=== PATIENT | male | born 1955 | race African-American/Black ===

== ENCOUNTER 2020-09-23 06:25 | Day surgery (SDC) | payer BC ==
--- OUTSIDE RECORDS SUMMARY | 2020-09-19 15:49 | XMS REPORT | Clinical Summary ---
:1955 Author Organization [facility] [employer] Address [address] [place] [address] Care Team Providers Name Role Phone Asked, Pcp Primary Care Provider Unavailable Allergies No Known Active Allergies Medications Medication Sig Dispensed Refills Start End Date Status Date amLODIPine (NORVASC) 10 Take 10 mg 0 Active mg tablet by mouth daily. aspirin (ECOTRIN) 81 MG Take 81 mg 0 Active enteric coated tablet by mouth daily. atorvastatin (LIPITOR) Take 80 mg 0 Active 80 MG tablet by mouth nightly. clopidogreL (PLAVIX) 75 Take 75 mg 0 Active mg tablet by mouth daily. hydroCHLOROthiazide Take 12.5 0 02/26/20 Discontinued (MICROZIDE) 12.5 mg mg by mouth 20 (Stop Taking at capsule every Discharge) morning. potassium chloride Take 10 mEq 0 02/26/20 Discontinued (K-DUR) 10 MEQ CR by mouth 20 (S top Taking at tablet daily. Discharge) valsartan (DIOVAN) 160 Take 160 mg 0 02/25 Discontinued MG tablet by mouth 20 (Stop Taki ng at daily. Discharge) valsartan (DIOVAN) 320 Take 1 30 tablet 2 0 MG tablet tablet (320 0 20 mg total) by mouth daily for 30 days. carvediloL (COREG) 6.25 Take 1 60 tablet 2 MG tablet tablet 0 20 (6.25 mg total) by mouth 2 (two) times a day for 30 days. docusate sodium Take 1 60 capsule 0 03/27/20 Exp ired (COLACE) 100 MG capsule capsule 0 20 (100 mg total) by mouth 2 (two) times a day for 30 days. nicotine (NICODERM CQ) Place 1 30 patch 1 2 0 21 mg/24 hr patch on 0 20 the skin daily for 30 days. Active Problems Problem Noted Date Chest pain 02/23/2020 NSTEMI (non-ST elevated myocardial infarction) 019 Essential hypertension 12/06/2018 Mixed hyperlipidemia 12/06/2018 Encounters Date Type Specialty Care Team Description 02/24/2020 Surgery Procedural Attyusuf, Left heart cath w lv Cardiology MD Nicole gram cors [[id number] (CPT)] 02/23/2020 - Hospital Encounter General Internal Lewis, NSTEM I (non-ST elevated myocardial infarction) (HCC) (Primary Dx); 02/26/2020 Medicine Dee O. Sr., Coronary inez ry disease due to lipid rich plaque; Essential hyper tension; Unstable angina pectoris (HCC); Mixed hyperlipi demia after 09/19/2019 Surgical History Surgery Date Site/Laterality Comments CARDIAC CATHETERIZATION 12/06/2018 N/A Procedur e: CV LEFT HEART CATH LV GRAM WIT H CORS; Surgeon: Nicole Rizo MD; Location: [facility] Opening Machine Cleaner Invasive Loc ation; Service: Cardiol ogy; Laterality: N/A; Medical devices from this surgery are in t he Implants section. CARDIAC CATHETERIZATION 12/06/2018 N/A Procedur e: PCI stent; Surgeon: Nicole Rioz MD; Location: [facility] Opening Machine Cleaner Invasive Loc ation; Service: Cardiol ogy; Laterality: N/A; Medical devices from this surgery are in t he Implants section. CARDIAC ELECTROPHYSIOLOGY 12/06/2018 N/A Proced ure: Ep temporary PROCEDURE lead insertion; Surgeon: Nicole Rizo MD; Location: [facility] Opening Machine Cleaner Invasive Locatio n; Service: Cardiol ogy; Laterality: N/A; Medical devices from this surgery are in t he Implants section. CARDIAC CATHETERIZATION 02/24/2020 N/A Procedur e: Left heart cath w lv gram cors; Surgeon: Nicole Rizo MD; Location: [facility] Opening Machine Cleaner Invasive Locatio n; Service: Cardiol ogy; Laterality: N/A; Medical devices from this surgery are in t he Implants section. CARDIAC CATHETERIZATION 02/24/2020 N/A Procedur e: Pci percutaneous cardiac angiopla sty; Surgeon: Nicole Rizo MD; Location: [facility] Opening Machine Cleaner Invasive Loc ation; Service: Cardiol ogy; Laterality: N/A; Medical devices from this surgery are in t he Implants section. Medical History Medical History Date Comments Hypertension Social History Tobacco Use Types Packs/Day Years Used Date Never Assessed Sex Assigned at Date Recorded Not on file Last Filed Vital Signs Vital Sign Reading Time Taken Comments Blood Pressure 151/88 02/26/2020 10:20 Dr. Saucedo aw are. AM CDT Pulse 67 02/26/2020 10:20 AM CDT Temperature 35.6 C (96 F) 02/26/2020 7:58 AM CDT Respiratory Rate 20 02/26/2020 7:58 AM CDT Oxygen Saturation 99% 02/26/2020 10:20 AM CDT Inhaled Oxygen - - Concentration Weight 82.2 kg (181 lb 3.2 02/26/2020 4:56 oz) AM CDT Height 165.1 cm (5' 5") 02/24/2020 8:59 AM CDT Body Mass Index 30.15 02/24/2020 8:59 AM CDT Plan of Treatment Health Maintenance Due Date Last Done Comments COLONOSCOPY SCREENING 09/29/2006 SHINGLES VACCINES (#1) 09/29/2006 INFLUENZA VACCINE 06/04/2020 Implants Implanted Type Area Plate Slitter And Inspector Device Shelf Model / Identifier Expiration Serial / Date Lot Stent Catheter Synergy (Otw) 3.00mm X 20mm - [id number] Coronary N/A: N/A [facility] [id number] / Implanted: 12/06/2018 at [facility] (Quantity not on file) Gopal nts INTERVENTIONAL / CARDIOLOGY Stent Catheter Synergy (Otw) 3.50mm X 32mm - [id number] Coronary N/A: N/A [facility] [id number] / Implanted: 12/06/2018 at [facility] (Quantity not on file) Gopal nts INTERVENTIONAL / CARDIOLOGY Stent Catheter Synergy (Otw) 3.50mm X 12mm - [id number] Coronary N/A: N/A [facility] [id number] / Implanted: 12/06/2018 at [facility] (Quantity not on file) Gopal nts INTERVENTIONAL / CARDIOLOGY Stent Catheter Synergy (Otw) 2.50mm X 12mm - [id number] Coronary N/A: N/A [facility] [id number] / Implanted: 02/24/2020 at [facility] (Quantity not on file) Gopal nts INTERVENTIONAL / CARDIOLOGY Procedures Procedure Name Priority Date/Time Associated Comments Diagnosis ESTIMATED GFR Routine 02/26/2020 5:45 Results fo r this AM CDT procedure are i n the results section. BASIC METABOLIC PANEL Routine 02/26/2020 5:45 Re sults for this AM CDT procedure are i n the results section. HC COMPLETE BLD COUNT Routine 02/26/2020 5:45 Re sults for this W/AUTO DIFF AM CDT procedure are i n the results section. ESTIMATED GFR Routine 02/25/2020 4:30 Results fo r this AM CDT procedure are i n the results section. PLATELET FUNCTION Routine 02/25/2020 4:30 Result s for this P2Y12 AM CDT procedure are i n the results section. BASIC METABOLIC PANEL Routine 02/25/2020 4:30 Re sults for this AM CDT procedure are i n the results section. HC COMPLETE BLD COUNT Routine 02/25/2020 4:30 Re sults for this W/AUTO DIFF AM CDT procedure are i n the results section. POC GLUCOSE Routine 02/24/2020 9:03 Results for this PM CDT procedure are i n the results section. CV PCI Routine 02/24/2020 2:48 Results for this PM CDT procedure are i n the results section. CV FRACTIONAL FLOW Routine 02/24/2020 2:48 Resul ts for this RESERVE PM CDT procedure are i n the results section. CV LEFT HEART CATH LV Routine 02/24/2020 2:48 Re sults for this GRAM WITH CORS PM CDT procedure are in the results section. ACTIVATED CLOTTING Routine 02/24/2020 1:45 Resul ts for this TIME PM CDT procedure are i n the results section. LIPID PANEL Routine 02/24/2020 4:45 Results for this AM CDT procedure are i n the results section. THYROID STIMULATING Routine 02/24/2020 4:45 Resu lts for this HORMONE AM CDT procedure are i n the results section. T4, FREE Routine 02/24/2020 4:45 Results for this AM CDT procedure are i n the results section. ESTIMATED GFR Routine 02/24/2020 4:45 Results fo r this AM CDT procedure are i n the results section. BASIC METABOLIC PANEL Routine 02/24/2020 4:45 Re sults for this AM CDT procedure are i n the results section. HC COMPLETE BLD COUNT Routine 02/24/2020 4:45 Re sults for this W/AUTO DIFF AM CDT procedure are i n the results section. ECG 12-LEAD Routine 02/23/2020 7:35 Results for this PM CDT procedure are i n the results section. TTE COMPLETE, W Routine 02/23/2020 6:00 Results for this CONTRAST, W DOPPLER PM CDT procedur e are in (C8929) the results section. TROPONIN Routine 02/23/2020 5:02 Results for this PM CDT procedure are i n the results section. after 09/19/2019 Results Estimated GFR (02/26/2020 5:45 AM CDT)Only the most recent of3 resultswithin the time period is included. Estimated GFR 72 mL/min/1.73 [facility] Comment: m2 HOSPITAL Catergory Units Interpretation G1 >=90 Normal or high G2 60-89 Mildly decreased G3a 45-59 Mildly to moderately decreas ed G3b 30-44 Moderately to severely decre ased G4 15-29 Severely decreased G5 <15 Kidney failure The eGFR was calculated using the Chronic Kidney Disea se Epidemiology Collaboration (CKD-EPI) equation. Interpretation is based on recommendations of the National Kidney Foundation-Kidney Disease Outcomes Nasim lity Initiative (NKF-KDOQI) published in 2014. Specimen Performing Organization Address City/State/ZIP Code Phon e Number [facility] DEPARTMENT OF PATHOLOGY AND [address] [place], [place] [phone] GENOMIC MEDICINE [address] [address] CBC with platelet and differential (02/26/2020 5:45 AM CDT)Only the most recent of3 resultswithin the time period is included. WBC 7.62 4.50 - 11.00 [facility] k/[facility] RBC 4.45 4.40 - 6.00 [facility] HGB 14.0 14.0 - 18.0 [facility] g/dL [facility] HCT 41.3 41.0 - 51.0 % [facility] MCV 92.8 82.0 - 100.0 [facility] MCH 31.5 27.0 - 34.0 pg [facility] MCHC 33.9 31.0 - 37.0 [facility] g/dL HOSPITAL RDW - SD 44.6 37.0 - 55.0 fL [facility] MPV 10.1 8.8 - 13.2 fL [facility] Platelet count 262 150 - 400 k/uL [facility] Nucleated RBC 0.00 /100 WBC [facility] Neutrophils 43.8 39.0 - 69.0 % [facility] Lymphocytes 38.3 25.0 - 45.0 % [facility] Monocytes 13.5 (H) 0.0 - 10.0 % [facility] Eosinophils 3.4 0.0 - 5.0 % [facility] Basophils 0.7 0.0 - 1.0 % [facility] Immature granulocytes 0.3Comment: 0.0 - 1.0 % [facility] "[facility] granulocytes" (promyelocytes , myelocytes, metamyelocytes ) Specimen Blood Performing Organization Address City/[facility] Phon e Number [facility] DEPARTMENT OF PATHOLOGY AND [address] [place] [address] [phone] [address] Basic metabolic panel (02/26/2020 5:45 AM CDT)Only the most recent of3 results within the time period is included. Pathologist Sig nature Sodium 135 135 - 148 mEq/L [facility] Potassium 4.0 3.5 - 5.0 mEq/L [facility] Chloride 99 98 - 112 mEq/L [facility] CO2 23 (L) 24 - 31 mEq/L [facility] Anion gap 13@ANIO 7 - 15 mEq/L [facility] BUN 17 8 - 23 mg/dL [facility] Creatinine 1.23 (H) 0.70 - 1.20 mg/dL [facility] Glucose 114 (H) 65 - 99 mg/dL [facility] Calcium 9.3 8.8 - 10.2 mg/dL [facility] Specimen Blood Performing Organization Address City/State/[facility] Phon e Number [facility] DEPARTMENT OF PATHOLOGY AND [address] [place] [address] [phone] [address] Platelet function P2Y12 (02/25/2020 4:30 AM CDT) Platelet function 192 [facility] P2Y12 Comment: HOSPITAL Test results are reported in P2Y12 Reaction Units (PRU ). Platelet Function P2Y12 indicates the extent of platel et aggregation in the presence of P2Y12 antagonist. Definitive therapeutic reference ranges have not been established for this test. For patients on clopidogrel, clinical studi es have shown that a P2Y12 result above 230 to 240 PRU is associated with an increase risk of arterial thrombosis, while a result l ess than 180 PRU is associated with an increased risk of bleeding. Test results may be adversely affected by therapy with the GPIIb/IIIa inhibitors. Drugs that affect platele t function may be detected up to 14 days after ingestion. The p latelet function recovery time varies among individuals and is longer for patients with renal dysfunction. Other test limi tations include patients with low hematocrit values or low pedro telet counts. This test is not intended for evaluation of patients w ith inherited platelet disorders. Specimen Blood Performing Organization Address City/[facility] Phon e Number [facility] DEPARTMENT OF PATHOLOGY AND [address] [place], [place] [phone] POC glucose (02/24/2020 9:03 PM CDT) [facility] POC glucose 123 (H) 65 - 99 mg/dL [facility] Comment: HOSPITAL Screw Machine Setter Name: Curry Toussaint Device ID: [id number] Chartable: [facility] Notified RN Specimen Blood Performing Organization Address City/[facility] Phon e Number [facility] DEPARTMENT OF PATHOLOGY AND [address] [place], [place] [phone] laborer golf course procedure (02/24/2020 2:48 PM CDT) [facility] [employer] Cath EF Estimated 53 % Autrement (HotelHotel) Specimen Narrative Performed At This result has an attachment that is no t available. Attending: Dr. Nicole Rizo [employer] Interventional Fellow: Mila Doll EQUIPMENT/ANTICOAGULATION: Right Common Femoral Artery 6F Sheath XB LAD 3.5 Guide Catheter Hi-Torque Floppy XS coronary wire Anticoagulation: Angiomax bolus and Infusion with AC T >250 sec prior to procedure PROCEDURAL DETAILS: Coronary arteriography showed normal left main segment . LAD had plaques without significant stenosis. First diagonal had a p roximal lesion of about 95%. Circumflex artery showed obtuse marginal branch that bifurcated in the inferior segment has an ostial lesio n of around 75%. Right coronary artery had stents proximal to distal wi th the distal in-stent stenosis around 50%. Left ventriculography was normal. No significant aor tic or mitral valve disease. Left ventricular ejection fraction around 5 5%. Coronary intervention: The RCA was engaged with the FR4 Guide Catheter and a Verrata Pressure coronary wire was advanced into the distal PDA. The le nile in the mid and distal RCA were assessed for significance. An iFR valu e of 0.99 was measured distally determining non-significance of the 60% ISR lesions. The LMT was engaged with the XB LAD 3.5 Guide Cathet er and a Verrata pressure coronary wire was advanced into the distal OM 2. The lesion involving in the proximal OM2 vessel was assessed for significance. An iFR value of 0.96 was measured determining non-significanc e of this 60% lesion. The LMT was engaged with the XB LAD 3.5 Guide Cathet er and a Hi-Torque Floppy XS coronary wire was advanced into the distal f irst diagonal. The lesion in the proximal D1 was pre-dilated with a 1.5 x 8mm semi-compliant balloon and stented with a 2.5 x 12mm Synergy YOJANA at 1 2atm. Final angiography revealed no evidence of dissection or perf oration; there was CLARISA 3 flow and 0% residual stenosis. HEMOSTASIS: Manual Pressure ADDITIONAL POST-PROCEDURE MEDICATIONS: PLAN: 1. ASA 81mg daily 2. Clopidogrel 75mg daily . 3. Cardiac medical therapy and aggressive risk factor modification. Cardiac rehabilitation. 4. Transferred in stable condition Performing Organization Address City/[facility]/ZIP Code Phon e Number [facility] [address] [place] [phone], Activated clotting time (02/24/2020 1:45 PM CDT) Pathologist [facility] Activated clotting 358 (H) 96 - 152 sec [facility] Comment: HOSPITAL Screw Machine Setter Name: Raina Bautista Device ID: [id number] Specimen Performing Organization Address [facility] Code Phon e Number [facility] DEPARTMENT OF PATHOLOGY AND [address] [place] [phone] GENOMIC MEDICINE [address] [address] Thyroid stimulating hormone (02/24/2020 4:45 AM CDT) Pathologist [facility] TSH 3.79 0.27 - 4.20 uIU/mL [facility] ITAL Specimen Performing Organization Address City/[facility] Phon e Number [facility] DEPARTMENT OF PATHOLOGY AND [address] [place] [address] [phone] [address] T4, free (02/24/2020 4:45 AM CDT) Pathologist Sig nature T4, free 1.2 0.9 - 1.7 ng/dL [facility] L Specimen Performing Organization Address [facility] Phon e Number [facility] DEPARTMENT OF PATHOLOGY AND [address] [place] [address] [phone] [address] Lipid panel (02/24/2020 4:45 AM CDT) Cholesterol 142 <200 mg/dL [facility] Triglycerides 152 (H) <150 mg/dL [facility] HDL cholesterol 34 (L) >40 mg/dL [facility] LDL cholesterol 84Comment: Result <100 mg/dL [place] obtained by direct [facility] LDL measurement [facility] interpretation Comment: [facility] Total Cholesterol (mg/dL) HOSPIT AL <200 Desirable 200-239 Borderline-high >=240 High Triglycerides (mg/dL) <150 Normal 150-199 Borderline-high 200-499 High >=500 Very high HDL Cholesterol (mg/dL) <40 Low (male) <40 Low (female) LDL Cholesterol (mg/dL) <100 Optimal 100-129 Near or above optimal 130-159 Borderline-high 160-189 High >=190 Very high Risk Catergories that modify LDL goals. Risk Catergories LDL goal (mg/d L) CHD and CHD risk equivalent <100 (10-year risk >20%) Multiple (2+) risk factors <130 (10-year risk =<20%) 0-1 risk factors <160 (<10-year risk) Defining levels of lipids in metabolic syndrome Triglycerides >=150 mg/dL HDL Cholesterol Men <40 mg /dL Women <40 mg/ dL Non-HDL cholesterol is a second target for therapy in persons with high triglycerides (>=200 mg/dL) Specimen Performing Organization Address City/[facility] Phon e Number [facility] DEPARTMENT OF PATHOLOGY AND [address] [place] [phone] GENOMIC MEDICINE [facility] [address] [place] [address] ECG 12 lead (02/23/2020 7:35 PM CDT) Pathologist Sig nature Ventricular rate 60 [facility] Atrial rate 60 [facility] [place] interval 174 [facility] QRSD interval 98 [facility] QT interval 414 H MUSE QTC interval 414 [facility] M[facility] P axis 1 53 [facility] QRS axis 1 -33 H MUSE T wave axis -75 [facility] MUSE EKG impression Normal sinus rhythm-Left axi s deviation-Moderate voltage criteria for LVH, may be normal variant ( R in aVL , Wood product )-Anterior infarct , age undetermined-T wave abnormality, consider inferior [facility] USE ischemia-Abnormal ECG-In automated comparison with ECG of 07-DEC-2018 05:16,-An terior infarct is now present- Specimen Narrative Performed At This result has an attachment that is no t available. Performing Organization Address City/State/ZIP Code Phon e Number [facility] MUSE [address] [place] [address] Transthoracic Echocardiogram Complete, (w Contrast, Strain and 3D if needed) (02/23/2020 6:00 PM CDT) Specimen Narrative Performed At [facility] Echo cardiography Report [address] [facility], [place] [address], [place] [address] Pat.Name: ELIUD SAUCEDO Pat.ID: [id number] .Date: 02/23/2020 Refer.MD: DEE SAUCEDO MD Exam Time: 5:36:00 PM Study Type:R outine Echo Height: 65in Weight: 184lb BSA: 1.91 m2 Ag e: 1955,64Y Sex: MALE BP: 161/93 HR: 60 bpm Sonogr phr: Heather Miller RDCS Pat. Stat.:Inpatient Room: Study Status:Final Echo Event ID:[id number] Order ID: [id number] Reason for Study:Chest pain, cardiac sebastian ology suspected History / Clinical:Hypertension, Chest P ain, Coronary Artery Disease Procedures: 2D Echo, Colorflow Doppler, Strain, Portable, Intravenous Lumason Contrast Race: B SUMMARY: LV EF is lower limits of normal. Estimated EF is 50-54%. RV systolic function is normal. FINDINGS: LV: LV size is normal. Concentr ic left ventricular remodeling. Reduced average LV global longitudinal strain at -12.7%. LV EF is lower limits of nor mal. Estimated EF is 50-54%. RV: RV size is normal. RV systo lic function is normal. LA: LA size is normal. RA: RA size is normal. AO: Aortic root diameter is nor mal. TOM: No pericardial effusion. IAS: Interatrial septum is redun dant. AV: No structural AV abnormalit ies noted. MV: No structural MV abnormalit ies noted. PV: No structural PV abnormalit ies noted. TV: No structural TV abnormalit ies noted. A trace of tricuspid regurgitation Mccabe: Diastolic dysfunction Grade I (Mild): Impaired relaxation with normal LV filling pr essures. Other: Insufficient TR jet to estim ate PA systolic pressure. MEASUREMENTS: 2D Parasternal Long Thorofare Ao An 2 cm LVPWd 1.1 cm Ao Rtd 3.6 cm Index 1.9 cm/m2 LA Ds 3.5 cm IVSd 1.1 cm RWT 0.45 LVIDd 4.9 cm Index 2.6 cm/m2 LV Mass 200 g (122-1 74) LVIDs 3.2 cm LVM In dex 105 g/m LV%fs 35 % LVOT 2 cm LA Sng Plane LA Area 18 cm (8.8-23.4) LA Vol 55 ml Index 29 ml/m2 LA LngAx 5.5 cm RA Sng Plane RA Vol 33 ml Index 17 ml/m2 RA LngAx 5 cm RA Area 14 cm (8.3-1 9.5) LVOT LVOT Area 3.2 cm DOPPLER LVOT Stroke Vol LVOT TVI 20 cm HR 63 bpm LVOT LVOT SV 64 ml LVOT CO 4 l/min SVi 34 ml/m LVOT C I 2.1 l/m/m WALL MOTION: RESTING WALL MOTION: Basal Inferior, Mid Inferior cisneros are a kinetic. Basal Inferoseptal, Basal Inferolateral cisneros are hypokineti c. Normal wall motion in all other cisneros. Wall Index = 1.4 Signed 02/23/2020 09:45 PM Cameron Adams M.D. Procedure Note Interface, Radiology Results In - 2019 9:45 PM CDT Echocardiography Report [address] [place] [address] Pat.Name: LEWISPUSHPANY Gerry Pat.I D: [id number] .Date: 02/23/2020 Refer .MD: DEE SAUCEDO MD Exam Time: 5:36:00 PM Study Type:Routine Echo Height: 65in Weigh t: 184lb BSA: 1.91 m2 Age: 1109/29/1955,64Y Sex: MALE BP: 161/93 HR: 60 bpm Sonog rphr: Heather Miller RDCS Pat. Stat.:Inpatient Room: Study Status:Final Echo Event ID:[id number] Order ID: [id number] Reason for Study:Chest pain, cardiac sebastian ology suspected History / Clinical:Hypertension, Chest P ain, Coronary Artery Disease Procedures: 2D Echo, Colorflow Doppler, Strain, Portable, Intravenous Lumason Contrast Race: B SUMMARY: LV EF is lower limits of normal. Estimated EF is 50-54%. RV systolic function is normal. FINDINGS: LV: LV size is normal. Concentric left ventricular remodeling. Reduced average LV global long itudinal strain at -12.7%. LV EF is lower limits of normal. Estimated EF is 50-54%. RV: RV size is normal. RV systolic function is normal. LA: LA size is normal. RA: RA size is normal. AO: Aortic root diameter is normal . TOM: No pericardial effusion. IAS: Interatrial septum is redundan t. AV: No structural AV abnormalities noted. MV: No structural MV abnormalities noted. PV: No structural PV abnormalities noted. TV: No structural TV abnormalities noted. A trace of tricuspid regurgitation Mccabe: Diastolic dysfunction Grade I (Mild): Impaired relaxation with normal LV filling pressur es. Other: Insufficient TR jet to estimat e PA systolic pressure. MEASUREMENTS: 2D Parasternal Long Thorofare Ao An 2 cm LVPW d 1.1 cm Ao Rtd 3.6 cm Inde x 1.9 cm/m2 LA Ds 3.5 cm IVSd 1.1 cm RWT 0.45 LVIDd 4.9 cm Inde x 2.6 cm/m2 LV Mass 200 g (122-174) LVIDs 3.2 cm LVM Index 105 g/m LV%fs 35 % LVOT 2 cm LA Sng Plane LA Area 18 cm (8.8-23.4) L A Vol 55 ml Index 29 ml/m2 LA LngAx 5.5 cm RA Sng Plane RA Vol 33 ml Inde x 17 ml/m2 RA LngAx 5 cm RA Area 14 cm (8.3-19.5) LVOT LVOT Area 3.2 cm DOPPLER LVOT Stroke Vol LVOT TVI 20 cm HR 63 bpm LVOT LVOT SV 64 ml LVOT CO 4 l/min SVi 34 ml/m LVO T CI 2.1 l/m/m WALL MOTION: RESTING WALL MOTION: Basal Inferior, Mid Inferior cisneros are a kinetic. Basal Inferoseptal, Basal Inferolateral cisneros are hypokineti c. Normal wall motion in all other cisneros. Wall Index = 1.4 Signed 02/23/2020 09:45 PM Cameron Adams M.D. Performing Organization Address City/State/ZIP Code [facility] e Number CUPID [id number] [place] [address] Troponin (02/23/2020 5:02 PM CDT) [facility] Signature Troponin 0.006 0.000 - 0.040 [facility] Comment: ng/mL HOSPITAL In patients suspected of having a myocardial infarctio n, along with all other appropriate clinical measures and actions includ ing ECG and other diagnostics as appropriate, measure Ultra TnI at 0 hrs and at 3 hrs. Myocardial infarction VERY LIKELY The 0 hr TnI level is > 0.10 ng/mL Myocardial infarction LIKELY The 0 hr TnI level is > 0.04 ng/mL and 3 hr level is i ncreased or decreased by at least 0.020 ng/mL Myocardial infarction VERY UNLIKELY Both the 0 hr and 3 hr TnI levels <= 0.04 ng/mL(within normal limits) OR 0 hr is > 0.04 ng/mL and 3 hr is increased OR decreased by less than 0.020 ng/mL Specimen Blood Performing Organization Address City/State/ZIP Code Phon e Number [facility] DEPARTMENT OF PATHOLOGY AND [address] [place] [address] [phone] GENOMIC MEDICINE [address] [address] after 09/19/2019 Advance Directives For more information, please contact: [phone] Type Date Recorded Patient Shank Skinner Explanati on Advance Directives, Living Will 02/23/2020 2:39 PM and Medical Power of Chief Revenue Officer Code Status Date Activated Date Inactivated Comments Full Code 12/06/2018 1:14 PM 12/09/2018 3:22 PM Code Status decision reached by: Patient
--- OUTSIDE RECORDS SUMMARY | 2020-09-19 15:50 | XMS REPORT | Continuity of Care Document ---
:[address] [facility] t Address [address] [place] [place] [address] Care Team Providers Name Role Phone Asked, Pcp Primary Care Physician Unavailable Lewis GASPAR, OEdwige Attending Clinician Sallie GASPAR Attending Clinician Yaron BOWERS Attending Clinician Doctor Unassigned, Name Attending Clinician Unavailable Abbi Higgins Attending Clinician Sallie GASPAR Attending Clinician Yvonne BOWERS, T Attending Clinician Jaime GASPAR Attending Clinician Singer LOZANO Attending Clinician LEWIS Admitting Clinician Unavailable Jaime GASPAR Admitting Clinician Payers Payer Name Policy Type Policy Effective Date Expiration Date Sour ce Number BCBSBCBS CHOICE [id number] 2019 [place] PPO/FEDERAL 00:00:00 [facility] EMPL [id number] 2019-Presen tPPO Problems Condition Condition Condition Status Onset Resolution Last Treating Co mments Source Name Details Category Date Date Treatment Clinician Date Chest pain Chest pain Disease Active [place] 4-21 [facility] st 00 NSTEMI NSTEMI Disease Active [place] (non-ST (non-ST 2-02 [facility] elevated elevated 00:00: st myocardial myocardial 00 infarction infarction ) ) Essential Essential Disease Active Nikkie ruiz hypertensi hypertensi 2-02 Me thodi on on 00:00: st 00 Mixed Mixed Disease Active 2018- [place] hyperlipid hyperlipid 2-02 Me thodi emia emia 00:00: st 00 Allergies, Adverse Reactions, Alerts This patient has no known allergies or adverse reactions. Social History Social Habit Start Date Stop Date Quantity Comments Source Sex Assigned At Nikkie ruiz [facility] Medications Ordered Filled Start Stop Current Ordering Indication Dosage Frequency Signature Comments Components Source Medication Medication Date Date Medication? Clinician (SIG) Name Name hydroCHLORO 2019-0 2019- No 12.5mg QD Take 12.5 Aranda thiazide 4-24 04-24 mg by [facility] (MICROZIDE) 10:56: 00:[address] 12.5 mg 05 :00 every capsule morning. potassium 2019-2019- No 10meq QD Take 10 Nikkie vianeyn chloride 4-24 04-24 mEq by [facility] (K-DUR) 10 10:56: 00:[address] MEQ CR 05 :00 daily. tablet valsartan 2019-0 2019- No 160mg QD Take 160 [place] (DIOVAN) 4-24 04-24 mg by [facility] 160 MG 10:56: 00:[address] tablet 05 :00 daily. amLODIPine 2020-0 Yes 10mg QD Take 10 mg [place] (NORVASC) 4-24 by mouth Method i 10 mg 10:56: daily. st tablet 02 aspirin 2020-0 Yes 81mg QD Take 81 mg [place] (ECOTRIN) 4-24 by mouth Method i 81 MG 10:56: daily. st enteric 02 coated tablet atorvastati 2020-0 Yes 80mg QD Take 80 mg Aranda n (LIPITOR) 4-24 by mouth Meth alysa 80 MG 10:56: nightly. st tablet 02 clopidogreL 2020-0 Yes 75mg QD Take 75 mg Aranda (PLAVIX) 75 4-24 by mouth Meth alysa mg tablet 10:56: daily. st 02 valsartan 2019-0 2020- No 320mg QD Take 1 [place] (DIOVAN) 4-24 05-24 tablet [facility] 320 MG 00:00: 23:59 ([address] tablet 00 :00 total) by mouth daily for 30 days. carvediloL 2019-0 2019- No 6.25mg Q.5D Take 1 Luiz wheat (COREG) 02-2524 tablet [facility] 6.25 MG 00:00: 23:59 (6.[address] tablet 00 :00 total) by mouth 2 (two) times a day for 30 days. docusate 2019- No 100mg Q.5D Take 1 [place] sodium 02-25-24 capsule [facility] (COLACE) 00:00: 23:59 ([address] 100 MG 00 :00 total) by capsule mouth 2 (two) times a day for 30 days. nicotine 2019- No 1{patch QD Place 1 Luiz zunigashivani (NICODERM 02-25 } patch on Metho di CQ) 21 00:00: 23:[address] mg/24 hr 00 :00 daily for 30 days. Vital Signs Vital Name Observation Time Observation Value Comments Source Systolic blood 2020-02-26 151 mm[Hg] Dr. Lewis Aranda pressure 10:20:00 aware. [facility] Diastolic blood 2020-02-26 88 mm[Hg] Dr. Lewis Aranda pressure 10:20:00 [facility] Heart rate 2020-02-26 67 /min [place] 10:20:00 [facility] Oxygen saturation 2020-02-26 99 /min Manoj in Arterial blood 10:20:00 [facility] by Pulse oximetry Body temperature 2020-02-26 35.56 Ada [place] 07:58:56 [facility] Respiratory rate 2020-02-26 20 /min [place] 07:58:56 [facility] Body weight 2020-02-26 82.192 kg [place] 04:56:03 [facility] BMI 2020-02-26 30.15 kg/m2 [place] 04:56:03 [facility] Body height 2020-02-24 165.1 cm [place] 08:59:00 [facility] Procedures Procedure Date / Time Performed Performing Clinician Sourc e HC COMPLETE BLD COUNT 2020-02-26 05:45:00 Dee Saucedo W/AUTO DIFF BASIC METABOLIC PANEL 2020-02-26 05:45:00 Dee Saucedo ESTIMATED GFR 2020-02-26 05:45:00 Dee Saucedo HC COMPLETE BLD COUNT 2020-02-25 04:30:00 Dee Saucedo W/AUTO DIFF BASIC METABOLIC PANEL 2020-02-25 04:30:00 Dee Saucedo PLATELET FUNCTION P2Y12 2020-02-25 04:30:00 Mila Doll ESTIMATED GFR 2020-02-25 04:30:00 Nicole Rizo POC GLUCOSE 2020-02-24 21:03:00 Dee Saucedo CV LEFT HEART CATH LV 2020-02-24 14:48:03 Nicole Rizo GRAM WITH CORS CV FRACTIONAL FLOW 2020-02-24 14:48:03 Nicole Rizo ethodist RESERVE CV PCI 2020-02-24 14:48:03 Nicole Rizo ACTIVATED CLOTTING TIME 2020-02-24 13:45:00 Dee Saucedo HC COMPLETE BLD COUNT 2020-02-24 04:45:00 Dee Saucedo W/AUTO DIFF BASIC METABOLIC PANEL 2020-02-24 04:45:00 Dee Saucedo ESTIMATED GFR 2020-02-24 04:45:00 Dee Saucedo T4, FREE 2020-02-24 04:45:00 Dee Saucedo THYROID STIMULATING 2020-02-24 04:45:00 Dee Saucedo HORMONE LIPID PANEL 2020-02-24 04:45:00 Dee Saucedo ECG 12-LEAD 2020-02-23 19:35:54 Dee Saucedo TTE COMPLETE, W 2020-02-23 18:00:00 Dee Saucedo CONTRAST, W DOPPLER ([id number]) TROPONIN 2020-02-23 17:02:00 Dee Saucedo Plan of Care Planned Activity Planned Date Details Comments Source Future Scheduled 2020-06-04 INFLUENZA VACCINE Venkata Gonzalez Test 00:00:00 [code = INFLUENZA VACCINE] Future Scheduled 2006-09-29 COLONOSCOPY SCREENING Luiz Gonzalez Test 00:00:00 [code = COLONOSCOPY SCREENING] Future Scheduled 2006-09-29 SHINGLES VACCINES Venkata Gonzalez Test 00:00:00 (#1) [code = SHINGLES VACCINES (#1)] Encounters Start End Encounter Admission Attending Care Care Encounter Source Date/Time Date/Time Type Type Clinicians Facility Department ID 2020-02-23 2020-02-26 Inpatient LEWIS [facility] [id number] [place] 00:00:00 00:00:00 DEE 807 Method i 2020-02-23 2020-02-23 Emergency Yaron [facility] [id number] 11:11:05 13:43:00 Malissa Susanna 350.1.13.10 [place] 4.2.7.2.686 [place] [id number] 2020-02-23 2020-02-23 Orders Doctor TERESA [id number] 00:00:00 00:00:00 Only Unassigned, DARCI 350.1.13.10 [place] [id number] 2020-02-02 2020-02-02 Emergency Juan Walker [facility] [id number] 13:49:48 16:11:00 Abbi Susanna 350.1.13.10 [place] 4.2.7.2.686 [place] [id number] 2020-02-02 2020-02-02 [facility] [id number] 12:27:00 13:48:00 Encounter Nicole Jackton [id number] [place] 4.2.7.2.686 [place] [id number] 2020-02-02 2020-02-02 [facility] [id number] 12:25:00 12:26:00 Encounter Nicole Jackton 350.1.13.10 [place] 4.2.7.2.686 [place] [id number] 2020-02-02 2020-02-02 Orders Doctor MOORE [id number] 00:00:00 00:00:00 Only Unassigned, DARCI 350.1.13.10 [place] [facility] 4.2.7.2.686 [id number] 2020-01-23 2020-01-26 Emergency Osmar Russell [facility] [id number] 15:16:17 10:22:00 Tao Sandoval 350.1.13.10 [place] 4.2.7.2.686 [place] [id number] 2020-01-12 2020-01-12 Emergency BENY Soliz [id number] 08:57:01 11:50:00 Srinivas Mullins 350.1.13.10 [place] 4.2.7.2.686 [place] [id number] Results Test Description Test Time Test Comments Results Result Comments 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 Nicole Rizo Interventional Fellow: Mila Doll EQUIPMENT/ANTICOAGULATION: Right Common Femoral [id number] Sheath XB LAD 3.5 Guide Catheter Hi-Torque Floppy XS coronary wire Anticoagulation: Angiomax bolus and Infusion with ACT >250 sec prior to procedure PROCEDURAL DETAILS: Coronary arteriography showed normal left main segment. LAD had plaques without significant stenosis. First diagonal had a proximal lesion of about 95%. Circumflex artery showed obtuse marginal branch that bifurcated in the inferior segment has an ostial lesion of around 75%. Right coronary artery had stents proximal to distal with the distal in-stent stenosis around 50%. Left ventriculography was normal. No significant aortic or mitral valve disease. Left ventricular ejection fraction around 55%. Coronary intervention:The RCA was engaged with the FR4 Guide Catheter and a Verrata Pressure coronary wire was advanced into the distal PDA. The lesion in the mid and distal RCA were assessed for significance. An iFR value of 0.99 was measured distally determining non-significance of the 60% ISR lesions. The LMT was engaged with the XB LAD 3.5 Guide Catheter and a Verrata pressure coronary wire was advanced into the distal OM2. The lesion involving in the proximal OM2 vessel was assessed for significance. An iFR value of 0.96 was measured determining non-significance of this 60% lesion. The LMT was engaged with the XB LAD 3.5 Guide Catheter and a Hi-Torque Floppy XS coronary wire was advanced into the distal first diagonal. The lesion in the proximal D1 was pre-dilated with a 1.5 x 8mm semi-compliant balloon and stented with a 2.5 x 12mm Synergy MJ at 12atm. Final angiography revealed no evidence of dissection or perforation; there was CLARISA 3 flow and 0% residual stenosis. HEMOSTASIS: Manual Pressure ADDITIONAL POST-PROCEDURE MEDICATIONS: PLAN: 1. ASA 81mg daily2. Clopidogrel 75mg daily . 3. Cardiac medical therapy and aggressive risk factor modification. Cardiac rehabilitation. 4. [facility] [id number] 06:39:18 Test Item Value Reference Range Interpretation Comments Sodium (test code = 2951-2) 135 135- 148 mEq/L Potassium (test code = 2823-3) 4.0 3.5- 5.0 mEq/L Chloride (test code = 2075-0) 99 98- 112 mEq/L CO2 (test code = 2027-9) 23 24- 31 mEq/L L Anion gap (test code = 51561-5) 13@ANIO 7- 15 mEq/L BUN (test code = 3094-0) 17 mg/dL 8-23 Creatinine (test code = 2160-0) 1.23 mg/dL 0.7-1.2 H Glucose (test code = 2345-7) 114 mg/dL 65-99 H Calcium (test code = 86401-5) 9.3 mg/dL 8.8-10.2 Lab Interpretation (test code = Abnormal 71830-4) [place] MethodistEstimated [id number] 06:39:18 Test Item Value Reference Range Interpretation Comments Estimated GFR (test 72 mL/min/1.73 m2 [facility] Units code = 5488) InterpretationG 1 >=90 Normal or highG2 60-89 Mildly ousyscbshD7t 45-59 Mildly to mode rately bqyhdybufU7f 30-44 Moderately to severely decreasedG4 15-29 Severely decre asedG5 <15 Kidn ey failureThe eGFR was calculated rica g the Chronic Kidney Disease Epidemiology Co llaboration (CKD-EPI) equat ion. Interpretation is based on recommendations of the National Kidney Foundation-Kidn ey Disease Outcomes Qualit y Initiative (NKF-KDOQI) pub lished in 2014. [place] MethodistCBC with platelet and nuzkwtiamvqi6456-73-52 06:08:54 Test Item Value Reference Range Interpretation Comments WBC (test code = 93585-9) 7.62 4.50- 11.00 k/uL RBC (test code = 41677-0) 4.45 m/uL 4.4-6 HGB (test code = 718-7) 14.0 g/dL 14-18 HCT (test code = 4544-3) 41.3 % 41-51 MCV (test code = 787-2) 92.8 fL 82-100 MCH (test code = 785-6) 31.5 pg 27-34 MCHC (test code = 786-4) 33.9 g/dL 31-37 RDW - SD (test code = 44.6 fL 37-55 11849-5) MPV (test code = 79035-9) 10.1 fL 8.8-13.2 Platelet count (test code 262 150- 400 k/uL = 19560-0) Nucleated RBC (test code 0.00 /100 WBC = 86411-6) Neutrophils (test code = 43.8 % 39-69 78302-3) Lymphocytes (test code = 38.3 % 25-45 10960-2) Monocytes (test code = 13.5 % 0-10 H 14366-7) Eosinophils (test code = 3.4 % 0-5 38380-0) Basophils (test code = 0.7 % 0-1 16841-0) Immature granulocytes 0.3 % 0-1 "Immat ure (test code = 00467-9) granul ocytes" (promyelocytes, myelocytes, metamyelocytes) Lab Interpretation (test Abnormal code = 87889-4) [place] MethodistPlatelet function [id number] 05:39:39 Test Item Value Reference Range Interpretation Comments Platelet function P2Y12 192 Test results are reported (test code = 35789-0) in P2Y 12 Reaction Units (PRU).Platelet Function P2Y12 indicates the extent of plate let aggregation in the presence of P2Y 12 antagonist.Defi nitive therapeutic ref erence ranges have not been established for this test. For patie nts on clopidogrel, cl inical studies have sh own that a P2Y12 result ab ove 230 to 240 PRU is asso ciated with an increas e risk of arterial thromb osis, while a result less than 180 PRU is asso ciated with an increas ed risk of bleeding.Test r esults may be adversely af fected by therapy with th e GPIIb/IIIa inhi bitors. Drugs that affe ct platelet functi on may be detected up to 14 days after ingestion . The platelet functi on recovery time v cristiano among individua ls and is longer for sigifredo ents with renal dysfuncti on. Other test limitation s include patients with l ow hematocrit valu es or low platelet counts . This test is not int ended for evaluation of p atients with inherited platelet disorders. 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 Interpretation Abnormal (test code = 96692-2) [place] MethodistActivated clotting [id number] 13:51:49 Test Item Value Reference Range Interpretation Comments Activated clotting time 358 96- 152 sec H Oper ator Name: [place] (test code = 5298) Pradeep ce ID: [id number] Lab Interpretation (test Abnormal code = 26447-3) [place] MethodistLipid [id number] 06:50:28 Test Item Value Reference Interpretation Comments Range Cholesterol (test 142 mg/dL <200 code = 2093-3) Triglycerides (test 152 mg/dL <150 H code = 2571-8) HDL cholesterol 34 mg/dL >40 L (test code = 2085-9) LDL cholesterol 84 mg/dL <100 Result obtai rabia by direct (test code = 2089-1) LDL dale surement Lipid panel SeeBelow Total Cholester ol (mg/dL) interpretation (test < 200 code = 20779-3) Desirable 200-239 Borderline -high >=240 Hi gh Triglyceri mj (mg/dL) <150 No rmal 150-199 Borderline-high 200-499 High >=500 Very high HDL Choles terol (mg/dL) <40 Low (male) < 40 Low (female) L DL Cholesterol (mg /dL) <100 Optimal 1 00-129 Near or above o ptimal 130-159 Borderline-high 160-189 High >=190 Very high Risk Cat ergories that modify LDL goals.Risk Catergories LDL goal (mg/dL )CHD and CHD risk equiva lent <100 (10-year risk >20%)Multiple ( 2+) risk factors < 130 (10-year risk = <20%)0-1 risk factors <160 (<10-ye ar risk) Defining levels of lipids in metabolic syndromeTriglyc erides > =150 mg/dLHDL Choles terol Men <40 mg/dL Women <40 mg/dL Non-HDL cholest aram is a second target f or therapy in personswith high triglycerides ( >=200 mg/dL) Lab Interpretation Abnormal (test code = 72295-7) [place] MethodistT4, [id number] 06:47:50 Test Item Value Reference Range Interpretation Comments T4, free (test code = 3024-7) 1.2 ng/dL 0.9-1.7 [facility] HospitalphillipThyroid stimulating [id number] 06:47:50 Test Item Value Reference Range Interpretation Comments TSH (test code = 3016-3) 3.79 0.27- 4.20 uIU/mL [place] CongregationTransthoracic Echocardiogram Complete, (w Contrast, Strain and 3D if needed)2020-02-23 21:45:00Interface, Radiology Results In - 02/23/2020 9:45 PM CDT Echocardiography Report [address] [place] [address] Pat.Name: RENA SAUCEDO Pat.ID: [id number].Date: 02/23/2020 Refer.MD: DEE SAUCEDO MD Exam Time: 5:36:00 PM Study Type:Routine Echo Height: 65in Weight: 184lb BSA: 1.91 m2 Age: 1109/29/1955,64Y Sex: MALE BP: 161/93 HR: 60 bpm Sonogrphr: Heather Miller RDCS Pat. Stat.:Inpatient Room: QP9388-U Study Status:Final Echo Event ID:[id number] Order ID: [id number] Reason forStudy:Chest pain, cardiac etiology suspectedHistory / Clinical:Hypertension, Chest Pain, Coronary Artery DiseaseProcedures: 2D Echo, Colorflow Doppler, Strain, Portable, IntravenousLumason ContrastRace: B SUMMARY: ---------LV EF is lower limits of normal.Estimated EF is 50-54%.RV systolic function is normal.------ FINDINGS: LV: LV size is normal. Concentric left ventricular remodeling. Reduced average LV global longitudinal strain at-12.7%. LV EF is lower limits of normal. Estimated EF is 50-54%.RV: RV size is normal. RV systolic function is normal.LA: LA size is normal.RA: RA size is normal.AO: Aortic root diameter is normal.TOM: No pericardial effusion.IAS: Interatrial septum is redundant.AV: No structural AV abnormalities noted.MV: No structural MV abnormalities noted.PV: No structural PV abnormalities noted.TV: No structural TV abnormalities noted. A trace of tricuspid regurgitation Mccabe: Diastolic dysfunction Grade I (Mild): Impaired relaxation with normal LV filling pressures.Other: Insufficient TR jet to estimate PA systolic pres sure. MEASUREMENTS: 2DParasternal Long Albert Lea Ao An 2 cm LVPWd 1.1 cm Ao Rtd 3.6 cm Index 1.9 cm/m2 LA Ds 3.5 cm IVSd 1.1 cm RWT 0.45 LVIDd 4.9 cm Index 2.6 cm/m2 LV Mass 200 g (122-174) LVIDs 3.2 cm LVM Index 105 g/m2 LV%fs 35 % LVOT 2 cm LA Sng PlaneLA Area 18 cm2 (8.8-23.4) LA Vol 55 ml Index 29 ml/m2 LA LngAx 5.5 cm RA Sng Plane RA Vol 33 ml Index 17 ml/m2RA LngAx 5 cm RA Area 14 cm2 (8.3-19.5)LVOT LVOT Area 3.2 cm2 DOPPLERLVOT Stroke Vol LVOT TVI 20 cm HR 63 bpm LVOT LVOT SV 64 ml LVOT CO 4 l/min SVi 34 ml/m2 LVOT CI 2.1 l/m/m2 WALL MOTION:---- RESTING WALL MOTION:Basal Inferior, Mid Inferior cisneros are akinetic. Basal Inferoseptal,Basal Inferolateral cisneros are hypokinetic. Normal wall motion in allother cisneros.Wall Index = 1.4Signed 02/23/2020 09:45 PMSherPrice Maya 12 [id number] 20:09:09 Test Item Value Reference Range Interpretation Comments Ventricular rate (test 60 code = 253) Atrial rate (test code 60 = 255) NC interval (test code 174 = 266) QRSD interval (test 98 code = 260) QT interval (test code 414 = 264) QTC interval (test code 414 = 265) P axis 1 (test code = 53 267) QRS axis 1 (test code = -33 268) T wave axis (test code -75 = 270) EKG impression (test Normal sinus code = 273) rhythm-Left axis deviation-Moderate voltage criteria for LVH, may be normal variant ( R in aVL , [place] product )-Anterior infarct , age undetermined-T wave abnormality, consider inferior ischemia-Abnormal ECG-In automated comparison with ECG of 07-DEC-2018 05:16,-Anterior infarct is now present- Manoj [id number] 18:44:12 Test Item Value Reference Range Interpretation Comments Troponin (test code 0.006 ng/mL 0-0.04 In patie nts suspected = 32975-6) of having a lang cardial infarction, talya arellano with all other appro priate clinical measur es and actions includi ng ECG and other diagn ostics as appropriate, measure Ultra TnI at 0 hrs and at 3 hrs.Myocar dial infarction VERY LIKELYThe 0 hr TnI level is > 0.10 ng/mL -------- -------- -------- --------Myocard ial infarction LIKE LYThe 0 hr TnI level is > 0.04 ng/mL and 3 hr level is increased or de creased by at least 0.0 20 ng/mL -------- -------- -------- ---Myocardial infarction VERY UNLIKELYBoth th e 0 hr and 3 hr TnI le vels <= 0.04 ng/mL(with in normal limits) OR 0 hr is > 0.04 ng/mL and 3 hr is increased OR decreased by le ss than 0.020 ng/mL Manoj Gonzalez
[2020-09-19 17:04] LABS: Basophils % 0.9 % (0-1.3); Hematocrit 41.3 % (39.6-49.0); Lymphocytes % 44.7 % (15.3-44.8); MPV 8.8 fL (7.6-11.3); RBC Red Blood Cell Count 4.48 M/uL (4.33-5.43)
[2020-09-19 17:14] LABS: Potassium 3.5 mmol/L (3.5-5.1)
--- NOTE | 2020-09-20 06:00 | EKG ---
Test Date: 2020-09-19 Test Time: 17:44:13 Cathode Builder: SHAYAN MEASUREMENT RESULTS: Intervals: Rate: 62 MN: 174 QRSD: 100 QT: 420 QTc: 426 [place]: P: 39 MN: 174 QRS: -36 T: -47 INTERPRETIVE STATEMENTS: Normal sinus rhythm Left axis deviation Voltage criteria for left ventricular hypertrophy T wave abnormality, consider lateral ischemia Abnormal ECG Compared to ECG 08/13/2014 08:55:44 Left-axis deviation now present T-wave abnormality still present Possible ischemia still present Electronically Signed On 09-20-20 05:59:36 INSTRUCTOR TECHNICAL TRAINING by Judson Mosley
--- OUTSIDE RECORDS SUMMARY | 2020-09-23 06:30 | XMS REPORT | Clinical Summary ---
:1955 Author Organization [facility] Address [address] [place] [address] Care Team Providers Name Role Phone Asked, [...] angina pectoris (HCC); Mixed hyperlipi demia after 09/23/2019 Surgical History Surgery Date Site/Laterality Comments CARDIAC CATHETERIZATION 12/06/2018 N/A Procedur e: CV LEFT HEART CATH LV GRAM WIT H CORS; Surgeon: Nicole Rizo MD; Location: [facility] Vp Compliance Invasive Loc ation; Service: Cardiol ogy; Laterality: N/A; Medical devices from this surgery are in t he Implants section. CARDIAC CATHETERIZATION 12/06/2018 N/A Procedur e: PCI stent; Surgeon: Nicole Rizo MD; Location: [facility] Vp Compliance Invasive Loc ation; Service: Cardiol ogy; Laterality: N/A; Medical devices from this surgery are in t he Implants section. CARDIAC ELECTROPHYSIOLOGY 12/06/2018 N/A Proced ure: Ep temporary PROCEDURE lead insertion; Surgeon: Nicole Rizo MD; Location: [facility] Vp Compliance Invasive Locatio n; Service: Cardiol ogy; Laterality: N/A; Medical devices from this surgery are in t he Implants section. CARDIAC CATHETERIZATION 02/24/2020 N/A Procedur e: Left heart cath w lv gram cors; Surgeon: Nicole Rizo MD; Location: [facility] Vp Compliance Invasive Locatio n; Service: Cardiol ogy; Laterality: N/A; Medical devices from this surgery are in t he Implants section. CARDIAC CATHETERIZATION 02/24/2020 N/A Procedur e: Pci percutaneous cardiac angiopla sty; Surgeon: Nicole Rizo MD; Location: [facility] Vp Compliance Invasive Loc ation; Service: Cardiol ogy; Laterality: [...] INFLUENZA VACCINE 06/04/2020 Implants Implanted Type Area Signalling And Communications Engineer Device Shelf Model / Identifier Expiration Serial / Date Lot Stent Catheter Synergy (Otw) 3.00mm X 20mm - [id number] Coronary N/A: N/A [facility] [id number] / Implanted: 12/06/2018 at [facility] (Quantity not on file) Gopal nts INTERVENTIONAL / CARDIOLOGY Stent Catheter Synergy (Otw) 3.50mm X 32mm - [id number] Coronary N/A: N/A [facility] [id number] / Implanted: 12/06/2018 at [facility] (Quantity not on file) Gopal nts INTERVENTIONAL / CARDIOLOGY Stent Catheter Synergy (Otw) 3.50mm X 12mm - [id number] Coronary N/A: N/A [facility] [id number] / Implanted: 12/06/2018 at [facility] (Quantity not on file) Gopal nts INTERVENTIONAL / CARDIOLOGY Stent Catheter Synergy (Otw) 2.50mm X 12mm - [id number] Coronary N/A: N/A [facility] [id number] / Implanted: 02/24/2020 at [facility] (Quantity not on file) Gopal nts INTERVENTIONAL [...] are i n the results section. after 09/23/2019 Results Estimated GFR (02/26/2020 5:45 AM CDT)Only the most recent of3 resultswithin the time period is included. Estimated GFR 72 mL/min/1.73 [facility] Comment: m2 HOSPITAL Catergory Units [...] Organization Address City/State/ZIP Code Phon e Number [facility] DEPARTMENT OF PATHOLOGY AND [address] [place], [place] [address] GEN[address] [address] CBC with platelet and differential (02/26/2020 5:45 AM CDT)Only the most recent of3 resultswithin the time period is included. WBC 7.62 4.50 - 11.00 [facility] k/[facility] RBC 4.45 4.40 - 6.00 [facility] HGB 14.0 14.0 - 18.0 [facility] g/dL [facility] HCT 41.3 41.0 - 51.0 % [facility] MCV 92.8 82.0 - 100.0 [facility] MCH 31.5 27.0 - 34.0 pg [facility] MCHC 33.9 31.0 - 37.0 [facility] g/dL HOSPITAL RDW - SD 44.6 37.0 - 55.0 fL [facility] MPV 10.1 8.8 - 13.2 fL [facility] Platelet count 262 150 - 400 k/uL [facility] Nucleated RBC 0.00 /100 WBC [facility] Neutrophils 43.8 39.0 - 69.0 % [facility] Lymphocytes 38.3 25.0 - 45.0 % [facility] Monocytes 13.5 (H) 0.0 - 10.0 % [facility] Eosinophils 3.4 0.0 - 5.0 % [facility] Basophils 0.7 0.0 - 1.0 % [facility] Immature granulocytes 0.3Comment: 0.0 - 1.0 % [facility] "[facility] granulocytes" (promyelocytes , myelocytes, metamyelocytes ) Specimen Blood Performing Organization Address City/[facility] Phon e Number [facility] DEPARTMENT OF PATHOLOGY AND [address] [place] [address] [phone] [address] Basic metabolic panel (02/26/2020 5:45 AM CDT)Only the most recent of3 results within the time period is included. Pathologist Sig nature Sodium 135 135 - 148 mEq/L [facility] Potassium 4.0 3.5 - 5.0 mEq/L [facility] Chloride 99 98 - 112 mEq/L [facility] CO2 23 (L) 24 - 31 mEq/L [facility] Anion gap 13@ANIO 7 - 15 mEq/L [facility] BUN 17 8 - 23 mg/dL [facility] Creatinine 1.23 (H) 0.70 - 1.20 mg/dL [facility] Glucose 114 (H) 65 - 99 mg/dL [facility] Calcium 9.3 8.8 - 10.2 mg/dL [facility] Specimen Blood Performing Organization Address City/State/[facility] Phon e Number [facility] DEPARTMENT OF PATHOLOGY AND [address] [place] [address] [phone] [address] Platelet function P2Y12 (02/25/2020 4:30 AM CDT) Platelet function 192 [facility] P2Y12 Comment: HOSPITAL Test results [...] platelet disorders. Specimen Blood Performing Organization Address City/[facility] Phon e Number [facility] DEPARTMENT OF PATHOLOGY AND [address] [place], [place] [phone] POC glucose (02/24/2020 9:03 PM CDT) [facility] POC glucose 123 (H) 65 - 99 mg/dL [facility] Comment: HOSPITAL Food Selector Name: Curry Toussaint Device ID: [id number] Chartable: [facility] Notified RN Specimen Blood Performing Organization Address City/[facility] Phon e Number [facility] DEPARTMENT OF PATHOLOGY AND [address] [place], [place] [phone] optical laboratory mechanic procedure (02/24/2020 2:48 PM CDT) [facility] UNI5 Cath EF Estimated 53 % [place] Specimen Narrative Performed At This result has an attachment that is no t available. Attending: Dr. Nicole Rizo UNI5O Interventional Fellow: Mila Doll EQUIPMENT/ANTICOAGULATION: Right Common [...] Transferred in stable condition Performing Organization Address City/[facility]/ZIP Code Phon e Number [facility] [address] [place] [address], Activated clotting time (02/24/2020 1:45 PM CDT) Pathologist [facility] Activated clotting 358 (H) 96 - 152 sec [facility] Comment: HOSPITAL Food Selector Name: Raina Bautista Device ID: [id number] Specimen Performing Organization Address [facility] Code Phon e Number [facility] DEPARTMENT OF PATHOLOGY AND [address] [place] [phone] GENOM[address] [address] Thyroid stimulating hormone (02/24/2020 4:45 AM CDT) Pathologist [facility] TSH 3.79 0.27 - 4.20 uIU/mL [facility] ITAL Specimen Performing Organization Address City/[facility] Phon e Number [facility] DEPARTMENT OF PATHOLOGY AND [address] [place] [address] [phone] [address] T4, free (02/24/2020 4:45 AM CDT) Pathologist Sig nature T4, free 1.2 0.9 - 1.7 ng/dL [facility] L Specimen Performing Organization Address [facility] Phon e Number [facility] DEPARTMENT OF PATHOLOGY AND [address] [place] [address] [phone] [address] Lipid panel (02/24/2020 4:45 AM CDT) Cholesterol 142 <200 mg/dL [facility] Triglycerides 152 (H) <150 mg/dL [facility] HDL cholesterol 34 (L) >40 mg/dL [facility] LDL cholesterol 84Comment: Result <100 mg/dL [place] obtained by direct [facility] LDL measurement [facility] Comment: [facility] Total Cholesterol (mg/dL) HOSPIT AL <200 Desirable [...] triglycerides (>=200 mg/dL) Specimen Performing Organization Address City/[facility] Phon e Number [facility] DEPARTMENT OF PATHOLOGY AND [address] [place] [phone] GENOMIC MEDICINE [facility] [address] [place] [address] ECG 12 lead (02/23/2020 7:35 PM CDT) Pathologist Sig nature Ventricular rate 60 [facility] MUSE Atrial rate 60 [facility] MUSE NH interval 174 [facility] QRSD interval 98 [facility] MUSE QT interval 414 H MUSE QTC interval 414 [facility] MUSE P axis 1 53 [facility] MUSE QRS axis 1 -33 H MUSE T wave axis -75 [facility] MUSE EKG impression Normal sinus rhythm-Left axi s deviation-Moderate voltage criteria for LVH, may be normal variant ( R in aVL , [place] product )-Anterior infarct , age undetermined-T wave abnormality, consider inferior [facility] USE ischemia-Abnormal ECG-In automated comparison with ECG of 07-DEC-2018 05:16,-An terior infarct is now present- Specimen Narrative Performed At This result has an attachment that is no t available. Performing Organization Address City/State/ZIP Code Phon e Number [facility] MUSE [address] [place] [address] Transthoracic Echocardiogram Complete, (w Contrast, Strain and 3D if needed) (02/23/2020 6:00 PM CDT) Specimen Narrative Performed At [facility] Echo cardiography Report [address] [facility], [place] [address], [place] [address] Pat.Name: ELIUD SAUCEDO Pat.ID: [id number] .Date: 02/23/2020 Refer.MD: DEE SAUCEDO MD Exam Time: 5:36:00 PM Study Type:R outine Echo Height: 65in Weight: 184lb BSA: 1.91 m2 Ag e: 1955,64Y Sex: MALE BP: 161/93 HR: 60 bpm Sonogr phr: Heather Miller RDCS Pat. Stat.:Inpatient Room: Study Status:Final Echo Event ID:[id number] Order ID: [id number] Reason for Study:Chest pain, cardiac sebastian ology [...] PA systolic pressure. MEASUREMENTS: 2D Parasternal [place] Ao An 2 cm LVPWd 1.1 cm [...] - 2019 9:45 PM CDT Echocardiography Report [address] [place] [address] Pat.Name: LEWISPUSHPANY Gerry Pat.I D: [id number] .Date: 02/23/2020 Refer .MD: DEE SAUCEDO MD Exam Time: 5:36:00 PM Study Type:Routine Echo Height: 65in Weigh t: 184lb BSA: 1.91 m2 Age: 1109/29/1955,64Y Sex: MALE BP: 161/93 HR: 60 bpm Sonog rphr: Heather Miller RDCS Pat. Stat.:Inpatient Room: Study Status:Final Echo Event ID:[id number] Order ID: [id number] Reason for Study:Chest pain, cardiac sebastian ology [...] PA systolic pressure. MEASUREMENTS: 2D Parasternal [place] Ao An 2 cm LVPW d 1.1 [...] Adams M.D. Performing Organization Address City/State/ZIP Code [facility] e Number [facility] [address] [place] [address] Troponin (02/23/2020 5:02 PM CDT) [facility] Signature Troponin 0.006 0.000 - 0.040 [facility] Comment: ng/mL HOSPITAL In patients suspected of [...] Organization Address City/State/ZIP Code Phon e Number [facility] DEPARTMENT OF PATHOLOGY AND [address] [place] [phone] GENOMIC MED[address] [address] after 09/23/2019 Advance Directives For more information, please contact: [phone] Type Date Recorded Patient Procurement Manager Explanati on Advance Directives, Living Will 02/23/2020 2:39 PM and Medical Power of Money Examiner Code Status Date Activated Date Inactivated Comments Full Code 12/06/2018 1:14 PM 12/09/2018 3:22 PM Code Status decision reached by: Patient
--- OUTSIDE RECORDS SUMMARY | 2020-09-23 06:31 | XMS REPORT | Continuity of Care Document ---
:1955 Author Organization [facility] t Address [address] [place] [place] [address] Care Team Providers Name Role Phone Asked, Pcp Primary Care Physician Unavailable Lewis GASPAR, OEdwige Attending Clinician Sallie GASPAR Attending Clinician Yaron BOWERS Attending Clinician Doctor Unassigned, Name Attending Clinician Unavailable Abbi Higgins Attending Clinician Slalie GASPAR Attending Clinician Yvonne BOWERS, T Attending Clinician Jaime GASPAR Attending Clinician Singer LOZANO Attending Clinician LEWIS Admitting Clinician Unavailable Jaime GASPAR Admitting Clinician Payers Payer Name Policy Type Policy Effective Date Expiration Date Sour ce Number BCBSBCBS CHOICE [id number] 2019 [place] PPO/FEDERAL 00:00:00 [facility] EMPL [id number] 2019-Presen tPPO Problems Condition Condition Condition Status Onset Resolution Last Treating Co mments Source Name Details Category Date Date Treatment Clinician Date Chest pain Chest pain Disease Active [facility] [place] 4-21 [facility] 00:[facility] st 00 NSTEMI NSTEMI Disease Active [place] (non-ST (non-ST 2-02 [facility] elevated elevated 00:00: st myocardial myocardial 00 infarction infarction ) ) Essential Essential Disease Active Nikkie ruiz hypertensi hypertensi 2-02 Me thodi on on 00:00: st 00 Mixed Mixed Disease Active 2018- [place] hyperlipid hyperlipid 2-02 Me thodi emia emia 00:00: st 00 Allergies, Adverse Reactions, Alerts This patient has no known allergies or adverse reactions. Social History Social Habit Start Date Stop Date Quantity Comments Source Sex Assigned At Nikkie ruiz [facility] Medications Ordered Filled Start Stop Current Ordering [...] mm[Hg] Dr. Lewis Aranda pressure 10:20:00 aware. [facility] Diastolic blood 2020-02-26 88 mm[Hg] Dr. Lewis Aranda pressure 10:20:00 aware. [facility] Heart rate 2020-02-26 67 /min [place] 10:20:00 [facility] Oxygen saturation 2020-02-26 99 /min Manoj in Arterial blood 10:20:00 [facility] by Pulse oximetry Body temperature 2020-02-26 35.56 Ada [place] 07:58:56 [facility] Respiratory rate 2020-02-26 20 /min [place] 07:58:56 [facility] Body weight 2020-02-26 82.192 kg [place] 04:56:03 [facility] BMI 2020-02-26 30.15 kg/m2 [place] 04:56:03 [facility] Body height 2020-02-24 165.1 cm [place] 08:59:00 [facility] Procedures Procedure Date / Time Performed Performing [...] Facility Department ID 2020-02-23 2020-02-26 Inpatient [facility] [id number] [place] 00:00:00 00:00:00 DEE 807 Method i 2020-02-23 2020-02-23 Emergency Yaron [facility] [id number] 11:11:05 13:43:00 Malissa Susanna 350.1.13.10 [place] 4.2.7.2.686 [place] [id number] [id number] 2020-02-23 2020-02-23 Orders Doctor TERESA [id number] 00:00:00 00:00:00 Only Unassigned, DARCI 350.1.13.10 [place] [address].2.7.2.686 [id number] 2020-02-02 2020-02-02 Emergency Juan Walker [facility] 1.2.840.114 [id number] 13:49:48 16:11:00 Abbi Susanna 350.1.13.10 [place] 4.2.7.2.686 [place] [id number] [id number] 2020-02-02 2020-02-02 [facility] 1.2.840.114 [id number] 12:27:00 13:48:00 Encounter Nicole Jackton 350.1.13.10 [place] 4.2.7.2.686 [place] [id number] 2020-02-02 2020-02-02 [facility] 1.2.840.114 [id number] 12:25:00 12:26:00 Encounter Nicole Jackton 350.1.13.10 [place] 4.2.7.2.686 [place] [id number] [id number] 2020-02-02 2020-02-02 Orders Doctor MOORE 1.2.840.114 [id number] 00:00:00 00:00:00 Only Unassigned, DARCI 350.1.13.10 [place] [facility] 4.2.7.2.686 [id number] 2020-01-23 2020-01-26 Emergency Osmar Russell [facility] 1.2.840.11 [id number] 15:16:17 10:22:00 Tao Sandoval 350.1.13.10 [place] 4.2.7.2.686 [place] [id number] 2020-01-12 2020-01-12 Emergency BENY Soliz 1.2.147.342 [id number] 08:57:01 11:50:00 Srinivas Mullins 350.1.13.10 [place] 4.2.7.2.686 [place] [id number] [id number] Results Test Description Test Time Test Comments Results Result Comments Source labor and employment paralegal procedure 2020-03-01 11:48:36 Test Item Value Reference Range Interpretation Comme nts Cath EF Estimated (test code = 53 % [id number]) MELISA (test code = MELISA) Attending: Dr. Nicole Rizo Interventional Fellow: Mila Doll EQUIPMENT/ANTICOAGULATION: Right Common Femoral Ikwbxe6O Sheath XB LAD 3.5 Guide Catheter Hi-Torque [...] Cardiac rehabilitation. 4. [facility] [id number] 06:39:18 Test Item Value Reference Range Interpretation Comments Sodium (test code = 2951-2) 135 135- 148 mEq/L Potassium (test code = 2823-3) 4.0 3.5- 5.0 mEq/L Chloride (test code = 2075-0) 99 98- 112 mEq/L CO2 (test code = 2027-9) 23 24- 31 mEq/L L Anion gap (test code = 06108-6) 13@ANIO 7- 15 mEq/L BUN (test code = 3094-0) 17 mg/dL 8-23 Creatinine (test code = 2160-0) 1.23 mg/dL 0.7-1.2 H Glucose (test code = 2345-7) 114 mg/dL 65-99 H Calcium (test code = 58685-6) 9.3 mg/dL 8.8-10.2 Lab Interpretation (test code = Abnormal 77975-3) [place] MethodistEstimated [id number] 06:39:18 Test Item Value Reference Range Interpretation Comments Estimated GFR (test 72 mL/min/1.73 m2 [facility] Units code = 5488) InterpretationG 1 >=90 Normal or highG2 60-89 Mildly xkoiawvdtH4q 45-59 Mildly to mode rately mretbttzoL9h 30-44 Moderately to severely decreasedG4 15-29 Severely decre asedG5 <15 Kidn ey failureThe eGFR was calculated rica g the Chronic Kidney Disease Epidemiology Co llaboration (CKD-EPI) equat ion. Interpretation is based on recommendations of the National Kidney Foundation-Kidn ey Disease Outcomes Qualit y Initiative (NKF-KDOQI) pub lished in 2014. [facility] MethodistCBC with platelet and kzzduwesavdn5723-98-26 06:08:54 Test Item Value Reference Range Interpretation Comments WBC (test code = 68914-1) 7.62 4.50- 11.00 k/uL RBC (test code = 68858-2) 4.45 m/uL 4.4-6 HGB (test code = 718-7) 14.0 g/dL 14-18 HCT (test code = 4544-3) 41.3 % 41-51 MCV (test code = 787-2) 92.8 fL 82-100 MCH (test code = 785-6) 31.5 pg 27-34 MCHC (test code = 786-4) 33.9 g/dL 31-37 RDW - SD (test code = 44.6 fL 37-55 31998-2) MPV (test code = 89197-5) 10.1 fL 8.8-13.2 Platelet count (test code 262 150- 400 k/uL = 01720-1) Nucleated RBC (test code 0.00 /100 WBC = 65240-0) Neutrophils (test code = 43.8 % 39-69 68859-4) Lymphocytes (test code = 38.3 % 25-45 03000-9) Monocytes (test code = 13.5 % 0-10 H 57795-4) Eosinophils (test code = 3.4 % 0-5 90517-4) Basophils (test code = 0.7 % 0-1 02346-7) Immature granulocytes 0.3 % 0-1 "Immat ure (test code = 51233-0) granul ocytes" (promyelocytes, myelocytes, metamyelocytes) Lab Interpretation (test Abnormal code = 06251-4) [facility] MethodistPlatelet function [id number] 05:39:39 Test Item Value Reference Range Interpretation Comments Platelet function P2Y12 192 Test results are reported (test code = 89689-1) in P2Y 12 Reaction Units (PRU).Platelet Function [...] of p atients with inherited platelet disorders. [place] MethodistPOC [id number] 21:04:25 Test Item Value Reference Range Interpretation Comments POC glucose (test code 123 mg/dL 65-99 H Opera tor Name: Zapien = 90480-1) KimaDe I D: [id number] able: [facility] Notified hospice entrance attendant Interpretation Abnormal (test code = 18744-8) [place] MethodistActivated clotting [id number] 13:51:49 Test Item Value Reference Range Interpretation Comments Activated clotting time 358 96- 152 sec H Oper ator Name: [place] (test code = 5298) Pradeep ce ID: [id number] Lab Interpretation (test Abnormal code = 22515-2) [place] MethodistLipid hasiy7689-68-01 06:50:28 Test Item Value Reference Interpretation Comments [...] (mg/dL) interpretation (test < 200 code = 79263-3) Desirable 200-239 Borderline -high >=240 Hi gh [...] mg/dL) Lab Interpretation Abnormal (test code = 60667-9) [place] MethodistT4, [id number] 06:47:50 Test Item Value Reference Range Interpretation Comments T4, free (test code = 3024-7) 1.2 ng/dL 0.9-1.7 [facility] CenterphillipThyroid stimulating qqtpxrd1562-53-43 06:47:50 Test Item Value Reference Range Interpretation Comments TSH (test code = 3016-3) 3.79 0.27- 4.20 uIU/mL [place] ConfucianismTransthoracic Echocardiogram Complete, (w Contrast, Strain and 3D if needed)2020-02-23 21:45:00Interface, Radiology Results In - 02/23/2020 9:45 PM CDT Echocardiography Report [address] [place] [address] Pat.Name: RENA SAUCEDO Pat.ID: [id number].Date: 02/23/2020 Refer.MD: DEE SAUCEDO MD Exam Time: 5:36:00 PM Study Type:Routine Echo Height: 65in Weight: 184lb BSA: 1.91 m2 Age: 1109/29/1955,64Y Sex: MALE BP: 161/93 HR: 60 bpm Sonogrphr: Heather Miller RDCS Pat. Stat.:Inpatient Room: IK3848-A Study Status:Final Echo Event ID:[id number] Order ID: [id number] Reason forStudy:Chest pain, cardiac etiology suspectedHistory / [...] PA systolic pres sure. MEASUREMENTS: 2DParasternal [place] Ao An 2 cm LVPWd 1.1 cm [...] = 1.4Signed 02/23/2020 09:45 PMSherPrice Maya 12 [id number] 20:09:09 Test Item Value Reference Range Interpretation Comments Ventricular rate (test 60 code = 253) Atrial rate (test code 60 = 255) NE interval (test code 174 = 266) QRSD [...] normal variant ( R in aVL , [place] product )-Anterior infarct , age undetermined-T wave abnormality, consider inferior ischemia-Abnormal ECG-In automated comparison with ECG of 07-DEC-2018 05:16,-Anterior infarct is now present- Manoj EstradaNvityevlwVsjmmmsj4436-05-82 18:44:12 Test Item Value Reference Range Interpretation Comments Troponin (test code 0.006 ng/mL 0-0.04 In patie nts suspected = 03957-6) of having a lang cardial infarction, talya [...]
[2020-09-23] MEDS ORDERED: Ringers Lactate 1,000 ML IV ONE (07:04)
[2020-09-23] MEDS ORDERED: propofoL 200 MG/20 ML VIAL IV ONE (08:28)
[2020-09-23] MEDS ORDERED: LIDOCAINE 1% MPF 5 ML VIAL ONE (08:29)
[2020-09-23] MEDS ORDERED: ROCURONIUM 50 MG/5 ML VIAL IV ONE (08:29)
[2020-09-23] MEDS ORDERED: FENTANYL CITR 100 MCG/2 ML ONE (08:29)
[2020-09-23] MEDS: CEFAZOLIN/SWI 1gm 1 GM/10 ML SYR ONE ×2 (08:30→08:40)
[2020-09-23] MEDS ORDERED: dexAMETHasone 10 MG/ML VIAL ONE (08:58)
[2020-09-23] MEDS ORDERED: KETOROLAC 30 MG/ML INJ ONE (08:58)
[2020-09-23] MEDS ORDERED: ONDANSETRON 4 MG/2 ML VIAL ONE ×2 (09:07→10:15)
[2020-09-23] MEDS ORDERED: Phenylephrine HCl 10 MG/ML 1 ML VIAL ONE (09:12)
[2020-09-23] MEDS ORDERED: NS 0.9% VIAL 10 ML ONE (09:12)
[2020-09-23] MEDS ORDERED: NEOSTIGMINE 1 MG/ML -5 ML ONE (09:16)
[2020-09-23] MEDS ORDERED: GLYCOPYRROLATE 0.2 MG/ML SYR ONE (09:16)
[2020-09-23] MEDS: Ringers Lactate 1,000 ML IV ONE ×2 (09:27→09:36)
[2020-09-23] MEDS ORDERED: Mastisol Adhesive Liq ONE ×2 (09:37)
[2020-09-23] MEDS: HYDROMORPHONE HCL 1 MG/ML INJ ONE ×4 (09:42→10:10)
--- NOTE | 2020-09-23 10:09 | OP ---
Date of Procedure: 09/23/2020 Surgeon: Rogelio Holman MD Vineyardist: CHRIS Espinal Preoperative Diagnosis: Ventral hernia, incarcerated. Postoperative Diagnosis: Ventral hernia, incarcerated. Procedure: Laparoscopic repair of incarcerated ventral hernia and partial omentectomy. Estimated Blood Loss: Minimal. Specimen: Hernia sac and partial omentum. Finding: As above. Anesthesia: General. Complications: None. Disposition: The patient tolerated the procedure in stable condition, taken to Recovery in good gene ral condition. Procedure In Detail: The patient was brought to the OR and placed in supine position. General anest hesia begun. The patient was prepped and draped in the usual sterile fashion. Marcaine 0.5% was inf iltrated locally. A 15-blade was used to make a 1 cm left upper quadrant incision. Subcutaneous tis vince was divided. Fascia was identified and divided. #1 Vicryl stay suture was placed. Peritoneal c avity was entered with sharp and blunt dissection. 12 mm trocar was placed into the peritoneal cavit y under direct vision. Pneumoperitoneum was established and then 5 mm trocar was placed in the left lower quadrant. Laparoscopy revealed incarcerated omentum into ventral hernia. Approximately 3 cm d efect was present. This was reduced. The omentum was somewhat friable. Therefore, I opted to make a 3 cm incision over the hernia and subcutaneous tissue was divided. Hernia sac was identified and o pened and ligature was used to excise the omentum that was stuck in the hernia, and the hernia sac wa s excised, sent to Pathology. Both specimens were sent separately. Then a 3 cm defect remained and which was closed with a #1 PDS running suture. Then, pneumoperitoneum was reestablished and Bard ova l-shaped balloon system was deployed in the standard fashion and AbsorbaTack was used to secure the m esh to the peritoneal surface. Complete coverage of the hernia defect, surrounding tissue was obtain ed. Then all trocars were removed under direct vision. Stay sutures were tied to each other across the fascial defect. Subcutaneous wounds were irrigated. Bleeding was controlled with cautery. 3-0 chromic was used to approximate the subcutaneous tissue and close the skin. Sterile dressing was shamar lied. The patient awakened and taken to Recovery in good general condition. Discharge Note: The patient will go to Day Surgery and home when stable. Disposition: Home. Condition: Stable. Discharge Instructions: Resume home medications and diet. Activity as tolerated. No heavy lifting. Remove outer dressing in 2 days. Shower. Keep wound clean and dry. Keep Steri-Strips on at all t imes. Abdominal binder, incentive spirometry. Tylenol No. 3 one tablet p.o. q.4 p.r.n. pain. Follo w up in my office in 10 days. Call for appointment. NASIM/MALENA Voice ID: [id number] Report ID: [id number]
[2020-09-23 10:23] VITALS: O2SAT 93
[2020-09-23] MEDS ORDERED: HYDROCODONE/APAP 7.5/325 MG TAB PO ONE (10:37)
[2020-09-23] MEDS ORDERED: HYDROCODONE/APAP 7.5/325 MG TAB ONE (10:49)
[2020-09-23 13:53] VITALS: BP 108/65; TEMP 97.1
== END 2020-09-23 12:45 | disposition home health service (06) ==
LOC: OR 06:25
PROVIDERS: ATTEND Surgery
PROC: 0DBU0ZZ Excision of Omentum, Open Approach (ICD-10-PCS; 2020-09-23)
PROC: 0WUF4JZ Supplement Abdominal Wall with Synthetic Substitute, Percutaneous Endoscopic Approach (ICD-10-PCS; principal; 2020-09-23 07:30)
DX: K43.6 Other and unspecified ventral hernia with obstruction, without gangrene (principal); F17.210 Nicotine dependence, cigarettes, uncomplicated; I10 Essential (primary) hypertension; Z20.828 Contact with and (suspected) exposure to other viral communicable diseases; I25.10 Atherosclerotic heart disease of native coronary artery without angina pectoris; Z95.5 Presence of coronary angioplasty implant and graft
CPT/HCPCS: 93005; 85025; 80048; 36415; 88302 ×2; 49653; U0002; J2704; J2370; J3010; J1100; J1170 ×2; J2710; J0690; J7120 ×2; J2405 ×2; 88305

== ENCOUNTER 2021-05-15 08:12 | Observation (INO) | payer BC ==
--- OUTSIDE RECORDS SUMMARY | 2021-05-15 08:15 | XMS REPORT | Continuity of Care Document ---
:1955 Author Organization [facility] t Address [address] [place] [address] Care Team Providers Name Role Phone Asked, Pcp Primary Care Physician Unavailable Gerry Saucedo DO Attending Clinician Idalia GASPAR Attending Clinician Doctor Unassigned, Name Attending Clinician Unavailable LEWIS Attending Clinician Unavailable Yaron BOWERS Attending Clinician Abbi Higgins Attending Clinician Sallie GASPAR Attending Clinician Yvonne BOWERS, T Attending Clinician Jaime GASPAR Attending Clinician Singer LOZANO Attending Clinician Idalia GASPAR Admitting Clinician LEWIS Admitting Clinician Unavailable Jaime GASPAR Admitting Clinician Problems Condition Condition Condition Status Onset Resolution Last Treating Co mments Source Name Details Category Date Date Treatment Clinician Date Chest pain Chest pain Disease Active [place] 4-21 [facility] 00:00: st 00 NSTEMI NSTEMI Disease Active [place] (non-ST (non-ST 2-02 [facility] elevated elevated 00:00: st myocardial myocardial 00 infarction infarction ) ) Essential Essential Disease Active Nikkie ston hypertensi hypertensi 2-02 Me thodi on on 00:00: st 00 Mixed Mixed Disease Active [place] hyperlipid hyperlipid 2-02 Me thodi emia emia 00:00: st 00 Allergies, Adverse Reactions, Alerts This patient has no known allergies or adverse reactions. Social History Social Habit Start Date Stop Date Quantity Comments Source Sex Ass[birth year] Manoj Magaña ethodist 00:00:00 00:00:00 Medications Ordered Filled Start Stop Current Ordering Indication Dosage Frequency Signature Comments Components Source Medication Medication Date Date Medication? Clinician (SIG) Name Name aspirin 2020-0 Yes 81mg QD Take 81 [...] alysa mg tablet 10:56: daily. st 02 amLODIPine 2020-0 Yes 10mg QD Take 10 mg [place] (NORVASC) 4-24 by mouth Method i 10 mg 10:56: daily. st tablet 02 Procedures This patient has no known procedures. Plan of Care Planned Activity Planned Date Details Comments Source Future Scheduled 2021-06-04 INFLUENZA VACCINE [place] [facility] 00:00:00 [code = INFLUENZA VACCINE] Future Scheduled 2006-09-29 COLONOSCOPY SCREENING [place] [facility] 00:00:00 [code = COLONOSCOPY SCREENING] Future Scheduled 2006-09-29 SHINGLES VACCINES [place] [facility] 00:00:00 (#1) [code = SHINGLES VACCINES (#1)] Future Scheduled 1974-09-29 Hepatitis C screening [place] [facility] 00:00:00 (procedure) [code = 621167957] Future Scheduled 1968-09-29 COVID-19 VACCINE (1) [facility] 00:00:00 [code = COVID-19 VACCINE (1)] Encounters Start End Encounter Admission Attending Care Care Encounter Source Date/Time Date/Time Type Type Clinicians Facility Department ID 2021-02-11 2021-02-12 Emergency Debby Saucedo [facility] [id number] 14:01:00 14:29:00 Seun Friedman [id number] [place] [id number] [place] [id number] 2021-02-11 2021-02-11 Orders Doctor TERESA [id number] 00:00:00 00:00:00 Only Unassigned, DARCI [id number] [facility] [id number] 2020-02-23 2020-02-26 Outpatient [facility] [id number] [place] 00:00:00 00:00:00 PAINTER 807 Method i 2020-02-23 2020-02-23 Emergency [facility] [id number] 11:11:05 13:43:00 Malissameliza Mullins [id number] [place] [id number] [place] [id number] 2020-02-23 2020-02-23 Orders Doctor TERESA [id number] 00:00:00 00:00:00 Only Unassigned, DARCI [id number] [facility] [id number] [id number] 2020-02-02 2020-02-02 Emergency Juan Walker [facility] [id number] 13:49:48 16:11:00 Abbi Susanna [id number] [place] [id number] [place] [id number] 2020-02-02 2020-02-02 [facility] [id number] 12:27:00 13:48:00 Encounter Nicoleshannon Mullins [id number] [place] 4.2.7.2.686 [place] [id number] 2020-02-02 2020-02-02 [facility] [id number] 12:25:00 12:26:00 Encounter Nicoleshannon Mullins [id number] [place] 4.2.7.2.686 [place] [id number] 2020-02-02 2020-02-02 Orders Doctor TERESA [id number] 00:00:00 00:00:00 Only Unassigned, DARCI [id number] [place] [facility] [id number] [id number] 2020-01-23 2020-01-26 Emergency Osmar Russell [facility] [id number] 15:16:17 10:22:00 Tao Sandoval [id number] [place] [id number] [place] [id number] 2020-01-12 2020-01-12 Emergency Soliz [facility] [id number] 08:57:01 11:50:00 Srinivas Mullins [id number] [place] [id number] [place] [id number] Results This patient has no known results.
[2021-05-15 08:35] LABS: Basophils % 0.9 % (0-1.3); Hematocrit 39.3 % (39.6-49.0); Lymphocytes % 41.8 % (15.3-44.8); MPV 8.7 fL (7.6-11.3); RBC Red Blood Cell Count 4.24 M/uL (4.33-5.43)
[2021-05-15 08:36] LABS: Protime INR 1.09
[2021-05-15] MEDS ORDERED: ONDANSETRON 4 MG/2 ML VIAL ONE (08:55)
[2021-05-15] MEDS ORDERED: ACETAMINOPHEN 325 MG TABLET ONE (08:55)
[2021-05-15] MEDS ORDERED: NITROGLYCERIN 0.4 MG/TAB SL ONE (08:59)
[2021-05-15 09:16] LABS: ALT/SGPT 45 U/L (12-78); Albumin 3.2 g/dL (3.4-5.0); Alkaline Phosphatase 68 U/L (45-117); BUN Blood Urea Nitrogen 18 mg/dL (7-18); Bicarbonate 27 mmol/L (21-32); Bilirubin Direct < 0.1 mg/dL (0-0.2); Bilirubin Total 0.4 mg/dL (0.2-1.0); Glucose Level 115 mg/dL (74-106); NT PRO-BNP 31 pg/mL (<125); Potassium 3.6 mmol/L (3.5-5.1); Protein, Total 6.8 g/dL (6.4-8.2); Sodium Level 141 mmol/L (136-145); Troponin (Emerg Dept Use Only) < 0.02 ng/mL (0.0-0.045)
[2021-05-15 09:17] LABS: AST/SGOT 29 U/L (15-37); Magnesium 1.9 mg/dL (1.8-2.4)
--- NOTE | 2021-05-15 09:18 | RAD REPORT ---
EXAM DESCRIPTION: CT - Head Brain Wo Cont - 05/15/2021 8:59 am CLINICAL HISTORY: Dizziness;Headache Headache, hypertension, dizziness COMPARISON: No comparisons TECHNIQUE: All CT scans are performed using dose optimization technique as appropriate and may inclu de automated exposure control or mA/KV adjustment according to patient size. FINDINGS: No intracranial hemorrhage, hydrocephalus or extra-axial fluid collection.Mild generalized brain atrophy is present with mild periventricular and deep white matter chronic microvascular ische bradley changes.No areas of brain edema or evidence of midline shift. The paranasal sinuses and mastoids are clear. The calvarium is intact. IMPRESSION: No acute intracranial abnormality.
--- NOTE | 2021-05-15 09:22 | RAD REPORT ---
EXAM DESCRIPTION: CT - Angio Aorta For Dissection - 05/15/2021 8:58 am CLINICAL HISTORY: Chest pain radiating to the back. CHEST PAIN COMPARISON: No comparisons TECHNIQUE: CT angiography of the aorta was performed with MIPs. All CT scans are performed using dose optimization technique as appropriate and may include automated exposure control or mA/KV adjustment according to patient size. FINDINGS: A left aortic arch is present with bovine branching pattern of the great vessels.No acute aortic finding is seen such as aneurysm, penetrating ulcer or dissection. The celiac axis, SMA, ETHEL and renal arteries are patent. Mild distal abdominal aortic atherosclerosis. Mild atherosclerosis of both iliac vessels also seen. Small hiatal hernia is noted. The lungs are clear. The liver demonstrates no focal mass or biliary dilatation.The spleen, pancreas, adrenal glands and k idneys are within normal limits for arterial phase imaging.Small fat containing umbilical hernia. No bowel obstruction, free fluid or abscess.Normal appendix.No pathologic enlarged lymphadenopathy id entified.Moderate stool is present throughout the colon. No fracture or worrisome bone lesion seen. IMPRESSION: No acute aortic finding is demonstrated.
[2021-05-15 09:32] LABS: Urine Blood Negative (Negative); Urine Glucose Negative (Negative); Urine Protein Negative (Negative); Urine Specific Gravity 1.015 (1.005-1.030)
--- NOTE | 2021-05-15 09:36 | RAD REPORT ---
EXAM DESCRIPTION: RAD - Chest Single View - 05/15/2021 9:16 am CLINICAL HISTORY: CHEST PAIN Chest pain. COMPARISON: Chest Pa And Lat (2 Views) dated 08/09/2020 FINDINGS: Portable technique limits examination quality. The lungs are grossly clear. The heart is normal in size. Tortuous thoracic aorta is seen. IMPRESSION: No acute intrathoracic process suspected.
--- NOTE | 2021-05-15 10:01 | EDPHYS ---
Physician Documentation [facility] Name: Eliud Stafford Age: 65 yrs Sex: Male : 1955 Arrival Date: 05/15/2021 Time: 08:15 Bed 4 Private MD: ED Physician Jose Escobedo HPI: 05/15 08:46 This 65 yrs old Black Male presents to ER via EMS with complaints of Chest Pain. jr8 08:46 The patient or guardian reports chest pain that is located primarily in the substernal jr8 area. Onset: acutely, last night. The pain does not radiate. Associated signs and symptoms: Pertinent positives: diaphoresis, dizziness, nausea. The chest pain is described as a pressure. Duration: The patient or guardian reports a single episode, that is still ongoing. Modifying factors: The symptoms are alleviated by NTG, the symptoms are aggravated by activity. Severity of pain: At its worst the pain was moderate in the emergency department the pain is unchanged. The patient has experienced a previous episode. The patient has not recently seen a physician. Patient with history of HI in past with stents. Stated that last night he started to have chest tightness. Took a nitro and felt better. This morning got up to go to work. Started with chest pain again but while at work became dizzy, nauseated, and diaphoretic. Pain currently 8 of 10. Historical: - Allergies: 08:28 No Known Allergies; sv - PMHx: 08:28 Myocardial infarction; Hypertensive disorder; sv - PSHx: 08:28 cardiac stents; sv - Immunization history:: Client reports receiving the 2nd dose of the Covid vaccine, Client reports receiving the 1st dose of the Covid vaccine. - Social history:: Smoking status: Patient reports the use of cigarette tobacco products, 1 cig a day. ROS: 09:09 Constitutional: Negative for fever, chills, and weight loss, Neck: Negative for injury, jr8 pain, and swelling, Respiratory: Negative for shortness of breath, cough, wheezing, and pleuritic chest pain, Back: Negative for injury and pain, MS/Extremity: Negative for injury and deformity, Skin: Negative for injury, rash, and discoloration. 09:09 Cardiovascular: Positive for chest pain. 09:09 Abdomen/GI: Positive for nausea. 09:09 Neuro: Positive for dizziness. 09:09 All other systems are negative. Exam: 09:09 Eyes: Pupils equal round and reactive to light, extra-ocular motions intact. Lids and jr8 lashes normal. Conjunctiva and sclera are non-icteric and not injected. Cornea within normal limits. Periorbital areas with no swelling, redness, or edema. ENT: Nares patent. No nasal discharge, no septal abnormalities noted. Tympanic membranes are normal and external auditory canals are clear. Oropharynx with no redness, swelling, or masses, exudates, or evidence of obstruction, uvula midline. Mucous membranes moist. Neck: Trachea midline, no thyromegaly or masses palpated, and no cervical lymphadenopathy. Supple, full range of motion without nuchal rigidity, or vertebral point tenderness. No Meningismus. Cardiovascular: Regular rate and rhythm with a normal S1 and S2. No gallops, murmurs, or rubs. Normal PMI, no JVD. No pulse deficits. Respiratory: Lungs have equal breath sounds bilaterally, clear to auscultation and percussion. No rales, rhonchi or wheezes noted. No increased work of breathing, no retractions or nasal flaring. Abdomen/GI: Soft, non-tender, with normal bowel sounds. No distension or tympany. No guarding or rebound. No evidence of tenderness throughout. Back: No spinal tenderness. No costovertebral tenderness. Full range of motion. Skin: Warm, dry with normal turgor. Normal color with no rashes, no lesions, and no evidence of cellulitis. MS/ Extremity: Pulses equal, no cyanosis. Neurovascular intact. Full, normal range of motion. Neuro: Awake and alert, GCS 15, oriented to person, place, time, and situation. Cranial nerves II-XII grossly intact. Motor strength 5/5 in all extremities. Sensory grossly intact. Cerebellar exam normal. 09:09 Constitutional: The patient appears alert, awake. Vital Signs: 08:10 BP 142 / 91; Pulse 59; Resp 17; Temp 98; Pulse Ox 97% ; Weight 83.91 kg; Height 5 ft. 5 sv in. (165.10 cm); Pain 8/10; 08:34 BP 142 / 89; Pulse 66; Resp 17; Pulse Ox 97% on 2 lpm NC; sv 09:36 BP 112 / 78; Pulse 68; Resp 21; Pulse Ox 97% on 2 lpm NC; sv 10:32 BP 145 / 77; Pulse 55 MON; Resp 14; Pulse Ox 100% on 2 lpm NC; sv 11:30 BP 119 / 78; Pulse 59 MON; Resp 16; Pulse Ox 100% on 2 lpm NC; sv 12:30 BP 125 / 80; Pulse 56; Resp 18; Pulse Ox 100% on 2 lpm NC; sv 13:15 BP 130 / 83; Pulse 54; Resp 22; Pulse Ox 100% on 2 lpm NC; sv 08:10 Body Mass Index 30.78 (83.91 kg, 165.10 cm) sv 10:32 Sinus bradycardia sv 11:30 Sinus bradycardia sv NIH Stroke Scale Scores: 09:09 NIHSS Score: 0 jr8 MDM: 08:22 Patient medically screened. jr8 09:59 The patient was given aspirin in the Emergency Department. Data reviewed: vital signs, 8 nurses notes, lab test result(s), EKG, radiologic studies, CT scan, plain films. Data interpreted: Pulse oximetry: on room air is 97 %. Interpretation: normal. Counseling: I had a detailed discussion with the patient and/or guardian regarding: the historical points, exam findings, and any diagnostic results supporting the discharge/admit diagnosis, lab results, radiology results, the need for further work-up and treatment in the hospital. 05/15 08:16 Order name: Basic Metabolic Panel; Complete Time: 09:18 05/15 08:16 Order name: CBC with Diff; Complete Time: 08:45 05/15 08:16 Order name: LFT's; Complete Time: 09:18 05/15 08:16 Order name: Magnesium; Complete Time: 09:18 05/15 08:16 Order name: NT PRO-BNP; Complete Time: 09:18 05/15 08:16 Order name: PT-INR; Complete Time: 08:45 05/15 08:16 Order name: Troponin (emerg Dept Use Only); Complete Time: 09:18 05/15 08:16 Order name: XRAY Chest (1 view); Complete Time: 09:47 05/15 08:29 Order name: CT Head Brain wo Cont; Complete Time: 09:18 8 05/15 08:29 Order name: CT Aorta for Dissection; Complete Time: 09:27 8 05/15 09:27 Order name: UDS; Complete Time: 10:06 8 05/15 09:32 Order name: Urine Dipstick-Ancillary; Complete Time: 09:33 EDMS 05/15 10:32 Order name: CL CARDIAC CATH - REQUEST EDMS 05/15 11:14 Order name: CREATININE WHOLE BLOOD; Complete Time: 11:16 EDMS 05/15 08:16 Order name: EKG; Complete Time: 08:17 sv 05/15 08:16 Order name: Cardiac monitoring; Complete Time: 08:23 sv 05/15 08:16 Order name: EKG - Nurse/Tech; Complete Time: 08:23 sv 05/15 08:16 Order name: IV Saline Lock; Complete Time: 08:23 sv 05/15 08:16 Order name: Labs collected and sent; Complete Time: 08:23 sv 05/15 08:16 Order name: O2 Per Protocol; Complete Time: 08:23 sv 05/15 08:16 Order name: O2 Sat Monitoring; Complete Time: 08:23 sv 05/15 10:32 Order name: NPO EDPR 05/15 12:40 Order name: Diet Heart Healthy; Complete Time: 12:41 ph Administered Medications: 08:35 Drug: Zofran (Ondansetron) 4 mg Route: IVP; Site: left antecubital; ph 09:34 Follow up: Response: No adverse reaction sv 08:39 Drug: Nitroglycerin 0.4 mg Route: Sublingual; ph 09:34 Follow up: Response: No adverse reaction sv 09:33 Drug: Tylenol 650 mg Route: PO; sv 10:04 Follow up: Response: No adverse reaction sv 10:16 Drug: Heparin (HI Drip) 12 units/kg/hr - (HEParin 17144 units, D5W 500 ml) sv {Co-Signature: ph (Jeanne Arredondo RN).} Route: IV; Rate: calculated rate; Site: left antecubital; 15:42 Follow up: Response: No adverse reaction; IV Status: Infusion continued upon admission sv 10:17 Drug: Heparin (HI-Bolus No thrombolytic) - HEParin 60 units/kg {Co-Signature: ph sv (Jeanne Arredondo RN).} Route: IVP; Site: left antecubital; 10:19 Follow up: Response: No adverse reaction sv 10:17 CANCELLED (Physician Discretion): Nitroglycerin 0.4 mg Sublingual once sv 10:17 Drug: Aspirin Chewable Tablet 243 mg Route: PO; sv 10:18 Follow up: Response: No adverse reaction sv Disposition: 08:41 Co-signature as Attending Physician, Jose Escobedo MD I agree with the assessment and rn plan of care. 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 HPI: 65 year old male with AMS and chest pain since last night, got worse getting to work this AM, no trauma. My personal exam of patient reveals: Slow to respond, no focal neuro deficits. I agree with assessment and care plan and confirm the diagnosis (es) above. Attestation: The patient's history, exam findings, diagnostics, and a summary of any interventions or procedures was reviewed in detail with Stone GUNTER. 17:00 Co-signature as Attending Physician, Jose Escobedo MD. rn Disposition Summary: 05/15/21 10:00 Hospitalization Ordered Hospitalization Status: Inpatient Admission jr8 Provider: Benitez Mckay Condition: Fair jr8 Problem: new jr8 Symptoms: have improved jr8 Bed/Room Type: Standard 8 Location: Telemetry/MedSurg (Inpatient)(05/15/21 14:58) eb Room Assignment: 218(05/15/21 14:58) eb Diagnosis - Unstable angina jr8 Discharge Instructions: - Discharge Summary Sheet ss Forms: - Family Work Release ss - Medication Reconciliation Form jr8 - SBAR form jr8 NIH Stroke Scale - NIH Stroke Score Date: 05/15/2021 Time: 09:09 Total Score = 0 1a. Level of Consciousness (LOC) - 0(Alert) 1b. Level of Consciousness (LOC) (Month \T\ Age) - 0(Both) 1c. LOC Commands (Open \T\ Closes Eyes/Decorator Store) - 0(Both) 2. Best Gaze (Lateral Gaze Paresis) - 0(Normal) 3. Visual Field Loss - 0(No visual loss) 4. Facial Palsy - 0(Normal) 5a. Left Arm: Motor (10-second hold) - 0(No drift) 5b. Right Arm: Motor (10-second hold) - 0(No drift) 6a. Left Leg: Motor (5-second hold - always test supine) - 0(No drift) 6b. Right Leg: Motor (5-second hold - always test supine) - 0(No drift) 7. Limb Ataxia (finger/nose \T\ heel/avendaño - test with eyes open) - 0(Absent) 8. Sensory Loss (pinprick arms/legs/face) - 0(Normal) 9. Best Language: Aphasia (description/naming/reading) - 0(No aphasia) 10. Dysarthria (speech clarity - read or repeat words) - 0(Normal) 11. Extinction and Inattention (visual/tactile/auditory/spatial/personal) - 0(No abnormality) Initials: [facility] Signatures: Dispatcher [employer] Yocasta Islas RN RN Jose Escobedo MD MD rn [facility] RN RN Stone Paulson PA PA [facility] Jeanne Arredondo RN RN ph Ita Conteh RN ph Corrections: (The following items were deleted from the chart) 10:17 09:57 Nitroglycerin 0.4 mg Sublingual once ordered. jr8 sv 10:17 10:17 Nitroglycerin 0.4 mg Sublingual once ordered. sv sv 13:28 10:00 Telemetry/MedSurg (Inpatient) [facility] ss 13:28 10:00 [facility] ss 14:58 13:28 [facility] ER HOLD ss eb 14:58 13:28 ERHOLD- ss eb 17:00 08:41 Co-signature as Attending Physician, Jose Escobedo MD I agree with the rn emergency and plan of care. 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 HPI: 65 year old male with AMS and chest pain since last night, got worse getting to work this AM, no trauma. My personal exam of patient reveals: Slow to respond, no focal neuro deficits. I agree with assessment and care plan and confirm the diagnosis (es) above. rn
--- NOTE | 2021-05-15 10:01 | ER ---
Nurse's Notes [facility] Name: Eliud Stafford Age: 65 yrs Sex: Male : 1955 Arrival Date: 05/15/2021 Time: 08:15 Bed 4 Private MD: Diagnosis: Unstable angina Presentation: 05/15 08:10 Chief complaint: EMS states: called by pt's coworkers, pt had gotten out of his car and sv went to the ground. On EMS arrival pt was pale, cool, diaphoretic, responsive to verbal stimuli, pinpoint pupils. BP 145/80 HR-70 BS-170. EKG ST elevation in 1 lead. Pt reports he had been having CP since last night, took a Nitro last night. c/o abd pain, dizziness, and nausea. 20G L AC, ASA 81 mg PO given. Pt's PCP has been changing around his BP meds for the past 2 weeks as well. Coronavirus screen: Client denies travel out of the [place] in the last 14 days. At this time, the client does not indicate any symptoms associated with coronavirus-19. Ebola Screen: No symptoms or risks identified at this time. Initial Sepsis Screen: Does the patient meet any 2 criteria? No. Patient's initial sepsis screen is negative. Does the patient have a suspected source of infection? No. Patient's initial sepsis screen is negative. Risk Assessment: Do you want to hurt yourself or someone else? Patient reports no desire to harm self or others. Onset of symptoms was May 14, 2021. 08:10 Method Of Arrival: EMS: [facility] sv 08:10 Acuity: MILLER 2 sv Triage Assessment: 08:29 General: Appears in no apparent distress. well developed, Behavior is cooperative, sv flat, quiet. Pain: Complains of pain in chest Pain currently is 8 out of 10 on a pain scale. Quality of pain is described as pressure, Pain began 1 day ago. Is continuous, Noted to be quiet/stoic. Neuro: Level of Consciousness is awake, alert, obeys commands, Oriented to person, place, time, situation, Moves all extremities. Full function Speech is normal, Facial symmetry appears normal. Cardiovascular: Patient's skin is warm and dry. Rhythm is sinus bradycardia. Respiratory: Airway is patent Respiratory effort is even, unlabored, Respiratory pattern is regular, symmetrical. Derm: Skin is pink, warm \T\ dry. Historical: - Allergies: 08:28 No Known Allergies; sv - PMHx: 08:28 Myocardial infarction; Hypertensive disorder; sv - PSHx: 08:28 cardiac stents; sv - Immunization history:: Client reports receiving the 2nd dose of the Covid vaccine, Client reports receiving the 1st dose of the Covid vaccine. - Social history:: Smoking status: Patient reports the use of cigarette tobacco products, 1 cig a day. Screenin:28 Abuse screen: Denies threats or abuse. Denies injuries from another. Nutritional sv screening: No deficits noted. Tuberculosis screening: No symptoms or risk factors identified. Fall Risk None identified. 09:30 Patient has been NPO before screening. The patient is alert, able to follow commands. sv The patient does not exhibit slurred or garbled speech The patient is not exhibiting difficulty speaking. The patient does not exhibit difficulty understanding words. The patient is able to swallow own secretions with no drooling or need for suction. Patient tolerated one teaspoon of water. No drooling, immediate coughing, gurgling, or clearing of the throat was noted. The patient tolerated 90mL of water. No drooling, immediate coughing, gurgling, or clearing of the throat was noted. The patient passed the bedside swallow screening. Oral medications may be given as ordered. Contact Physician for further diet orders. Provider notified of bedside swallow screening results: Stone GUTNER. Assessment: 08:34 Reassessment: Patient appears in no apparent distress at this time. No changes from sv previously documented assessment. See triage assessment. 08:40 Reassessment: Pt remains drowsy, c/o midsternal chest pain 08/13 and requesting SL ph nitro, ERP notified, pt medicated before being taken to CT. 09:36 Reassessment: Patient appears in no apparent distress at this time. No changes from sv previously documented assessment. Patient and/or family updated on plan of care and expected duration. Pain level reassessed. Patient is alert, oriented x 3, equal unlabored respirations, skin warm/dry/pink. 10:16 Reassessment: Patient appears in no apparent distress at this time. Patient and/or sv family updated on plan of care and expected duration. Pain level reassessed. Patient is alert, oriented x 3, equal unlabored respirations, skin warm/dry/pink. Pt reports his pain at a 7 now for his chest. Pt states that it feels like a pulled muscle. Informed Stone GUNTER, hold off on 2nd dose of Nitro at this time. Patient states symptoms have improved. 10:45 Reassessment: Dr Mckay at the bedside. sv 11:01 Reassessment: Dr Mosley at bedside. sv 13:15 Reassessment: Patient appears in no apparent distress at this time. No changes from sv previously documented assessment. Patient and/or family updated on plan of care and expected duration. Pain level reassessed. Patient is alert, oriented x 3, equal unlabored respirations, skin warm/dry/pink. Pt given food tray. 14:20 Reassessment: Patient appears in no apparent distress at this time. Patient and/or sv family updated on plan of care and expected duration. Pain level reassessed. Patient is alert, oriented x 3, equal unlabored respirations, skin warm/dry/pink. 15:35 Reassessment: Patient appears in no apparent distress at this time. Patient and/or sv family updated on plan of care and expected duration. Pain level reassessed. Patient is alert, oriented x 3, equal unlabored respirations, skin warm/dry/pink. Vital Signs: 08:10 BP 142 / 91; Pulse 59; Resp 17; Temp 98; Pulse Ox 97% ; Weight 83.91 kg; Height 5 ft. 5 sv in. (165.10 cm); Pain 8/10; 08:34 BP 142 / 89; Pulse 66; Resp 17; Pulse Ox 97% on 2 lpm NC; sv 09:36 BP 112 / 78; Pulse 68; Resp 21; Pulse Ox 97% on 2 lpm NC; sv 10:32 BP 145 / 77; Pulse 55 MON; Resp 14; Pulse Ox 100% on 2 lpm NC; sv 11:30 BP 119 / 78; Pulse 59 MON; Resp 16; Pulse Ox 100% on 2 lpm NC; sv 12:30 BP 125 / 80; Pulse 56; Resp 18; Pulse Ox 100% on 2 lpm NC; sv 13:15 BP 130 / 83; Pulse 54; Resp 22; Pulse Ox 100% on 2 lpm NC; sv 08:10 Body Mass Index 30.78 (83.91 kg, 165.10 cm) sv 10:32 Sinus bradycardia sv 11:30 Sinus bradycardia sv NIH Stroke Scale Scores: 09:09 NIHSS Score: 0 jr8 ED Course: 08:15 Patient arrived in ED. sv 08:15 Yocasta Bales, RN is Primary Nurse. sv 08:20 Initial lab(s) drawn, by me, sent to lab. Maintain EMS IV. Dressing intact. Good blood sv return noted. Site clean \T\ dry. Gauge \T\ site: 20G L AC. 08:20 Patient maintains SpO2 saturation greater than 95% on room air. sv 08:22 Stone Paulson PA is PHCP. jr8 08:22 Jose Escobedo MD is Attending Physician. jr8 08:28 Triage completed. sv 08:28 Arm band placed on. sv 08:28 Patient has correct armband on for positive identification. Placed in gown. Bed in low sv position. Call light in reach. Side rails up X2. Adult w/ patient. ekg monitor on. Pulse ox on. NIBP on. Door closed. Warm blanket given. Head of bed elevated. 08:58 CT Aorta for Dissection In Process Unspecified. EDMS 08:58 CT Head Brain wo Cont In Process Unspecified. EDMS 09:02 Patient moved back from CT. sv 09:15 XRAY Chest (1 view) In Process Unspecified. EDMS 10:00 Benitez Mckay DO is Hospitalizing Provider. jr8 11:48 Awaiting bed assignment. sv 13:41 No provider procedures requiring assistance completed. Patient admitted, IV remains in sv place. intact. Administered Medications: 08:35 Drug: Zofran (Ondansetron) 4 mg Route: IVP; Site: left antecubital; ph 09:34 Follow up: Response: No adverse reaction sv 08:39 Drug: Nitroglycerin 0.4 mg Route: Sublingual; ph 09:34 Follow up: Response: No adverse reaction sv 09:33 Drug: Tylenol 650 mg Route: PO; sv 10:04 Follow up: Response: No adverse reaction sv 10:16 Drug: Heparin (OK Drip) 12 units/kg/hr - (HEParin 50981 units, D5W 500 ml) sv {Co-Signature: ph (Jeanne Arredondo RN).} Route: IV; Rate: calculated rate; Site: left antecubital; 15:42 Follow up: Response: No adverse reaction; IV Status: Infusion continued upon admission sv 10:17 Drug: Heparin (OK-Bolus No thrombolytic) - HEParin 60 units/kg {Co-Signature: courtney kam (Jeanne Arredondo RN).} Route: IVP; Site: left antecubital; 10:19 Follow up: Response: No adverse reaction sv 10:17 CANCELLED (Physician Discretion): Nitroglycerin 0.4 mg Sublingual once sv 10:17 Drug: Aspirin Chewable Tablet 243 mg Route: PO; sv 10:18 Follow up: Response: No adverse reaction sv Output: 10:00 Urine: 300ml (Voided); Total: 300ml. sv Outcome: 10:00 Decision to Hospitalize by Provider. jr8 15:42 Patient left the ED. sv 15:42 Admitted to Tele accompanied by tech, via wheelchair, with chart, Report called to negin Bonilla RN 15:42 Condition: stable 15:42 Instructed on the need for admit. NIH Stroke Scale - NIH Stroke Score Date: 05/15/2021 Time: 09:09 Total Score = 0 1a. Level of Consciousness (LOC) - 0(Alert) 1b. Level of Consciousness (LOC) (Month \T\ Age) - 0(Both) 1c. LOC Commands (Open \T\ Closes Eyes/Stable Manager) - 0(Both) 2. Best Gaze (Lateral Gaze Paresis) - 0(Normal) 3. Visual Field Loss - 0(No visual loss) 4. Facial Palsy - 0(Normal) 5a. Left Arm: Motor (10-second hold) - 0(No drift) 5b. Right Arm: Motor (10-second hold) - 0(No drift) 6a. Left Leg: Motor (5-second hold - always test supine) - 0(No drift) 6b. Right Leg: Motor (5-second hold - always test supine) - 0(No drift) 7. Limb Ataxia (finger/nose \T\ heel/avendaño - test with eyes open) - 0(Absent) 8. Sensory Loss (pinprick arms/legs/face) - 0(Normal) 9. Best Language: Aphasia (description/naming/reading) - 0(No aphasia) 10. Dysarthria (speech clarity - read or repeat words) - 0(Normal) 11. Extinction and Inattention (visual/tactile/auditory/spatial/personal) - 0(No abnormality) Initials: jrMaureen Signatures: Dispatcher [employer] EDYocasta Ramirez RN RN Stone Paulson PA PA jr8 Jeanne Arredondo, YUMIKO RN ph Jeanne Arredondo RN ph Corrections: (The following items were deleted from the chart) 10:18 08:10 BP 142 / 91; Pulse 59bpm; Resp 17bpm; Pulse Ox 97%; 83.91 kg; Height 5 sv ft. 5 in.; BMI: 30.7; Pain 8/10; sv 13:41 12:30 BP 125 / 80; Pulse 56bpm; Resp 18bpm; Pulse Ox 100%; sv sv
[2021-05-15 10:06] LABS: Barbiturates NEGATIVE (NEGATIVE); Benzodiazepines NEGATIVE (NEGATIVE); Cocaine NEGATIVE (NEGATIVE); METHAMPHETAM NEGATIVE (NEGATIVE); Methadone NEGATIVE (NEGATIVE); Opiates NEGATIVE (NEGATIVE); Phencyclidine NEGATIVE (NEGATIVE); THC Cannibis NEGATIVE (NEGATIVE)
[2021-05-15] MEDS ORDERED: HEPARIN 5000 UNIT/ML 1 ML VIAL ONE (10:27)
[2021-05-15] MEDS ORDERED: HEPARIN/D5W 25,000 UNIT/500 ML BAG IV ONE (10:27)
[2021-05-15] MEDS ORDERED: ASPIRIN 81 MG CHEWABLE TABLET ONE (10:27)
--- NOTE | 2021-05-15 11:11 | P.HP ---
Certification for Inpatient Patient admitted to: Observation With expected LOS: <2 Midnights Patient will require the following post-hospital care: None Practitioner: I am a practitioner with admitting privileges, knowledge of patient current condition, hospital course, and medical plan of care. Services: Services provided to patient in accordance with Admission requirements found in Title 42 Section 412.3 of the Code of Federal Regulations Patient History Date of Service: 05/15/21 Primary Care Provider: Dr. Raza; Cardiology-Dr. Rizo Reason for admission: Chest pain History of Present Illness: 65-year-old -[place]og[place] male with history of CAD and prior stents, hypertension, GERD, hyperlipidemia, tobacco abuse and chronic back pain. Patient presented to the ER with chest pain. Patient reports chest pain to the substernal region. It was not associated with any significant shortness of breath or nausea or vomiting. He took some nitro last night with some relief. He decided to go to work today. Chest pain persisted. He came to the ER for further evaluation. Patient reports that he thinks that he may have pulled a muscle. 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 Patient last seen by his square cutter about 3 months ago. He was to follow-up with cardiology this month. In the ER patient was evaluated. Vital signs stable. CT head unremarkable. CT dissection unremarkable. CBC unremarkable. Sodium 141, potassium 3.6. BUN of 18, creatinine 1.3 with a GFR 67. Troponin unremarkable. Urinalysis unremarkable. Urine drug screen unremarkable. Patient admitted for further evaluation and treatment. ER spoke to cardiology. Cardiology recommends to start heparin drip at this time. Allergies No Known Allergies Allergy (Verified 09/19/20 17:21) Home medications list reviewed: Yes Home Medications: Amlodipine [Norvasc] 10 mg PO DAILY 09/19/20 Aspirin Chewable [Aspirin Chewable*] 81 mg PO DAILY 09/19/20 Atorvastatin Calcium [Lipitor] 80 mg PO DAILY 09/19/20 Clopidogrel Bisulfate [Plavix] 75 mg PO DAILY 09/19/20 Potassium Chloride [Micro-K] 10 meq PO DAILY 09/19/20 Valsartan [Diovan] 2 tab PO DAILY 09/19/20 hydroCHLOROthiazide [Hydrochlorothiazide] 12.5 mg PO DAILY 09/19/20 - Past Medical/Surgical History -: Hypertension -: GERD with hiatal hernia -: Hyperlipidemia -: CAD with prior stents -: Chronic back pain -: Umbilical hernia repair Psychosocial/ Personal History: Patient lives at home. He currently works. - Family History Family History: Reviewed- Non-Contributory - Social History Smoking Status: Light Tobacco smoker (1-9 cigarettes/day) Counseled patient to stop smoking for: less than 10 minutes Smoking therapy provided: Yes Patient receptive to therapy: Yes Alcohol use: No CD- Drugs: No Caffeine use: Yes Place of Residence: Home Review of Systems General: As per HPI Eyes: Unremarkable ENT: Unremarkable Respiratory: Unremarkable Cardiovascular: Chest Pain, As per HPI Gastrointestinal: Unremarkable Genitourinary: Unremarkable Musculoskeletal: Unremarkable Integumentary: Unremarkable Neurological: Unremarkable Lymphatics: Unremarkable Physical Examination - Studies Laboratory Data (last 24 hrs) 05/15/21 08:20: PT 12.5, INR 1.09 05/15/21 08:20: WBC 4.90, Hgb 13.3 L, Hct 39.3 L, Plt Count 232 05/15/21 08:20: Sodium 141, Potassium 3.6, BUN 18, Creatinine 1.30, Glucose 115 H, Magnesium 1.9, Total Bilirubin 0.4, AST 29, ALT 45, Alkaline Phosphatase 68 Assessment and Plan - Plan CT head: COMPARISON: No comparisons TECHNIQUE: All CT scans are performed using dose optimization technique as appropriate and may include automated exposure control or mA/KV adjustment according to patient size. FINDINGS: No intracranial hemorrhage, hydrocephalus or extra-axial fluid collection.Mild generalized brain atrophy is present with mild periventricular and deep white matter chronic microvascular ischemic changes.No areas of brain edema or evidence of midline shift. The paranasal sinuses and mastoids are clear. The calvarium is intact. IMPRESSION: No acute intracranial abnormality. CT dissection: COMPARISON: No comparisons TECHNIQUE: CT angiography of the aorta was performed with MIPs. All CT scans are performed using dose optimization technique as appropriate and may include automated exposure control or mA/KV adjustment according to patient size. FINDINGS: A left aortic arch is present with bovine branching pattern of the great vessels.No acute aortic finding is seen such as aneurysm, penetrating ulcer or dissection. The celiac axis, SMA, ETHEL and renal arteries are patent. Mild distal abdominal aortic atherosclerosis. Mild atherosclerosis of both iliac vessels also seen. Small hiatal hernia is noted. The lungs are clear. The liver demonstrates no focal mass or biliary dilatation.The spleen, pancreas, adrenal glands and kidneys are within normal limits for arterial phase i maging.Small fat containing umbilical hernia. No bowel obstruction, free fluid or abscess.Normal appendix.No pathologic enlarged lymphadenopathy identified.Moderate stool is present throughout the co chinmay. No fracture or worrisome bone lesion seen. IMPRESSION: No acute aortic finding is demonstrated. Physical Exam: GENERAL: The patient is a well-developed, well-nourished, in no apparent distress. Alert and oriented x3. VITAL SIGNS: Reviewed HEENT: Head is normocephalic and atraumatic. Extraocular muscles are intact. Pupils are equal, round, and reactive to light and accommodation. Nares appeared normal. Mouth is well hydrated and without lesions. Mucous membranes are moist. NECK: Supple. No carotid bruits. No lymphadenopathy or thyromegaly. LUNGS: Clear to auscultation. No crackles or wheezes are heard. HEART: Regular rate and rhythm, no appreciable gallops, rubs, murmurs or extra heart sounds ABDOMEN: Soft, nontender, and nondistended. Positive bowel sounds. No hepatosplenomegaly was noted. EXTREMITIES: Without any cyanosis, clubbing, rash, lesions or peripheral edema. NEUROLOGIC: The patient is oriented to person, place and time. Strength and sensation are grossly intact. Face is symmetric. SKIN: Normal color, turgor and temperature. No ulcerations or rashes noted. Impression: Chest pain with history of CAD and prior stent Hypertension GERD with hiatal hernia Hyperlipidemia Tobacco abuse Plan: Chest pain with history of CAD and prior stent: Patient will be admitted for further evaluation and observation. ER spoke to cardiology. Cardiology recommended to start heparin drip. Continue with heparin drip at this time. Heparin protocol in place. Will also continue with aspirin 81 mg daily, Plavix 25 mg daily, Lipitor 80 mg daily. Will continue with home medication valsartan, hold hydrochlorothiazide. Metoprolol 12.5 mg 1 pill twice daily will be added for better control. Parameters in place. Continue to monitor cardiac enzymes and telemetry. Will keep the patient n.p.o. as the patient will likely require cardiac intervention as early as today. Await further recommendations from cardiology. Hypertension: Continue with valsartan. Hold hydrochlorothiazide. Add metoprolol. GERD with hiatal hernia: Will provide Pepcid Hyperlipidemia: Continue with Lipitor 80 mg daily. Will check fasting lipid panel. Tobacco abuse: Tobacco cessation addressed in detail. Will provide nicotine patch. Code Status: Full Code DVT prophylaxis: Heparin Advanced Care Planning-30 minutes: Anticipate discharge home Discharge Plan: Home Plan to discharge in: 24 Hours - Advance Directives Does patient have a Living Will: No Does patient have a Durable POA for Healthcare: No - Code Status/Comfort Care Code Status Assessed: Yes (Full code) Time Spent Managing Pts Care (In Minutes): 55
[2021-05-15] MEDS ORDERED: HEPARIN/D5W 25,000 UNIT/500 ML BAG IV PRN (14:49)
[2021-05-15] MEDS ORDERED: NITROGLYCERIN 0.4 MG/TAB SL PRN (14:49)
[2021-05-15] MEDS ORDERED: ACETAMINOPHEN 500 MG TAB PO PRN (14:49)
[2021-05-15] MEDS ORDERED: ONDANSETRON 4 MG/2 ML VIAL IV PRN (14:49)
--- NOTE | 2021-05-15 16:05 | EKG ---
Test Date: 2021-05-15 Test Time: 08:19:10 Franchise Development Manager: PH MEASUREMENT RESULTS: Intervals: Rate: 66 IL: 184 QRSD: 102 QT: 424 QTc: 444 [place]: P: 47 IL: 184 QRS: -37 T: -55 INTERPRETIVE STATEMENTS: Normal sinus rhythm Possible Left atrial enlargement Left axis deviation Left ventricular hypertrophy T wave abnormality, consider inferolateral ischemia Abnormal ECG Compared to ECG 09/19/2020 17:44:13 No significant changes Electronically Signed On 05-15-21 16:03:49 CDT by Judson Mosley
[2021-05-15 17:05] LABS: CKMB Creatine Kinase MB 1.2 ng/mL (1.0-3.6); Creatine Phosphokinase 337 U/L (39-308); Troponin I < 0.02 ng/mL (0.0-0.045)
[2021-05-15] MEDS: METOPROLOL TAR 25 MG TAB PO SCH ×2 (18:00→18:42)
[2021-05-15 19:27] VITALS: BMI 30.7
[2021-05-15] MEDS ORDERED: ATORVASTATIN 80 MG TAB PO SCH (21:00)
--- NOTE | 2021-05-15 21:00 | CON ---
Date of Consultation: 05/15/2021 Reason For Consultation: Unstable angina. History Of Present Illness: Mr. Stafford is a 65-year-old black male with history of coronary artery disease. He is status post stent in September [address] Rizo. He has had a history of hyperte nsion and dyslipidemia. He came in with substernal chest pressure radiating to both arm with some na usea and diaphoresis. No shortness of breath. Denied any PND, orthopnea, pedal edema, palpitation, or syncope. Denied any fever or chills. Troponin was negative, but his EKG showed possible anterola teral ischemia. He was heparinized. Past Medical History: As stated above. Allergies: NONE. Review of Systems: Negative. Social History: Negative. Family History: Positive for heart disease. Medications: Include aspirin, Plavix, Lipitor, Norvasc, hydrochlorothiazide, valsartan, and potassiu m. Physical Examination: Vital Signs: Stable. Afebrile. He was still having chest pain at a 2/10. He was in sinus rhythm. HEENT: Negative. Neck: Supple without any bruit, lymphadenopathy, JVD, or thyromegaly. Chest: Clear to auscultation and percussion. Cardiac: Regular rhythm and rate. No murmurs, gallops, or rubs. Abdomen: Benign. Extremities: No clubbing, cyanosis, or edema. Diagnostic Data: As stated earlier. Impression And Plan: This is the patient with history of hypertension, dyslipidemia, coronary artery disease status post stent in September 2020 with symptoms that very concerning for coronary artery di sease and restenosis of his stent. He has substernal chest pressure going to the arms with nausea an d diaphoresis. He had an EKG consistent with inferolateral ischemia. I would heparinize and continu e his home medication including aspirin, Plavix, and Lipitor. We will plan to do a heart catheteriza tion on him on 05/16/2021. The patient understands the risk and the benefits of the procedure, and h e agreed to proceed. MIKE/MODL Voice ID: [id number] Report ID: [id number]
[2021-05-15] MEDS: VALSARTAN 160 MG TAB PO SCH (21:07)
[2021-05-15] MEDS: FAMOTIDINE 20 MG TAB PO SCH (21:07)
[2021-05-16 00:48] LABS: CKMB Creatine Kinase MB 1.5 ng/mL (1.0-3.6); Creatine Phosphokinase 291 U/L (39-308); Troponin I < 0.02 ng/mL (0.0-0.045)
[2021-05-16] MEDS: METOPROLOL TAR 25 MG TAB PO SCH (05:27)
[2021-05-16 05:29] LABS: Absolute Lymphocytes (CBC) 2.4 K/uL (0.7-4.9); Basophils % 0.7 % (0-1.3); Hematocrit 41.5 % (39.6-49.0); Lymphocytes % 39.5 % (15.3-44.8); MPV 8.8 fL (7.6-11.3); RBC Red Blood Cell Count 4.46 M/uL (4.33-5.43)
[2021-05-16 05:56] LABS: Magnesium 2.1 mg/dL (1.8-2.4); Potassium 3.5 mmol/L (3.5-5.1); Thyroid Stimulating Hormone 2.03 uIU/mL (0.360-3.740)
--- NOTE | 2021-05-16 06:15 | P.PN ---
Subjective Date of Service: 05/16/21 Primary Care Provider: Dr. Raza; Cardiology-Dr. Rizo Chief Complaint: Chest pain Subjective: Improving, Doing well Physical Examination - Vital Signs Temperature: 98.4 F Blood Pressure: 122/60 Pulse: 55 Respirations: 17 Pulse Ox (%): 94 - Studies Laboratory Data (last 24 hrs) 05/15/21 08:20: PT 12.5, INR 1.09 05/15/21 08:20: WBC 4.90, Hgb 13.3 L, Hct 39.3 L, Plt Count 232 05/15/21 08:20: Sodium 141, Potassium 3.6, BUN 18, Creatinine 1.30, Glucose 115 H, Magnesium 1.9, Total Bilirubin 0.4, AST 29, ALT 45, Alkaline Phosphatase 68 Assessment & Plan Discharge Plan: Home Plan to discharge in: 24 Hours Physician Review Additional Text: CT head: COMPARISON: No comparisons TECHNIQUE: All CT scans are performed using dose optimization technique as appropriate and may include automated exposure control or mA/KV adjustment according to patient size. FINDINGS: No intracranial hemorrhage, hydrocephalus or extra-axial fluid collection.Mild generalized brain atrophy is present with mild periventricular and deep white matter chronic microvascular ischemic changes.No areas of brain edema or evidence of midline shift. The paranasal sinuses and mastoids are clear. The calvarium is intact. IMPRESSION: No acute intracranial abnormality. CT dissection: COMPARISON: No comparisons TECHNIQUE: CT angiography of the aorta was performed with MIPs. All CT scans are performed using dose optimization technique as appropriate and may include automated exposure control or mA/KV adjustment according to patient size. FINDINGS: A left aortic arch is present with bovine branching pattern of the great vessels.No acute aortic finding is seen such as aneurysm, penetrating ulcer or dissection. The celiac axis, SMA, ETHEL and renal arteries are patent. Mild distal abdominal aortic atherosclerosis. Mild atherosclerosis of both iliac vessels also seen. Small hiatal hernia is noted. The lungs are clear. The liver demonstrates no focal mass or biliary dilatation.The spleen, pancreas, adrenal glands and kidneys are within normal limits for arterial phase imaging.Small fat containing umbilical hernia. No bowel obstruction, free fluid or abscess.Normal appendix.No pathologic enlarged lymphadenopathy identified.Moderate stool is present throughout the colon. No fracture or worrisome bone lesion seen. IMPRESSION: No acute aortic finding is demonstrated. Physical Exam: GENERAL: The patient is a well-developed, well-nourished, in no apparent distress. Alert and oriented x3. VITAL SIGNS: Reviewed HEENT: Head is normocephalic and atraumatic. Extraocular muscles are intact. Pupils are equal, round, and reactive to light and accommodation. Nares appeared normal. Mouth is well hydrated and without lesions. Mucous membranes are moist. NECK: Supple. No carotid bruits. No lymphadenopathy or thyromegaly. LUNGS: Clear to auscultation. No crackles or wheezes are heard. HEART: Regular rate and rhythm, no appreciable gallops, rubs, murmurs or extra heart sounds ABDOMEN: Soft, nontender, and nondistended. Positive bowel sounds. No hepatosplenomegaly was noted. EXTREMITIES: Without any cyanosis, clubbing, rash, lesions or peripheral edema. NEUROLOGIC: The patient is oriented to person, place and time. Strength and sensation are grossly intact. Face is symmetric. SKIN: Normal color, turgor and temperature. No ulcerations or rashes noted. Impression: Chest pain with history of CAD and prior stent Hypertension GERD with hiatal hernia Hyperlipidemia Tobacco abuse Plan: Chest pain with history of CAD and prior stent: Heart catheterization to be performed today. Await recommendations. Hypertension: Continue with valsartan. Metoprolol added. GERD with hiatal hernia: Will provide Pepcid Hyperlipidemia: Continue with Lipitor 80 mg daily. Will check fasting lipid panel. Tobacco abuse: Tobacco cessation addressed in detail. Will provide nicotine patch. Code Status: Full Code DVT prophylaxis: Heparin Advanced Care Planning-30 minutes: Anticipate discharge home Time Spent Managing Pts Care (In Minutes): 55
[2021-05-16] MEDS ORDERED: LIDOCAINE 1% 20 ML MDV ONE ×2 (08:17→08:21)
[2021-05-16] MEDS ORDERED: HEPA 1000U/500MLS 0 UNIT/0 ML BAG IV ONE ×2 (08:17→08:18)
[2021-05-16] MEDS ORDERED: HEPA 1000U/500MLS 1,000 UNIT/500 ML BAG IV ONE (08:21)
[2021-05-16] MEDS: VALSARTAN 160 MG TAB PO SCH (08:36)
[2021-05-16] MEDS: FAMOTIDINE 20 MG TAB PO SCH (08:36)
[2021-05-16] MEDS ORDERED: CLOPIDOGREL 75 MG TABLET PO SCH (09:00)
[2021-05-16] MEDS ORDERED: ASPIRIN EC 81 MG TAB PO SCH (09:00)
[2021-05-16] MEDS ORDERED: NA CHLORIDE 0.9% 500 ML ONE (10:10)
[2021-05-16] MEDS ORDERED: MIDAZOLAM HCL 2 MG/2 ML INJ ONE (10:10)
[2021-05-16] MEDS ORDERED: FENTANYL CITR 100 MCG/2 ML ONE (10:10)
[2021-05-16] MEDS ORDERED: ATROPINE SULF 1 MG/10 ML SYR IV ONE (10:11)
[2021-05-16] MEDS ORDERED: NA CHLORIDE 0.9% 0 ML ONE (10:11)
[2021-05-16 12:04] VITALS: O2SAT 96
[2021-05-16 14:10] VITALS: BP 122/60; TEMP 98.4
--- NOTE | 2021-05-16 14:16 | P.DS ---
Admission Date: 05/15/21 Discharge Date: 05/16/21 Primary Care Provider: Dr. Raza; Cardiology-Dr. Rizo Disposition: ROUTINE DISCHARGE Discharge Condition: GOOD Reason for Admission: Chest pain Consultations: Cardiology-Dr. Mosley Procedures: CT head: COMPARISON: No comparisons TECHNIQUE: All CT scans are performed using dose optimization technique as appropriate and may include automated exposure control or mA/KV adjustment according to patient size. FINDINGS: No intracranial hemorrhage, hydrocephalus or extra-axial fluid collection.Mild generalized brain atrophy is present with mild periventricular and deep white matter chronic microvascular ischemic changes.No areas of brain edema or evidence of midline shift. The paranasal sinuses and mastoids are clear. The calvarium is intact. IMPRESSION: No acute intracranial abnormality. CT dissection: COMPARISON: No comparisons TECHNIQUE: CT angiography of the aorta was performed with MIPs. All CT scans are performed using dose optimization technique as appropriate and may include automated exposure control or mA/KV adjustment according to patient size. FINDINGS: A left aortic arch is present with bovine branching pattern of the great vessels.No acute aortic finding is seen such as aneurysm, penetrating ulcer or dissection. The celiac axis, SMA, ETHEL and renal arteries are patent. Mild distal abdominal aortic atherosclerosis. Mild atherosclerosis of both iliac vessels also seen. Small hiatal hernia is noted. The lungs are clear. The liver demonstrates no focal mass or biliary dilatation.The spleen, pancreas, adrenal glands and kidneys are within normal limits for arterial phase imaging.Small fat containing umbilical hernia. No bowel obstruction, free fluid or abscess.Normal appendix.No pathologic enlarged lymphadenopathy identified.Moderate stool is present throughout the colon. No fracture or worrisome bone lesion seen. IMPRESSION: No acute aortic finding is demonstrated. Heart catheterization: Case discussed with cardiology. Patient with significant CAD. No cardiac intervention required. Continue medical management. Medical problem list Chest pain with history of CAD and prior stent status post heart catheterization showing significant CAD without further intervention, medical management recommended Hypertension GERD with hiatal hernia Hyperlipidemia Tobacco abuse Brief History of Present Illness: 65-year-old -[place] male with history of CAD and prior stents, hypertension, GERD, hyperlipidemia, tobacco abuse and chronic back pain. Patient presented to the ER with chest pain. Patient reports chest pain to the substernal region. It was not associated with any significant shortness of breath or nausea or vomiting. He took some nitro last night with some relief. He decided to go to work today. Chest pain persisted. He came to the ER for further evaluation. Patient reports that he thinks that he may have pulled a muscle. 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 Patient last seen by his burr sander about 3 months ago. He was to follow-up with cardiology this month. In the ER patient was evaluated. Vital signs stable. CT head unremarkable. CT dissection unremarkable. CBC unremarkable. Sodium 141, potassium 3.6. BUN of 18, creatinine 1.3 with a GFR 67. Troponin unremarkable. Urinalysis unremarkable. Urine drug screen unremarkable. Patient admitted for further evaluation and treatment. ER spoke to cardiology. Cardiology recommends to start heparin drip at this time. Hospital Course: Patient presented with chest pain. Patient with history of CAD and prior stent. Patient was seen and evaluated by cardiology. Heart enzymes were unremarkable. Heart catheterization showed significant CAD. No intervention was required. Cardiology recommended medical management. Medications reviewed and adjusted. Cardiology recommends to add metoprolol. Norvasc and hydrochlorothiazide discontinued. At discharge patient will continue with aspirin 81 mg daily, Plavix 85 mg daily, Lipitor 80 mg daily, metoprolol 12.5 mg 1 pill twice daily and valsartan 160 mg 1 pill twice daily. Nitroglycerin will be provided to be used as needed for chest pain. Recommend follow-up with cardiology in 2 weeks to follow-up his hospitalization and follow-up his CAD. Patient with hypertension. Medications have been adjusted. As recommended by cardiology metoprolol has been added. At discharge hydrochlorothiazide and Norvasc have been discontinued. Patient will continue with metoprolol 12.5 mg 1 pill twice daily and valsartan 160 mg 1 pill twice daily. Recommend to maintain blood pressure less than 130/80. Further adjustment can be done by his PCP. If blood pressure remains above 140/90 further adjustment in his medication may be required. This can be done with the help of his PCP. Recommend follow-up with PCP in 1 week to follow-up this hospitalization and continue his care. Patient with GERD and hiatal hernia. At discharge patient may continue with Pepcid 20 mg 1 pill twice daily. Patient with hyperlipidemia. At discharge patient will continue with Lipitor 80 mg daily. Recommend to recheck fasting lipid panel in 4 to 6 weeks to monitor his progress. Patient with tobacco abuse. Tobacco cessation education provided. Patient will be provided nicotine patch to help with cessation. Vital Signs/Physical Exam: Temp Pulse Resp BP Pulse Ox 98.4 F 55 17 122/60 94 05/16/21 14:10 05/16/21 14:10 05/16/21 14:10 05/16/21 14:10 05/16/21 14:10 General: Alert, In no apparent distress, Oriented x3, Cooperative HEENT: Atraumatic Neck: Supple Respiratory: Clear to auscultation bilaterally, Normal air movement Cardiovascular: Normal pulses, Regular rate/rhythm Gastrointestinal: Normal bowel sounds, No tenderness, No masses, No rebound, No guarding Musculoskeletal: No erythema, No tenderness, No warmth Integumentary: No tenderness/swelling, No erythema, No warmth, No cyanosis Neurological: Normal speech, Normal strength at 5/5 x4 extr, Normal tone, Normal affect Laboratory Data at Discharge: WBC 6.10 K/uL (4.3-10.9) D 05/16/21 05:06 Hgb 13.8 g/dL (13.6-17.9) 05/16/21 05:06 Hct 41.5 % (39.6-49.0) 05/16/21 05:06 Plt Count 251 K/uL (152-406) 05/16/21 05:06 PT 12.5 SECONDS (9.5-12.5) 05/15/21 08:20 INR 1.09 05/15/21 08:20 APTT 61.8 SECONDS (24.3-36.9) H 05/16/21 05:06 Sodium 139 mmol/L (136-145) 05/16/21 05:06 Potassium 3.5 mmol/L (3.5-5.1) 05/16/21 05:06 BUN 18 mg/dL (7-18) 05/16/21 05:06 Creatinine 1.33 mg/dL (0.55-1.3) H 05/16/21 05:06 Glucose 115 mg/dL (74-106) H 05/16/21 05:06 Magnesium 2.1 mg/dL (1.8-2.4) 05/16/21 05:06 Total Bilirubin 0.4 mg/dL (0.2-1.0) 05/15/21 08:20 AST 29 U/L (15-37) 05/15/21 08:20 ALT 45 U/L (12-78) 05/15/21 08:20 Alkaline Phosphatase 68 U/L (45-117) 05/15/21 08:20 Troponin I < 0.02 ng/mL (0.0-0.045) 05/16/21 00:25 Triglycerides 151 mg/dL (<150) H 05/16/21 05:06 Cholesterol 156 mg/dL (<200) 05/16/21 05:06 HDL Cholesterol 47 mg/dL (40-60) 05/16/21 05:06 Cholesterol/HDL Ratio 3.32 05/16/21 05:06 Home Medications: Aspirin Chewable [Aspirin Chewable*] 81 mg PO DAILY 09/19/20 Atorvastatin Calcium [Lipitor] 80 mg PO DAILY 09/19/20 Clopidogrel Bisulfate [Plavix*] 75 mg PO DAILY 09/19/20 Valsartan [Diovan] 2 tab PO DAILY 09/19/20 Famotidine [Pepcid*] 20 mg PO BID #60 tab 05/16/21 Metoprolol Tartrate [Lopressor*] 12.5 mg PO BID 6AM 6PM #60 tab 05/16/21 Nicotine [Nicoderm] 1 patch TD DAILY #30 patch.td24 05/16/21 Nitroglycerin [Nitrostat*] 0.4 mg SL UD PRN #30 tab 05/16/21 New Medications: Metoprolol Tartrate [Lopressor*] 12.5 mg PO BID 6AM 6PM #60 tab Nicotine [Nicoderm] 1 patch TD DAILY #30 patch.td24 Nitroglycerin [Nitrostat*] 0.4 mg SL UD PRN #30 tab PRN Reason: Pain Scale 2-4 (Mild) Famotidine [Pepcid*] 20 mg PO BID #60 tab Diet: AHA Activity: Ad farnaz Followup: NONE,NONE [Primary Care Provider] - Time spent managing pt's care (in minutes): 55
--- NOTE | 2021-05-16 17:24 | OP ---
Date of Procedure: 05/16/2021 Surgeon: Judson Mosley MD Slubber Machine Operator: Edwige Ganga Rahman. Admitted to Dr. Mckay on 05/15/2021 with unstable angina. Indication: Mr. Stafford has had a history of stent in September [place] [address] Rizo. Came in with unstable anginal symptoms, ruled out for an NH. EKG showed some anterolateral ischemia. Description Of Procedure: By the time we brought him to the supervisor labor gang, he was pain free, but on 05/16, he was brought to the supervisor [facility] as an inpatient, prepped and draped in routine sterile fashion, given Versed and fentanyl for sedation. A 6-German sheath was introduced in the right common femora l artery successfully. Angio-Seal was used to close the case. Daniel catheter, left and right were used to cannulate the left main and right main respectively. He was found to have a codominant syst em. The left main was normal. The right main was normal. He had a 50% proximal to mid LAD stenosis , 50% diagonal stenosis within a stent, 50% mid circumflex, 40% to 50% ostial OM lesion. He had a 30 % in-stent restenosis in the RCA mid and distal. Complications: There were no complications. Blood Loss: 5 cc. Postoperative Diagnosis: Moderate to severe coronary artery disease. Plan: We will continue medical therapy. I will put him on beta dane, increase his statin. He ca n go home today. We will see him in the office in about 2 weeks or he can see Dr. Rizo. Anesthesia: Total conscious sedation was 45 minutes. The patient can go home later on today if it is okay with Dr. Mckay. It may be worth doing an outpa tient stress test on him to see if he has any ischemia in any of these territories we just mentioned above. NB/MODL Voice ID: [id number] Report ID: [id number]
--- NOTE | 2021-05-17 08:51 | ECHO ---
HEIGHT: 5 ft 5 in WEIGHT: 185 lb 0 oz DATE OF STUDY: 05/16/[address]: Benitez Mckay DO 2-DIMENSIONAL: YES M.MODE: YES DOPPLER: YES COLOR FLOW: YES TDS: NO PORTABLE: NO DEFINITY: NO BUBBLE STUDY: NO DIAGNOSIS: CHEST PAIN, HISTORY OF CORONARY ARTERY DISEASE, HYPERTENSION CARDIAC HISTORY: CATHERIZATION: YES SURGERY: NO PROSTHETIC VALVE: NO PACEMAKER: NO MEASUREMENTS (cm) DIASTOLIC (NORMALS) SYSTOLIC (NORMALS) IVSd 1.1 (0.6-1.2) LA Diam 3.4 (1.9-4.0) LVEF 65% LVIDd 4.9 (3.5-5.7) LVIDs 3.1 (2.0-3.5) %FS 36% LVPWd 1.1 (0.6-1.2) Ao Diam 2.7 (2.0-3.7) 2 DIMENSIONAL ASSESSMENT: RIGHT ATRIUM: NORMAL LEFT ATRIUM: NORMAL RIGHT VENTRICLE: NORMAL LEFT VENTRICLE: NORMAL TRICUSPID VALVE: NORMAL MITRAL VALVE: NORMAL PULMONIC VALVE: NORMAL AORTIC VALVE: NORMAL PERICARDIAL EFFUSION: NONE AORTIC ROOT: NORMAL LEFT VENTRICULAR WALL MOTION: NORMAL DOPPLER/COLOR FLOW: NORMAL COMMENTS: NORMAL 2D ECHOCARDIOGRAM WITH DOPPLER. NO WALL MOTION ABNORMALITY. NO EFFUSION. TECHNOLOGIST: Chris JOSEPH
== END 2021-05-16 15:29 | disposition home or self-care (01) ==
LOC: ER 08:12 → ERHOLD 10:58 → 2ND 15:38
PROVIDERS: ADMIT Family Medicine; ATTEND Family Medicine
DX: R07.9 Chest pain, unspecified (principal); I25.10 Atherosclerotic heart disease of native coronary artery without angina pectoris; Z95.5 Presence of coronary angioplasty implant and graft; I10 Essential (primary) hypertension; K21.9 Gastro-esophageal reflux disease without esophagitis; E78.5 Hyperlipidemia, unspecified; M54.9 Dorsalgia, unspecified; G89.29 Other chronic pain; K44.9 Diaphragmatic hernia without obstruction or gangrene; F17.210 Nicotine dependence, cigarettes, uncomplicated
CPT/HCPCS: 93005; 93306; 85025 ×2; 80048 ×2; 36415 ×2; 83735 ×2; 82550 ×2; 85610; 80061; 82565; 80076; 85730 ×4; 84443; 81003; 84484 ×3; 82553 ×2; 84439; 83880; 80307; 70450; 71275; 74175; 71045; 93454; Q9967; C1893; C1760; J1644 ×3; J2250; J3010; G0378 ×4; J7040; J2405; 96365; 96366; 96375; 99285; J0583

== ENCOUNTER 2021-12-27 12:01 | Observation (INO) | payer BC, OTHER ==
--- OUTSIDE RECORDS SUMMARY | 2021-12-27 12:07 | XMS REPORT | Continuity of Care Document ---
:1955 Author Organization [facility] t Address [address] [place] [address] Care Team Providers Name Role Phone Asked, Pcp Primary Care Physician Unavailable Archana Torres Attending Clinician Unavailable Gerry Saucedo DO Attending Clinician Idalia GASPAR Attending Clinician Doctor Unassigned, Name Attending Clinician Unavailable Yaron BOWERS Attending Clinician YARON Attending Clinician Unavailable Abbi Higgins Attending Clinician ATTAR Attending Clinician Unavailable Sallie GASPAR Attending Clinician JAIME Attending Clinician Unavailable Patt Mckoy Attending Clinician Jaime GASPAR Attending Clinician Singer LOZANO Attending Clinician Attending Clinician Unavailable Archana Torres Admitting Clinician Unavailable Physician, Primary or Family Admitting Clinician Unavailmiguel angel Friedman MD Admitting Clinician YARON Admitting Clinician Unavailable ATTAR Admitting Clinician Unavailable JAIME Admitting Clinician Unavailable Jaime GASPAR Admitting Clinician TRONCOSO Admitting Clinician Unavailable Payers Payer Name Policy Type Policy Number Effective Date Expiration Date S christine [employer] [place] [id number] 2019 00:00:00 Problems Condition Condition Condition Status Onset Resolution Last Treating Co mments Source Name Details Category Date Date Treatment Clinician Date Chest pain Chest pain Disease Active M ethodi 4-21 st [facility]:00: [facility]osp[facility] 00 l Uncontroll Uncontroll Disease Active U joann ed ed 3-22 ity of hypertens[place]ens[place] Coronary Coronary Disease Active Unive rs artery artery 7-13 ity of disease disease 00:00: [place] involving involving 00 Medi [place] coronary 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 7-13 ity of disease disease 00:00: [place] involving involving 00 Medi fadumo [place] coronary coronary artery of artery of [place] with heart with angina angina pectoris pectoris Essential Essential Disease Active Uni vers hypertensi hypertensi 7-13 it y of on on 00:00: [place] [address] Medical Branch Smoker Smoker Disease Active Univers 7-13 ity of 00:00: [place] [address] Medical Branch Dizziness Dizziness Disease Active Uni vers 7-13 ity of 00:00: [place] 00 Medical Branch Chest pain Chest pain Disease Active U nivers 7-12 ity of 00:00: [place] 00 Medical Branch NSTEMI NSTEMI Disease Active Methodi (non-ST (non-ST 2-02 st elevated elevated 00:00: Hospit a myocardial myocardial 00 l infarction infarction ) ) Essential Essential Disease Active Met hodi hypertensi hypertensi 2-02 st on on 00:00: Hospita 00 l Mixed Mixed Disease Active Methodi hyperlipid hyperlipid 2-02 st emia emia 00:00: Hospita 00 l Obesity Obesity Disease Active 2015-11 Univers (BMI (BMI 2-17 ity of 30-39.9) 30-39.9) 00:00: [place] 00 Medical Branch Leg pain, Leg pain, Disease Active 2014-11 Uni vers diffuse, diffuse, 0-04 ity of right right 00:00: [place] 00 Medical Branch Allergies, Adverse Reactions, Alerts Allergy Allergy Status Severity Reaction(s) Onset Inactive Treating Comm ents Source Name Type Date Date Clinician No Known DA Active U [facility] Allergie 11-11 Clear s 00:00: Millan 00 [facility] NO KNOWN Drug Active Univers ALLERGIE Class ity of S [place] [facility] Social History Social Habit Start Date Stop Date Quantity Comments Source Exposure to Not sure [facility] SARS-CoV-2 [place] Medical (event) Branch Tobacco use and 2021-02-11 2021-02-11 Never used Universit y of exposure 00:00:00 00:00:00 [facility] Branch Alcohol intake 2021-02-11 2021-02-11 Ex-drinker [facility] 00:00:00 00:00:00 (finding) [place] [facility] History [facility] 2019-11-15 2019-11-15 5 University o f Financial 00:00:00 00:00:00 [place] [facility] History [facility] Food 2019-11-15 2019-11-15 1 Univers ity of Worry 00:00:00 00:00:00 [place] [facility] History [facility] Food 2019-11-15 2019-11-15 1 Univers ity of Scarcity 00:00:00 00:00:00 [place] [facility] History [facility] 2019-11-15 2019-11-15 2 University o f Transport Med 00:00:00 00:00:00 [place] Medic al Branch History [facility] 2019-11-15 2019-11-15 2 University o f Transport Non-Med 00:00:00 00:00:00 [facility] Branch Sex [birth year] [facility] 00:00:00 00:00:00 Smoking Status Start Date Stop Date Source Tobacco smoking [facility] consumption unknown Former smoker 2021-02-11 00:00:00 2021-02-11 [place] o f [place] 00:00:00 Medical Branch Smoker, current status 2020-01-12 00:00:00 [facility] [place] [facility] Medical Branch Medications Ordered Filled Start Stop Current Ordering Indication Dosage Frequency Signature Comments Components Source Medication Medication Date Date Medication? Clinician (SIG) Name Name isosorbide 2020- No [id number] 60mg Take 1 Univers mononitrate 4-12 05-13 tablet by it y of 60 mg 24 hr 00:00: 04:59 [place] tablet 00 :00 daily for Medical 30 days. Branch aspirin 81 0 Yes 81mg Take 81 mg U nivers mg chewable 4-11 by mouth ity of tablet 19:32: daily. [address] Branch atorvastati Yes 80mg Take 80 mg Univers n 80 mg 4-11 by mouth ity of tablet 19:32: at [place] [address] bedtime. Medical Branch clopidogrel 0 Yes 75mg Take 75 mg Univers (PLAVIX) 75 4-11 by mouth ity of mg tablet 19:32: daily. [address] Branch valsartan Yes 320mg Take 320 Uni vers 160 mg 4-11 mg by ity of tablet 19:32: mouth at [place] [address] bedtime. Medical Branch amLODIPine Yes 10mg Take 10 mg U nivers 10 mg 4-11 by mouth ity of tablet 19:32: daily. [address] clopidogreL Yes 75mg 75 mg, Univ ers (PLAVIX) 4-11 Oral, ity of tablet 75 14:00: DAILY, [place] mg 00 First dose Medical on [facility] 02/12/21 at 0900, Until Discontinu ed, Routine aspirin Yes 81mg 81 mg, Univers chewable 11 Oral, ity of tablet 81 14:00: DAILY, [place] mg 00 First dose Medical on [facility] 02/12/21 at 0900, Until Discontinu ed, Routine amLODIPine Yes 10mg 10 mg, Unive rs (NORVASC) 4-11 Oral, ity of tablet 10 14:00: DAILY, [place] mg 00 First dose Medical on [facility] 02/12/21 at 0900, Until Discontinu ed, Routine isosorbide Yes 60mg 60 mg, Unive rs mononitrate 4-11 Oral, ity of (IMDUR) 24 05:15: DAILY, [place] hr tablet 00 First dose Medi fadumo 60 mg on [facility] 02/12/21 at 0015, Until Discontinu ed, Routine valsartan Yes 320mg 320 mg, Univ ers (DIOVAN) 4-11 Oral, QHS, ity o f tablet 320 02:00: First dose [place] mg 00 on [facility] 02/11/21 at Branch 2100, Until Discontinu ed, Routine atorvastati Yes 80mg 80 mg, Univ ers n (LIPITOR) 4-11 Oral, QHS, it y of tablet 80 02:00: [place] 00 on [facility] 02/11/21 at Branch 2100, Until Discontinu ed, Routine nicotine 0 Yes 1{patch 1 Patch, Un hui (NICODERM) 4-11 } Topical, ity o f 14 mg/24 hr 01:30: Administer [place] patch 1 00 over 24 Medical Patch Hours, Branch Q24H, First dose on [facility] 02/11/21 at 2030, Until Discontinu ed, Routine HYDROcodone 0 Yes 1{tbl} 1 tablet, Univers -acetaminop 4-11 Oral, ity of hen (NORCO 00:06: Q6HPRN, [place] 5) 5-325 mg 37 Starting Medi fadumo tablet 1 [facility] tablet 02/11/21 at 1906, Until Discontinu ed, Routine, Pain (scale 4-6) HYDROcodone Yes [id number] 1{tbl} Take 1 Un hui -acetaminop 4-11 tablet by ity of hen 5-325 00:00: mouth [place] mg tablet 00 every 6 Medical (six) Branch hours as needed for Pain (scale 4-6). Indication s: acute pain nicotine 14 2020-0 202- No [id number] 1{patch Apply 1 Univers mg/24 hr 4 05-12 } Patch to ity of patch 00:00: 04:59 area(s) [place] 00 :00 every 24 Medical (twenty-fo Branch ur) hours for 30 days. enoxaparin Yes 30mg 30 mg, Unive rs (LOVENOX) 4-10 Subcutaneo ity of injection 22:00: [place], DAILY, [place] 30 mg 00 First dose Medical on [facility] Branch 02/11/21 at 1700, Until Discontinu ed, Routine acetaminoph Yes 650mg 650 mg, Un hui en 4-10 Oral, ity of (TYLENOL) 21:05: Q6HPRN, [place] tablet 650 45 Starting Medic al mg [facility] Branch 02/11/21 at 1605, Until Discontinu ed, Routine, Pain (scale 1-3) aspirin 2020-0 202- No 243mg 243 mg, Unive rs chewable 02-11 Oral, ity of tablet 243 20:15: 19:26 ONCE, 1 [place] mg 00 :00 dose, Sat Medical 02/11/21 at [place] 1515, Routine nitroglycer 2020-0 Yes .4mg 0.4 mg, Uni vers in 02-11 Sublingual ity of (NITROSTAT) 19:12: , Q5MIN [place] sublingual 45 PRN, 3 Medical tablet 0.4 doses, Branch mg Starting 02/11/21 at 1412, Until Discontinu ed, SHANA, Chest pain clopidogreL 2019-0 Yes 75mg QD Take 75 mg Methodi (PLAVIX) 75 4-[address] mg tablet 10:56: daily. Hospit a 02 l amLODIPine 2020-0 Yes 10mg QD Take 10 mg M ethodi (NORVASC) 4-[address] 10 mg 10:56: daily. Hospita tablet 02 l aspirin 2020-0 Yes 81mg QD Take 81 mg Meth alysa (ECOTRIN) 4-[address] 81 MG 10:56: daily. Hospita enteric 02 l coated tablet atorvastati 2020-0 Yes 80mg QD Take 80 mg Methodi n (LIPITOR) 4-[address] 80 MG 10:56: nightly. Hospita tablet 02 l nitroglycer 2019-0 2020- No .4mg 0.4 mg, Un hui in 02-22 Sublingual ity of (NITROSTAT) 17:45: 16:43 , ONCE, 1 [place] sublingual 00 :00 dose, [facility] fadumo tablet 0.4 02/23/20 at [facility] mg 1245, SHANA carvediloL 2020-0 2020- No 6.25mg 6.25 mg, Univers (COREG) 02-01 Oral, ity of tablet 6.25 20:45: 19:51 ONCE, 1 [place] mg 00 :00 dose, [facility] Medical 02/02/20 at [place] 1545, Routine aspirin 81 2020-0 Yes 81mg Take 81 mg U nivers mg chewable 3-24 by mouth ity of tablet 15:24: daily. [address] atorvastati 2020-0 Yes 80mg Take 80 mg Univers n 80 mg 3-24 by mouth ity of tablet 15:24: at [place] [address] bedtime. Medical Branch clopidogrel 2020-0 Yes 75mg Take 75 mg Univers (PLAVIX) 75 3-24 by mouth ity of mg tablet 15:24: daily. [place] [address] Medical Branch valsartan 2020-0 Yes 320mg Take 320 Uni vers 160 mg 3-24 mg by ity of tablet 15:24: mouth at [place] [address] bedtime. Medical Branch amLODIPine 2020-0 Yes 10mg Take 10 mg U nivers 10 mg 3-24 by mouth ity of tablet 15:24: daily. [place] [address] Medical Branch aspirin 81 2020-0 Yes 81mg Take 81 mg U nivers mg chewable 3-24 by mouth ity of tablet 15:24: daily. [place] [address] Medical Branch atorvastati 2020-0 Yes 80mg Take 80 mg Univers n 80 mg 3-24 by mouth ity of tablet 15:24: at [place] [address] bedtime. Medical Branch clopidogrel 2020-0 Yes 75mg Take 75 mg Univers (PLAVIX) 75 3-24 by mouth ity of mg tablet 15:24: daily. [place] [address] Medical Branch valsartan 2020-0 Yes 320mg Take 320 Uni vers 160 mg 3-24 mg by ity of tablet 15:24: mouth at [place] [address] bedtime. Medical Branch amLODIPine 2020-0 Yes 10mg Take 10 mg U nivers 10 mg 3-24 by mouth ity of tablet 15:24: daily. [place] [address] Medical Branch aspirin 81 2020-0 Yes 81mg Take 81 mg U nivers mg chewable 3-24 by mouth ity of tablet 15:24: daily. [place] [address] Medical Branch atorvastati 2020-0 Yes 80mg Take 80 mg Univers n 80 mg 3-24 by mouth ity of tablet 15:24: at [place] [address] bedtime. Medical Branch clopidogrel 2020-0 Yes 75mg Take 75 mg Univers (PLAVIX) 75 3-24 by mouth ity of mg tablet 15:24: daily. [place] [address] Medical Branch valsartan 2020-0 Yes 320mg Take 320 Uni vers 160 mg 3-24 mg by ity of tablet 15:24: mouth at [place] [address] bedtime. Medical Branch amLODIPine 2020-0 Yes 10mg Take 10 mg U nivers 10 mg 3-24 by mouth ity of tablet 15:24: daily. [place] [address] Medical Branch aspirin 81 2020-0 Yes 81mg Take 81 mg U nivers mg chewable 3-24 by mouth ity of tablet 15:24: daily. [place] [address] Medical Branch atorvastati 2020-0 Yes 80mg Take 80 mg Univers n 80 mg 3-24 by mouth ity of tablet 15:24: at [place] [address] bedtime. Medical Branch clopidogrel 2020-0 Yes 75mg Take 75 mg Univers (PLAVIX) 75 3-24 by mouth ity of mg tablet 15:24: daily. [place] [address] Medical Branch valsartan 2020-0 Yes 320mg Take 320 Uni vers 160 mg 3-24 mg by ity of tablet 15:24: mouth at [place] [address] bedtime. Medical Branch amLODIPine 2020-0 Yes 10mg Take 10 mg U nivers 10 mg 3-24 by mouth ity of tablet 15:24: daily. [place] [address] Medical Branch aspirin 81 2020-0 Yes 81mg Take 81 mg U nivers mg chewable 3-24 by mouth ity of tablet 15:24: daily. [place] [address] Medical Branch atorvastati 2020-0 Yes 80mg Take 80 mg Univers n 80 mg 3-24 by mouth ity of tablet 15:24: at [place] [address] bedtime. Medical Branch clopidogrel 2020-0 Yes 75mg Take 75 mg Univers (PLAVIX) 75 3-24 by mouth ity of mg tablet 15:24: daily. [place] [address] Medical Branch valsartan 2020-0 Yes 320mg Take 320 Uni vers 160 mg 3-24 mg by ity of tablet 15:24: mouth at [place] [address] bedtime. Medical Branch amLODIPine 2020-0 Yes 10mg Take 10 mg U nivers 10 mg 3-24 by mouth ity of tablet 15:24: daily. [place] [address] Medical Branch aspirin 81 2020-0 Yes 81mg Take 81 mg U nivers mg chewable 3-24 by mouth ity of tablet 15:24: daily. [place] [address] Medical Branch atorvastati 2020-0 Yes 80mg Take 80 mg Univers n 80 mg 3-24 by mouth ity of tablet 15:24: at [place] [address] bedtime. Medical Branch clopidogrel 2020-0 Yes 75mg Take 75 mg Univers (PLAVIX) 75 3-24 by mouth ity of mg tablet 15:24: daily. [place] [address] Medical Branch valsartan 2020-0 Yes 320mg Take 320 Uni vers 160 mg 3-24 mg by ity of tablet 15:24: mouth at [place] [address] bedtime. Medical Branch amLODIPine 2020-0 Yes 10mg Take 10 mg U nivers 10 mg 3-24 by mouth ity of tablet 15:24: daily. [place] [address] Medical Branch aspirin 81 2020-0 Yes 81mg Take 81 mg U nivers mg chewable 3-24 by mouth ity of tablet 15:24: daily. [place] [address] Medical Branch atorvastati 2020-0 Yes 80mg Take 80 mg Univers n 80 mg 3-24 by mouth ity of tablet 15:24: at [place] [address] bedtime. Medical Branch clopidogrel 2020-0 Yes 75mg Take 75 mg Univers (PLAVIX) 75 3-24 by mouth ity of mg tablet 15:24: daily. [place] [address] Medical Branch valsartan 2020-0 Yes 320mg Take 320 Uni vers 160 mg 3-24 mg by ity of tablet 15:24: mouth at [place] [address] bedtime. Medical Branch amLODIPine 2020-0 Yes 10mg Take 10 mg U nivers 10 mg 3-24 by mouth ity of tablet 15:24: daily. [place] [address] Medical Branch aspirin 81 2020-0 Yes 81mg Take 81 mg U nivers mg chewable 3-24 by mouth ity of tablet 15:24: daily. [place] [address] Medical Branch atorvastati 2020-0 Yes 80mg Take 80 mg Univers n 80 mg 3-24 by mouth ity of tablet 15:24: at [place] [address] bedtime. Medical Branch clopidogrel 2020-0 Yes 75mg Take 75 mg Univers (PLAVIX) 75 3-24 by mouth ity of mg tablet 15:24: daily. [place] [address] Medical Branch valsartan 2020-0 Yes 320mg Take 320 Uni vers 160 mg 3-24 mg by ity of tablet 15:24: mouth at [place] [address] bedtime. Medical Branch amLODIPine 2020-0 Yes 10mg Take 10 mg U nivers 10 mg 3-24 by mouth ity of tablet 15:24: daily. [place] [address] Medical Branch carvediloL 2020-0 2020- No [id number] 6.25mg Take 1 Univers 6.25 mg 3-24 04-24 tablet by ity of tablet 00:00: 04:59 mouth 2 [place] 00 :00 (two) Medical times Branch daily with meals for 30 days. carvediloL 2020-0 2020- No [id number] 6.25mg Take 1 Univers 6.25 mg 3-24 04-24 tablet by ity of tablet 00:00: 04:59 mouth 2 [place] 00 :00 (two) Medical times [place] daily with meals for 30 days. carvediloL 2019- 2020- No [id number] 6.25mg Take 1 Univers 6.25 mg 3-24 04-24 tablet by ity of tablet 00:00: 04:59 mouth 2 [place] 00 :00 (two) Medical times [place] daily with meals for 30 days. carvediloL 2019-2019- No [id number] 6.25mg Take 1 Univers 6.25 mg 3-24 04-24 tablet by ity of tablet 00:00: 04:59 mouth 2 [place] 00 :00 (two) Medical times [place] daily with meals for 30 days. carvediloL 2019-2019- No [id number] 6.25mg Take 1 Univers 6.25 mg 3-24 04-24 tablet by ity of tablet 00:00: 04:59 mouth 2 [place] 00 :00 (two) [facility] times [place] daily with meals for 30 days. carvediloL 2019-2019- No [id number] 6.25mg Take 1 Univers 6.25 mg 3-24 04-24 tablet by ity of tablet 00:00: 04:59 mouth 2 [place] 00 :00 (two) [facility] times [place] daily with meals for 30 days. carvediloL 2019-2019- No [id number] 6.25mg Take 1 Univers 6.25 mg 3-24 04-24 tablet by ity of tablet 00:00: 04:59 mouth 2 [place] 00 :00 (two) [facility] times [place] daily with meals for 30 days. carvediloL 2019-0 Yes 6.25mg 6.25 mg, U nivers (COREG) - Oral, BID ity of tablet 6.25 22:00: MEALS, [place] mg 00 First dose Medical on [facility] 01/25/20 at 1700, Until Discontinu ed, Routine carvediloL 2019-2019- No 3.125mg 3.125 mg, Univers (COREG) 01-24- Oral, ity of tablet 18:15: 19:51 ONCE, 1 [place] 3.125 mg 00 :00 dose, Mon Medica l 01/25/20 at Branch 1315, Routine carvediloL 2020-0 2020- No 3.125mg 3.125 mg, Univers (COREG) 01-23-23 Oral, BID ity of tablet 16:00: 18:03 MEALS, [place] 3.125 mg 00 :51 First dose Medic al on [facility] 01/24/20 at 1100, Until Discontinu ed, Routine clopidogreL 2020-0 Yes 75mg 75 mg, Univ ers (PLAVIX) - Oral, ity of tablet 75 14:00: DAILY, [place] mg 00 First dose Medical on [facility] 01/24/20 at 0900, Until Discontinu ed, Routine aspirin 2020-0 Yes 81mg 81 mg, Univers chewable 01-23 Oral, ity of tablet 81 14:00: DAILY, [place] mg 00 First dose Medical on [facility] 01/24/20 at 0900, Until Discontinu ed, Routine amLODIPine 2020-0 Yes 10mg 10 mg, Unive rs (NORVASC) 01-23 Oral, ity of tablet 10 14:00: DAILY, [place] mg 00 First dose Medical on [facility] 01/24/20 at 0900, Until Discontinu ed, Routine enoxaparin 2020-0 Yes 40mg 40 mg, Unive rs (LOVENOX) 01-23 Subcutaneo ity of injection 14:00: us, DAILY, [place] 40 mg 00 First dose Medical on [facility] 01/24/20 at 0900, Until Discontinu ed, Routine nicotine 2020-0 Yes 1{patch 1 Patch, Un hui (NICODERM) 01-23 } Topical, ity o f 14 mg/24 hr 03:00: Administer [place] patch 1 00 over 24 Medical Patch Hours, Branch Q24H, First dose on [facility] 01/23/20 at 2200, Until Discontinu ed, Routine atorvastati 2020-0 Yes 80mg 80 mg, Univ ers n (LIPITOR) 3- Oral, QHS, it y of tablet 80 02:00: First dose [place] mg 00 on [facility] 01/23/20 at Branch 2100, Until Discontinu ed, Routine valsartan 2020-0 Yes 320mg 320 mg, Univ ers (DIOVAN) 3- Oral, QHS, ity o f tablet 320 02:00: First dose [place] mg 00 on [facility] 01/23/20 at Branch 2100, Until Discontinu ed, Routine NaCl 0.9% 2020-0 2020- No 1000mL at 75 Univ ers (NS) IV 01-23-23 mL/hr, IV ity of infusion 01:15: 18:03 Infusion, [place] 1,000 mL 00 :56 CONTINUOUS Medic al , Starting Branch 01/23/20 at 2015, Until 01/25/20 at 1303, Routine iohexol 2019-0 2020- No 100mL 100 mL, Unive rs (OMNIPAQUE 01-23 Intravenou it y of 350 01:15: 01:15 s, ONCE, 1 [place] BULK-100 00 :00 dose, Sat Medica l mL) 01/23/20 at Branch injection 2014, 100 mL Routine ALPRAZolam 2019-0 Yes .25mg 0.25 mg, Un hui (XANAX) 01-23 Oral, ity of tablet 0.25 00:09: TIDPRN, [place] mg 24 Starting Medical [facility] Branch 01/23/20 at 1909, Until Discontinu ed, Routine, anxiety hydralAZINE 2019-0 Yes 10mg 10 mg, Univ ers (APRESOLINE 01-22 Intravenou it y of ) injection 23:31: s, PRN - [place] 10 mg 44 SEE Medical INSTRUCTIO Branch NS, Starting [facility] 01/23/20 at 1831, Until Discontinu ed, Routine, Hypertensi ve emergency, Hypertensi on, Q4h for SBP>160 or DBP>100 ondansetron 2019-0 Yes 4mg 4 mg, Slow Univers (ZOFRAN 01-22 IV Push, ity of (PF)) 23:15: Q6HPRN, [place] injection 4 15 Starting Medi fadumo mg [facility] Branch 01/23/20 at 1815, Until Discontinu ed, Routine, Nausea and Vomiting (N/V) morpHINE 2019-0 2020- No 2mg 2 mg, Slow Un hui injection 2 01-22 IV Push, ity of mg 23:15: 23:14 Q4HPRN, [place] 12 :12 Starting Medical [facility] Branch 01/23/20 at 1815, Until 01/24/20 at 1814, Routine, Pain (scale 7-10) acetaminoph 2020-0 Yes 650mg 650 mg, Un hui en 01-22 Oral, ity of (TYLENOL) 23:14: Q6HPRN, [place] tablet 650 59 Starting Medic al mg Sat Branch 01/23/20 at 1814, Until Discontinu ed, Routine, Pain (scale 1-3) NaCl 0.9% 2020- No 1000mL at 999 Uni vers (NS) bolus 3-10 03-10 mL/hr, ity of infusion 14:15: 15:43 1,000 mL, [place] 1,000 mL 00 :00 IV Medical Infusion, Branch ONCE, 1 dose, 01/12/20 at 0915, STAT aspirin 81 2020-0 Yes 81mg Take 81 mg U nivers mg chewable 1-12 by mouth ity of tablet 22:51: daily. [place] [facility] Branch atorvastati 2019-0 Yes 80mg Take 80 mg Univers n 80 mg 1-12 by mouth ity of tablet 22:51: at [place] bedtime. Medical Branch clopidogrel 2019-0 Yes 75mg Take 75 mg Univers (PLAVIX) 75 1-12 by mouth ity of mg tablet 22:51: daily. [place] [facility] Branch valsartan 2019-0 Yes 160mg Take 160 Uni vers 160 mg 1-12 mg by ity of tablet 22:51: mouth [place] 01 daily. Medical Branch KCL 10 mEq 2019-0 Yes [id number] 10meq Take 1 Univers tablet 1-12 tablet by ity of 00:00: mouth [place] 00 daily. Medical Branch hydroCHLORO 2019-0 Yes [id number] 12.5mg Take 1 Univers thiazide 1-12 tablet by ity of 12.5 mg 00:00: mouth [place] tablet 00 daily. Medical Branch KCL 10 mEq 2019-0 2020- No [id number] 10meq Take 1 Univers tablet 1-12 03-24 tablet by ity of 00:00: 00:00 mouth [place] 00 :00 daily. Medical Branch hydroCHLORO 2019-0 2020- No [id number] 12.5mg Take 1 Univers thiazide 1-12 03-24 tablet by ity o f 12.5 mg 00:00: 00:00 mouth [place] tablet 00 :00 daily. Medical Branch Vital Signs Vital Name Observation Time Observation Value Comments Source Systolic blood 2021-02-12 16:27:00 145 mm[Hg] Univer sity of pressure [facility] [place] Diastolic blood 2021-02-12 16:27:00 97 mm[Hg] Unive rsity of pressure [place] [facility] Heart rate 2021-02-12 16:27:00 55 /min [facility]i ty [facility] [place] [facility] Body temperature 2021-02-12 16:27:00 37.11 Ada Univ ersity of [place] [facility] Respiratory rate 2021-02-12 16:27:00 18 /min Univ ersity of [place] [facility] Oxygen saturation in 2021-02-12 16:27:00 97 /min University of Arterial blood by [facility] fadumo Pulse oximetry Branch Body weight 2021-02-12 08:56:00 86.354 kg [facility] ty [facility] [place] [facility] BMI 2021-02-12 08:56:00 31.68 kg/m2 [facility] [place] [facility] Body height 2021-02-11 21:48:00 165.1 cm [facility] [place] [facility] Systolic blood 2021-02-12 16:27:00 145 mm[Hg] Univer sity of pressure [place] [facility] Diastolic blood 2021-02-12 16:27:00 97 mm[Hg] Unive rsity of pressure [place] [facility] Heart rate 2021-02-12 16:27:00 55 /min [facility]i ty [facility] [place] [facility] Body temperature 2021-02-12 16:27:00 37.11 [place] Univ ersity of [place] [facility] Respiratory rate 2021-02-12 16:27:00 18 /min Univ ersity of [place] [facility] Oxygen saturation in 2021-02-12 16:27:00 97 /min University of Arterial blood by [facility] fadumo Pulse oximetry Branch Body weight 2021-02-12 08:56:00 86.354 kg [facility] ty [facility] [place] [facility] BMI 2021-02-12 08:56:00 31.68 kg/m2 [facility] [place] [facility] Body height 2021-02-11 21:48:00 165.1 cm [facility] [place] [facility] Systolic blood 2020-02-23 17:00:00 133 mm[Hg] Univer sity of pressure [place] [facility] Diastolic blood 2020-02-23 17:00:00 83 mm[Hg] Unive rsity of pressure [place] [facility] Heart rate 2020-02-23 17:00:00 64 /min [facility] Respiratory rate 2020-02-23 17:00:00 18 /min [facility] Oxygen saturation in 2020-02-23 17:00:00 97 /min [facility] [place] [facility] Pulse oximetry [facility] Body temperature 2020-02-23 16:18:00 36.94 Ada [facility] Body weight 2020-02-23 16:18:00 83.915 kg [facility] BMI 2020-02-23 16:18:00 30.79 kg/m2 [facility] Systolic blood 2020-02-23 17:00:00 133 mm[Hg] [facility] Diastolic blood 2020-02-23 17:00:00 83 mm[Hg] [facility] Heart rate 2020-02-23 17:00:00 64 /min [facility] Respiratory rate 2020-02-23 17:00:00 18 /min [facility] Oxygen saturation in 2020-02-23 17:00:00 97 /min [facility] [place] [facility] P[facility]xim[facility] Body temperature 2020-02-23 16:18:00 36.94 Ada [facility] Body weight 2020-02-23 16:18:00 83.915 kg [facility] BMI 2020-02-23 16:18:00 30.79 kg/m2 [facility] Systolic blood 2020-02-02 21:00:00 143 mm[Hg] [facility] Diastolic blood 2020-02-02 21:00:00 93 mm[Hg] [facility] Heart rate 2020-02-02 21:00:00 63 /min [facility] Respiratory rate 2020-02-02 21:00:00 12 /min [facility] Oxygen saturation in 2020-02-02 21:00:00 100 /min [facility] [place] [facility] Body temperature 2020-02-02 18:48:00 36.78 Ada [facility] Body weight 2020-02-02 18:48:00 83.915 kg [facility] BMI 2020-02-02 18:48:00 30.79 kg/m2 [facility] Systolic blood 2020-02-02 21:00:00 143 mm[Hg] [facility] Diastolic blood 2020-02-02 21:00:00 93 mm[Hg] [facility] Heart rate 2020-02-02 21:00:00 63 /min [facility] Respiratory rate 2020-02-02 21:00:00 12 /min [facility] Oxygen saturation in 2020-02-02 21:00:00 100 /min [facility] Arterial blood by [facility] fadumo Pulse oximetry Branch Body temperature 2020-02-02 18:48:00 36.78 Ada [facility] Body weight 2020-02-02 18:48:00 83.915 kg [facility] BMI 2020-02-02 18:48:00 30.79 kg/m2 [facility] Systolic blood 2020-01-26 12:42:00 116 mm[Hg] [facility] Diastolic blood 2020-01-26 12:42:00 75 mm[Hg] [facility] Heart rate 2020-01-26 12:42:00 60 /min [facility] Body temperature 2020-01-26 12:42:00 36.5 Ada [facility] Respiratory rate 2020-01-26 12:42:00 18 /min [facility] Oxygen saturation in 2020-01-26 12:42:00 97 /min [facility] Arterial blood by [facility] Pulse oximetry Branch Body height 2020-01-23 23:16:00 165.1 cm [facility] Body weight 2020-01-23 23:16:00 81.965 kg [facility] BMI 2020-01-23 23:16:00 30.07 kg/m2 [facility] Systolic blood 2020-01-26 12:42:00 116 mm[Hg] [facility] Diastolic blood 2020-01-26 12:42:00 75 mm[Hg] [facility] Heart rate 2020-01-26 12:42:00 60 /min [facility] Body temperature 2020-01-26 12:42:00 36.5 Ada [facility] Respiratory rate 2020-01-26 12:42:00 18 /min [facility] Oxygen saturation in 2020-01-26 12:42:00 97 /min [facility] Arterial blood by [facility] Pulse oximetry Branch Body height 2020-01-23 23:16:00 165.1 cm [facility] Body weight 2020-01-23 23:16:00 81.965 kg [facility] BMI 2020-01-23 23:16:00 30.07 kg/m2 [facility] Systolic blood 2020-01-12 16:00:00 130 mm[Hg] [facility] Diastolic blood 2020-01-12 16:00:00 89 mm[Hg] [facility] Heart rate 2020-01-12 16:00:00 71 /min [facility] Respiratory rate 2020-01-12 16:00:00 20 /min [facility] Oxygen saturation in 2020-01-12 16:00:00 98 /min [facility] blood by [facility] Pulse oximetry Branch Body temperature 2020-01-12 13:59:00 36.5 Ada [facility] Body height 2020-01-12 13:59:00 165.1 cm [facility] Body weight 2020-01-12 13:59:00 84.369 kg [facility] BMI 2020-01-12 13:59:00 30.95 kg/m2 [facility] Systolic blood 2020-01-12 16:00:00 130 mm[Hg] [facility] Diastolic blood 2020-01-12 16:00:00 89 mm[Hg] [facility] Heart rate 2020-01-12 16:00:00 71 /min [facility] Respiratory rate 2020-01-12 16:00:00 20 /min [facility] Oxygen saturation in 2020-01-12 16:00:00 98 /min [facility] Arterial blood by [facility] Pulse oximetry Branch Body temperature 2020-01-12 13:59:00 36.5 Ada [facility] Body height 2020-01-12 13:59:00 165.1 cm [facility] Body weight 2020-01-12 13:59:00 84.369 kg [facility] BMI 2020-01-12 13:59:00 30.95 kg/m2 [facility] Procedures Procedure Date / Time Performing Clinician Source Performed [id number] 2021-11-11 00:00:00 [facility] [id number] 2021-11-11 00:00:00 [facility] [id number] 2021-11-11 00:00:00 [facility] MAGNESIUM 2021-02-12 08:45:00 Poonam [facility] TROPONIN I 2021-02-12 08:45:00 Poonam [facility] BASIC METABOLIC PANEL 2021-02-12 08:45:00 Seun Friedman [facility] (NA, K, CL, CO2, Medical Branch GLUCOSE, BUN, CREATININE, CA) SEDIMENTATION RATE 2021-02-12 08:45:00 Poonam [facility] CBC WITH DIFF 2021-02-12 08:45:00 Seun Friedman [facility] N-TERMINAL PRO-BNP 2021-02-12 08:45:00 Poonam [facility] PHOSPHORUS 2021-02-11 21:45:00 Poonam [facility] URIC ACID 2021-02-11 21:45:00 Poonam [facility] LIPASE 2021-02-11 21:45:00 Poonam [facility] MAGNESIUM 2021-02-11 21:45:00 Poonam [facility] TROPONIN I 2021-02-11 21:45:00 Seun Friedman [facility] THYROID STIMULATING 2021-02-11 21:45:00 Poonam [facility] HORMONE [facility] LIPID PANEL 2021-02-11 21:45:00 Poonam [facility] ([id number])(TOTAL Medical Branch CHOLESTEROL, TRIGLYCERIDES, HDL) URINALYSIS 2021-02-11 20:19:00 Debby Saucedo [facility] XR CHEST 1 VW 2021-02-11 19:34:10 Debby Saucedo [facility] XR KNEE <3 VW RIGHT 2021-02-11 19:34:10 Debby Saucedo [facility] TROPONIN I 2021-02-11 19:22:00 Debby Saucedo [facility] HEPATIC FUNCTION PANEL 2021-02-11 19:22:00 Debby Saucedo [facility] ([id number]) (ALB,T.PRO,BILI Medical Branch T,BU/BC,ALT,AST,ALK PHOS) BASIC METABOLIC PANEL 2021-02-11 19:22:[address] [facility] (NA, K, CL, CO2, Medical Branch GLUCOSE, BUN, CREATININE, CA) CBC WITH DIFF 2021-02-11 19:22:00 Debby Saucedo [facility] GLYCOSYLATED HEMOGLOBIN 2021-02-11 19:22:00 Marisela Levin [facility] (A1C) [facility] N-TERMINAL PRO-BNP 2021-02-11 19:22:00 Debby Saucedo [facility] COVID-19 (ID NOW RAPID 2021-02-11 19:22:00 Debby Saucedo [facility] TESTING) Medical Branch HB ECG ROUTINE & RHYTHM 2021-02-11 19:05:58 Debby Saucedo [facility] Branch NOTICE OF PRIVACY 2021-02-11 18:47:10 Doctor Unassigned, No [facility] PRACTICES Name Medical Branch CONSENT/REFUSAL FOR 2021-02-11 18:44:53 Doctor Unassigned, No [facility] DIAGNOSIS AND TREATMENT Name Medical Branch XR CHEST 1 VW 2020-02-23 16:51:17 Yaron [facility] TROPONIN I 2020-02-23 16:29:00 [facility]. METABOLIC PANEL 2020-02-23 16:29:00 Yaron Maryse [facility] ([id number]) Medical Branch CBC WITH DIFFERENTIAL 2020-02-23 16:29:00 Yaron, Maryse [facility] N-TERMINAL PRO-BNP 2020-02-23 16:29:00 Maryse Marrufo [facility] CORONAVIRUS COVID-19 2020-02-23 16:29:[address] [facility] TESTING [facility] EKG-12 LEAD 2020-02-23 16:20:40 Yaron Maryse [facility] CONSENT/REFUSAL FOR 2020-02-23 16:08:50 Doctor Unassigned, No [facility] DIAGNOSIS AND TREATMENT Name [facility] Branch EKG-12 LEAD 2020-02-02 20:01:34 Juan Walker [facility] MR BRAIN WO CONTRAST 2020-02-02 18:28:36 Sallie [facility] MR ANGIOGRAM HEAD WO 2020-02-02 18:19:44 Sallie [facility] ASSIGNMENT OF BENEFITS 2020-02-02 17:22:13 Doctor Unassigned, No [facility] Name [facility] Branch US HEAD NECK 2020-01-25 16:30:06 Tao Sandoval [facility] RENAL ARTERY DUPLEX BY 2020-01-25 13:41:10 Tao Sandoval [facility] VASCULAR LAB [facility] VITAMIN B12, LEVEL 2020-01-24 13:58:00 Tao Sandoval [facility] VITAMIN D, 25-OH 2020-01-24 13:58:00 Jaime [facility] MAGNESIUM 2020-01-24 08:02:00 Jaime [facility] TROPONIN I 2020-01-24 08:02:00 Jaime [facility] TROPONIN I 2020-01-24 01:39:00 Jaime [facility] LIPID PANEL 2020-01-24 01:39:00 Jaime [facility] ([id number])(TOTAL Medical Branch CHOLESTEROL, TRIGLYCERIDES, HDL) CT THORAX W CONTRAST 2020-01-24 01:00:10 Tao Sandoval [facility] XR CHEST 2 VW 2020-01-23 21:39:47 Osmar Russell [facility] CT HEAD WO CONTRAST 2020-01-23 21:39:30 Osmar Russell [facility] URINALYSIS 2020-01-23 21:17:00 Osmar Russell [facility] TROPONIN I 2020-01-23 21:15:00 Osmar Russell [facility] HEPATIC FUNCTION PANEL 2020-01-23 21:15:00 Osmar Russell [facility] ([id number]) (ALB,T.PRO,BILI Medical Branch T,BU/BC,ALT,AST,ALK PHOS) BASIC METABOLIC PANEL 2020-01-23 21:15:00 Osmar Russell [facility] (NA, K, CL, CO2, Medical Branch GLUCOSE, BUN, CREATININE, CA) CBC WITH DIFFERENTIAL 2020-01-23 21:15:00 Osmar Russell [facility] EKG-12 LEAD 2020-01-23 20:47:03 Yvonne [facility] EKG-12 LEAD 2020-01-23 20:26:17 Dustin Baca [facility] CONSENT/REFUSAL FOR 2020-01-23 20:06:16 Doctor [facility]igned, [facility] Name [facility] URINALYSIS 2020-01-12 15:01:00 [facility] TROPONIN I 2020-01-12 14:51:00 [facility] COMP. METABOLIC PANEL 2020-01-12 14:51:00 [facility] ([id number]) [facility] CBC WITH DIFFERENTIAL 2020-01-12 14:51:00 [facility] XR CHEST 1 VW 2020-01-12 14:21:51 [facility] CONSENT/REFUSAL FOR 2020-01-12 13:36:41 Doctor Unassigned, No [facility] Name [facility] Plan of Care Planned Activity Planned Date Details Comments Source Future Scheduled 2021-10-18 Hepatitis C screening [facility] Test 20:11:35 (procedure) [code = 632055250] Future Scheduled 2021-10-18 COLONOSCOPY SCREENING [facility] Test 20:11:35 [code = COLONOSCOPY SCREENING] Future Scheduled 2021-10-18 SHINGLES VACCINES (#1) M [facility] Test 20:11:35 [code = SHINGLES VACCINES (#1)] Future Scheduled 2021-10-18 INFLUENZA VACCINE [facility] Test 20:11:35 [code = INFLUENZA VACCINE] Future Scheduled 2021-10-18 COVID-19 VACCINE (1) Met [facility] Test 20:11:35 [code = COVID-19 VACCINE (1)] Future Scheduled 2021-10-18 65+ PNEUMOCOCCAL [facility] Test 20:11:35 VACCINE (1 of 2 - PPSV23) [code = 65+ PNEUMOCOCCAL VACCINE (1 of 2 - PPSV23)] Encounters Start End Encounter Admission Attending Care Care Encounter Source Date/Time Date/Time Type Type Clinicians Facility Department ID 2021-09-03 Emergency [facility] [id number] Univers 12:02:23 [facility] 2021-08-31 Emergency [facility] [id number] Univers 16:33:08 [facility] 2021-11-11 2021-11-13 Inpatient EM Brian, SAMIAPM INTE.02 [id number] [facility] 08:24:00 13:08:00 Berto 0108 [facility] 2021-11-11 2021-11-13 Inpatient EM Brian, SAMIAPM INTE.02 [id number] [facility] 08:24:00 13:08:00 Berto 11 [facility] 2021-11-11 2021-11-11 Outpatient SAMIA Torres LABO [id number] [facility] 14:47:00 14:47:00 Berto 0108 [facility] 2021-02-11 2021-02-12 Emergency Debby Saucedo [facility] 1.2.[id number] [facility] 14:01:00 14:29:00 Seun Friedman [id number] [facility] [id number] [facility] [id number] [place] [address] Branch 2021-02-11 2021-02-12 Emergency Debby Saucedo [facility] 1.2.8 40.114 [id number] 14:01:00 14:29:00 Seun Friedman [id number] [place] [id number] [place] [id number] 08 2021-02-11 2021-02-11 Orders Doctor TERESA 1.2.840.114 [id number] Univers 00:00:00 00:00:00 Only Unassigned, DARCI [id number] [facility]y of [facility] 4.2.7.2.686 Hira as [id number] [address] 2021-02-11 2021-02-11 Orders Doctor TERESA 1.2.840.114 [id number] 00:00:00 00:00:00 Only Unassigned, DARCI [id number] [facility] 4.2.7.2.686 [id number] 2020-02-23 2020-02-23 Emergency [facility] 1.2.123.690 [id number] Univers 11:11:05 13:43:00 Maryse Susanna [id number] i ty [place] 4.2.7.2.686 [place] [facility] [id number] [address] 2020-02-23 2020-02-23 Emergency X [facility] ERT [id number] Univers 11:11:05 13:43:00 MARYSE ivan [facility] 2020-02-23 2020-02-23 [facility] [id number] 11:11:05 13:43:00 Maryse Mullins [id number] [place] [id number] [place] [id number] [facility] 2020-02-23 2020-02-23 Orders Doctor MOORE 1.2.840.114 [id number] Univers 00:00:00 00:00:00 Only Unassigned, DARCI [id number] ity of [facility] 4.2.7.2.686 Hira as [id number] [address] 2020-02-23 2020-02-23 Orders Doctor MOORE 1.2.840.114 [id number] 00:00:00 00:00:00 Only Unassigned, DARCI [id number] [facility] 4.2.7.2.686 [id number] 2020-02-02 2020-02-02 Emergency Juan Walker [facility] 1.2.840.114 [id number] Univers 13:49:48 16:11:00 Abbi Penryn [id number] i [place] [id number] [facility] 084 Branch 2020-02-02 2020-02-02 Emergency Juan Walker [facility] 1.2.840.114 [id number] 13:49:48 16:11:00 Abbi Penryn [id number] [place] [id number] [place] [id number] [facility] 2020-02-02 2020-02-02 Outpatient R ATTAR, [facility] [id number] Univers 14:00:00 14:00:00 MOHAMMED [id number] ity o f [facility] [place] 2020-02-02 2020-02-02 [facility] 1.2.840.114 [id number] Univers 12:27:00 13:48:00 Encounter Nicole Penryn [id number] ity of [place] 4.2.7.2.686 [facility] [place] [id number] [address] 2020-02-02 2020-02-02 [facility] 1.2.840.114 [id number] 12:27:00 13:48:00 Encounter Nicole Penryn [id number] [place] 4.2.7.2.686 [place] [id number] [facility] 2020-02-02 2020-02-02 Outpatient R ATTAR, [facility] [id number] Univers 12:25:13 12:26:00 MOHAMMED ity o f [facility] [place] 2020-02-02 2020-02-02 [facility] 1.2.840.114 [id number] Univers 12:25:00 12:26:00 Encounter Nicole Penryn [id number] [place] [id number] [address] 2020-02-02 2020-02-02 [facility] 1.2.840.114 [id number] 12:25:00 12:26:00 Encounter Nicole Susanna [id number] [place] 4.2.7.2.686 [place] [id number] 2020-02-02 2020-02-02 Orders Doctor TERESA 1.2.840.114 [id number] Univers 00:00:00 00:00:00 Only Unassigned, DARCI [id number] [facility]y [facility] [place] [facility] 4.2.7.2.686 [facility] [id number] [address] 2020-02-02 2020-02-02 Orders Doctor TERESA 1.2.840.114 [id number] 00:00:00 00:00:00 Only Unassigned, DARCI [id number] [place] [facility] 4.2.7.2.68 [id number] [id number] 2020-01-23 2020-01-26 Outpatient X TAO SANDOVAL [facility] MARGOT [id number] Univers 15:16:17 10:22:00 ity [facility] 2020-01-23 2020-01-26 Emergency YvonneMisha shirleylaura Beltre [facility] 1.2.840.11 [id number] Univers 15:16:17 10:22:00 Tao Sandoval [id number] ity of [place] 4.2.7.2.686 [facility] [id number] [address] 2020-01-23 2020-01-26 Emergency YvonneOsmar [facility] 1.2.840.11 [id number] 15:16:17 10:22:00 Tao Sandoval [id number] [place] 4.2.7.2.686 [place] [id number] 08 2020-01-12 2020-01-12 Emergency Singer [facility] 1.2.086.773 [id number] Univers 08:57:01 11:50:00 Jorge Mullins [id number] i ty of [place] 4.2.7.2.686 [facility] [id number] [place] [address] Branch 2020-01-12 2020-01-12 Emergency X SINGER [facility] ERT [id number] Univers 08:57:01 11:50:00 JORGE love [facility] 2020-01-12 2020-01-12 Emergency [facility] [id number] 08:57:01 11:50:00 Jorge Mullins [id number] [place] 4.2.7.2.686 [place] [id number] 2019-11-14 2019-11-15 Outpatient X TAO SANDOVAL [facility] [id number] [facility] 15:26:46 16:50:00 [facility] Results Test Description Test Time Test Comments Results Result Comments Source CBC W/AUTO DIFF 2021-11-13 06:16:00 Test Item Value Reference Range Interpretation Comme nts WHITE BLOOD CELL (test code = WBC) 5.6 K/mm3 3.5-11.0 N RED BLOOD CELL (test code = RBC) 3.91 M/mm3 4.70-6.10 L HEMOGLOBIN (test code = HGB) 12.3 G/DL 12.3-15.9 N HEMATOCRIT (test code = HCT) 36.9 % 35.8-46.7 N MEAN CELL VOLUME (test code = MCV) 94.4 Fl 86.3-98.9 N MEAN CELL HGB (test code = MCH) 31.5 pg 28.9-34.4 N MEAN CELL HGB CONCETRATION (test code = MCHC) 33.3 G/DL 32.1-34. 5 N RED CELL DISTRIBUTION WIDTH (test code = RDW) 12.7 SD 11.5-14. 5 N PLATELET COUNT (test code = PLT) 294 K/mm3 150-450 N MEAN PLATELET VOLUME (test code = MPV) 10.00 fL 7.0-9.6 H NEUTROPHIL % (test code = NT%) 46.6 % 40-76 N IMMATURE GRANULOCYTE % (test code = IG%) 0.4 % 0.0-5.0 N LYMPHOCYTE % (test code = LY%) 39.9 % 20.5-51.1 N MONOCYTE % (test code = MO%) 11.3 % 1.7-9.3 H EOSINOPHIL % (test code = EO%) 1.4 % 0.0-6.0 N BASOPHIL % (test code = BA%) 0.4 % 0.0-2.0 N NUCLEATED RBC % (test code = NRBC%) 0.0 /100WBC% 0.0-1.0 N NEUTROPHIL # (test code = NT#) 2.6 K/mm3 1.8-7.6 N IMMATURE GRANULOCYTE # (test code = IG#) 0.02 x10 3/uL 0.00-0.03 N LYMPHOCYTE # (test code = LY#) 2.2 K/mm3 0.6-3.0 N MONOCYTE # (test code = MO#) 0.6 K/mm3 0.2-1.5 N EOSINOPHIL # (test code = EO#) 0.1 K/mm3 0.0-0.4 N BASOPHIL # (test code = BA#) 0.0 K/mm3 0.0-0.2 N NUCLEATED RBC # (test code = NRBC#) 0.0 K/mm3 0.00-0.01 N MANUAL DIFF REQUIRED (test code = MDIFF) NO DIFF/SCN CRITERIA BASIC METABOLIC [id number] 05:53:00 Test Item Value Reference Range Interpretation Comments SODIUM (test code = NA) 142 mmol/L 134-147 N POTASSIUM (test code = 3.7 mmol/L 3.4-5.0 N K) CHLORIDE (test code = 110 mmol/L 100-108 H CL) CARBON DIOXIDE (test 26 mmol/L 21-32 N code = CO2) ANION GAP (test code = 6.0 GAP calc 4.0-15.0 N GAP) GLUCOSE (test code = 99 MG/DL 70-110 N GLU) BLOOD UREA NITROGEN 15 MG/DL 7-18 N (test code = BUN) GLOMERULAR FILTRATION >=60 max estimate >60 RATE (test code = GFR) estGFR CREATININE (test code = 1.2 MG/DL 0.8-1.3 N CREAT) CALCIUM (test code = CA) 8.6 MG/DL 8.5-10.1 N COMPREHENSIVE METABOLIC [id number] 16:40:00 Test Item Value Reference Range Interpretation Comments SODIUM (test code = NA) 141 mmol/L 134-147 N POTASSIUM (test code = 3.6 mmol/L 3.4-5.0 N K) CHLORIDE (test code = 109 mmol/L 100-108 H CL) CARBON DIOXIDE (test 27 mmol/L 21-32 N code = CO2) ANION GAP (test code = 5.0 GAP calc 4.0-15.0 N GAP) GLUCOSE (test code = 106 MG/DL 70-110 N GLU) BLOOD UREA NITROGEN 15 MG/DL 7-18 N (test code = BUN) GLOMERULAR FILTRATION >=60 max estimate >60 RATE (test code = GFR) estGFR CREATININE (test code = 1.2 MG/DL 0.8-1.3 N CREAT) TOTAL PROTEIN (test code 6.7 G/DL 6.4-8.2 N = PROT) ALBUMIN (test code = 2.9 G/DL 3.4-5.0 L ALB) GLOBULIN (test code = 3.8 GM/dL GLOB) ALBUMIN/GLOBULIN RATIO 0.8 RATIO 1.2-2.2 L (test code = A/G) CALCIUM (test code = CA) 8.6 MG/DL 8.5-10.1 N BILIRUBIN TOTAL (test 0.40 MG/DL 0.2-1.2 N code = BILT) SGOT/AST (test code = 26 Unit/L 15-37 N AST) SGPT/ALT (test code = 41 Unit/L 12-78 N ALT) ALKALINE PHOSPHATASE 70 Unit/L 50-136 N TOTAL (test code = ALKP) Comment: fastingLIPID PROFILE (CORONARY RISK)2021-11-12 16:40:00 Test Item Value Reference Range Interpretation Comments TRIGLYCERIDES (test 179 MG/DL 0-150 H code = TRIG) CHOLESTEROL (test 108 MG/DL 133-200 L code = CHOL) CHOLESTEROL/HDL 2.77 RATIO See_Comment RISK ASSOCIA AMADA WITH RATIO (test code = CHOL/HDL RATIOS: RISK CHOLHDL) MAL E FEMALE1/2 A VERAGE 3.43 3.27AVERAGE 4.97 4.442X AVERAGE 9.55 7.05 3X AVERAGE 23.3 9 11.04 NOTE T HAT THE REFERENCE VALUE IS RELATED TO RISK LEVELS ASRECOMMENDED B Y THE [facility] . [Automated mess age] The system which ge nerated this result tra nsmitted reference range : 0-. The reference range was not used to interpr et this result as normal/abnormal . HDL CHOLESTEROL 39 MG/DL 40-59 L (test code = HDL) NON-HDL CHOLESTEROL 69 mg/dL <130 (test code = NHDL) LIPOPROTEIN LDL 53 MG/DL 0-129 N <100 [id number] - (test code = LDL) 129 LISA R OPTIMAL/ABOVE [id number] - 15 9 [id number] - 189 HIGH>OR= 190 VERY HIGHNOTE THAT G UIDELINES ARE PROVIDED BY NATIONAL CHOLESTEROLEDUC ATION PROGRAM ADULT T REATMENT PANEL III LDL/HDL (test code 1.35 Ratio See_Comment L [Automat ed message] The = LDL/HDL) system which ge nerated this result tra nsmitted reference range : 1.48-3.22 Avg. The reference range was not used to interpr et this result as normal/abnormal . Comment: fastingCBC W/AUTO [id number] 05:57:00 Test Item Value Reference Range Interpretation Comments WHITE BLOOD CELL (test code = 5.2 K/mm3 3.5-11.0 N WBC) RED BLOOD CELL (test code = 3.77 M/mm3 4.70-6.10 L RBC) HEMOGLOBIN (test code = HGB) 12.0 G/DL 12.3-15.9 L HEMATOCRIT (test code = HCT) 35.8 % 35.8-46.7 N MEAN CELL VOLUME (test code = 95.0 Fl 86.3-98.9 N MCV) MEAN CELL HGB (test code = MCH) 31.8 pg 28.9-34.4 N MEAN CELL HGB CONCETRATION 33.5 G/DL 32.1-34.5 N (test code = MCHC) RED CELL DISTRIBUTION WIDTH 13.2 SD 11.5-14.5 N (test code = RDW) PLATELET COUNT (test code = 285 K/mm3 150-450 N PLT) MEAN PLATELET VOLUME (test code 10.40 fL 7.0-9.6 H = MPV) NEUTROPHIL % (test code = NT%) 46.9 % 40-76 N IMMATURE GRANULOCYTE % (test 0.4 % 0.0-5.0 N code = IG%) LYMPHOCYTE % (test code = LY%) 40.3 % 20.5-51.1 N MONOCYTE % (test code = MO%) 11.4 % 1.7-9.3 H EOSINOPHIL % (test code = EO%) 0.8 % 0.0-6.0 N BASOPHIL % (test code = BA%) 0.2 % 0.0-2.0 N NUCLEATED RBC % (test code = 0.0 /100WBC% 0.0-1.0 N NRBC%) NEUTROPHIL # (test code = NT#) 2.4 K/mm3 1.8-7.6 N IMMATURE GRANULOCYTE # (test 0.02 x10 3/uL 0.00-0.03 N code = IG#) LYMPHOCYTE # (test code = LY#) 2.1 K/mm3 0.6-3.0 N MONOCYTE # (test code = MO#) 0.6 K/mm3 0.2-1.5 N EOSINOPHIL # (test code = EO#) 0.0 K/mm3 0.0-0.4 N BASOPHIL # (test code = BA#) 0.0 K/mm3 0.0-0.2 N NUCLEATED RBC # (test code = 0.0 K/mm3 0.00-0.01 N NRBC#) MANUAL DIFF REQUIRED (test code NO DIFF/SCN CRITERIA = MDIFF) DRUGS OF ABUSE SCREEN [id number] 18:43:00 Test Item Value Reference Range Interpretation Comments URN COCAINE (test NEGATIVE See_Comment UNCONFIRME D code = COCAURN) SCcutoff SCREENING RE SULTS SHOULD NOT BE U SED FORNON-MEDICAL PURPOSES. [Automated message] The system which generated this result transmit amada reference range : <300 NG/ML. The reference range was not used to interpret this result as normal/abnormal . URN CANNABINOIDS NEGATIVE See_Comment UNCONFIRMED (test code = SCcutoff SCREENING RESUL TS CANNABURN) SHOULD NOT BE U SED FORNON-MEDICAL PURPOSES. [Automated message] The system which generated this result transmit amada reference range : <50 NG/ML. The reference range was not used to interpret this result as normal/abnormal . URN AMPHETAMINE (test NEGATIVE See_Comment UNCONF IRMED code = AMPHETURN) SCcutoff SCREENING RESULTS SHOULD NOT BE U SED FORNON-MEDICAL PURPOSES. [Automated message] The system which generated this result transmit amada reference range : <1000 NG/ML. Th e reference range was not used to interpret this result as normal/abnormal . URN BARBITURATE (test NEGATIVE See_Comment UNCONF IRMED code = BARBITURN) SCcutoff SCREENING RESULTS SHOULD NOT BE U SED FORNON-MEDICAL PURPOSES. [Automated message] The system which generated this result transmit amada reference range : <200 NG/ML. The reference range was not used to interpret this result as normal/abnormal . URN BENZODIAZEPINE POSITIVE See_Comment A UNCONFIRM ED (test code = SCcutoff SCREENING RESUL TS BENZOURN) SHOULD NOT BE U SED FORNON-MEDICAL PURPOSES. [Automated message] The system which generated this result transmit amada reference range : <200 NG/ML. The reference range was not used to interpret this result as normal/abnormal . URN OPIATES (test NEGATIVE See_Comment [Automate d code = OPIATURN) SCcutoff message] Th e system which generated this result transmit amada reference range : <300 NG/ML. The reference range was not used to interpret this result as normal/abnormal . URN PHENCYCLIDINE NEGATIVE See_Comment UNCONFIRME D (PCP) (test code = SCcutoff SCREENING RESULTS PHENCURN) SHOULD NOT BE U SED FORNON-MEDICAL PURPOSES. [Automated message] The system which generated this result transmit amada reference range : <25 NG/ML. The reference range was not used to interpret this result as normal/abnormal . URN METHADONE (test NEGATIVE See_Comment UNCONFIR MED code = METHAURN) SCcutoff SCREENING R ESULTS SHOULD NOT BE U SED FORNON-MEDICAL PURPOSES. [Automated message] The system which generated this result transmit amada reference range : <300 NG/ML. The reference range was not used to interpret this result as normal/abnormal . TROP-I HIGH [id number] 15:45:00 Test Item Value Reference Range Interpretation Comments TROP-I HIGH 21.0 ng/L 0-54 N CAUTION: Units of the SENSITIVITY (test current te st methodology code = TROPIHS) (ng/L) diffe rfrom the prior test meth odology (ng/mL) by a fa ctor of 1000. 99t h Percentile Uppe r Reference Limit (URL):Fem ales: 34 ng/LMales: 54 ng/L In order to distin guish acute elevations of h igh sensitivitytrop onin from other clinical conditions, the FourthUnive rsal Definition of M yocardial Infarction stressesclinica l assessment and the demonstration o f a rise and/orfall in s erial troponin result s above the URL. Results fr om different metho dologies should not be c omparedto one another as quantitative re sults and URLs may varyby method. Completed by Nursing: NOTHYROID STIMULATING [id number] 12:42:00 Test Item Value Reference Range Interpretation Comments THYROID STIMULATING HORMONE 0.637 mcIU/ML 0.340-4.820 N (test code = TSH) NT PRO-BRAIN NATRIURETIC [id number] 12:42:00 Test Item Value Reference Range Interpretation Comments NT PRO-BRAIN NATRIURETIC PEPTI (test 44 PG/ML 0-100 N code = PROBNP) TROP-I HIGH [id number] 12:33:00 Test Item Value Reference Range Interpretation Comments TROP-I HIGH 18.0 ng/L 0-54 N CAUTION: Units of the SENSITIVITY (test current te st methodology code = TROPIHS) (ng/L) diffe rfrom the prior test meth odology (ng/mL) by a fa ctor of 1000. 99t h Percentile Uppe r Reference Limit (URL):Fem ales: 34 ng/LMales: 54 ng/L In order to distin guish acute elevations of h igh sensitivitytrop onin from other clinical conditions, the FourthUnive rsal Definition of M yocardial Infarction stressesclinica l assessment and the demonstration o f a rise and/orfall in s erial troponin result s above the URL. Results fr om different metho dologies should not be c omparedto one another as quantitative re sults and URLs may varyby method. Completed by Nursing: NOGLYCOSYLATED HEMOGLOBIN [id number] 12:28:00 Test Item Value Reference Range Interpretation Comments GLYCOSYLATED HEMOGLOBIN (HA1C) 6.1 % A1C 0.0-5.7 H (test code = GLYHGB) ESTIMATED AVERAGE GLUCOSE (test 128 MG/DLest code = EAG) [id number] 08:05:00 Test Item Value Reference Range Interpretation Comments MAGNESIUM (test code = MAG) 2.4 MG/DL 1.8-2.4 N Completed by Nursing: NOTROP-I HIGH [id number] 08:05:00 Test Item Value Reference Range Interpretation Comments TROP-I HIGH 10.9 ng/L 0-54 N CAUTION: Units of the SENSITIVITY (test current te st methodology code = TROPIHS) (ng/L) diffe rfrom the prior test meth odology (ng/mL) by a fa ctor of 1000. 99t h Percentile Uppe r Reference Limit (URL):Fem ales: 34 ng/LMales: 54 ng/L In order to distin guish acute elevations of h igh sensitivitytrop onin from other clinical conditions, the FourthUnive rsal Definition of M yocardial Infarction stressesclinica l assessment and the demonstration o f a rise and/orfall in s erial troponin result s above the URL. Results fr om different metho dologies should not be c omparedto one another as quantitative re sults and URLs may varyby method. Completed by Nursing: NOBASIC METABOLIC [id number] 08:05:00 Test Item Value Reference Range Interpretation Comments SODIUM (test code = NA) 143 mmol/L 134-147 N POTASSIUM (test code = 3.6 mmol/L 3.4-5.0 N K) CHLORIDE (test code = 108 mmol/L 100-108 N CL) CARBON DIOXIDE (test 29 mmol/L 21-32 N code = CO2) ANION GAP (test code = 6.0 GAP calc 4.0-15.0 N GAP) GLUCOSE (test code = 123 MG/DL 70-110 H GLU) BLOOD UREA NITROGEN 19 MG/DL 7-18 H (test code = BUN) GLOMERULAR FILTRATION >=60 max estimate >60 RATE (test code = GFR) estGFR CREATININE (test code = 1.2 MG/DL 0.8-1.3 N CREAT) CALCIUM (test code = CA) 8.5 MG/DL 8.5-10.1 N Completed by Nursing: NOCOVID 19 INHOUSE [id number] 07:56:00 Test Item Value Reference Range Interpretation Comments COVID 19 INHOUSE AG (test code = POSITIVE Negative A [id number]) - XR CHEST 1 [id number] 07:42:00 [facility] 1955 Sex: M Name: RENA SAUCEDO [facility] : 1955 Age/S: 66 / M [address] Unit #: [id number] Loc: [place] [address] Phys: Samir Winn DO Acct: [id number] Dis Date: Status: REG ER PHONE #: [phone] Exam Date: 11/11/2021 0739 FAX #: Reason:STEMI EXAMS: CPT: [id number] XR CHEST 1 V 55236 Fluoro Time: DAP (Gy m2): Air Kerma (mGy): INDICATION: STEMI LOCATION: T18 COMPARISON STUDY: comparison not available. FINDINGS: Single view of the chest. The lungs are clear. There is no pneumothorax or pleural fluid. The heart size and pulmonary vasculature are within normal limits. No acute osseous findings. IMPRESSION: No radiographic evidence of acute cardiopulmonary process. at 0742 Reported and signed by: Sesar German M.D. CC: Samir Winn DO PAGE 1 Signed Report Name: RENA SAUCEDO [facility] : 1955 Age/S: 66 / M [address] [facility] Unit #: [id number] Loc: [place] [address] Phys: Samir Winn DO Acct: [id number] Dis Date: Status: REG ER PHONE #: [phone] Exam Date: 11/11/202139 FAX #: Reason: STEMI EXAMS: CPT: [id number] XR CHEST 1 V 95353 Fluoro Time: DAP (Gy m2): Air Kerma (mGy): <Continued> Technologist: Amita Feldman, RT(R) Trnscb Date/Time: 11/11/2021 (741) [id number] Orig Print D/T: S: 11/11/2021 (744) PAGE 2 Signed Report CBC W/O [id number] 07:40:00 Test Item Value Reference Range Interpretation Comments WHITE BLOOD CELL (test code = WBC) 3.9 K/mm3 3.5-11.0 N RED BLOOD CELL (test code = RBC) 4.06 M/mm3 4.70-6.10 L HEMOGLOBIN (test code = HGB) 12.9 G/DL 12.3-15.9 N HEMATOCRIT (test code = HCT) 38.2 % 35.8-46.7 N MEAN CELL VOLUME (test code = MCV) 94.1 Fl 86.3-98.9 N MEAN CELL HGB (test code = MCH) 31.8 pg 28.9-34.4 N MEAN CELL HGB CONCETRATION (test 33.8 G/DL 32.1-34.5 N code = MCHC) RED CELL DISTRIBUTION WIDTH (test 12.3 SD 11.5-14.5 N code = RDW) PLATELET COUNT (test code = PLT) 291 K/mm3 150-450 N MEAN PLATELET VOLUME (test code = 9.80 fL 7.0-9.6 H MPV) SEDIMENTATION [id number] 10:32:12 Test Item Value Reference Range Interpretation Comments ESR (test code = See_Comment H [Automated message] [id number]) The system [employer] generated this result transmitted ref erence range: 0 - 10 m m/HR. The reference r andres was not used to interpret this result as normal/abnor mal. Lab Interpretation (test Abnormal code = 64307-7) [facility] [id number] 09:57:09 Test Item Value Reference Range Interpretation Comments TROPONIN I (test 0.009 ng/mL See_Comment [Automated code = 5693725501) message] The system which generated this result transmitted reference range : <=0.034. The reference range was not used to interpret this result as normal/abnormal . MELISA (test code = Equal or Less than MELISA) 0.034 ng/ml---Normal ?Note: Cardiac troponin begins to rise 3-4 hours after the onset of ischemia. Repeat in 4-6 hours if the sample was drawn within 3-4 hours of the onset of the symptom and found normal. Between 0.035 and 0.120 ng/mL--- Borderline. Questionable myocardial injury or necrosis ? ?Note: Serial measurement may be necessary to confirm or exclude the diagnosis of myocardial injury or necrosis; Clinical correlation (symptoms, EKGs, imaging studies, and others) required; Repeat in 4-6 hours if clinically indicated. ? Equal or Higher than 0.121 ng/mL---Abnormal. Myocardial Injury or Necrosis Likely ? Biotin has been reported to cause a negative bias, interpret results relative to patient's use of biotin. ? Lab Interpretation Normal (test code = 60577-8) [facility] [id number] 09:54:53 Test Item Value Reference Range Interpretation Comments NT-proBNP (test code 155 pg/mL See_Comment H [Autom ated = 8083867584) message] The system which generated this result transmitted reference range : <=125. The reference range was not used to interpret this result as normal/abnormal . MELISA (test code = MELISA) Biotin has been reported to cause a negative bias, interpret results relative to patient's use of biotin. Lab Interpretation Abnormal (test code = 79074-1) [facility]UM2021-[facility]-11 09:53:52 Test Item Value Reference Range Interpretation Comments MAGNESIUM (test code = 2816924846) 2.0 mg/dL 1.7-2.4 Lab Interpretation (test code = Normal 14835-6) [facility] Metabolic Panel (NA, K, CL, CO2, GLUCOSE, BUN, CREATININE, CA)2021-02-12 09:53:31 Test Item Value Reference Range Interpretation Comments NA (test code = 138 mmol/L 135-145 5990777742) K (test code = 4.1 mmol/L 3.5-5.0 6607369563) CL (test code = 105 mmol/L 98-108 7626338449) CO2 TOTAL (test code 30 mmol/L 23-31 = 6231404716) AGAP (test code = 2-16 5462193927) BUN (test code = 17 mg/dL 7-23 0812669258) GLUCOSE (test code = 103 mg/dL 70-110 7688155567) CREATININE (test code 1.23 mg/dL 0.60-1.25 = 2397607985) CALCIUM (test code = 8.7 mg/dL 8.6-10.6 0270247654) eGFR (test code = mL/min/1.73m2 2750462924) MELISA (test code = MELISA) Association of Glomerular Filtration Rate (GFR) and Staging of Kidney Disease* + + +- +| GFR (mL/min/1.73 m2) ?| With Kidney Damage ?| ?Without Kidney Damage+ ------+ ----+ ------+| ?>90 ?| ?Stage one ?| ? Normal ?+ -+ + -+| ?60-89 ?| ?Stage two ?| ? Decreased GFR ? + + +- +| ?30-59 ?| ?Stage three ?| ? Stage three ? + + +- +| ?15-29 ?| ?Stage four ? | ? Stage four ?+ -+ + -+| ?<15 (or dialysis) ? ?| ?Stage five ? | ? Stage five ?+ -+ + -+ *Each stage assumes the associated GFR level has been in effect for at least three months. ?Stages 1 to 5, with or without kidney disease, indicate chronic kidney disease. Notes: Determination of stages one and two (with eGFR >59mL/min/1.73 m2) requires estimation of kidney damage for at least three months as defined by structural or functional abnormalities of the kidney, manifested by either:Pathological abnormalities or Markers of kidney damage (including abnormalities in the composition of the blood or urine or abnormalities in imaging tests). [facility] with [id number] 09:32:52 Test Item Value Reference Range Interpretation Comments WBC (test code = See_Comment [Automated 6690-2) message] The sy stem which generated this result transmitted reference range : 4.20 - 10.70 10*3/?L. The reference range was not used to interpret this result as normal/abnormal . RBC (test code = See_Comment [Automated 789-8) message] The sy stem which generated this result transmitted reference range : 4.26 - 5.52 10*6/?L. The reference range was not used to interpret this result as normal/abnormal . HGB (test code = 13.4 g/dL 12.2-16.4 718-7) HCT (test code = 40.2 % 38.4-49.3 4544-3) MCV (test code = 91.8 fL 81.7-95.6 787-2) MCH (test code = 30.6 pg 26.1-32.7 785-6) MCHC (test code = 33.3 g/dL 31.2-35.0 786-4) RDW-SD (test code = 43.0 fL 38.5-51.6 58873-9) RDW-CV (test code = 12.9 % 12.1-15.4 788-0) PLT (test code = See_Comment [Automated 777-3) message] The sy stem which generated this result transmitted reference range : 150 - 328 10*3/ ?L. The reference r andres was not used to interpret this result as normal/abnormal . MPV (test code = 10.9 fL 9.8-13.0 80369-0) NRBC/100 WBC (test See_Comment [Automat ed code = 6238109221) message] The system which generated this result transmitted reference range : 0.0 - 10.0 /100 WBCs. The refer ence range was not u sed to interpret th is result as normal/abnormal . NRBC x10^3 (test code <0.01 See_Comment [Auto mated = 0563102482) message] The s ystem which generated this result transmitted reference range : 10*3/?L. The reference range was not used to interpret this result as normal/abnormal . GRAN MAT (NEUT) % 34.6 % (test code = 770-8) IMM GRAN % (test code 0.20 % = 1716200043) LYMPH % (test code = 45.0 % 736-9) MONO % (test code = 15.0 % 5905-5) EOS % (test code = 4.3 % 713-8) BASO % (test code = 0.9 % 706-2) GRAN MAT x10^3(ANC) 1.52 10*3/uL 1.99-6.95 L (test code = 9826069577) IMM GRAN x10^3 (test <0.03 0.00-0.06 code = 9147645114) LYMPH x10^3 (test code 1.98 10*3/uL 1.09-3.23 = 731-0) MONO x10^3 (test code 0.66 10*3/uL 0.36-1.02 = 742-7) EOS x10^3 (test code = 0.19 10*3/uL 0.06-0.53 711-2) BASO x10^3 (test code 0.04 10*3/uL 0.01-0.09 = 704-7) Lab Interpretation Abnormal (test code = 81329-5) [facility] CenterTHY[facility] ST[facility] [id number] 09:20:05 Test Item Value Reference Range Interpretation Comments TSH (test code = See_Comment [Automated message] 9936007985) The system [employer] h generated this result transmitted ref erence range: 0.45 - 4 .70 mIU/L. The refe rence range was not u sed to interpret this result as normal/abnor mal. Lab Interpretation (test Normal code = 13158-1) [facility] CenterGLYCOSYLATED HEMOGLOBIN (A1C)2021-02-12 09:08:34 Test Item Value Reference Range Interpretation Comments HGB A1C (test code = 5.7 % 4.0-6.0 4548-4) MELISA (test code = MELISA) %A1C (NGSP) Interpretation (ADA)4.8-5.6 ? ? Normal or (Non-Diabetic Range)5.7-6.4 ? ? Increased Risk (Pre-Diabetic)>6.5 ?Diabetes Indicated Lab Interpretation Normal (test code = 74821-9) [facility]2021-[facility]-11 08:46:04 Test Item Value Reference Range Interpretation Comments MAGNESIUM (test code = 6502718416) 1.6 mg/dL 1.7-2.4 L Lab Interpretation (test code = Abnormal 54433-9) [facility] CenterLIPID PANEL (64094)(TOTAL CHOLESTEROL, TRIGLYCERIDES, HDL)2021-02-12 08:46:04 Test Item Value Reference Range Interpretation Comments CHOL (test code = 127 mg/dL 120-200 3142527958) HDL (test code = 31 mg/dL >40 L 0766259264) HDLC RATIO (test code = See_Comment [Au tomated message] 1288134712) The system [employer] generated this result transmit amada reference range : <=5.0. The refe rence range was not u sed to interpret th is result as normal/abnormal . TRIG (test code = 98 mg/dL 30-170 3431435301) LDL CHOL (test code = 76 mg/dL See_Comment [Auto mated message] 16949-3) The system [employer] generated this result transmit amada reference range : <=160. The refe rence range was not u sed to interpret th is result as normal/abnormal . VLDL (test code = 20 mg/dL 5-60 3856612095) Lab Interpretation (test Abnormal code = 40029-9) [facility] CenterPHOSPHORUS2021-04-11 08:45:44 Test Item Value Reference Range Interpretation Comments PHOSPHORUS (test code = 4579891786) 3.0 mg/dL 2.5-5.0 Lab Interpretation (test code = Normal 30442-9) [facility] CenterURIC [id number] 08:45:24 Test Item Value Reference Range Interpretation Comments URIC ACID (test code = 9913503857) 4.6 mg/dL 3.6-8.0 Lab Interpretation (test code = Normal 48893-2) [facility] CenterLIPASE2021-04-11 08:45:04 Test Item Value Reference Range Interpretation Comments LIPASE (test code = 5471335847) 333 U/L 0-220 H Lab Interpretation (test code = Abnormal 19138-2) [facility] CenterTROPONIN [id number] 22:36:28 Test Item Value Reference Range Interpretation Comments TROPONIN I (test 0.007 ng/mL See_Comment [Automated code = 4702082103) message] The system which generated this result transmitted reference range : <=0.034. The reference range was not used to interpret this result as normal/abnormal . MELISA (test code = Equal or Less than MELISA) 0.034 ng/ml---Normal ?Note: Cardiac troponin begins to rise 3-4 hours after the onset of ischemia. Repeat in 4-6 hours if the sample was drawn within 3-4 hours of the onset of the symptom and found normal. Between 0.035 and 0.120 ng/mL--- Borderline. Questionable myocardial injury or necrosis ? ?Note: Serial measurement may be necessary to confirm or exclude the diagnosis of myocardial injury or necrosis; Clinical correlation (symptoms, EKGs, imaging studies, and others) required; Repeat in 4-6 hours if clinically indicated. ? Equal or Higher than 0.121 ng/mL---Abnormal. Myocardial Injury or Necrosis Likely ? Biotin has been reported to cause a negative bias, interpret results relative to patient's use of biotin. ? Lab Interpretation Normal (test code = 50026-2) [facility] CenterUrinalysis2021-04-10 21:27:09 Test Item Value Reference Range Interpretation Comments APPEARANCE (test code = Clear Clear 8419601481) COLOR (test code = Straw Yellow A 3390035558) PH (test code = 4.8-8.0 8647124841) SP GRAVITY (test code = 1.003-1.030 9621236142) GLU U QUAL (test code = Normal Normal 0155322163) BLOOD (test code = Negative Negative 6310709218) KETONES (test code = Negative Negative 3983234627) PROTEIN (test code = Negative Negative 2887-8) UROBILIN (test code = Normal Normal 2575721557) BILIRUBIN (test code = Negative Negative 7496777521) NITRITE (test code = Negative Negative 8759640063) LEUK DIXIE (test code = Negative Negative 2678995561) RBC/HPF (test code = <1 See_Comment [Autom ated message] 4005288601) The system [employer] generated this result transmitted ref erence range: 0 - 3 HP F. The reference range was not used to int erpret this result as normal/abnormal . WBC/HPF (test code = See_Comment [Autom ated message] 8418997831) The system [employer] generated this result transmitted ref erence range: 0 - 5 HP F. The reference range was not used to int erpret this result as normal/abnormal . BACTERIA (test code = Negative Negative 3002132270) SQ EPITH (test code = <1 HPF 4153134717) Lab Interpretation (test Abnormal code = 95562-2) [facility] 1 [id number] 20:26:36 No acute cardiopulmonary abnormality. Preliminary Report Dictated by Resident: Aparna John MD., have reviewed this study and agree with the abovereport.EXAM: XR CHEST 1 VW CLINICAL INDICATION: chest pain COMPARISON: Radiographs 02/23/2020 FINDINGS: The lungs are well-expanded and clear without focal consolidation, pleuraleffusion, or pneumothorax. The cardiac silhouette is normal in size. A well-defined opacity at theright lung apex corresponds to a tortuous innominate artery, asevidencedon CT thorax dated 01/23/2020. The descending thoracic aorta is tortuous. No acute osseous abnormality. [facility], Radiant Results Inft User - 02/11/2021 3:27 PM CDTEXAM: XR CHEST 1 VWCLINICAL INDICATION: chest pain COMPARISON: Radiographs 02/23/2020FINDINGS:The lungs are well-expanded and clear without focal consolidation, pleuraleffusion, or pneumothorax. The cardiac silhouette is normal in size. A well-defined opacity at theright lung apex corresponds to a tortuous innominate artery, as eviden cedon CT thorax dated 01/23/2020. The descending thoracic aorta is tortuous.No acute osseous abnormality. IMPRESSIONNo acute cardiopulmonary abnormality.Preliminary Report Dictated by Resident: Aaron Ortiz, Eldon Laura MD., have reviewed this study and agree with the abovereport.[facility] CenterTroponin [id number] 19:59:20 Test Item Value Reference Range Interpretation Comments TROPONIN I (test 0.007 ng/mL See_Comment [Automated code = 0939874523) message] The system which generated this result transmitted reference range : <=0.034. The reference range was not used to interpret this result as normal/abnormal . MELISA (test code = Equal or Less than MELISA) 0.034 ng/ml---Normal ?Note: Cardiac troponin begins to rise 3-4 hours after the onset of ischemia. Repeat in 4-6 hours if the sample was drawn within 3-4 hours of the onset of the symptom and found normal. Between 0.035 and 0.120 ng/mL--- Borderline. Questionable myocardial injury or necrosis ? ?Note: Serial measurement may be necessary to confirm or exclude the diagnosis of myocardial injury or necrosis; Clinical correlation (symptoms, EKGs, imaging studies, and others) required; Repeat in 4-6 hours if clinically indicated. ? Equal or Higher than 0.121 ng/mL---Abnormal. Myocardial Injury or Necrosis Likely ? Biotin has been reported to cause a negative bias, interpret results relative to patient's use of biotin. ? Lab Interpretation Normal (test code = 33153-2) [facility]AL [id number] 19:54:38 Test Item Value Reference Range Interpretation Comments NT-proBNP (test code 135 pg/mL See_Comment H [Autom ated = 0602266673) message] The system which generated this result transmitted reference range : <=125. The reference range was not used to interpret this result as normal/abnormal . MELISA (test code = MELISA) Biotin has been reported to cause a negative bias, interpret results relative to patient's use of biotin. Lab Interpretation Abnormal (test code = 02195-1) [facility] (NA, K, CL, CO2, GLUCOSE, BUN, CREATININE, CA)2021-02-11 19:48:37 Test Item Value Reference Range Interpretation Comments NA (test code = 140 mmol/L 135-145 6485983304) K (test code = 4.1 mmol/L 3.5-5.0 6734655775) CL (test code = 104 mmol/L 98-108 4962080153) CO2 TOTAL (test code 28 mmol/L 23-31 = 6916974692) AGAP (test code = 2-16 9863702957) BUN (test code = 14 mg/dL 7-23 3691928418) GLUCOSE (test code = 97 mg/dL 70-110 3877079687) CREATININE (test code 1.19 mg/dL 0.60-1.25 = 7946516709) CALCIUM (test code = 9.2 mg/dL 8.6-10.6 1903354259) eGFR (test code = mL/min/1.73m2 7838308819) MELISA (test code = MELISA) Association of Glomerular Filtration Rate (GFR) and Staging of Kidney Disease* + + +- +| GFR (mL/min/1.73 m2) ?| With Kidney Damage ?| ?Without Kidney Damage+ ------+ ----+ ------+| ?>90 ?| ?Stage one ?| ? Normal ?+ -+ + -+| ?60-89 ?| ?Stage two ?| ? Decreased GFR ? + + +- +| ?30-59 ?| ?Stage three ?| ? Stage three ? + + +- +| ?15-29 ?| ?Stage four ? | ? Stage four ?+ -+ + -+| ?<15 (or dialysis) ? ?| ?Stage five ? | ? Stage five ?+ -+ + -+ *Each stage assumes the associated GFR level has been in effect for at least three months. ?Stages 1 to 5, with or without kidney disease, indicate chronic kidney disease. Notes: Determination of stages one and two (with eGFR >59mL/min/1.73 m2) requires estimation of kidney damage for at least three months as defined by structural or functional abnormalities of the kidney, manifested by either:Pathological abnormalities or Markers of kidney damage (including abnormalities in the composition of the blood or urine or abnormalities in imaging tests). [facility] (ALB, T.PRO, BILI T, BU/BC, ALT, AST, ALK PHOS)2021-02-11 19:48:26 Test Item Value Reference Range Interpretation Comments TOTAL BILI (test code = 9913516572) 0.5 mg/dL 0.1-1.1 BILI UNCON (test code = 4004465155) 0.3 mg/dL 0.1-1.1 BILI CONJ (test code = 3692034532) 0.0 mg/dL 0.0-0.3 T PROTEIN (test code = 6070178283) 7.6 g/dL 6.3-8.2 ALBUMIN (test code = 4929346019) 4.5 g/dL 3.5-5.0 ALK PHOS (test code = 6464243181) 92 U/L 34-122 ALTv (test code = 1742-6) 30 U/L 5-50 AST(SGOT) (test code = 7675508146) 36 U/L 13-40 Lab Interpretation (test code = Normal 00737-1) [facility] CenterXR [facility] <3 VW [id number] 19:48:21 Osteoarthrosis. No acute bony abnormality is present. EXAM: XR KNEE <3 VW RIGHT HISTORY: right knee pain COMPARISON: None FINDINGS: Imaging of the right knee demonstrates tricompartmental subchondralsclerosis with marginal osteophyte formation. Hypertrophy of the tibialspines is present. Diffuseenthesophyte formation is present. Vascularcalcifications are present. [place], Radiant Results Inft User - 02/11/2021 2:49 PM CDTEXAM:XR KNEE <3 VW RIGHTHISTORY:right knee pain COMPARISON:NoneFINDINGS: Imaging of the right knee demonstrates tricompartmental subchondralsclerosis with marginal osteophyte formation. Hypertrophy of the tibialspines is present. Diffuse enthesophyte formation is present.Vascularcalcifications are present.IMPRESSIONOsteoarthrosis.No acute bony abnormality is present.[facility] CenterCOVID[facility] (ID NOW RAPID TESTING)2021-02-11 19:47:56 Test Item Value Reference Range Interpretation Comments SARS-CoV-2 Rapid ID NOW Not Detected Not Detected (test code = 81763-8) MELISA (test code = MELISA) ID NOW COVID-19 Assay is an isothermal nucleic acid amplification test intended for the qualitative detection of nucleic acid from SARS-CoV-2 viral RNA in nasopharyngeal (LOCKSTITCH ZIPPER SETTER) specimens. It is used under Emergency Use Authorization (EUA) by FDA. The limit of detection (LOD) of the assay is 125 Genome Equivalents/mL. A positive result is indicative of the presence of SARS-CoV-2 RNA. ?Clinical correlation with patient history and other diagnostic information is necessary to determine patient infection status. A negative (Not Detected) result does not preclude SARS-CoV-2 infection. In patients with clinical symptoms and other tests that are consistent with SARS-CoV-2 infection, negative results should be treated as presumptive negative and a new specimen should be tested with alternative PCR molecular test. Invalid: Please collect a new specimen for repeat patient testing if clinically indicated. Lab Interpretation Normal (test code = 32680-5) [facility] with [id number] 19:31:58 Test Item Value Reference Range Interpretation Comments WBC (test code = See_Comment [Automated message] 7490-2) The system [employer] generated this result transmitted ref erence range: 4.20 - 1 0.70 10*3/?L. The re ference range was not u sed to interpret this result as normal/abnor mal. RBC (test code = See_Comment [Automated message] 959-8) The system [employer] generated this result transmitted ref erence range: 4.26 - 5 .52 10*6/?L. The re ference range was not u sed to interpret this result as normal/abnor mal. HGB (test code = 15.0 g/dL 12.2-16.4 718-7) HCT (test code = 44.4 % 38.4-49.3 4544-3) MCV (test code = 91.0 fL 81.7-95.6 787-2) MCH (test code = 30.7 pg 26.1-32.7 785-6) MCHC (test code = 33.8 g/dL 31.2-35.0 786-4) RDW-SD (test code 42.7 fL 38.5-51.6 = 56832-6) RDW-CV (test code 12.9 % 12.1-15.4 = 788-0) PLT (test code = See_Comment [Automated message] 777-3) The system whic h generated this result transmitted ref erence range: 150 - 32 8 10*3/?L. The re ference range was not u sed to interpret this result as normal/abnor mal. MPV (test code = 10.1 fL 9.8-13.0 81453-7) NRBC/100 WBC (test See_Comment [Automat ed message] code = 3254607485) The syste m which generated this result transmitted ref erence range: 0.0 - 10 .0 /100 WBCs. The refer ence range was not u sed to interpret this result as normal/abnor mal. NRBC x10^3 (test <0.01 See_Comment [Automated message] code = 9572369330) The syste m which generated this result transmitted ref erence range: 10*3/?L. The reference range was not used to interpr et this result as normal/abnormal . GRAN MAT (NEUT) % 36.5 % (test code = 770-8) IMM GRAN % (test 0.20 % code = 3281095978) LYMPH % (test code 46.4 % = 736-9) MONO % (test code 13.6 % = 5905-5) EOS % (test code = 2.7 % 713-8) BASO % (test code 0.6 % = 706-2) GRAN MAT 2.27 10*3/uL 1.99-6.95 x10^3(ANC) (test code = 4691865530) IMM GRAN x10^3 <0.03 0.00-0.06 (test code = 6986486353) LYMPH x10^3 (test 2.89 10*3/uL 1.09-3.23 code = 731-0) MONO x10^3 (test 0.85 10*3/uL 0.36-1.02 code = 742-7) EOS x10^3 (test 0.17 10*3/uL 0.06-0.53 code = 711-2) BASO x10^3 (test 0.04 10*3/uL 0.01-0.09 code = 704-7) [facility] CenterTROPONIN [id number] 17:09:00 Test Item Value Reference Range Interpretation Comments TROPONIN I (test <0.012 See_Comment [Automated code = 7691610429) message] The system which generated this result transmitted reference range : <=0.034 ng/mL. The reference range was not used to interpr et this result as normal/abnormal . MELISA (test code = Equal or Less than MELISA) 0.034 ng/ml---Normal ?Note: Cardiac troponin begins to rise 3-4 hours after the onset of ischemia. Repeat in 4-6 hours if the sample was drawn within 3-4 hours of the onset of the symptom and found normal. Between 0.035 and 0.120 ng/mL--- Borderline. Questionable myocardial injury or necrosis ? ?Note: Serial measurement may be necessary to confirm or exclude the diagnosis of myocardial injury or necrosis; Clinical correlation (symptoms, EKGs, imaging studies, and others) required; Repeat in 4-6 hours if clinically indicated. ? Equal or Higher than 0.121 ng/mL---Abnormal. Myocardial Injury or Necrosis Likely ? Biotin has been reported to cause a negative bias, interpret results relative to patient's use of biotin. ? Lab Interpretation Normal (test code = 06875-6) [facility] CenterN-TERMINAL [id number] 17:06:00 Test Item Value Reference Range Interpretation Comments NT-proBNP (test code 63 pg/mL See_Comment [Autom ated = 6943222213) message] The system which generated this result transmitted reference range : <=125. The reference range was not used to interpret this result as normal/abnormal . MELISA (test code = MELISA) Biotin has been reported to cause a negative bias, interpret results relative to patient's use of biotin. Lab Interpretation Normal (test code = 78474-4) [facility] CenterCOMP. METABOLIC PANEL (30531)2020-02-23 16:57:00 Test Item Value Reference Range Interpretation Comments NA (test code = 141 mmol/L 135-145 6599114791) K (test code = 3.9 mmol/L 3.5-5 6887855157) CL (test code = 106 mmol/L 98-108 6454338063) CO2 TOTAL (test code = 26 mmol/L 23-31 5965847899) AGAP (test code = 2-16 9011070747) BUN (test code = 15 mg/dL 7-23 3309184353) GLUCOSE (test code = 107 mg/dL 70-110 1228001087) CREATININE (test code 1.15 mg/dL 0.6-1.25 = 9466846711) TOTAL BILI (test code 0.5 mg/dL 0.1-1.1 = 3832153692) CALCIUM (test code = 9.4 mg/dL 8.6-10.6 5123930575) T PROTEIN (test code = 7.7 g/dL 6.3-8.2 7440013019) ALBUMIN (test code = 4.6 g/dL 3.5-5 8474236883) ALK PHOS (test code = 74 U/L 34-122 1701385390) ALTv (test code = 29 U/L 5-50 1742-6) AST(SGOT) (test code = 29 U/L 13-40 0313869408) eGFR Calculation mL/min/1.73m2 (Non-) (test code = 9825930080) eGFR Calculation mL/min/1.73m2 () (test code = 2168883376) MELISA (test code = MELISA) Association of Glomerular Filtration Rate (GFR) and Staging of Kidney Disease* + -+ + ---+| GFR (mL/min/1.73 m2) ?| With Kidney Damage ?| ?Without Kidney Damage+ -------+ ------+ ---------+| ?>90 ?| ?Stage one ?| ? Normal ?+ --+ -+ ----+| ?60-89 ?| ?Stage two ?| ? Decreased GFR ? + -+ + ---+| ?30-59 ?| ?Stage three ?| ? Stage three ? + -+ + ---+| ?15-29 ?| ?Stage four ? | ? Stage four ?+ --+ -+ ----+| ?<15 (or dialysis) ? ?| ?Stage five ? | ? Stage five ?+ --+ -+ ----+ *Each stage assumes the associated GFR level has been in effect for at least three months. ?Stages 1 to 5, with or without kidney disease, indicate chronic kidney disease. Notes: Determination of stages one and two (with eGFR >59mL/min/1.73 m2) requires estimation of kidney damage for at least three months as defined by structural or functional abnormalities of the kidney, manifested by either:Pathological abnormalities or Markers of kidney damage (including abnormalities in the composition of the blood or urine or abnormalities in imaging tests). [facility] CenterCORONAVIRUS COVID-19 [id number] 16:54:00 Test Item Value Reference Range Interpretation Comments SARS-CoV-2 (test code = Not Detected Not Detected 27248-8) MELISA (test code = MELISA) ID NOW COVID-19 Assay is an isothermal nucleic acid amplification test intended for the qualitative detection of nucleic acid from SARS-CoV-2 viral RNA in nasopharyngeal (LOCKSTITCH ZIPPER SETTER) specimens. It is used under Emergency Use Authorization (EUA) by FDA. The limit of detection (LOD) of the assay is 125 Genome Equivalents/mL. A positive result is indicative of the presence of SARS-CoV-2 RNA. ?Clinical correlation with patient history and other diagnostic information is necessary to determine patient infection status. A negative (Not Detected) result does not preclude SARS-CoV-2 infection. Clinical correlation with patient history and other diagnostic information should be used in patient management decisions. Invalid: Please collect a new specimen for repeat patient testing if clinically indicated. Lab Interpretation Normal (test code = 50902-7) [facility]XR [facility]ST 1 [id number] 16:52:58HISTORY: SOB. TECHNIQUE: Portable AP view of the chest is obtained. Comparison is madewith 01/23/2020study. FINDINGS: No acute pneumonia. No pneumothorax or pleural effusion orpulmonary congestion detected. Cardiac size is within upper normal limits.Thoracic aorta is dilated, elongated and tortuous. Brachiocephalic vessels also appear tortuous.A small hiatal hernia suspected. CONCLUSIONS: No signs ofacute cardiopulmonary disease.[facility], Radiant Results Inft User - 02/23/2020 11:54 AM CDTHISTORY: SOB.TECHNIQUE: Portable AP view of the chest is obtained. Comparison is madewith 01/23/2020 study.FINDINGS: No acute pneumonia. No pneumothorax or pleural effusion orpulmonary congestion detected. Cardiac siz e is within upper normal limits.Thoracic aorta is dilated, elongated and tortuous.Brachiocephalic vessels also appear tortuous.A small hiatal hernia suspected.CONCLUSIONS: No signs of acute cardiopulmonary disease.[facility] WITH [id number] 16:42:00 Test Item Value Reference Range Interpretation Comments WBC (test code = See_Comment [Automated message] 2190-2) The system [employer] generated this result transmitted ref erence range: 4.20 - 1 0.70 10*3/?L. The re ference range was not u sed to interpret this result as normal/abnor mal. RBC (test code = See_Comment [Automated message] 609-8) The system [employer] generated this result transmitted ref erence range: 4.26 - 5 .52 10*6/?L. The re ference range was not u sed to interpret this result as normal/abnor mal. HGB (test code = 13.9 g/dL 12.2-16.4 718-7) HCT (test code = 40.3 % 38.4-49.3 4544-3) MCV (test code = 90.8 fL 81.7-95.6 787-2) MCH (test code = 31.3 pg 26.1-32.7 785-6) MCHC (test code = 34.5 g/dL 31.2-35 786-4) RDW-SD (test code 41.9 fL 38.5-51.6 = 66308-7) RDW-CV (test code 12.7 % 12.1-15.4 = 788-0) PLT (test code = See_Comment [Automated message] 917-3) The system [employer] generated this result transmitted ref erence range: 150 - 32 8 10*3/?L. The re ference range was not u sed to interpret this result as normal/abnor mal. MPV (test code = 10.0 fL 9.8-13 28035-8) NRBC/100 WBC (test See_Comment [Automat ed message] code = 1781885534) The syste m which generated this result transmitted ref erence range: 0.0 - 10 .0 /100 WBCs. The refer ence range was not u sed to interpret this result as normal/abnor mal. NRBC x10^3 (test <0.01 See_Comment [Automated message] code = 2102104925) The syste m which generated this result transmitted ref erence range: 10*3/?L. The reference range was not used to interpr et this result as normal/abnormal . GRAN MAT (NEUT) % 36.6 % (test code = 770-8) IMM GRAN % (test 0.30 % code = 2984141820) LYMPH % (test code 47.1 % = 736-9) MONO % (test code 11.7 % = 5905-5) EOS % (test code = 3.5 % 713-8) BASO % (test code 0.8 % = 706-2) GRAN MAT 2.22 10*3/uL 1.99-6.95 x10^3(ANC) (test code = 4229930097) IMM GRAN x10^3 <0.03 0-0.06 (test code = 8374863095) LYMPH x10^3 (test 2.86 10*3/uL 1.09-3.23 code = 731-0) MONO x10^3 (test 0.71 10*3/uL 0.36-1.02 code = 742-7) EOS x10^3 (test 0.21 10*3/uL 0.06-0.53 code = 711-2) BASO x10^3 (test 0.05 10*3/uL 0.01-0.09 code = 704-7) [facility] CenterMR [facility] WO [id number] 19:18:22 No acute intracranial process. Ufrt-vy-ltbkebam chronic small vesselischemic disease identified. Unremarkable MRA of the head. Preliminary Report Dictated by Resident: Viviane Estrada MD., have reviewed this study and agree with the abovereport.MR BRAIN WO CONTRAST, MR ANGIOGRAM HEAD WO CONTRAST HISTORY: presyncope/dizziness. COMPARISON: CT 01/23/2020. TECHNIQUE: Multiplanar multisequence imaging of the brain was obtained on a1.5 Doreen MRI without contrast. Rryr-ir-yworpm MRA of head was alsoperformed without contrast. FINDINGS: MRI HEAD: The ventricles and cerebral sulci are normal in caliber and configuration.No midline shift, hydrocephalus or pathological extra-axial fluidcollection is present. The basal cisterns are unremarkable. No restricted diffusion is present to suggest acute infarct. Small chroniclacunar infarcts are noted in the white matter of the supratentorial br ainand heavenly. Multiple white matter T2/FLAIR hyperintensities are suggestive ofchronic microvascular ischemic changes. No abnormal gradient blooming. MRA HEAD: The PICA origin is visualized bilaterally.The basilar artery is normal incaliber. The superior cerebellar arteries are unremarkable. The shampoo technician iorcerebral arteries are unremarkable. Diminutive bilateral posteriorcommunicating arteries are suspected. The distal cervical, petrous, cavernous and supraclinoid internal carotidarteries are unremarkable. The anterior and middle cerebral arteries areunremarkable. An anterior communicating artery is visualized. [facility], Radiant Results Inft User - 02/02/2020 2:19 PM CDTMR BRAIN WO CONTRAST, MR ANGIOGRAM HEAD WO CONTRASTHISTORY: presyncope/dizziness.COMPARISON: CT 01/23/2020.TECHNIQUE: Multiplanar multi sequence imaging of the brain was obtained on a1.5 Doreen MRI without contrast. Umwe-fe-fwahit MRA ofhead was alsoperformed without contrast.FINDINGS:MRI HEAD:The ventricles and cerebral sulci are normal in caliber and configuration.No midline shift, hydrocephalus or pathological extra-axial fluidcollection is present. The basal cisterns are unremarkable.No restricted diffusion is present to suggest acute infarct. Small chroniclacunar infarcts are noted in the white matter of the supratentorial brainand heavenly. Multiple white matter T2/FLAIR hyperintensities are suggestive ofchronic microvascular ischemic changes. No abnormal gradient blooming.MRA HEAD:The PICA origin is visualized bilaterally. The basilar artery is normal incaliber. The superior cerebellar arteries are unremarkable. The posteriorcerebral arteries are unremarkable. Diminutive bilateral posteriorcommunicating arteries are suspected.The distal cervical, petrous, cavernous and supraclinoid internal carotidarteries are unremarkable. The anterior and middle cerebral arteries areunremarkable. An anterior communicating artery is visualized.IMPRESSIONNo acute intracranial process. Ewos-tj-dnkulfax chronic small vesselischemic disease identified. Unremarkable MRA of the head.Preliminary Report Dictated by Resident: Viviane Gomez MD., have reviewed this study and agree with the abovereport.[facility] BRAIN WO [id number] 19:18:22 No acute intracranial process. Ehmu-du-hnkelqhj chronic small vesselischemic disease identified. Unremarkable MRA of the head. Preliminary Report Dictated by Resident: Viviane Estrada MD., have reviewed this study and agree with the abovereport.MR BRAIN WO CONTRAST, MR ANGIOGRAM HEAD WO CONTRAST HISTORY: presyncope/dizziness. COMPARISON: CT 01/23/2020. TECHNIQUE: Multiplanar multisequence imaging of the brain was obtained on a1.5 Doreen MRI without contrast. Nqna-of-ovqzve MRA of head was alsoperformed without contrast. FINDINGS: MRI HEAD: The ventricles and cerebral sulci are normal in caliber and configuration.No midline shift, hydrocephalus or pathological extra-axial fluidcollection is present. The basal cisterns are unremarkable. No restricted diffusion is present to suggest acute infarct. Small chroniclacunar infarcts are noted in the white matter of the supratentorial br ainand heavenly. Multiple white matter T2/FLAIR hyperintensities are suggestive ofchronic microvascular ischemic changes. No abnormal gradient blooming. MRA HEAD: The PICA origin is visualized bilaterally.The basilar artery is normal incaliber. The superior cerebellar arteries are unremarkable. The shampoo technician iorcerebral arteries are unremarkable. Diminutive bilateral posteriorcommunicating arteries are suspected. The distal cervical, petrous, cavernous and supraclinoid internal carotidarteries are unremarkable. The anterior and middle cerebral arteries areunremarkable. An anterior communicating artery is visualized. [facility], Radiant Results Inft User - 02/02/2020 2:19 PM CDTMR BRAIN WO CONTRAST, MR ANGIOGRAM HEAD WO CONTRASTHISTORY: presyncope/dizziness.COMPARISON: CT 01/23/2020.TECHNIQUE: Multiplanar multi sequence imaging of the brain was obtained on a1.5 Doreen MRI without contrast. Yugh-hv-phmkgg MRA ofhead was alsoperformed without contrast.FINDINGS:MRI HEAD:The ventricles and cerebral sulci are normal in caliber and configuration.No midline shift, hydrocephalus or pathological extra-axial fluidcollection is present. The basal cisterns are unremarkable.No restricted diffusion is present to suggest acute infarct. Small chroniclacunar infarcts are noted in the white matter of the supratentorial brainand heavenly. Multiple white matter T2/FLAIR hyperintensities are suggestive ofchronic microvascular ischemic changes. No abnormal gradient blooming.MRA HEAD:The PICA origin is visualized bilaterally. The basilar artery is normal incaliber. The superior cerebellar arteries are unremarkable. The posteriorcerebral arteries are unremarkable. Diminutive bilateral posteriorcommunicating arteries are suspected.The distal cervical, petrous, cavernous and supraclinoid internal carotidarteries are unremarkable. The anterior and middle cerebral arteries areunremarkable. An anterior communicating artery is visualized.IMPRESSIONNo acute intracranial process. Jcmf-bg-wuwjxqdx chronic small vesselischemic disease identified. Unremarkable MRA of the head.Preliminary Report Dictated by Resident: Viviane Gomez MD., have reviewed this study and agree with the abovereport.[facility] HEAD [id number] 18:56:10 1. ?Per report, area of palpable abnormality corresponds to prominent rightsternocleidomastoid muscle. Correlate with patient's physical exam andtorticollis of torticollis. If this does not explain patient's symptomsthen consider doing CT neck with contrast to further characterize. 2. ?No lymphadenopathy appreciated. Preliminary Report Dictated by Resident: Zeb Enriquez MD., have reviewed this study and agree with theabove report.EXAM: US HEAD NECK HISTORY: 64 year-old man with right neck mass TECHNIQUE: Survey ultrasound imaging of the right lateral neck wasperformed including color Doppler evaluation with field representatives director imagesobtained. COMPARISON: None FINDINGS: Survey ultrasound of the right lateral neck demonstrates a 5.7 x 2.1 x 3.0cm region corresponding to area ofpalpable region of abnormality. Overallappearance is consistent with muscle belly of SCM. [facility], Radiant Results Inft User - 01/25/2020 1:57 PM CDTEXAM: US HEAD NECKHISTORY: 64 year-old man with right neck mass TECHNIQUE: Survey ultrasound imaging of the right lateral neck wasperformed including colorDoppler evaluation with field representatives director imagesobtained.COMPARISON: NoneFINDINGS:Survey ultrasound of the right lateral neck demonstrates a 5.7 x 2.1 x 3.0cm region corresponding to area of palpable region of abnormality. Overallappearance is consistent with muscle belly of SCM.IMPRESSION1. Per report,area of palpable abnormality corresponds to prominent rightsternocleidomastoid muscle. Correlate with patient's physical exam andtorticollis of torticollis. If this does not explain patient's symptomsthen consider doing CT neck with contrast to further characterize.2. No lymphadenopathy appreciated. Preliminary Report Dictated by Resident: Taylor Sen I, Zeb Avila MD., have reviewed this study and agree with theabove report.[facility] CenterVITAMIN D, [id number] 16:49:00 Test Item Value Reference Range Interpretation Comments VIT D 25OH (test code = 26 ng/mL 25-80 79089-9) MELISA (test code = MELISA) Deficiency: <20 ng/mLInsufficiency : 20-24 ng/mLOptimal: 25-80 ng/mL Lab Interpretation (test Normal code = 14868-9) [facility] CenterVIT[facility]IN B12, [id number] 01:44:00 Test Item Value Reference Range Interpretation Comments VIT B12 (test code = 460 pg/mL 240-930 5546191143) MELISA (test code = MELISA) Biotin has been reported to cause a positive bias, interpret results relative to patient's use of biotin. Lab Interpretation (test Normal code = 56368-4) [facility] CenterMAGNESIUM2020-03-22 14:26:00 Test Item Value Reference Range Interpretation Comments MAGNESIUM (test code = 5523225722) 2.0 mg/dL 1.7-2.4 Lab Interpretation (test code = Normal 60705-3) [facility] CenterTroponin [id number] 10:39:00 Test Item Value Reference Range Interpretation Comments TROPONIN I (test 0.012 ng/mL See_Comment [Automated code = 8298587437) message] The system which generated this result transmitted reference range : <=0.034. The reference range was not used to interpret this result as normal/abnormal . MELISA (test code = Equal or Less than MELISA) 0.034 ng/ml---Normal ?Note: Cardiac troponin begins to rise 3-4 hours after the onset of ischemia. Repeat in 4-6 hours if the sample was drawn within 3-4 hours of the onset of the symptom and found normal. Between 0.035 and 0.120 ng/mL--- Borderline. Questionable myocardial injury or necrosis ? ?Note: Serial measurement may be necessary to confirm or exclude the diagnosis of myocardial injury or necrosis; Clinical correlation (symptoms, EKGs, imaging studies, and others) required; Repeat in 4-6 hours if clinically indicated. ? Equal or Higher than 0.121 ng/mL---Abnormal. Myocardial Injury or Necrosis Likely ? Biotin has been reported to cause a negative bias, interpret results relative to patient's use of biotin. ? Lab Interpretation Normal (test code = 31679-0) [facility] TH[facility] W [id number] 05:36:37 Partially calcified 7 mm left upper lobe nodule, probably a hamartoma.Follow-up in 6-12 months is recommended. No pleural effusion or pneumothorax. Preliminary Report Dictated by Resident: Zeb Tariq MD., have reviewed this study and agree with theabove report.PROCEDURE: CT CHEST with contrast CLINICAL INDICATION: Chest pain or SOB, pleurisy or effusion suspected ? COMPARISON: 01/23/2020, 01/12/2020 and 11/14/2019. TECHNIQUE: ?Helical CT was performed of the chest (lung apices to bases)after administration of intravenous contrast. ?Images were reconstructed at1.25 mm slice thickness. MIP and coronal & sagittal MPR images weregenerated and reviewed. ?(DFOV = 39 cm) FINDINGS: Lower neck/thyroid: Unremarkable. Lungs: A 7 mm partially calcified left upper lobe is seen (12:59). Scatteredsubsegmental atelectasis. Central airway: Central airways are patent. Pleura: No pleural effusion, thickening or pneumothorax. Thoracic aorta and great vessels: ?Normal in diameter. Common carotidarteries originate from the same trunk. There is tortuosity ofbrachiocephalic trunk. Pulmonary arteries: Unremarkable. Heart and pericardium: At least moderate coronary artery calcificationsversus coronary artery stent in right main coronary artery distribution.Unremarkable cardiac morphology and pericardium. Lymph nodes: No enlarged thoracic lymph nodes. Mediastinum: Unremarkable. Thoracic spine and chest wall: Unremarkable, with normal thoracic vertebralbody heights. Other Lines/Tubes/Devices/Hardware: None Visualized upper abdomen: Small hiatal hernia. Tiny splenule seen adjacentto the pancreatic tail. [facility], Radiant Results Inft User - 01/24/2020 12:37 AM CDTPROCEDURE: CT CHEST with contrastCLINICAL INDICATION: Chest pain or SOB, pleurisy or effusion suspected COMPARISON: 01/23/2020, 01/12/2020 and 11/14/2019.TECHNIQUE: Helical CT was performed of the chest (lung apices to bases)after administrationof intravenous contrast. Images were reconstructed at1.25 mm slice thickness. MIP and coronal &sagittal MPR images weregenerated and reviewed. (DFOV = 39 cm)FINDINGS:Lower neck/thyroid: Unremarkable.Lungs: A 7 mm partially calcified left upper lobe is seen (12:59). Scatteredsubsegmental atelectasis.Central airway: Central airways are patent.Pleura: No pleural effusion, thickening or pneumothorax.Thoracic aorta and great vessels: Normal in diameter. Common carotidarteries originate from the same trunk. There is tortuosity ofbrachiocephalic trunk.Pulmonary arteries: Unremarkable.Heart and pericardium: At least moderate coronary artery calcificationsversus coronary artery stent in right main coronary artery distribution.Unremarkable cardiac morphology and pericardium.Lymph nodes: No enlargedthoracic lymph nodes.Mediastinum: Unremarkable.Thoracic spine and chest wall: Unremarkable, with normal thoracic vertebralbody heights.Other Lines/Tubes/Devices/Hardware: NoneVisualized upper abdomen: Small hiatal hernia. Tiny splenule seen adjacentto the pancreatic tail. IMPRESSIONPartially calcified 7 mm left upper lobe nodule, probably a hamartoma.Follow-up in 6-12 months is recommended. No pleural effusion or pneumothorax. Preliminary Report Dictated by Resident: Shante Calderon, Zeb Avila MD., have reviewed this study and agree with theabove report. [facility] CenterLIP[facility] PANEL (41608)(TOTAL CHOLESTEROL, TRIGLYCERIDES, HDL)2020-01-24 04:55:00 Test Item Value Reference Range Interpretation Comments CHOL (test code = 150 mg/dL 120-200 5238014743) HDL (test code = 39 mg/dL >40 L 9423340003) HDLC RATIO (test code = See_Comment [Au tomated message] 8024206893) The system [employer] generated this result transmit amada reference range : <=5.0. The refe rence range was not u sed to interpret th is result as normal/abnormal . TRIG (test code = 107 mg/dL 30-170 9143518543) LDL CHOL (test code = 90 mg/dL See_Comment [Auto mated message] 00470-0) The system [employer] generated this result transmit amada reference range : <=160. The refe rence range was not u sed to interpret th is result as normal/abnormal . VLDL (test code = 21 mg/dL 5-60 5524650245) Lab Interpretation (test Abnormal code = 25900-0) [facility] CenterTroponin [id number] 02:31:00 Test Item Value Reference Range Interpretation Comments TROPONIN I (test 0.015 ng/mL See_Comment [Automated code = 3228762807) message] The system which generated this result transmitted reference range : <=0.034. The reference range was not used to interpret this result as normal/abnormal . MELISA (test code = Equal or Less than MELISA) 0.034 ng/ml---Normal ?Note: Cardiac troponin begins to rise 3-4 hours after the onset of ischemia. Repeat in 4-6 hours if the sample was drawn within 3-4 hours of the onset of the symptom and found normal. Between 0.035 and 0.120 ng/mL--- Borderline. Questionable myocardial injury or necrosis ? ?Note: Serial measurement may be necessary to confirm or exclude the diagnosis of myocardial injury or necrosis; Clinical correlation (symptoms, EKGs, imaging studies, and others) required; Repeat in 4-6 hours if clinically indicated. ? Equal or Higher than 0.121 ng/mL---Abnormal. Myocardial Injury or Necrosis Likely ? Biotin has been reported to cause a negative bias, interpret results relative to patient's use of biotin. ? Lab Interpretation Normal (test code = 72006-5) [facility] 2 [id number] 22:24:52 No acute cardiopulmonary abnormality. Persistent increased density projecting over the posterior right fourth andfifth rib costovertebral junctions remains unchanged since December 2018.Recommend nonemergent/outpatient CT to further characterize. Preliminary Report Dictated by Resident: Zeb Tariq MD., have reviewed this study and agree with marly kent.PROCEDURE: XR CHEST 2 VW CLINICAL INDICATION: chest pain TECHNIQUE: PA and lateral views of the chest x-ray were obtained. COMPARISON: 01/12/2020 FINDINGS: Increased density within the medial right upper lobe at the posteriorfourth and fifth costovertebral junctions appears unchanged going back toradiographs from December 2018. The lungs are otherwise clear. No pleuraleffusion or pneumothorax is seen. The heart is normal in size. No acute bony abnormality. Mild wedging in the mid thorax and thoraciclumbar junction is likely degenerative in nature. [facility], [facility] Results Inft User - 01/23/20205:25 PM CDTPROCEDURE: XR CHEST 2 VWCLINICAL INDICATION: chest pain TECHNIQUE: PA and lateral views of the chest x-ray were obtained.COMPARISON: 01/12/2020FINDINGS:Increased density within the medial right upper lobe at the posteriorfourth and fifth costovertebral junctions appears unchanged going back toradiographs from December 2018. The lungs are otherwise clear. No pleuraleffusion or pneumothorax is seen. The heart is normal in size.No acute bony abnormality. Mild wedging in the mid thorax and thoraciclumbar junction is likely degenerative in nature.IMPRESSIONNo acute cardiopulmonary abnormality.P ersistent increased density projecting over the posterior right fourth andfifth rib costovertebral junctions remains unchanged since December 2018.Recommend nonemergent/outpatient CT to further characterize.Preliminary Report Dictated by Resident: Shante Calderon, Zeb Avila MD., have reviewed this study and agree with theabove report.[facility] CenterCindy [id number] 22:06:00 Test Item Value Reference Range Interpretation Comments TROPONIN I (test 0.010 ng/mL See_Comment [Automated code = 2220986537) message] The system which generated this result transmitted reference range : <=0.034. The reference range was not used to interpret this result as normal/abnormal . MELISA (test code = Equal or Less than MELISA) 0.034 ng/ml---Normal ?Note: Cardiac troponin begins to rise 3-4 hours after the onset of ischemia. Repeat in 4-6 hours if the sample was drawn within 3-4 hours of the onset of the symptom and found normal. Between 0.035 and 0.120 ng/mL--- Borderline. Questionable myocardial injury or necrosis ? ?Note: Serial measurement may be necessary to confirm or exclude the diagnosis of myocardial injury or necrosis; Clinical correlation (symptoms, EKGs, imaging studies, and others) required; Repeat in 4-6 hours if clinically indicated. ? Equal or Higher than 0.121 ng/mL---Abnormal. Myocardial Injury or Necrosis Likely ? Biotin has been reported to cause a negative bias, interpret results relative to patient's use of biotin. ? Lab Interpretation Normal (test code = 74132-5) [facility] CenterBasi Metabolic Panel (NA, K, CL, CO2, GLUCOSE, BUN, CREATININE, CA)2020-01-23 21:53:00 Test Item Value Reference Range Interpretation Comments NA (test code = 139 mmol/L 135-145 0717553097) K (test code = 4.2 mmol/L 3.5-5 7978782822) CL (test code = 105 mmol/L 98-108 9063898300) CO2 TOTAL (test code = 25 mmol/L 23-31 6557029310) AGAP (test code = 2-16 3827183270) BUN (test code = 21 mg/dL 7-23 4348923979) GLUCOSE (test code = 91 mg/dL 70-110 2361019049) CREATININE (test code 1.22 mg/dL 0.6-1.25 = 0715251609) CALCIUM (test code = 9.3 mg/dL 8.6-10.6 0084106161) eGFR Calculation mL/min/1.73m2 (Non-) (test code = 5455001808) eGFR Calculation mL/min/1.73m2 () (test code = 4658253901) MELISA (test code = MELISA) Association of Glomerular Filtration Rate (GFR) and Staging of Kidney Disease* + -+ + ---+| GFR (mL/min/1.73 m2) ?| With Kidney Damage ?| ?Without Kidney Damage+ -------+ ------+ ---------+| ?>90 ?| ?Stage one ?| ? Normal ?+ --+ -+ ----+| ?60-89 ?| ?Stage two ?| ? Decreased GFR ? + -+ + ---+| ?30-59 ?| ?Stage three ?| ? Stage three ? + -+ + ---+| ?15-29 ?| ?Stage four ? | ? Stage four ?+ --+ -+ ----+| ?<15 (or dialysis) ? ?| ?Stage five ? | ? Stage five ?+ --+ -+ ----+ *Each stage assumes the associated GFR level has been in effect for at least three months. ?Stages 1 to 5, with or without kidney disease, indicate chronic kidney disease. Notes: Determination of stages one and two (with eGFR >59mL/min/1.73 m2) requires estimation of kidney damage for at least three months as defined by structural or functional abnormalities of the kidney, manifested by either:Pathological abnormalities or Markers of kidney damage (including abnormalities in the composition of the blood or urine or abnormalities in imaging tests). [facility] CenterHep[facility] Function Panel (ALB, T.PRO, BILI T, BU/BC, ALT, AST, ALK PHOS)2020-01-23 21:53:00 Test Item Value Reference Range Interpretation Comments TOTAL BILI (test code = 6850796391) 0.7 mg/dL 0.1-1.1 BILI UNCON (test code = 1019547925) 0.6 mg/dL 0.1-1.1 BILI CONJ (test code = 1711284049) 0.0 mg/dL 0-0.3 T PROTEIN (test code = 5711179995) 8.4 g/dL 6.3-8.2 H ALBUMIN (test code = 9853645715) 4.7 g/dL 3.5-5 ALK PHOS (test code = 4519453626) 72 U/L 34-122 ALTv (test code = 1742-6) 28 U/L 5-50 AST(SGOT) (test code = 4450830718) 46 U/L 13-40 H Lab Interpretation (test code = Abnormal 30191-3) [facility] CenterCT HEAD WO [id number] 21:44:44No acute findings. HISTORY:Dizziness, persistent/recurrent, cardiac or vascular causesuspected TECHNIQUE: Noncontrast head CT was performed. COMPARISON:None. FINDINGS: The ventricles and sulci are appropriate for patient's age. Artifact is noted in the occipital and cerebellar region bilaterally. There is no midline shift. The basal cisterns are preserved. No largevascular territory infarction, intracranial hemorrhage or mass effect isseen. The extracranial tissues demonstrate no acute findings. [facility], Radiant Results Inft User - 01/23/2020 4:45 PM CDTHISTORY:Dizziness, persistent/recurrent, cardiac or vascular causesuspected TECHNIQUE: Noncontrast head CT was performed.COMPARISON:None.FINDINGS:The ventricles and sulci are appropriate for patient's age.Artifact is noted in the occipital and cerebellar region bilaterally.There is no midline shift. The basal cisterns are preserved. No largevascular territory infarction, intracranial hemorrhage or mass effect isseen.The extracranial tissues demonstrate no acute findings.IMPRESSIONNo acute findings.[facility] CenterUrinalysis2020-03-21 21:44:00 Test Item Value Reference Range Interpretation Comments APPEARANCE (test code = Clear Clear 6178340017) COLOR (test code = Straw Yellow A 0318303086) PH (test code = 4.8-8.0 8450653527) SP GRAVITY (test code = 1.003-1.030 6527082833) GLU U QUAL (test code = Normal Normal 9625809537) BLOOD (test code = Negative Negative 8263947172) KETONES (test code = Negative Negative 6453042859) PROTEIN (test code = Negative Negative 2887-8) UROBILIN (test code = Normal Normal 7086686462) BILIRUBIN (test code = Negative Negative 5888249693) NITRITE (test code = Negative Negative 3083651257) LEUK DIXIE (test code = Negative Negative 2288188891) RBC/HPF (test code = See_Comment [Autom ated message] 2288453865) The system [employer] generated this result transmitted ref erence range: 0 - 3 HP F. The reference range was not used to int erpret this result as normal/abnormal . WBC/HPF (test code = <1 See_Comment [Autom ated message] 3422925443) The system [employer] generated this result transmitted ref erence range: 0 - 5 HP F. The reference range was not used to int erpret this result as normal/abnormal . BACTERIA (test code = Negative Negative 4512892191) Lab Interpretation (test Abnormal code = 85620-1) [facility] CenterCBC WITH [id number] 21:37:00 Test Item Value Reference Range Interpretation Comments WBC (test code = See_Comment [Automated message] 6690-2) The system [employer] generated this result transmitted ref erence range: 4.20 - 1 0.70 10*3/?L. The re ference range was not u sed to interpret this result as normal/abnor mal. RBC (test code = See_Comment [Automated message] 789-8) The system [employer] generated this result transmitted ref erence range: 4.26 - 5 .52 10*6/?L. The re ference range was not u sed to interpret this result as normal/abnor mal. HGB (test code = 14.7 g/dL 12.2-16.4 718-7) HCT (test code = 42.6 % 38.4-49.3 4544-3) MCV (test code = 90.6 fL 81.7-95.6 787-2) MCH (test code = 31.3 pg 26.1-32.7 785-6) MCHC (test code = 34.5 g/dL 31.2-35 786-4) RDW-SD (test code 40.7 fL 38.5-51.6 = 30122-1) RDW-CV (test code 12.3 % 12.1-15.4 = 788-0) PLT (test code = See_Comment [Automated message] 777-3) The system [employer] h generated this result transmitted ref erence range: 150 - 32 8 10*3/?L. The re ference range was not u sed to interpret this result as normal/abnor mal. MPV (test code = 10.2 fL 9.8-13 41829-8) NRBC/100 WBC (test See_Comment [Automat ed message] code = 8813279587) The syste m which generated this result transmitted ref erence range: 0.0 - 10 .0 /100 WBCs. The refer ence range was not u sed to interpret this result as normal/abnor mal. NRBC x10^3 (test <0.01 See_Comment [Automated message] code = 3818792743) The syste m which generated this result transmitted ref erence range: 10*3/?L. The reference range was not used to interpr et this result as normal/abnormal . GRAN MAT (NEUT) % 39.3 % (test code = 770-8) IMM GRAN % (test 0.30 % code = 8807677115) LYMPH % (test code 47.0 % = 736-9) MONO % (test code 10.2 % = 5905-5) EOS % (test code = 2.4 % 713-8) BASO % (test code 0.8 % = 706-2) GRAN MAT 2.32 10*3/uL 1.99-6.95 x10^3(ANC) (test code = 0700106354) IMM GRAN x10^3 <0.03 0-0.06 (test code = 4026407489) LYMPH x10^3 (test 2.78 10*3/uL 1.09-3.23 code = 731-0) MONO x10^3 (test 0.60 10*3/uL 0.36-1.02 code = 742-7) EOS x10^3 (test 0.14 10*3/uL 0.06-0.53 code = 711-2) BASO x10^3 (test 0.05 10*3/uL 0.01-0.09 code = 704-7) [facility] CenterURINALYSIS2020-03-10 15:27:00 Test Item Value Reference Range Interpretation Comments APPEARANCE (test code = Clear Clear 2498281569) COLOR (test code = Straw Yellow A 5108700500) PH (test code = 4.8-8.0 7263222129) SP GRAVITY (test code = 1.003-1.030 0696534356) GLU U QUAL (test code = Normal Normal 5519090962) BLOOD (test code = Negative Negative 5647189024) KETONES (test code = Negative Negative 2574945431) PROTEIN (test code = Negative Negative 2887-8) UROBILIN (test code = Normal Normal 1113929667) BILIRUBIN (test code = Negative Negative 8823322937) NITRITE (test code = Negative Negative 6302850024) LEUK DIXIE (test code = Negative Negative 1295688550) RBC/HPF (test code = See_Comment [Autom ated message] 6050825527) The system [employer] generated this result transmitted ref erence range: 0 - 3 HP F. The reference range was not used to int erpret this result as normal/abnormal . WBC/HPF (test code = <1 See_Comment [Autom ated message] 3746990115) The system [employer] generated this result transmitted ref erence range: 0 - 5 HP F. The reference range was not used to int erpret this result as normal/abnormal . BACTERIA (test code = Negative Negative 7124374765) MUCOUS (test code = Slight Negative LPF A 8311595226) SQ EPITH (test code = <1 HPF 1715966634) Lab Interpretation (test Abnormal code = 68845-8) [facility] CenterTROPONIN [id number] 15:23:00 Test Item Value Reference Range Interpretation Comments TROPONIN I (test 0.009 ng/mL See_Comment [Automated code = 6584939768) message] The system which generated this result transmitted reference range : <=0.034. The reference range was not used to interpret this result as normal/abnormal . MELISA (test code = Equal or Less than MELISA) 0.034 ng/ml---Normal ?Note: Cardiac troponin begins to rise 3-4 hours after the onset of ischemia. Repeat in 4-6 hours if the sample was drawn within 3-4 hours of the onset of the symptom and found normal. Between 0.035 and 0.120 ng/mL--- Borderline. Questionable myocardial injury or necrosis ? ?Note: Serial measurement may be necessary to confirm or exclude the diagnosis of myocardial injury or necrosis; Clinical correlation (symptoms, EKGs, imaging studies, and others) required; Repeat in 4-6 hours if clinically indicated. ? Equal or Higher than 0.121 ng/mL---Abnormal. Myocardial Injury or Necrosis Likely ? Biotin has been reported to cause a negative bias, interpret results relative to patient's use of biotin. ? Lab Interpretation Normal (test code = 73297-3) [facility] CenterCOMP. METABOLIC PANEL (99584)2020-01-12 15:12:00 Test Item Value Reference Range Interpretation Comments NA (test code = 140 mmol/L 135-145 5533644521) K (test code = 3.6 mmol/L 3.5-5 4647895610) CL (test code = 102 mmol/L 98-108 3319633573) CO2 TOTAL (test code = 26 mmol/L 23-31 2909759568) AGAP (test code = 2-16 5079406274) BUN (test code = 16 mg/dL 7-23 0656685795) GLUCOSE (test code = 110 mg/dL 70-110 8062336994) CREATININE (test code 1.19 mg/dL 0.6-1.25 = 8586705808) TOTAL BILI (test code 0.4 mg/dL 0.1-1.1 = 7914029513) CALCIUM (test code = 9.8 mg/dL 8.6-10.6 5061399046) T PROTEIN (test code = 7.8 g/dL 6.3-8.2 2803785635) ALBUMIN (test code = 4.6 g/dL 3.5-5 1086419475) ALK PHOS (test code = 75 U/L 34-122 3181202378) ALTv (test code = 31 U/L 5-50 1742-6) AST(SGOT) (test code = 31 U/L 13-40 5148596318) eGFR Calculation mL/min/1.73m2 (Non-) (test code = 3783132798) eGFR Calculation mL/min/1.73m2 () (test code = 6489794432) MELISA (test code = MELISA) Association of Glomerular Filtration Rate (GFR) and Staging of Kidney Disease* + -+ + ---+| GFR (mL/min/1.73 m2) ?| With Kidney Damage ?| ?Without Kidney Damage+ -------+ ------+ ---------+| ?>90 ?| ?Stage one ?| ? Normal ?+ --+ -+ ----+| ?60-89 ?| ?Stage two ?| ? Decreased GFR ? + -+ + ---+| ?30-59 ?| ?Stage three ?| ? Stage three ? + -+ + ---+| ?15-29 ?| ?Stage four ? | ? Stage four ?+ --+ -+ ----+| ?<15 (or dialysis) ? ?| ?Stage five ? | ? Stage five ?+ --+ -+ ----+ *Each stage assumes the associated GFR level has been in effect for at least three months. ?Stages 1 to 5, with or without kidney disease, indicate chronic kidney disease. Notes: Determination of stages one and two (with eGFR >59mL/min/1.73 m2) requires estimation of kidney damage for at least three months as defined by structural or functional abnormalities of the kidney, manifested by either:Pathological abnormalities or Markers of kidney damage (including abnormalities in the composition of the blood or urine or abnormalities in imaging tests). [facility] WITH [id number] 15:00:00 Test Item Value Reference Range Interpretation Comments WBC (test code = See_Comment [Automated message] 6690-2) The system [employer] generated this result transmitted ref erence range: 4.20 - 1 0.70 10*3/?L. The re ference range was not u sed to interpret this result as normal/abnor mal. RBC (test code = See_Comment [Automated message] 789-8) The system [employer] generated this result transmitted ref erence range: 4.26 - 5 .52 10*6/?L. The re ference range was not u sed to interpret this result as normal/abnor mal. HGB (test code = 14.6 g/dL 12.2-16.4 718-7) HCT (test code = 42.1 % 38.4-49.3 4544-3) MCV (test code = 89.8 fL 81.7-95.6 787-2) MCH (test code = 31.1 pg 26.1-32.7 785-6) MCHC (test code = 34.7 g/dL 31.2-35 786-4) RDW-SD (test code 41.1 fL 38.5-51.6 = 81711-2) RDW-CV (test code 12.5 % 12.1-15.4 = 788-0) PLT (test code = See_Comment [Automated message] 777-3) The system [employer] generated this result transmitted ref erence range: 150 - 32 8 10*3/?L. The re ference range was not u sed to interpret this result as normal/abnor mal. MPV (test code = 9.9 fL 9.8-13 61910-8) NRBC/100 WBC (test See_Comment [Automat ed message] code = 1154268385) The [employer] which generated this result transmitted ref erence range: 0.0 - 10 .0 /100 WBCs. The refer ence range was not u sed to interpret this result as normal/abnor mal. NRBC x10^3 (test <0.01 See_Comment [Automated message] code = 3768281407) The syste m which generated this result transmitted ref erence range: 10*3/?L. The reference range was not used to interpr et this result as normal/abnormal . GRAN MAT (NEUT) % 36.9 % (test code = 770-8) IMM GRAN % (test 0.20 % code = 4694515290) LYMPH % (test code 47.1 % = 736-9) MONO % (test code 12.2 % = 5905-5) EOS % (test code = 2.4 % 713-8) BASO % (test code 1.2 % = 706-2) GRAN MAT 2.19 10*3/uL 1.99-6.95 x10^3(ANC) (test code = 9927642118) IMM GRAN x10^3 <0.03 0-0.06 (test code = 2973300463) LYMPH x10^3 (test 2.79 10*3/uL 1.09-3.23 code = 731-0) MONO x10^3 (test 0.72 10*3/uL 0.36-1.02 code = 742-7) EOS x10^3 (test 0.14 10*3/uL 0.06-0.53 code = 711-2) BASO x10^3 (test 0.07 10*3/uL 0.01-0.09 code = 704-7) [facility] CenterXR [facility]ST 1 [id number] 14:23:12HISTORY: Syncope. TECHNIQUE: Portable AP view of the chest is obtained. Comparison made with11/14/2019 study. FINDINGS: No acute pneumonia. No pneumothorax or pleural effusion orpulmonary congestion detected. Cardiac size is within upper normal limits.Dilated and tortuous brachiocephalic vessels and thoracic aorta noted,unchanged. CONCLUSIONS: No signs of acute cardiopulmonary disease.[place], Radiant Results Inft User - 01/12/2020 9:24 AM CDTHISTORY: Syncope.TECHNIQUE: Portable AP view of the chest isobtained. Comparison made with11/14/2019 study.FINDINGS: No acute pneumonia. No pneumothorax or pleural effusion orpulmonary congestion detected. Cardiac size is within upper normal limits.Dilated and tortuous brachiocephalic vessels and thoracic aorta noted,unchanged.CONCLUSIONS: No signs of acute cardiopulmonary disease. [facility]"
[2021-12-27] MEDS ORDERED: ASPIRIN 81 MG CHEWABLE TABLET ONE (12:44)
--- NOTE | 2021-12-27 13:09 | RAD REPORT ---
EXAM DESCRIPTION: RAD - Chest Single View - 12/27/2021 1:02 pm CLINICAL HISTORY: CHEST PAIN Chest pain. COMPARISON: Chest Single View dated 05/15/2021; Chest Pa And Lat (2 Views) dated 08/09/2020 FINDINGS: Portable technique limits examination quality. The lungs are grossly clear. The heart is normal in size. No displaced fractures.Mildly tortuous thor acic aorta. IMPRESSION: No acute intrathoracic process suspected.
[2021-12-27 13:19] LABS: Absolute Lymphocytes (CBC) 2.6 K/uL (0.7-4.9); Hematocrit 42.8 % (39.6-49.0); Lymphocytes % 34.9 % (15.3-44.8); MPV 8.4 fL (7.6-11.3); RBC Red Blood Cell Count 4.55 M/uL (4.33-5.43)
[2021-12-27 13:37] LABS: Albumin 3.9 g/dL (3.4-5.0); Bilirubin Direct 0.1 mg/dL (0-0.2); Bilirubin Total 0.3 mg/dL (0.2-1.0); Potassium 3.8 mmol/L (3.5-5.1); Protein, Total 7.9 g/dL (6.4-8.2); Troponin High Sensitivity 19.7 pg/mL (<58.9)
[2021-12-27 13:38] LABS: Magnesium 2.1 mg/dL (1.8-2.4)
--- NOTE | 2021-12-27 15:08 | ER ---
Nurse's Notes [facility] Name: Eliud Stafford Age: 66 yrs Sex: Male : 1955 Arrival Date: 12/27/2021 Time: 12:03 Bed 6 Private MD: Diagnosis: Chest pain, unspecified Presentation: 12/27 12:08 Chief complaint: Patient states: patient presented to the ED in a wheelchair clutching ap3 his chest. He reports he has had chest pain for approx 3 days, however when he was working in his yard today the chest pain became worse and was associated with shortness of breath. Coronavirus screen: At this time, the client does not indicate any symptoms associated with coronavirus-19. Ebola Screen: No symptoms or risks identified at this time. Initial Sepsis Screen: Does the patient meet any 2 criteria? No. Patient's initial sepsis screen is negative. Does the patient have a suspected source of infection? No. Patient's initial sepsis screen is negative. Risk Assessment: Do you want to hurt yourself or someone else? Patient reports no desire to harm self or others. Onset of symptoms was December 27, 2021. 12:08 Method Of Arrival: Wheelchair ap3 12:08 Acuity: MILLER 2 ap3 Triage Assessment: 12:10 General: Appears uncomfortable, Behavior is cooperative, appropriate for age. Pain: ap3 Complains of pain in chest Pain currently is 5 out of 10 on a pain scale. Neuro: Level of Consciousness is awake, alert, obeys commands, Oriented to person, place, time, situation, Appropriate for age. Cardiovascular: Reports chest pain, shortness of breath. Respiratory: Reports shortness of breath Onset: The symptoms/episode began/occurred gradually, Historical: - Allergies: 12:09 No Known Allergies; ap3 - PMHx: 12:09 Hypertensive disorder; Myocardial infarction; ap3 - PSHx: 12:09 cardiac stents; ap3 - Immunization history:: Client reports receiving the 2nd dose of the Covid vaccine, and booster Pneumococcal vaccine is up to date, Flu vaccine is up to date. - Social history:: Smoking status: Patient/guardian denies using tobacco, Stopped _ months ago 1. - Family history:: not pertinent. Screenin:11 Abuse screen: Denies threats or abuse. Nutritional screening: No deficits noted. ap3 Tuberculosis screening: No symptoms or risk factors identified. 13:09 Fall Risk IV access (20 points). ss7 Assessment: 12:11 Respiratory: Airway is patent Respiratory effort is even, unlabored. ap3 13:09 General: Appears in no apparent distress. uncomfortable, Behavior is calm, cooperative, ss7 appropriate for age, agitated. Cardiovascular: Heart tones S1 S2 Rhythm is regular. Respiratory: Breath sounds are clear bilaterally. GI: No deficits noted. Bowel sounds present X 4 quads. : No deficits noted. EENT: No deficits noted. Derm: No deficits noted. Musculoskeletal: No deficits noted. 15:30 Reassessment: Patient appears in no apparent distress at this time. No changes from tw2 previously documented assessment. Patient and/or family updated on plan of care and expected duration. Pain level reassessed. Patient is alert, oriented x 3, equal unlabored respirations, skin warm/dry/pink. 16:30 Reassessment: pt took 0.4 mg SL Nitro of his own medication at this time. provider tw2 notified. 17:32 Reassessment: Patient appears in no apparent distress at this time. No changes from tw2 previously documented assessment. Patient and/or family updated on plan of care and expected duration. Pain level reassessed. Patient is alert, oriented x 3, equal unlabored respirations, skin warm/dry/pink. 17:33 Reassessment: hospitalist at bedside at this time. tw2 20:18 Reassessment: Report given to YUMIKO Coker. st1 Vital Signs: 12:08 BP 180 / 105; Pulse 74; Resp 17; Temp 98.6; Pulse Ox 98% ; Weight 83.91 kg; Height 5 ap3 ft. 5 in. (165.10 cm); Pain 6/10; 13:09 BP 170 / 101; Pulse 59; Resp 20; Pulse Ox 98% on R/A; ss7 14:20 BP 164 / 87; Pulse 56; Resp 20; Pulse Ox 96% on R/A; tw2 15:32 BP 174 / 90; Pulse 55; Resp 19; Pulse Ox 97% on R/A; tw2 16:30 BP 152 / 102; Pulse 66; Resp 20; Pulse Ox 97% on R/A; tw2 17:31 BP 141 / 87; Pulse 63; Resp 17; Pulse Ox 100% on R/A; tw2 19:29 BP 132 / 70; Pulse 56; Resp 14; Pulse Ox 97% on R/A; st1 12:08 Body Mass Index 30.79 (83.91 kg, 165.10 cm) ap3 ED Course: 12:03 Patient arrived in ED. as 12:09 Triage completed. ap3 12:11 Arm band placed on right wrist. EKG completed in triage. Results shown to MD. ap3 12:19 Renee Carson FNP-C is PHCP. kb 12:19 Renée Williamson MD is Attending Physician. kb 13:01 XRAY Chest (1 view) In Process Unspecified. EDMS 13:08 Patti Mosher, RN is Primary Nurse. ss7 13:09 Patient has correct armband on for positive identification. Placed in gown. Bed in low ss7 position. Call light in reach. Side rails up X2. 13:09 No provider procedures requiring assistance completed. Inserted saline lock: 20 gauge ss7 in right hand, using aseptic technique. 13:13 Basic Metabolic Panel Sent. ss7 13:13 CBC with Diff Sent. ss7 13:13 LFT's Sent. ss7 13:13 Magnesium Sent. ss7 13:13 NT PRO-BNP Sent. ss7 13:13 PT-INR Sent. ss7 13:13 Troponin HS Sent. ss7 14:22 Primary Nurse role handed off by Patti Mosher, YUMIKO jh6 14:22 Bridgett Bosch, YUMIKO is Primary Nurse. jh6 15:07 Carlos Dunne is Hospitalizing Provider. ma2 20:10 Patient admitted, IV remains in place. st1 Administered Medications: 13:13 Drug: Aspirin Chewable Tablet 324 mg Route: PO; ss7 16:58 Follow up: Response: No adverse reaction tw2 Outcome: 15:07 Decision to Hospitalize by Provider. ma2 20:10 Admitted to Tele accompanied by tech, via stretcher, with oxygen, with chart. st1 20:10 Condition: stable 20:10 Instructed on the need for admit. 20:30 Patient left the ED. as6 Signatures: Dispatcher [employer] EDMS Renee Carson FNP-C FNP-Nina Mosher as Danika Wheeler, RN RN tw2 Renée Williamson MD MD ma2 Aida Zuniga, RN RN ap3 Efra Vanessa, RN RN as6 Bridgett Bosch, RN RN jh6 Ladan Canales, RN RN st1 Patti Mosher, RN RN ss7
--- NOTE | 2021-12-27 15:08 | EDPHYS ---
Physician Documentation [facility] Name: Eliud Stafford Age: 66 yrs Sex: Male : 1955 Arrival Date: 12/27/2021 Time: 12:03 Bed 6 Private MD: ED Physician Renée Williamson HPI: 12/27 12:43 This 66 yrs old Black Male presents to ER via Wheelchair with complaints of Chest pain. ma2 12:43 Onset: The symptoms/episode began/occurred gradually, 1 day(s) ago. Associated signs ma2 and symptoms: Pertinent negatives: diaphoresis, nausea, visual changes. Severity of symptoms: At their worst the symptoms were moderate in the emergency department the symptoms are unchanged. The patient has experienced similar episodes in the past. Historical: - Allergies: 12:09 No Known Allergies; ap3 - PMHx: 12:09 Hypertensive disorder; Myocardial infarction; ap3 - PSHx: 12:09 cardiac stents; ap3 - Immunization history:: Client reports receiving the 2nd dose of the Covid vaccine, and booster Pneumococcal vaccine is up to date, Flu vaccine is up to date. - Social history:: Smoking status: Patient/guardian denies using tobacco, Stopped _ months ago 1. - Family history:: not pertinent. ROS: 12:43 Constitutional: Negative for fever, chills, and weight loss. ma2 12:43 All other systems are negative. Exam: 12:43 Constitutional: This is a well developed, well nourished patient who is awake, alert, ma2 and in no acute distress. Neck: Trachea midline, no thyromegaly or masses palpated, and no cervical lymphadenopathy. Supple, full range of motion without nuchal rigidity, or vertebral point tenderness. No Meningismus. Chest/axilla: Normal chest wall appearance and motion. Nontender with no deformity. No lesions are appreciated. Cardiovascular: Regular rate and rhythm with a normal S1 and S2. No gallops, murmurs, or rubs. Normal PMI, no JVD. No pulse deficits. Respiratory: Lungs have equal breath sounds bilaterally, clear to auscultation and percussion. No rales, rhonchi or wheezes noted. No increased work of breathing, no retractions or nasal flaring. Abdomen/GI: Soft, non-tender, with normal bowel sounds. No distension or tympany. No guarding or rebound. No evidence of tenderness throughout. MS/ Extremity: Pulses equal, no cyanosis. Neurovascular intact. Full, normal range of motion. Neuro: Awake and alert, GCS 15, oriented to person, place, time, and situation. Cranial nerves II-XII grossly intact. Motor strength 5/5 in all extremities. Sensory grossly intact. Cerebellar exam normal. Normal gait. Vital Signs: 12:08 BP 180 / 105; Pulse 74; Resp 17; Temp 98.6; Pulse Ox 98% ; Weight 83.91 kg; Height 5 ap3 ft. 5 in. (165.10 cm); Pain 6/10; 13:09 BP 170 / 101; Pulse 59; Resp 20; Pulse Ox 98% on R/A; ss7 14:20 BP 164 / 87; Pulse 56; Resp 20; Pulse Ox 96% on R/A; tw2 15:32 BP 174 / 90; Pulse 55; Resp 19; Pulse Ox 97% on R/A; tw2 16:30 BP 152 / 102; Pulse 66; Resp 20; Pulse Ox 97% on R/A; tw2 17:31 BP 141 / 87; Pulse 63; Resp 17; Pulse Ox 100% on R/A; tw2 19:29 BP 132 / 70; Pulse 56; Resp 14; Pulse Ox 97% on R/A; st1 12:08 Body Mass Index 30.79 (83.91 kg, 165.10 cm) ap3 MDM: 12:19 Patient medically screened. 12:43 Differential diagnosis: Anemia asthma, Bronchitis pneumonia, Sepsis. [facility] 15:06 Data reviewed: vital signs, nurses notes. Counseling: I had a detailed discussion with ma2 the patient and/or guardian regarding: the historical points, exam findings, and any diagnostic results supporting the discharge/admit diagnosis, the presence of at least one elevated blood pressure reading (>120/80) during this emergency department visit, the need for outpatient follow up. 12/27 12: Order name: Basic Metabolic Panel 12/27 12: Order name: CBC with Diff; Complete Time: 14:04 kb 12/27 12:19 Order name: LFT's; Complete Time: 14:04 kb 12/27 12: Order name: Magnesium; Complete Time: 14:04 kb 12/27 12:19 Order name: NT PRO-BNP; Complete Time: 14:04 kb 12/27 12:19 Order name: PT-INR kb 12/27 12:19 Order name: Troponin HS; Complete Time: 14:04 kb 12/27 12:19 Order name: XRAY Chest (1 view); Complete Time: 14:04 kb 12/27 12:19 Order name: EKG; Complete Time: 12:20 kb 12/27 12:19 Order name: Basic Metabolic Panel; Complete Time: 14:04 EDMS 12/27 15:28 Order name: SARS-COV-2 RT PCR (Document "Date of Onset" if Symptomatic) iw 12/27 15:29 Order name: SARS-COV-2 RT PCR EDMS 12/27 16:58 Order name: Diet Ada 1800 Praveen; Complete Time: 16:59 tw2 12/27 12:19 Order name: Cardiac monitoring; Complete Time: 12:42 kb 12/27 12:19 Order name: EKG - Nurse/Tech; Complete Time: 12:42 kb 12/27 12:19 Order name: IV Saline Lock; Complete Time: 13:13 kb 12/27 12:19 Order name: Labs collected and sent; Complete Time: 13:13 kb 12/27 12:19 Order name: O2 Per Protocol; Complete Time: 12:40 kb 12/27 12:19 Order name: O2 Sat Monitoring; Complete Time: 12:40 kb 12/27 13:24 Order name: Labs - recollect needed: recollect blue top; Complete Time: 13:39 bd 12/27 14:49 Order name: Labs - recollect needed: blue top, hemolyzed; Complete Time: 16:47 iw Administered Medications: 13:13 Drug: Aspirin Chewable Tablet 324 mg Route: PO; ss7 16:58 Follow up: Response: No adverse reaction tw2 Disposition Summary: 12/27/21 15:07 Hospitalization Ordered Hospitalization Status: Observation ma2 Provider: Carols Dunne Location: Telemetry/MedSurg (observation) ma2 Condition: Stable ma2 Problem: new ma2 Symptoms: are unchanged ma2 Bed/Room Type: Standard [facility] Room Assignment: 213(12/27/21 19:22) Diagnosis - Chest pain, unspecified ma2 Forms: - Medication Reconciliation Form ma2 - SBAR form ma2 Signatures: Dispatcher [employer] Renee Saini, COUNSELOR AID-C COUNSELOR AID-Ckb Maribel Agee Irene, RN RN Yoselyn Chau RN RN Renée Aguilar MD MD al2 Aida Zuniga RN RN ap3 Patti Mosher RN RN ss7 Danika Wheeler RN 2 Corrections: (The following items were deleted from the chart) 19:22 15:07 [facility]
--- NOTE | 2021-12-27 17:05 | P.HP ---
Certification for Inpatient Patient admitted to: Observation With expected LOS: <2 Midnights Practitioner: I am a practitioner with admitting privileges, knowledge of patient current condition, hospital course, and medical plan of care. Services: Services provided to patient in accordance with Admission requirements found in Title 42 Section 412.3 of the Code of Federal Regulations Patient History Date of Service: 12/27/21 Reason for admission: Chest pain History of Present Illness: 66-year-old gentleman with a history of coronary artery disease status post multiple stents, admitted here in May 2021 for chest pain, had cardiac cath done, patient noted to have coronary artery occlusions, Dr. Mosley recommended medical management at a time. Patient reports another episode of chest pain 2 months ago, went to [facility], where cardiac cath was done showing multiple coronary artery occlusions, balloon angioplasty performed on one vessel and another vessel stented. Patient reports intermittent chest pain of 2 weeks duration, maximum intensity 5/10, chest pain radiated to involve the left shoulder, partially relieved with aspirin and nitroglycerin. Patient reported shortness of breath with exertion, denies diaphoresis, denies abdominal pain or cough. Initial troponin in the ED is negative, EKG demonstrates sinus rhythm with PVCs, T wave inversion in lateral leads. Patient is hospitalized for ACS rule out. Allergies No Known Allergies Allergy (Verified 08/18/21 07:33) Home Medications: Atorvastatin Calcium [Lipitor] 80 mg PO BEDTIME 09/19/20 Clopidogrel Bisulfate [Plavix*] 75 mg PO DAILY 09/19/20 Valsartan [Diovan] 2 tab PO DAILY 09/19/20 Nicotine [Nicoderm] 1 patch TD DAILY #30 patch.td24 05/16/21 Nitroglycerin [Nitrostat*] 0.4 mg SL UD PRN #30 tab 05/16/21 Aspirin [Aspirin EC 81 MG] 81 mg PO DAILY 08/14/21 Carvedilol [Coreg] 25 mg PO BID 08/14/21 hydroCHLOROthiazide [Hydrochlorothiazide*] 12.5 mg PO DAILY 08/14/21 - Past Medical/Surgical History Diabetic: No -: Hypertension -: GERD with hiatal hernia -: Hyperlipidemia -: CAD with prior stents -: Chronic back pain -: Umbilical hernia repair Psychosocial/ Personal History: Patient lives at home. He currently works. - Social History Alcohol use: No CD- Drugs: No Caffeine use: Yes Review of Systems Other: Except as documented, all other systems reviewed and negative. Physical Examination - Physical Exam General: Alert, In no apparent distress, Oriented x3 HEENT: Mucous membr. moist/pink, Sclerae nonicteric Neck: Supple, JVD not distended Respiratory: Clear to auscultation bilaterally, Normal air movement Cardiovascular: No edema, Regular rate/rhythm, Normal S1 S2, No murmurs Gastrointestinal: Soft and benign, Non-distended, No tenderness Musculoskeletal: No swelling, No tenderness Integumentary: No rashes, No erythema, No cyanosis Neurological: Normal speech, Normal strength at 5/5 x4 extr, Cranial nerves 3-12 intact Lymphatics: No axilla or inguinal lymphadenopathy - Studies Laboratory Data (last 24 hrs) 12/27/21 13:10: WBC 7.50, Hgb 14.4, Hct 42.8, Plt Count 308 12/27/21 13:10: Sodium 138, Potassium 3.8, BUN 19 H, Creatinine 1.46 H, Glucose 87, Magnesium 2.1, Total Bilirubin 0.3, AST 35, ALT 54, Alkaline Phosphatase 83 Assessment and Plan - Problems (Diagnosis) (1) Chest pain Current Visit: Yes Status: Acute (2) Coronary disease Current Visit: Yes Status: Acute (3) H/O heart artery stent Current Visit: Yes Status: Acute (4) Hypertension Current Visit: Yes Status: Acute - Plan Place patient under observation. Start aspirin and Plavix. Lipitor Beta-dane Trend troponin. Given patient's significant CAD risk factors including history of stent occlusions, will cover with full renally dosed Lovenox. NTG and morphine as needed for chest pain Blood pressure control. Cardiology consult. - Advance Directives Does patient have a Living Will: No Does patient have a Durable POA for Healthcare: No
[2021-12-27] MEDS ORDERED: NITROGLYCERIN 0.4 MG/TAB SL PRN (17:51)
[2021-12-27] MEDS ORDERED: ENOXAPARIN 40 MG/0.4 ML SQ SCH (18:30)
[2021-12-27] MEDS ORDERED: ONDANSETRON 4 MG/2 ML VIAL IV PRN (20:15)
[2021-12-27] MEDS ORDERED: MORPHINE 4 MG/ML SYR ONE (20:20)
[2021-12-27] MEDS: MORPHINE 4 MG/ML SYR IV PRN (20:32)
[2021-12-27 21:01] VITALS: O2SAT 97
[2021-12-27] MEDS: METOPROLOL TAR 25 MG TAB PO SCH (21:13)
[2021-12-27] MEDS: ENOXAPARIN 80 MG/0.8 ML SQ SCH (21:19)
[2021-12-28] MEDS: MORPHINE 4 MG/ML SYR IV PRN ×3 (01:28→14:11)
[2021-12-28 05:49] LABS: Absolute Lymphocytes (CBC) 2.4 K/uL (0.7-4.9); Hematocrit 40.1 % (39.6-49.0); Lymphocytes % 37.9 % (15.3-44.8); MPV 8.7 fL (7.6-11.3); RBC Red Blood Cell Count 4.21 M/uL (4.33-5.43)
[2021-12-28 05:56] LABS: Potassium 4.1 mmol/L (3.5-5.1)
[2021-12-28 08:15] VITALS: BMI 30.7
[2021-12-28] MEDS: ENOXAPARIN 80 MG/0.8 ML SQ SCH (08:27)
[2021-12-28] MEDS: METOPROLOL TAR 25 MG TAB PO SCH (08:27)
[2021-12-28] MEDS ORDERED: ASPIRIN EC 81 MG TAB PO SCH (09:00)
[2021-12-28 12:03] VITALS: BP 127/80; TEMP 97.1
--- NOTE | 2021-12-28 12:34 | P.DS ---
Admission Date: 12/27/21 Discharge Date: 12/28/21 Reason for Admission: Chest pain - Problems (1) Chest pain Current Visit: Yes Status: Acute (2) Coronary disease Current Visit: Yes Status: Acute (3) H/O heart artery stent Current Visit: Yes Status: Acute (4) Hypertension Current Visit: Yes Status: Acute Brief History of Present Illness: 66-year-old gentleman with a history of coronary artery disease status post multiple stents, admitted here in May 2021 for chest pain, had cardiac cath done, patient noted to have coronary artery occlusions, Dr. Mosley recommended medical management at a time. Patient reports another episode of chest pain 2 months ago, went to [facility], where cardiac cath was done showing multiple coronary artery occlusions, balloon angioplasty performed on one vessel and another vessel stented. Patient reports intermittent chest pain of 2 weeks duration, maximum intensity 5/10, chest pain radiated to involve the left shoulder, partially relieved with aspirin and nitroglycerin. Patient reported shortness of breath with exertion, denies diaphoresis, denies abdominal pain or cough. Initial troponin in the ED is negative, EKG demonstrates sinus rhythm with PVCs, T wave inversion in lateral leads. Patient is hospitalized for ACS rule out. Hospital Course: Patient placed under observation on the medical floor. Troponin trended ne gative. Patient continued to have intermittent chest pain. He was seen and evaluated by Dr. Mosley recommend outpatient follow-up with him for cardiac catheterization on Saturday next week-January 04, 2020. Patient cleared for discharge by cardiology. Dr. Mosley recommend to increase his Coreg from 6.25 twice a day to 12.5 mg twice a day. Vital Signs/Physical Exam: Temp Pulse Resp BP Pulse Ox 97.1 F 57 16 127/80 94 12/28/21 12:00 12/28/21 12:00 12/28/21 12:00 12/28/21 12:00 12/28/21 12:00 General: Alert, In no apparent distress, Oriented x3 HEENT: Mucous membr. moist/pink Neck: JVD not distended Respiratory: Clear to auscultation bilaterally, Normal air movement Cardiovascular: No edema, Regular rate/rhythm, Normal S1 S2, No murmurs Gastrointestinal: Normal bowel sounds, Soft and benign, Non-distended, No tenderness Musculoskeletal: No swelling Integumentary: No rashes, No erythema, No cyanosis Neurological: Normal speech, Normal strength at 5/5 x4 extr, Cranial nerves 3-12 intact Laboratory Data at Discharge: WBC 6.30 K/uL (4.3-10.9) D 12/28/21 05:25 Hgb 13.3 g/dL (13.6-17.9) L 12/28/21 05:25 Hct 40.1 % (39.6-49.0) 12/28/21 05:25 Plt Count 288 K/uL (152-406) 12/28/21 05:25 PT Cancelled 12/27/21 13:30 INR Cancelled 12/27/21 13:30 Sodium 140 mmol/L (136-145) 12/28/21 05:25 Potassium 4.1 mmol/L (3.5-5.1) 12/28/21 05:25 BUN 17 mg/dL (7-18) 12/28/21 05:25 Creatinine 1.27 mg/dL (0.55-1.3) 12/28/21 05:25 Glucose 111 mg/dL (74-106) H 12/28/21 05:25 Magnesium 2.1 mg/dL (1.8-2.4) 12/27/21 13:10 Total Bilirubin 0.3 mg/dL (0.2-1.0) 12/27/21 13:10 AST 35 U/L (15-37) 12/27/21 13:10 ALT 54 U/L (12-78) 12/27/21 13:10 Alkaline Phosphatase 83 U/L (45-117) 12/27/21 13:10 Triglycerides 107 mg/dL (<150) 12/27/21 19:14 Cholesterol 137 mg/dL (<200) 12/27/21 19:14 HDL Cholesterol 47 mg/dL (40-60) 12/27/21 19:14 Cholesterol/HDL Ratio 2.91 12/27/21 19:14 Home Medications: Atorvastatin Calcium [Lipitor] 80 mg PO BEDTIME 09/19/20 Clopidogrel Bisulfate [Plavix*] 75 mg PO DAILY 09/19/20 Valsartan [Diovan] 2 tab PO DAILY 09/19/20 Nitroglycerin [Nitrostat*] 0.4 mg SL UD PRN #30 tab 05/16/21 Aspirin [Aspirin EC 81 MG] 81 mg PO DAILY 08/14/21 hydroCHLOROthiazide [Hydrochlorothiazide*] 12.5 mg PO DAILY 08/14/21 Nicotine Polacrilex [Nicorette] 4 mg PO 12/28/21 carvediloL [Coreg] 12.5 mg PO BID #60 tab 12/28/21 New Medications: carvediloL [Coreg] 12.5 mg PO BID #60 tab Diet: AHA Activity: Ad farnaz Followup: NONE,NONE [Primary Care Provider] - Judson Mosley MD [ACTIVE - CAN ADMIT] - 1 Week (Dr. Mosley want to schedule you for cardiac catheterization next week Sunday January 02, 2022.)
--- NOTE | 2021-12-28 13:56 | CON ---
Date of Consultation: 12/28/2021 Reason For Consultation: Chest pain. History Of Present Illness: Mr. Stafford is a 66-year-old black male with history of coronary artery disease. He has had a recent stent. Apparently, he was told he has another blockage that needs ano ther stent, but he has not made an appointment to do so, but he wants to have that done here instead of in [place]. He came in with substernal chest pain radiating to the left shoulder. No nausea, vom iting, diaphoresis, PND, orthopnea, pedal edema, palpitations, or syncope. By the time we saw him, h e is already ruled out for an MN. His EKG and chest x-ray are unremarkable. Past Medical History: Includes coronary artery disease, dyslipidemia, tobacco use, and hypertension. Allergies: NONE. Review of Systems: Negative. Social History: Negative. Family History: Negative. Medications: At home include aspirin, Lipitor, Plavix, Nicorette, valsartan, Coreg, and hydrochlorot hiazide. Physical Examination: Vital Signs: Stable, afebrile. Sinus rhythm. HEENT: Negative. Neck: Supple without any bruit, lymphadenopathy, JVD, or thyromegaly. Chest: Clear to auscultation and percussion. Cardiac: Revealed a regular rhythm and rate. No murmurs, gallops, or rubs. Abdomen: Benign. Extremities: Revealed no clubbing, cyanosis, or edema. Diagnostic Data: Within normal limit. Impression And Plan: Coronary artery disease with stable angina. Myocardial infarction has been rul ed out. EKG is normal. Troponin is negative. Creatinine is 1.27. He needs to continue his medicat ions at home as they are. He needs to increase his carvedilol to 12.5 mg b.i.d., continue the valsar egan, aspirin, Lipitor, and Plavix. I will set him up for an outpatient catheterization with a possib le intervention sometime next week. MIKE/MALENA Voice ID: [id number] Report ID: [id number]
--- NOTE | 2021-12-29 06:50 | ECHO ---
HEIGHT: 5 ft 5 in WEIGHT: 184 lb 15.838 oz DATE OF STUDY: 12/28/[address]: emily spivey 2-DIMENSIONAL: YES M.MODE: YES DOPPLER: YES COLOR FLOW: YES TDS: NO PORTABLE: NO DEFINITY: NO BUBBLE STUDY: NO DIAGNOSIS: CORONARY ARTERY DISEASE WITH CHEST PAIN CARDIAC HISTORY: CATHERIZATION: SURGERY: PROSTHETIC VALVE: PACEMAKER: MEASUREMENTS (cm) DIASTOLIC (NORMALS) SYSTOLIC (NORMALS) IVSd 0.9 (0.6-1.2) LA Diam 3.6 (1.9-4.0) LVEF 62% LVIDd 4.8 (3.5-5.7) LVIDs 3.2 (2.0-3.5) %FS 34% LVPWd 1.0 (0.6-1.2) Ao Diam 2.9 (2.0-3.7) 2 DIMENSIONAL ASSESSMENT: RIGHT ATRIUM: NORMAL LEFT ATRIUM: NORMAL RIGHT VENTRICLE: NORMAL LEFT VENTRICLE: NORMAL TRICUSPID VALVE: MITRAL VALVE: PULMONIC VALVE: AORTIC VALVE: NORMAL PERICARDIAL EFFUSION: NONE AORTIC ROOT: NORMAL LEFT VENTRICULAR WALL MOTION: NORMAL DOPPLER/COLOR FLOW: SEE BELOW. COMMENTS: NORMAL LEFT VENTRICULAR EJECTION FRACTION 60-65% WITH NORMAL WALL MOTION. MILD TRICUSPID, MITRAL AND PULMONARY REGURGITATION. TECHNOLOGIST: Jaspreet FERNÁNDEZ
== END 2021-12-28 15:16 | disposition home or self-care (01) ==
LOC: ER 12:01 → ERHOLD 16:59 → 2ND 19:40
PROVIDERS: ADMIT Internal Medicine; ATTEND Internal Medicine
DX: I25.119 Atherosclerotic heart disease of native coronary artery with unspecified angina pectoris (principal); E78.5 Hyperlipidemia, unspecified; I10 Essential (primary) hypertension; K21.9 Gastro-esophageal reflux disease without esophagitis; K44.9 Diaphragmatic hernia without obstruction or gangrene; Z95.5 Presence of coronary angioplasty implant and graft; Z20.822 Contact with and (suspected) exposure to COVID-19
CPT/HCPCS: 36415; 71045; 80048; 80061; 80076; 83735; 83880; 84484; 85025; 93306; 99285; G0378; J2405; U0003

== ENCOUNTER 2021-12-29 14:16 | Inpatient (IN) | payer OTHER ==
--- OUTSIDE RECORDS SUMMARY | 2021-12-29 14:23 | XMS REPORT | Continuity of Care Document ---
:1955 Author Organization [facility] t Address 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 Unive rs artery artery 7-13 ity of disease disease 00:00: [place] involving involving 00 Medi [place] 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 Essential Essential Disease Active Uni vers hypertensi hypertensi 7-13 it y of on on 00:00: [place] [id number] Medical Branch Smoker Smoker Disease Active Univers 7-13 ity of 00:00: [place] [address] Medical Branch Dizziness Dizziness Disease Active Uni vers 7-13 ity of 00:00: [place] 00 Medical Branch Chest pain Chest pain Disease Active U nivers 7-12 ity of 00:00: [place] 00 Medical Branch NSTEMI NSTEMI Disease Active [...] (BMI 2-17 ity of 30-39.9) 30-39.9) 00:00: [place] 00 Medical Branch Leg pain, Leg pain, Disease Active 2014-11 Uni vers diffuse, diffuse, 0-04 ity of right right 00:00: [place] 00 Medical Branch Allergies, Adverse Reactions, Alerts Allergy Allergy Status Severity Reaction(s) Onset Inactive Treating Comm ents Source Name Type Date Date Clinician No Known DA Active U [facility] Allergie 11-11 Clear s 00:00: Millan 00 [facility] NO KNOWN Drug Active Univers ALLERGIE Class ity of S [place] [facility] Social History Social Habit Start Date Stop Date Quantity Comments Source Exposure to Not sure [facility] SARS-CoV-2 [place] Medical (event) Branch Tobacco use and 2021-02-11 2021-02-11 Never used Universit y of exposure 00:00:00 00:00:00 [facility] Branch Alcohol intake 2021-02-11 2021-02-11 Ex-drinker [facility] 00:00:00 00:00:00 (finding) [place] [facility] History [facility] 2019-11-15 2019-11-15 5 University o f Financial 00:00:00 00:00:00 [place] [facility] History [facility] Food 2019-11-15 2019-11-15 1 Univers ity of Worry 00:00:00 00:00:00 [place] [facility] History [facility] Food 2019-11-15 2019-11-15 1 Univers ity of Scarcity 00:00:00 00:00:00 [place] [facility] History [facility] 2019-11-15 2019-11-15 2 University o f Transport Med 00:00:00 00:00:00 [place] Medic al Branch History [facility] 2019-11-15 2019-11-15 2 University o f Transport Non-Med 00:00:00 00:00:00 [facility] Branch Sex [birth year] [facility] 00:00:00 00:00:00 Smoking Status Start Date Stop Date Source Tobacco smoking [facility] consumption unknown Former smoker 2021-02-11 00:00:00 2021-02-11 [place] o f [place] 00:00:00 Medical Branch Smoker, current status 2020-01-12 00:00:00 [facility] [place] [facility] Medical Branch Medications Ordered Filled Start Stop Current Ordering Indication Dosage Frequency Signature Comments Components Source Medication Medication Date Date Medication? Clinician (SIG) Name Name isosorbide 2020- No [id number] 60mg Take 1 Univers mononitrate 4-12 05-13 tablet by it y of 60 mg 24 hr 00:00: 04:59 [place] tablet [place] :00 daily for Medical 30 days. Branch aspirin 81 0 Yes 81mg Take 81 mg U nivers mg chewable 4-11 by mouth ity of tablet 19:32: daily. [address] Branch atorvastati Yes 80mg Take 80 mg Univers n 80 mg 4-11 by mouth ity of tablet 19:32: at [place] [address] bedtime. Medical Branch clopidogrel 0 Yes 75mg Take 75 mg Univers (PLAVIX) 75 4-11 by mouth ity of mg tablet 19:32: daily. [address] Branch valsartan Yes 320mg Take 320 Uni vers 160 mg 4-11 mg by ity of tablet 19:32: mouth at [place] [address] bedtime. Medical Branch amLODIPine Yes 10mg Take 10 mg U nivers 10 mg 4-11 by mouth ity of tablet 19:32: daily. [address] clopidogreL Yes 75mg 75 mg, Univ ers (PLAVIX) 4-11 Oral, ity of tablet 75 14:00: DAILY, [place] mg 00 First dose Medical on Counts Include 234 Beds At [facility] 02/12/21 at 0900, Until Discontinu ed, Routine aspirin Yes 81mg 81 mg, Univers chewable 11 Oral, ity of tablet 81 14:00: DAILY, [place] mg 00 First dose Medical on Counts Include 234 Beds At [facility] 02/12/21 at 0900, Until Discontinu ed, Routine amLODIPine Yes 10mg 10 mg, Unive rs (NORVASC) 4-11 Oral, ity of tablet 10 14:00: DAILY, [place] mg 00 First dose Medical on Counts Include 234 Beds At [facility] 02/12/21 at 0900, Until Discontinu ed, Routine isosorbide Yes 60mg 60 mg, Unive rs mononitrate 4-11 Oral, ity of (IMDUR) 24 05:15: DAILY, [place] hr tablet 00 First dose Medi fadumo 60 mg on Counts Include 234 Beds At [facility] 02/12/21 at 0015, Until Discontinu ed, Routine valsartan Yes 320mg 320 mg, Univ ers (DIOVAN) 4-11 Oral, QHS, ity o f tablet 320 02:00: First dose [place] mg 00 on [facility] 02/11/21 at Branch 2100, Until Discontinu ed, Routine atorvastati Yes 80mg 80 mg, Univ ers n (LIPITOR) 4-11 Oral, QHS, it y of tablet 80 02:00: [place] mg 00 on [facility] 02/11/21 at Branch 2100, Until Discontinu ed, Routine nicotine 0 Yes 1{patch 1 Patch, Un hui (NICODERM) 4-11 } Topical, ity o f 14 mg/24 hr 01:30: Administer [place] patch 1 00 over 24 Medical Patch Hours, Branch Q24H, First dose on [facility] 02/11/21 at 2030, Until Discontinu ed, Routine HYDROcodone 0 Yes 1{tbl} 1 tablet, Univers -acetaminop 4-11 Oral, ity of hen (NORCO 00:06: Q6HPRN, [place] 5) 5-325 mg 37 Starting Medi fadumo tablet 1 [facility] tablet 02/11/21 at 1906, Until Discontinu ed, Routine, Pain (scale 4-6) HYDROcodone Yes 4647 1{tbl} Take 1 Un hui -acetaminop 4-11 tablet by ity of hen 5-325 00:00: mouth [place] mg tablet 00 every 6 Medical (six) Branch hours as needed for Pain (scale 4-6). Indication s: acute pain nicotine 14 2020-0 202- No [id number] 1{patch Apply 1 Univers mg/24 hr 4 05-12 } Patch to ity of patch 00:00: 04:59 area(s) [place] 00 :00 every 24 Medical (twenty-fo Branch ur) hours for 30 days. enoxaparin Yes 30mg 30 mg, Unive rs (LOVENOX) 4-10 Subcutaneo ity of injection 22:00: us, DAILY, [place] 30 mg 00 First dose Medical on [facility] Branch 02/11/21 at 1700, Until Discontinu ed, Routine acetaminoph Yes 650mg 650 mg, Un hui en 4-10 Oral, ity of (TYLENOL) 21:05: Q6HPRN, [place] tablet 650 45 Starting Medic al mg [facility] Branch 02/11/21 at 1605, Until Discontinu ed, Routine, Pain (scale 1-3) aspirin 2020-0 202- No 243mg 243 mg, Unive rs chewable 02-11 Oral, ity of tablet 243 20:15: 19:26 ONCE, 1 [place] mg 00 :00 dose, Sat Medical 02/11/21 at [place] 1515, Routine nitroglycer 2020-0 Yes .4mg 0.4 [...] of (NITROSTAT) 17:45: 16:43 , ONCE, 1 [place] sublingual 00 :00 dose, [facility] 0.4 02/23/20 at [facility] mg 1245, SHANA carvediloL 2020-0 2020- No 6.25mg 6.25 mg, Univers (COREG) 02-01 Oral, ity of tablet 6.25 20:45: 19:51 ONCE, 1 [place] mg 00 :00 dose, [facility] 02/02/20 at [place] 1545, Routine aspirin 81 2020-0 Yes 81mg Take 81 mg U nivers mg chewable 3-24 by mouth ity of tablet 15:24: daily. [address] atorvastati 2020-0 Yes 80mg Take 80 mg Univers n 80 mg 3-24 by mouth ity of tablet 15:24: at [place] [address] bedtime. Medical Branch clopidogrel 2020-0 Yes 75mg Take 75 mg Univers (PLAVIX) 75 3-24 by mouth ity of mg tablet 15:24: daily. [place] [address] Medical Branch valsartan 2020-0 Yes 320mg Take 320 Uni vers 160 mg 3-24 mg by ity of tablet 15:24: mouth at [place] [address] bedtime. Medical Branch amLODIPine 2020-0 Yes 10mg Take 10 mg U nivers 10 mg 3-24 by mouth ity of tablet 15:24: daily. [place] [address] Medical Branch aspirin 81 2020-0 Yes 81mg Take 81 mg U nivers mg chewable 3-24 by mouth ity of tablet 15:24: daily. [place] [address] Medical Branch atorvastati 2020-0 Yes 80mg Take 80 mg Univers n 80 mg 3-24 by mouth ity of tablet 15:24: at [place] [address] bedtime. Medical Branch clopidogrel 2020-0 Yes 75mg Take 75 mg Univers (PLAVIX) 75 3-24 by mouth ity of mg tablet 15:24: daily. [place] [address] Medical Branch valsartan 2020-0 Yes 320mg Take 320 Uni vers 160 mg 3-24 mg by ity of tablet 15:24: mouth at [place] [address] bedtime. Medical Branch amLODIPine 2020-0 Yes 10mg Take 10 mg U nivers 10 mg 3-24 by mouth ity of tablet 15:24: daily. [place] [address] Medical Branch aspirin 81 2020-0 Yes 81mg Take 81 mg U nivers mg chewable 3-24 by mouth ity of tablet 15:24: daily. [place] [address] Medical Branch atorvastati 2020-0 Yes 80mg Take 80 mg Univers n 80 mg 3-24 by mouth ity of tablet 15:24: at [place] [address] bedtime. Medical Branch clopidogrel 2020-0 Yes 75mg Take 75 mg Univers (PLAVIX) 75 3-24 by mouth ity of mg tablet 15:24: daily. [place] [address] Medical Branch valsartan 2020-0 Yes 320mg Take 320 Uni vers 160 mg 3-24 mg by ity of tablet 15:24: mouth at [place] [address] bedtime. Medical Branch amLODIPine 2020-0 Yes 10mg Take 10 mg U nivers 10 mg 3-24 by mouth ity of tablet 15:24: daily. [place] [address] Medical Branch aspirin 81 2020-0 Yes 81mg Take 81 mg U nivers mg chewable 3-24 by mouth ity of tablet 15:24: daily. [place] [address] Medical Branch atorvastati 2020-0 Yes 80mg Take 80 mg Univers n 80 mg 3-24 by mouth ity of tablet 15:24: at [place] [address] bedtime. Medical Branch clopidogrel 2020-0 Yes 75mg Take 75 mg Univers (PLAVIX) 75 3-24 by mouth ity of mg tablet 15:24: daily. [place] [address] Medical Branch valsartan 2020-0 Yes 320mg Take 320 Uni vers 160 mg 3-24 mg by ity of tablet 15:24: mouth at [place] [address] bedtime. Medical Branch amLODIPine 2020-0 Yes 10mg Take 10 mg U nivers 10 mg 3-24 by mouth ity of tablet 15:24: daily. [place] [address] Medical Branch aspirin 81 2020-0 Yes 81mg Take 81 mg U nivers mg chewable 3-24 by mouth ity of tablet 15:24: daily. [place] [address] Medical Branch atorvastati 2020-0 Yes 80mg Take 80 mg Univers n 80 mg 3-24 by mouth ity of tablet 15:24: at [place] [address] bedtime. Medical Branch clopidogrel 2020-0 Yes 75mg Take 75 mg Univers (PLAVIX) 75 3-24 by mouth ity of mg tablet 15:24: daily. [place] [address] Medical Branch valsartan 2020-0 Yes 320mg Take 320 Uni vers 160 mg 3-24 mg by ity of tablet 15:24: mouth at [place] [address] bedtime. Medical Branch amLODIPine 2020-0 Yes 10mg Take 10 mg U nivers 10 mg 3-24 by mouth ity of tablet 15:24: daily. [place] [address] Medical Branch aspirin 81 2020-0 Yes 81mg Take 81 mg U nivers mg chewable 3-24 by mouth ity of tablet 15:24: daily. [place] [address] Medical Branch atorvastati 2020-0 Yes 80mg Take 80 mg Univers n 80 mg 3-24 by mouth ity of tablet 15:24: at [place] [address] bedtime. Medical Branch clopidogrel 2020-0 Yes 75mg Take 75 mg Univers (PLAVIX) 75 3-24 by mouth ity of mg tablet 15:24: daily. [place] [address] Medical Branch valsartan 2020-0 Yes 320mg Take 320 Uni vers 160 mg 3-24 mg by ity of tablet 15:24: mouth at [place] [address] bedtime. Medical Branch amLODIPine 2020-0 Yes 10mg Take 10 mg U nivers 10 mg 3-24 by mouth ity of tablet 15:24: daily. [place] [address] Medical Branch aspirin 81 2020-0 Yes 81mg Take 81 mg U nivers mg chewable 3-24 by mouth ity of tablet 15:24: daily. [place] [address] Medical Branch atorvastati 2020-0 Yes 80mg Take 80 mg Univers n 80 mg 3-24 by mouth ity of tablet 15:24: at [place] [address] bedtime. Medical Branch clopidogrel 2020-0 Yes 75mg Take 75 mg Univers (PLAVIX) 75 3-24 by mouth ity of mg tablet 15:24: daily. [place] [address] Medical Branch valsartan 2020-0 Yes 320mg Take 320 Uni vers 160 mg 3-24 mg by ity of tablet 15:24: mouth at [place] [address] bedtime. Medical Branch amLODIPine 2020-0 Yes 10mg Take 10 mg U nivers 10 mg 3-24 by mouth ity of tablet 15:24: daily. [place] [address] Medical Branch aspirin 81 2020-0 Yes 81mg Take 81 mg U nivers mg chewable 3-24 by mouth ity of tablet 15:24: daily. [place] [address] Medical Branch atorvastati 2020-0 Yes 80mg Take 80 mg Univers n 80 mg 3-24 by mouth ity of tablet 15:24: at [place] [address] bedtime. Medical Branch clopidogrel 2020-0 Yes 75mg Take 75 mg Univers (PLAVIX) 75 3-24 by mouth ity of mg tablet 15:24: daily. [place] [address] Medical Branch valsartan 2020-0 Yes 320mg Take 320 Uni vers 160 mg 3-24 mg by ity of tablet 15:24: mouth at [place] [address] bedtime. Medical Branch amLODIPine 2020-0 Yes 10mg Take 10 mg U nivers 10 mg 3-24 by mouth ity of tablet 15:24: daily. [place] [address] Medical Branch carvediloL 2020-0 2020- No [id number] 6.25mg Take 1 Univers 6.25 mg 3-24 04-24 tablet by ity of tablet 00:00: 04:59 mouth 2 [place] 00 :00 (two) Medical times Branch daily with meals for 30 days. carvediloL 2020-0 2020- No [id number] 6.25mg Take 1 Univers 6.25 mg 3-24 04-24 tablet by ity of tablet 00:00: 04:59 mouth 2 [place] 00 :00 (two) Medical times [place] daily with meals for 30 days. carvediloL 2019- 2020- No [id number] 6.25mg Take 1 Univers 6.25 mg 3-24 04-24 tablet by ity of tablet 00:00: 04:59 mouth 2 [place] 00 :00 (two) Medical times [place] daily with meals for 30 days. carvediloL 2019-2019- No [id number] 6.25mg Take 1 Univers 6.25 mg 3-24 04-24 tablet by ity of tablet 00:00: 04:59 mouth 2 [place] 00 :00 (two) Medical times [place] daily with meals for 30 days. carvediloL 2019-2019- No [id number] 6.25mg Take 1 Univers 6.25 mg 3-24 04-24 tablet by ity of tablet 00:00: 04:59 mouth 2 [place] 00 :00 (two) [facility] times [place] daily with meals for 30 days. carvediloL 2019-2019- No [id number] 6.25mg Take 1 Univers 6.25 mg 3-24 04-24 tablet by ity of tablet 00:00: 04:59 mouth 2 [place] 00 :00 (two) [facility] times [place] daily with meals for 30 days. carvediloL 2019-2019- No [id number] 6.25mg Take 1 Univers 6.25 mg 3-24 04-24 tablet by ity of tablet 00:00: 04:59 mouth 2 [place] 00 :00 (two) [facility] times [place] daily with meals for 30 days. carvediloL 2019-0 Yes 6.25mg 6.25 mg, U nivers (COREG) - Oral, BID ity of tablet 6.25 22:00: MEALS, [place] mg 00 First dose Medical on [facility] 01/25/20 at 1700, Until Discontinu ed, [...] 00 :51 First dose Medic al on Counts Include 234 Beds At [facility] 01/24/20 at 1100, Until Discontinu ed, Routine clopidogreL 2020-0 Yes 75mg 75 mg, Univ ers (PLAVIX) - Oral, ity of tablet 75 14:00: DAILY, [place] mg 00 First dose Medical on Counts Include 234 Beds At [facility] 01/24/20 at 0900, Until Discontinu ed, Routine aspirin 2020-0 Yes 81mg 81 mg, Univers chewable 01-23 Oral, ity of tablet 81 14:00: DAILY, [place] mg 00 First dose Medical on Counts Include 234 Beds At [facility] 01/24/20 at 0900, Until Discontinu ed, Routine amLODIPine 2020-0 Yes 10mg 10 mg, Unive rs (NORVASC) 01-23 Oral, ity of tablet 10 14:00: DAILY, [place] mg 00 First dose Medical on Counts Include 234 Beds At [facility] 01/24/20 at 0900, Until Discontinu ed, Routine enoxaparin 2020-0 Yes 40mg 40 mg, Unive rs (LOVENOX) 01-23 Subcutaneo ity of injection 14:00: us, DAILY, [place] 40 mg 00 First dose Medical on Counts Include 234 Beds At [facility] 01/24/20 at 0900, Until Discontinu ed, Routine nicotine 2020-0 Yes 1{patch 1 Patch, Un hui (NICODERM) 01-23 } Topical, ity o f 14 mg/24 hr 03:00: Administer [place] patch 1 00 over 24 Medical Patch Hours, Branch Q24H, First dose on [facility] 01/23/20 at 2200, Until Discontinu ed, Routine atorvastati 2020-0 Yes 80mg 80 mg, Univ ers n (LIPITOR) 3- Oral, QHS, it y of tablet 80 02:00: First dose [place] mg 00 on [facility] 01/23/20 at Branch 2100, Until Discontinu ed, Routine valsartan 2020-0 Yes 320mg 320 mg, Univ ers (DIOVAN) 3- Oral, QHS, ity o f tablet 320 02:00: First dose [place] mg 00 on [facility] 01/23/20 at Branch 2100, Until Discontinu ed, [...] TIDPRN, [place] mg 24 Starting Medical [facility] Branch 01/23/20 at 1909, Until Discontinu ed, Routine, anxiety hydralAZINE 2019-0 Yes 10mg 10 mg, Univ ers (APRESOLINE 01-22 Intravenou it y of ) injection 23:31: s, PRN - [place] 10 mg 44 SEE Medical INSTRUCTIO Branch NS, Starting [facility] 01/23/20 at 1831, Until Discontinu ed, Routine, Hypertensi ve emergency, Hypertensi on, Q4h for SBP>160 or DBP>100 ondansetron 2019-0 Yes 4mg 4 mg, Slow Univers (ZOFRAN 01-22 IV Push, ity of (PF)) 23:15: Q6HPRN, [place] injection 4 15 Starting Medi fadumo mg [facility] Branch 01/23/20 at 1815, Until Discontinu ed, Routine, Nausea and Vomiting (N/V) morpHINE 2019-0 2020- No 2mg 2 mg, Slow Un hui injection 2 01-22 IV Push, ity of mg 23:15: 23:14 Q4HPRN, [place] 12 :12 Starting Medical [facility] Branch 01/23/20 at 1815, Until 01/24/20 at [...] by mouth ity of tablet 22:51: daily. [place] Medical Branch atorvastati 2019-0 Yes 80mg Take 80 mg Univers n 80 mg 1-12 by mouth ity of tablet 22:51: at [place] bedtime. Medical Branch clopidogrel 2019-0 Yes 75mg Take 75 mg Univers (PLAVIX) 75 1-12 by mouth ity of mg tablet 22:51: daily. [place] Medical Branch valsartan 2019-0 Yes 160mg Take 160 Uni vers 160 mg 1-12 mg by ity of tablet 22:51: mouth [place] 01 daily. Medical Branch KCL 10 mEq 2019-0 Yes [id number] 10meq Take 1 Univers tablet 1-12 tablet by ity of 00:00: mouth [place] 00 daily. Medical Branch hydroCHLORO 2019-0 Yes [id number] 12.5mg Take 1 Univers thiazide 1-12 tablet by ity of 12.5 mg 00:00: mouth [place] tablet 00 daily. Medical Branch KCL 10 mEq 2019-0 2020- No [id number] 10meq Take 1 Univers tablet 1-12 03-24 tablet by ity of 00:00: 00:00 mouth [place] 00 :00 daily. Medical Branch hydroCHLORO 2019-0 2020- No [id number] 12.5mg Take 1 Univers thiazide 1-12 03-24 tablet by ity o f 12.5 mg 00:00: 00:00 mouth [place] tablet 00 :00 daily. Medical Branch Vital Signs Vital Name Observation Time Observation Value Comments Source Systolic blood 2021-02-12 16:27:00 145 mm[Hg] Univer sity of pressure [facility] Diastolic blood 2021-02-12 16:27:00 97 mm[Hg] Unive rsity of pressure [place] [facility] Heart rate 2021-02-12 16:27:00 55 /min Universi ty of [place] [facility] Body temperature 2021-02-12 16:27:00 37.11 Ada Univ ersity of [place] [facility] Respiratory rate 2021-02-12 16:27:00 18 /min Univ ersity of [place] [facility] Oxygen saturation in 2021-02-12 16:27:00 97 /min University of Arterial blood by [facility] fadumo Pulse oximetry Branch Body weight 2021-02-12 08:56:00 86.354 kg Universi ty of [place] [facility] BMI 2021-02-12 08:56:00 31.68 kg/m2 Universi ty of [place] [facility] Body height 2021-02-11 21:48:00 165.1 cm Universi ty of [place] [facility] Systolic blood 2021-02-12 16:27:00 145 mm[Hg] Univer sity of pressure [place] [facility] Diastolic blood 2021-02-12 16:27:00 97 mm[Hg] Unive rsity of pressure [place] [facility] Heart rate 2021-02-12 16:27:00 55 /min Universi ty of [place] [facility] Body temperature 2021-02-12 16:27:00 37.11 [place] Univ ersity of [place] [facility] Respiratory rate 2021-02-12 16:27:00 18 /min Univ ersity of [place] [facility] Oxygen saturation in 2021-02-12 16:27:00 97 /min University of Arterial blood by [facility] fadumo Pulse oximetry Branch Body weight 2021-02-12 08:56:00 86.354 kg Universi ty of [place] [facility] BMI 2021-02-12 08:56:00 31.68 kg/m2 Universi ty of [place] [facility] Body height 2021-02-11 21:48:00 165.1 cm Universi ty of [place] [facility] Systolic blood 2020-02-23 17:00:00 133 mm[Hg] Univer sity of pressure [place] [facility] Diastolic blood 2020-02-23 17:00:00 83 mm[Hg] Unive rsity of pressure [place] [facility] Heart rate 2020-02-23 17:00:00 64 /min Universi ty of [place] [facility] Respiratory rate 2020-02-23 17:00:00 18 /min Univ ersity of [place] [facility] Oxygen saturation in 2020-02-23 17:00:00 97 /min University of Arterial blood by [place] FABPulous fadumo Pulse oximetry Branch Body temperature 2020-02-23 16:18:00 36.94 Ada Univ ersity of [place] [facility] Body weight 2020-02-23 16:18:00 83.915 kg Universi ty of [place] [facility] BMI 2020-02-23 16:18:00 30.79 kg/m2 Universi ty of [place] [facility] Systolic blood 2020-02-23 17:00:00 133 mm[Hg] Univer sity of pressure [place] [facility] Diastolic blood 2020-02-23 17:00:00 83 mm[Hg] Unive rsity of pressure [place] [facility] Heart rate 2020-02-23 17:00:00 64 /min Universi ty of [place] [facility] Respiratory rate 2020-02-23 17:00:00 18 /min Univ ersity of [place] [facility] Oxygen saturation in 2020-02-23 17:00:00 97 /min University of Arterial blood by [place] FABPulous fadumo Pulse oximetry Branch Body temperature 2020-02-23 16:18:00 36.94 [place] Univ ersity of [place] [facility] Body weight 2020-02-23 16:18:00 83.915 kg Universi ty of [place] [facility] BMI 2020-02-23 16:18:00 30.79 kg/m2 Universi ty of [place] [facility] Systolic blood 2020-02-02 21:00:00 143 mm[Hg] Univer sity of pressure [place] [facility] Diastolic blood 2020-02-02 21:00:00 93 mm[Hg] Unive rsity of pressure [place] [facility] Heart rate 2020-02-02 21:00:00 63 /min Universi ty of [place] [facility] Respiratory rate 2020-02-02 21:00:00 12 /min Univ ersity of [place] [facility] Oxygen saturation in 2020-02-02 21:00:00 100 /min University of Arterial blood by [place] FABPulous fadumo Pulse oximetry Branch Body temperature 2020-02-02 18:48:00 36.78 [place] [facility] ersity of [place] [facility] Body weight 2020-02-02 18:48:00 83.915 kg Universi ty of [place] [facility] BMI 2020-02-02 18:48:00 30.79 kg/m2 Universi ty of [place] [facility] Systolic blood 2020-02-02 21:00:00 143 mm[Hg] Univer sity of pressure [place] [facility] Diastolic blood 2020-02-02 21:00:00 93 mm[Hg] Unive rsity of pressure [place] [facility] Heart rate 2020-02-02 21:00:00 63 /min Universi ty of [place] [facility] Respiratory rate 2020-02-02 21:00:00 12 /min Univ ersity of [place] [facility] Oxygen saturation in 2020-02-02 21:00:00 100 /min University of Arterial blood by [facility] fadumo Pulse oximetry Branch Body temperature 2020-02-02 18:48:00 36.78 [place] Univ ersity of [place] [facility] Body weight 2020-02-02 18:48:00 83.915 kg Universi ty of [place] [facility] BMI 2020-02-02 18:48:00 30.79 kg/m2 Universi ty of [place] [facility] Systolic blood 2020-01-26 12:42:00 116 mm[Hg] Univer sity of pressure [place] [facility] Diastolic blood 2020-01-26 12:42:00 75 mm[Hg] Unive rsity of pressure [place] [facility] Heart rate 2020-01-26 12:42:00 60 /min Universi ty of [place] [facility] Body temperature 2020-01-26 12:42:00 36.5 [place] Univ ersity of [place] [facility] Respiratory rate 2020-01-26 12:42:00 18 /min Univ ersity of [place] [facility] Oxygen saturation in 2020-01-26 12:42:00 97 /min University of Arterial blood by [facility] Pulse oximetry Branch Body height 2020-01-23 23:16:00 165.1 cm Universi ty of [place] [facility] Body weight 2020-01-23 23:16:00 81.965 kg Universi ty of [place] [facility] BMI 2020-01-23 23:16:00 30.07 kg/m2 Universi ty of [place] [facility] Systolic blood 2020-01-26 12:42:00 116 mm[Hg] Univer sity of pressure [place] [facility] Diastolic blood 2020-01-26 12:42:00 75 mm[Hg] Unive rsity of pressure [place] [facility] Heart rate 2020-01-26 12:42:00 60 /min Universi ty of [place] [facility] Body temperature 2020-01-26 12:42:00 36.5 [place] Univ ersity of [place] [facility] Respiratory rate 2020-01-26 12:42:00 18 /min Univ ersity of [place] [facility] Oxygen saturation in 2020-01-26 12:42:00 97 /min University of Arterial blood by [facility] [facility] Pulse oximetry Branch Body height 2020-01-23 23:16:00 165.1 cm [facility] Body weight 2020-01-23 23:16:00 81.965 kg [facility] BMI 2020-01-23 23:16:00 30.07 kg/m2 [facility] Systolic blood 2020-01-12 16:00:00 130 mm[Hg] [facility] Diastolic blood 2020-01-12 16:00:00 89 mm[Hg] [facility] Heart rate 2020-01-12 16:00:00 71 /min [facility] Respiratory rate 2020-01-12 16:00:00 20 /min [facility] Oxygen saturation in 2020-01-12 16:00:00 98 /min [facility] Arterial blood by [facility] Pulse oximetry Branch Body temperature 2020-01-12 13:59:00 36.5 Ada [facility] Body height 2020-01-12 13:59:00 165.1 cm [facility] Body weight 2020-01-12 13:59:00 84.369 kg [facility] BMI 2020-01-12 13:59:00 30.95 kg/m2 [facility] Systolic blood 2020-01-12 16:00:00 130 mm[Hg] [facility] Diastolic blood 2020-01-12 16:00:00 89 mm[Hg] [facility] Heart rate 2020-01-12 16:00:00 71 /min [facility] Respiratory rate 2020-01-12 16:00:00 20 /min [facility] Oxygen saturation in 2020-01-12 16:00:00 98 /min [facility] Arterial blood by [facility] Pulse oximetry Branch Body temperature 2020-01-12 13:59:00 36.5 Ada [facility] Body height 2020-01-12 13:59:00 165.1 cm [facility] Body weight 2020-01-12 13:59:00 84.369 kg [facility] BMI 2020-01-12 13:59:00 30.95 kg/m2 [facility] Procedures Procedure Date / Time Performing Clinician Source Performed [id number] 2021-11-11 00:00:00 [facility] [id number] 2021-11-11 00:00:00 [facility] [id number] 2021-11-11 00:00:00 [facility] MAGNESIUM 2021-02-12 08:45:00 Poonam [facility] TROPONIN I 2021-02-12 08:45:00 Poonam [facility] BASIC METABOLIC PANEL 2021-02-12 08:45:00 Seun Friedman [facility] (NA, K, CL, CO2, Medical Branch GLUCOSE, BUN, CREATININE, CA) SEDIMENTATION RATE 2021-02-12 08:45:00 Poonam nancy [facility] CBC WITH DIFF 2021-02-12 08:45:00 Seun [facility] N-TERMINAL PRO-BNP 2021-02-12 08:45:00 Poonam [facility] PHOSPHORUS 2021-02-11 21:45:00 Poonam [facility] URIC ACID 2021-02-11 21:45:00 Poonam [facility] LIPASE 2021-02-11 21:45:00 Poonam [facility] MAGNESIUM 2021-02-11 21:45:00 Poonam [facility] TROPONIN I 2021-02-11 21:45:00 Seun [facility] THYROID STIMULATING 2021-02-11 21:45:00 Poonam [facility] HORMONE [facility] LIPID PANEL 2021-02-11 21:45:00 Poonam [facility] ([id number])(TOTAL Medical Branch CHOLESTEROL, TRIGLYCERIDES, HDL) URINALYSIS 2021-02-11 20:19:00 Debby Saucedo [facility] XR CHEST 1 VW 2021-02-11 19:34:10 Debby Saucedo [facility] XR KNEE <3 VW RIGHT 2021-02-11 19:34:10 Debby Saucedo [facility] TROPONIN I 2021-02-11 19:22:00 Debby Saucedo [facility] HEPATIC FUNCTION PANEL 2021-02-11 19:22:00 Debby Saucedo [facility] ([id number]) (ALB,T.PRO,BILI Medical Branch T,BU/BC,ALT,AST,ALK PHOS) BASIC METABOLIC PANEL 2021-02-11 19:22:00 Debby Saucedo [facility] (NA, K, CL, CO2, Medical Branch GLUCOSE, BUN, CREATININE, CA) CBC WITH DIFF 2021-02-11 19:22:00 Debby Saucedo [facility] GLYCOSYLATED HEMOGLOBIN 2021-02-11 19:22:00 Marisela Levin [facility] (A1C) [facility] N-TERMINAL PRO-BNP 2021-02-11 19:22:00 Debby Saucedo [facility] COVID-19 (ID NOW RAPID 2021-02-11 19:22:00 Debby Saucedo [facility] TESTING) Medical Branch HB ECG ROUTINE & RHYTHM 2021-02-11 19:05:58 Debby Saucedo [facility] Branch NOTICE OF PRIVACY 2021-02-11 18:47:10 Doctor Unassigned, No [facility] PRACTICES Name Medical Branch CONSENT/REFUSAL FOR 2021-02-11 18:44:53 Doctor Unassigned, No [facility] DIAGNOSIS AND TREATMENT Name Medical Branch XR CHEST 1 VW 2020-02-23 16:51:17 [facility] TROPONIN I 2020-02-23 16:29:00 [facility] COMP. METABOLIC PANEL 2020-02-23 16:29:00 Yaron Maryse [facility] ([id number]) Medical Branch CBC WITH DIFFERENTIAL 2020-02-23 16:29:00 Yaron, Maryse [facility] N-TERMINAL PRO-BNP 2020-02-23 16:29:00 Maryse Marrufo [facility] CORONAVIRUS COVID-19 2020-02-23 16:29:00 Maryse Marrufo [facility] TESTING [facility] EKG-12 LEAD 2020-02-23 16:20:40 Yaron [facility] CONSENT/REFUSAL FOR 2020-02-23 16:08:50 Doctor Unassigned, No [facility] DIAGNOSIS AND TREATMENT Name [facility] EKG-12 LEAD 2020-02-02 20:01:34 [facility] MR BRAIN WO CONTRAST 2020-02-02 18:28:36 Sallie [facility] MR ANGIOGRAM HEAD WO 2020-02-02 18:19:44 Sallie [facility] ASSIGNMENT OF BENEFITS 2020-02-02 17:22:13 Doctor Unassigned, No [facility] Name [facility] US HEAD NECK 2020-01-25 16:30:06 [facility] RENAL ARTERY DUPLEX BY 2020-01-25 13:41:10 Tao Sandoval [facility] VASCULAR LAB [facility] VITAMIN B12, LEVEL 2020-01-24 13:58:00 Tao Sandoval [facility] VITAMIN D, 25-OH 2020-01-24 13:58:00 Jaime [facility] MAGNESIUM 2020-01-24 08:02:00 Jaime [facility] TROPONIN I 2020-01-24 08:02:00 Jaime [facility] TROPONIN I 2020-01-24 01:39:00 Jaime [facility] LIPID PANEL 2020-01-24 01:39:00 Jaime [facility] ([id number])(TOTAL Medical Branch CHOLESTEROL, TRIGLYCERIDES, HDL) CT THORAX W CONTRAST 2020-01-24 01:00:10 Tao Sandoval [facility] XR CHEST 2 VW 2020-01-23 21:39:47 [facility] HEAD WO CONTRAST 2020-01-23 21:39:30 Osmar Russell [facility] URINALYSIS 2020-01-23 21:17:00 [facility] TROPONIN I 2020-01-23 21:15:00 O[facility] HEPATIC FUNCTION PANEL 2020-01-23 21:15:00 Osmar Russell [facility] ([id number]) (ALB,T.PRO,BILI Medical Branch T,BU/BC,ALT,AST,ALK PHOS) BASIC METABOLIC PANEL 2020-01-23 21:15:00 Osmar Russell [facility] (NA, K, CL, CO2, Medical Branch GLUCOSE, BUN, CREATININE, CA) CBC WITH DIFFERENTIAL 2020-01-23 21:15:00 Osmar Russell [facility] EKG-12 LEAD 2020-01-23 20:47:03 Yvonne [facility] EKG-12 LEAD 2020-01-23 20:26:[address] [facility] CONSENT/REFUSAL FOR 2020-01-23 20:06:16 [facility] Name [facility] URINALYSIS 2020-01-12 15:01:00 [facility] TROPONIN I 2020-01-12 14:51:00 [facility] COMP. METABOLIC PANEL 2020-01-12 14:51:00 [facility] ([id number]) [facility] CBC WITH DIFFERENTIAL 2020-01-12 14:51:00 [facility] XR CHEST 1 VW 2020-01-12 14:21:51 [facility] CONSENT/REFUSAL FOR 2020-01-12 13:36:41 Doctor Unassigned, [facility] Name [facility] Plan of Care Planned Activity Planned Date Details Comments Source Future Scheduled 2021-10-18 Hepatitis C screening [facility] Test 20:11:35 (procedure) [code = 025725344] Future Scheduled 2021-10-18 COLONOSCOPY SCREENING [facility] Test 20:11:35 [code = COLONOSCOPY SCREENING] Future Scheduled 2021-10-18 SHINGLES VACCINES (#1) M [facility] Test 20:11:35 [code = SHINGLES VACCINES (#1)] Future Scheduled 2021-10-18 INFLUENZA VACCINE [facility] Test 20:11:35 [code = INFLUENZA VACCINE] Future Scheduled 2021-10-18 COVID-19 VACCINE (1) Met [facility] Test 20:11:35 [code = COVID-19 VACCINE (1)] Future Scheduled 2021-10-18 65+ [facility]OCOCCAL [facility] Test 20:11:35 VACCINE (1 of 2 - PPSV23) [code = 65+ PNEUMOCOCCAL VACCINE (1 of 2 - PPSV23)] Encounters Start End Encounter Admission Attending Care Care Encounter Source Date/Time Date/Time Type Type Clinicians Facility Department ID 2021-09-03 Emergency [facility] [id number] [facility]-31 [facility] [id number] [facility] 2021-11-11 2021-11-13 Inpatient EM Brian, SAMIAPM INTE.02 [id number] [facility] 08:24:00 13:08:00 Berto 0108 [facility] 2021-11-11 2021-11-13 Inpatient EM Brian, SAMIAPM INTE.02 [id number] [facility] 08:24:00 13:08:00 Berto 11 [facility] 2021-11-11 2021-11-11 Outpatient SAMIA Torres LABO [id number] [facility] 14:47:00 14:47:00 Berto 0108 [facility] 2021-02-11 2021-02-12 Emergency Debby Saucedo [facility] 1.2.8 40.114 [id number] [facility] 14:01:00 14:29:00 Seun Friedman [id number] [facility] 4.2.7.2.686 [facility] [id number] [place] [address] Branch 2021-02-11 2021-02-12 Emergency Debby Saucedo [facility] 1.2.8 40.114 [id number] 14:01:00 14:29:00 Seun Friedman 350.1.13.10 [place] 4.2.7.2.686 [place] [id number] 08 2021-02-11 2021-02-11 Orders Doctor TERESA 1.2.840.114 [id number] Univers 00:00:00 00:00:00 Only Unassigned, DARCI 350.1.13.10 [facility] [place] [facility] 4.2.7.2.686 Hira as [id number] [address] 2021-02-11 2021-02-11 Orders Doctor TERESA 1.2.840.114 [id number] 00:00:00 00:00:00 Only Unassigned, DARCI 350.1.13.10 [place] [facility] 4.2.7.2.686 [id number] 2020-02-23 2020-02-23 Emergency [facility] 1.2.032.358 [id number] Univers 11:11:05 13:43:00 Maryse Susanna 350.1.13.10 i ty [place] 4.2.7.2.686 [place] [facility] [id number] [address] 2020-02-23 2020-02-23 Emergency X [facility] ERT [id number] Univers 11:11:05 13:43:00 MARYSE ivan [facility] 2020-02-23 2020-02-23 [facility] 1.2.561.906 [id number] 1005 11:11:05 13:43:00 Maryse Mullins 350.1.13.10 [place] 4.2.7.2.686 [place] [id number] [facility] 2020-02-23 2020-02-23 Orders Doctor MOORE 1.2.840.114 [id number] Univers 00:00:00 00:00:00 Only Unassigned, DARCI 350.1.13.10 [facility] [place] [facility] 4.2.7.2.686 [place] as [id number] [address] 2020-02-23 2020-02-23 Orders Doctor MOORE 1.2.840.114 [id number] 00:00:00 00:00:00 Only Unassigned, DARCI 350.1.13.10 [place] [facility] 4.2.7.2.686 [id number] 009 2020-02-02 2020-02-02 Emergency Juan Walker [facility] 1.2.840.114 [id number] Univers 13:49:48 16:11:00 Abbi [place] 350.1.13.10 i ty [place]2.[place] [id number] [facility] 084 Branch 2020-02-02 2020-02-02 Emergency Juan Walker [facility] 1.2.840.114 [id number] 13:49:48 16:11:00 Abbi [place] 350.1.13.10 [place] 4.2.7.2.686 [place] [id number] [facility] 2020-02-02 2020-02-02 Outpatient R ATTAR, [facility] [id number] Univers 14:00:00 14:00:00 MOHAMMED 250207 ity o f [facility] 2020-02-02 2020-02-02 [facility] 1.2.840.114 [id number] Univers 12:27:00 13:48:00 Encounter Nicole [place] 350.1.13.10 ity of [place] 4.2.7.2.686 [facility] [place] [phone] [address] 2020-02-02 2020-02-02 [facility] 1.2.840.114 [id number] 12:27:00 13:48:00 Encounter Nicole [place] 350.1.13.10 [place] 4.2.7.2.686 [place] [id number] [facility] 2020-02-02 2020-02-02 Outpatient R ATTAR, [facility] [id number] Univers 12:25:13 12:26:00 MOHAMMED ity o f [facility] 2020-02-02 2020-02-02 [facility] 1.2.840.114 [id number] Univers 12:25:00 12:26:00 Encounter Nicole [place] 350.1.13.10 ity [place] 4.2.7.2.[place] [id number] [address] 2020-02-02 2020-02-02 [facility] 1.2.840.114 [id number] 12:25:00 12:26:00 Encounter Nicole Susanna 350.1.13.10 [place] 4.2.7.2.686 [place] [id number] 804 2020-02-02 2020-02-02 Orders Doctor TERESA 1.2.840.114 [id number] Univers 00:00:00 00:00:00 Only Unassigned, DARCI 350.1.13.10 [facility] [facility] 4.2.7.2.686 [facility] [id number] [address] 2020-02-02 2020-02-02 Orders Doctor TERESA 1.2.840.114 [id number] 00:00:00 00:00:00 Only Unassigned, DARCI 350.1.13.10 [place] [facility] 4.2.7.2.68 [id number] 009 2020-01-23 2020-01-26 Outpatient X TAO SANDOVAL [facility] MAROGT [id number] Univers 15:16:17 10:22:00 ity [facility] 2020-01-23 2020-01-26 Emergency YvonneMisha shirleylaura Beltre [facility] 1.2.840.11 [id number] Univers 15:16:17 10:22:00 Tao Sandoval 350.1.13.10 ity of [place] 4.2.7.2.686 [facility] [id number] [address] 2020-01-23 2020-01-26 Emergency YvonneOsmar [facility] 1.2.840.11 4 [id number] 15:16:17 10:22:00 Tao Sandoval 350.1.13.10 [place] 4.2.7.2.686 [place] [id number] 08 2020-01-12 2020-01-12 Emergency Singer [facility] 1.2.645.987 [id number] Univers 08:57:01 11:50:00 Jorge Mullins 350.1.13.10 i ty of [place] 4.2.7.2.686 [facility] [phone] [place] [address] Branch 2020-01-12 2020-01-12 Emergency X SINGER [facility] ERT [id number] Univers 08:57:01 11:50:00 JORGE love [facility] 2020-01-12 2020-01-12 Emergency [facility] 1.2.748.986 [id number] 08:57:01 11:50:00 Jorge Mullins 350.1.13.10 [place] 4.2.7.2.686 [place] [id number] 084 2019-11-14 2019-11-15 Outpatient X TAO SANDOVAL [facility] [id number] [facility] 15:26:46 16:50:00 [facility] Results Test Description Test Time Test Comments [...] = MDIFF) NO DIFF/SCN CRITERIA BASIC METABOLIC [id number] 05:53:00 Test Item Value Reference Range Interpretation [...] CA) 8.6 MG/DL 8.5-10.1 N COMPREHENSIVE METABOLIC [id number] 16:40:00 Test Item Value Reference Range Interpretation [...] LIPOPROTEIN LDL 53 MG/DL 0-129 N <100 [id number] - (test code = LDL) 129 LISA R OPTIMAL/ABOVE [id number] - 15 9 [id number] - 189 HIGH>OR= 190 VERY HIGHNOTE THAT [...] result as normal/abnormal . Comment: fastingCBC W/AUTO [id number] 05:57:00 Test Item Value Reference Range Interpretation [...] CRITERIA = MDIFF) DRUGS OF ABUSE SCREEN [id number] 18:43:00 Test Item Value Reference Range Interpretation [...] this result as normal/abnormal . TROP-I HIGH [id number] 15:45:00 Test Item Value Reference Range Interpretation [...] varyby method. Completed by Nursing: NOTHYROID STIMULATING [id number] 12:42:00 Test Item Value Reference Range Interpretation Comments THYROID STIMULATING HORMONE 0.637 mcIU/ML 0.340-4.820 N (test code = TSH) NT PRO-BRAIN NATRIURETIC [id number] 12:42:00 Test Item Value Reference Range Interpretation Comments NT PRO-BRAIN NATRIURETIC PEPTI (test 44 PG/ML 0-100 N code = PROBNP) TROP-I HIGH [id number] 12:33:00 Test Item Value Reference Range Interpretation [...] varyby method. Completed by Nursing: NOGLYCOSYLATED HEMOGLOBIN [id number] 12:28:00 Test Item Value Reference Range Interpretation Comments GLYCOSYLATED HEMOGLOBIN (HA1C) 6.1 % A1C 0.0-5.7 H (test code = GLYHGB) ESTIMATED AVERAGE GLUCOSE (test 128 MG/DLest code = EAG) [id number] 08:05:00 Test Item Value Reference Range Interpretation Comments MAGNESIUM (test code = MAG) 2.4 MG/DL 1.8-2.4 N Completed by Nursing: NOTROP-I HIGH [id number] 08:05:00 Test Item Value Reference Range Interpretation [...] varyby method. Completed by Nursing: NOBASIC METABOLIC [id number] 08:05:00 Test Item Value Reference Range Interpretation [...] N Completed by Nursing: NOCOVID 19 INHOUSE [id number] 07:56:00 Test Item Value Reference Range Interpretation Comments COVID 19 INHOUSE AG (test code = POSITIVE Negative A ENHUH74ANMR) - XR CHEST 1 [id number] 07:42:00 [facility] 1955 Sex: M Name: RENA SAUCEDO [facility] : 1955 Age/S: 66 / M [address] [place] Unit #: [id number] Loc: [place] [address] Phys: Samir Winn DO Acct: [id number] Dis Date: Status: REG ER PHONE #: [phone] Exam Date: 11/11/2021 0739 FAX #: Reason:STEMI EXAMS: CPT: [id number] XR CHEST 1 V 32595 Fluoro Time: DAP (Gy m2): Air Kerma [...] PAGE 1 Signed Report Name: RENA SAUCEDO [facility] : 1955 Age/S: 66 / M [address] [facility] Unit #: [id number] Loc: [place] [address] Phys: Samir Winn DO Acct: [id number] Dis Date: Status: REG ER PHONE #: [phone] Exam Date: 11/11/202139 FAX #: Reason: STEMI EXAMS: CPT: [id number] XR CHEST 1 V 69759 Fluoro Time: DAP (Gy m2): Air Kerma (mGy): <Continued> Technologist: Amita Feldman, RT(R) Trnscb Date/Time: 11/11/2021 (741) SuzannaRA31 Orig Print D/T: S: 11/11/2021 (744) PAGE 2 Signed Report CBC W/O [id number] 07:40:00 Test Item Value Reference Range Interpretation [...] = 9.80 fL 7.0-9.6 H MPV) SEDIMENTATION [id number] 10:32:12 Test Item Value Reference Range Interpretation Comments ESR (test code = See_Comment H [Automated message] 9853067054) The system [employer] generated this result transmitted ref erence range: 0 - 10 m m/HR. The reference r andres was not used to interpret this result as normal/abnor mal. Lab Interpretation (test Abnormal code = 31530-0) [facility] [id number] 09:57:09 Test Item Value Reference Range Interpretation Comments TROPONIN I (test 0.009 ng/mL See_Comment [Automated code = 2963985764) message] The system which generated this result [...] ? Lab Interpretation Normal (test code = 26014-8) [facility] [id number] 09:54:53 Test Item Value Reference Range Interpretation Comments NT-proBNP (test code 155 pg/mL See_Comment H [Autom ated = 8984750760) message] The system which generated this result transmitted reference range : <=125. The reference range was not used to interpret this result as normal/abnormal . MELISA (test code = MELISA) Biotin has been reported to cause a negative bias, interpret results relative to patient's use of biotin. Lab Interpretation Abnormal (test code = 22268-9) [facility]21-[facility]-11 09:53:52 Test Item Value Reference Range Interpretation Comments MAGNESIUM (test code = 1514059079) 2.0 mg/dL 1.7-2.4 Lab Interpretation (test code = Normal 46886-6) [facility] Metabolic Panel (NA, K, CL, CO2, GLUCOSE, BUN, CREATININE, CA)2021-02-12 09:53:31 Test Item Value Reference Range Interpretation Comments NA (test code = 138 mmol/L 135-145 4090370470) K (test code = 4.1 mmol/L 3.5-5.0 3019509117) CL (test code = 105 mmol/L 98-108 1781247345) CO2 TOTAL (test code 30 mmol/L 23-31 = 5184080960) AGAP (test code = 2-16 1399295583) BUN (test code = 17 mg/dL 7-23 4057152131) GLUCOSE (test code = 103 mg/dL 70-110 0591558602) CREATININE (test code 1.23 mg/dL 0.60-1.25 = 5695165858) CALCIUM (test code = 8.7 mg/dL 8.6-10.6 7388130491) eGFR (test code = mL/min/1.73m2 0840576619) MELISA (test code = MELISA) Association of [...] or urine or abnormalities in imaging tests). [facility] with [id number] 09:32:52 Test Item Value Reference Range Interpretation [...] RDW-SD (test code = 43.0 fL 38.5-51.6 87469-2) RDW-CV (test code = 12.9 % 12.1-15.4 788-0) PLT (test code = See_Comment [Automated 777-3) message] The sy stem which generated this result transmitted reference range : 150 - 328 10*3/ ?L. The reference r andres was not used to interpret this result as normal/abnormal . MPV (test code = 10.9 fL 9.8-13.0 50522-8) NRBC/100 WBC (test See_Comment [Automat ed code = 1392212317) message] The system which generated this result transmitted reference range : 0.0 - 10.0 /100 WBCs. The refer ence range was not u sed to interpret th is result as normal/abnormal . NRBC x10^3 (test code <0.01 See_Comment [Auto mated = 5738833178) message] The s ystem which generated this result transmitted reference range : 10*3/?L. The reference range was not used to interpret this result as normal/abnormal . GRAN MAT (NEUT) % 34.6 % (test code = 770-8) IMM GRAN % (test code 0.20 % = 9757555463) LYMPH % (test code = 45.0 % 736-9) MONO % (test code = 15.0 % 5905-5) EOS % (test code = 4.3 % 713-8) BASO % (test code = 0.9 % 706-2) GRAN MAT x10^3(ANC) 1.52 10*3/uL 1.99-6.95 L (test code = 3062661470) IMM GRAN x10^3 (test <0.03 0.00-0.06 code = 4328599137) LYMPH x10^3 (test code 1.98 10*3/uL 1.09-3.23 = 731-0) MONO x10^3 (test code 0.66 10*3/uL 0.36-1.02 = 742-7) EOS x10^3 (test code = 0.19 10*3/uL 0.06-0.53 711-2) BASO x10^3 (test code 0.04 10*3/uL 0.01-0.09 = 704-7) Lab Interpretation Abnormal (test code = 39756-8) [facility] [id number] 09:20:05 Test Item Value Reference Range Interpretation Comments TSH (test code = See_Comment [Automated message] 1326272360) The system [employer] generated this result transmitted ref erence range: 0.45 - 4 .70 mIU/L. The refe rence range was not u sed to interpret this result as normal/abnor mal. Lab Interpretation (test Normal code = 56595-1) [facility] HEMOGLOB[facility] (A1C)2021-02-12 09:08:34 Test Item Value Reference Range Interpretation Comments HGB A1C (test code = 5.7 % 4.0-6.0 4548-4) MELISA (test code = MELISA) %A1C (NGSP) Interpretation (ADA)4.8-5.6 ? ? Normal or (Non-Diabetic Range)5.7-6.4 ? ? Increased Risk (Pre-Diabetic)>6.5 ?Diabetes Indicated Lab Interpretation Normal (test code = 83015-6) [facility]21-[facility]-11 08:46:04 Test Item Value Reference Range Interpretation Comments MAGNESIUM (test code = 2818550519) 1.6 mg/dL 1.7-2.4 L Lab Interpretation (test code = Abnormal 31253-4) [facility] (94625)(TOTAL CHOLESTEROL, TRIGLYCERIDES, HDL)2021-02-12 08:46:04 Test Item Value Reference Range Interpretation Comments CHOL (test code = 127 mg/dL 120-200 0563053787) HDL (test code = 31 mg/dL >40 L 9293375246) HDLC RATIO (test code = See_Comment [Au tomated message] 9100029730) The system [employer] generated this result transmit amada reference range : <=5.0. The refe rence range was not u sed to interpret th is result as normal/abnormal . TRIG (test code = 98 mg/dL 30-170 5889770253) LDL CHOL (test code = 76 mg/dL See_Comment [Auto mated message] 77596-4) The system [employer] generated this result transmit amada reference range : <=160. The refe rence range was not u sed to interpret th is result as normal/abnormal . VLDL (test code = 20 mg/dL 5-60 8773245931) Lab Interpretation (test Abnormal code = 34979-0) [facility]21-[facility]-11 08:45:44 Test Item Value Reference Range Interpretation Comments PHOSPHORUS (test code = 6698479541) 3.0 mg/dL 2.5-5.0 Lab Interpretation (test code = Normal 10921-1) [facility] [id number] 08:45:24 Test Item Value Reference Range Interpretation Comments URIC ACID (test code = 3628636260) 4.6 mg/dL 3.6-8.0 Lab Interpretation (test code = Normal 08050-3) [facility]IPASE2021-04-11 08:45:04 Test Item Value Reference Range Interpretation Comments LIPASE (test code = 5770461055) 333 U/L 0-220 H Lab Interpretation (test code = Abnormal 21001-9) [facility]TROPONIN [id number] 22:36:28 Test Item Value Reference Range Interpretation Comments TROPONIN I (test 0.007 ng/mL See_Comment [Automated code = 9317345760) message] The system which generated this result [...] ? Lab Interpretation Normal (test code = 25301-1) [facility]inalysis2021-04-10 21:27:09 Test Item Value Reference Range Interpretation Comments APPEARANCE (test code = Clear Clear 7737928207) COLOR (test code = Straw Yellow A 2144413626) PH (test code = 4.8-8.0 5301401891) SP GRAVITY (test code = 1.003-1.030 9892027398) GLU U QUAL (test code = Normal Normal 9872502724) BLOOD (test code = Negative Negative 4216499934) KETONES (test code = Negative Negative 8038694327) PROTEIN (test code = Negative Negative 2887-8) UROBILIN (test code = Normal Normal 7031595365) BILIRUBIN (test code = Negative Negative 7469433998) NITRITE (test code = Negative Negative 2573513427) LEUK DIXIE (test code = Negative Negative 3992928033) RBC/HPF (test code = <1 See_Comment [Autom ated message] 1641592523) The system [employer] generated this result transmitted ref erence range: 0 - 3 HP F. The reference range was not used to int erpret this result as normal/abnormal . WBC/HPF (test code = See_Comment [Autom ated message] 9446531196) The system [employer] generated this result transmitted ref erence range: 0 - 5 HP F. The reference range was not used to int erpret this result as normal/abnormal . BACTERIA (test code = Negative Negative 8958542565) SQ EPITH (test code = <1 HPF 3600005171) Lab Interpretation (test Abnormal code = 16416-5) [facility] 1 [id number] 20:26:36 No acute cardiopulmonary abnormality. Preliminary Report [...] reviewed this study and agree with the abovereport.[facility]kinTroponin [id number] 19:59:20 Test Item Value Reference Range Interpretation Comments TROPONIN I (test 0.007 ng/mL See_Comment [Automated code = 6438065759) message] The system which generated this result [...] ? Lab Interpretation Normal (test code = 74673-9) [facility]kinN-TERMINAL [id number] 19:54:38 Test Item Value Reference Range Interpretation Comments NT-proBNP (test code 135 pg/mL See_Comment H [Autom ated = 2463419480) message] The system which generated this result transmitted reference range : <=125. The reference range was not used to interpret this result as normal/abnormal . MELISA (test code = MELISA) Biotin has been reported to cause a negative bias, interpret results relative to patient's use of biotin. Lab Interpretation Abnormal (test code = 53607-2) [facility] Metabolic Panel (NA, K, CL, CO2, GLUCOSE, BUN, CREATININE, CA)2021-02-11 19:48:37 Test Item Value Reference Range Interpretation Comments NA (test code = 140 mmol/L 135-145 5755071402) K (test code = 4.1 mmol/L 3.5-5.0 9723463681) CL (test code = 104 mmol/L 98-108 9853157984) CO2 TOTAL (test code 28 mmol/L 23-31 = 8220303203) AGAP (test code = 2-16 3947470752) BUN (test code = 14 mg/dL 7-23 9096003256) GLUCOSE (test code = 97 mg/dL 70-110 9543967143) CREATININE (test code 1.19 mg/dL 0.60-1.25 = 0060197287) CALCIUM (test code = 9.2 mg/dL 8.6-10.6 0757014434) eGFR (test code = mL/min/1.73m2 4488754038) MELISA (test code = MELISA) Association of [...] or urine or abnormalities in imaging tests). [facility]Hepatic Function Panel (ALB, T.PRO, BILI T, BU/BC, ALT, AST, ALK PHOS)2021-02-11 19:48:26 Test Item Value Reference Range Interpretation Comments TOTAL BILI (test code = 5019278757) 0.5 mg/dL 0.1-1.1 BILI UNCON (test code = 8487581664) 0.3 mg/dL 0.1-1.1 BILI CONJ (test code = 9967192836) 0.0 mg/dL 0.0-0.3 T PROTEIN (test code = 1124526925) 7.6 g/dL 6.3-8.2 ALBUMIN (test code = 7842424962) 4.5 g/dL 3.5-5.0 ALK PHOS (test code = 4180964042) 92 U/L 34-122 ALTv (test code = 1742-6) 30 U/L 5-50 AST(SGOT) (test code = 8931250491) 36 U/L 13-40 Lab Interpretation (test code = Normal 16902-3) [facility]kinXR KNEE <3 VW [id number] 19:48:21 Osteoarthrosis. No acute bony abnormality is present. EXAM: XR KNEE <3 VW RIGHT HISTORY: right knee pain COMPARISON: None FINDINGS: Imaging of the right knee demonstrates tricompartmental subchondralsclerosis with marginal osteophyte formation. Hypertrophy of the tibialspines is present. Diffuseenthesophyte formation is present. Vascularcalcifications are present. [facility], Radiant Results Inft User - 02/11/2021 2:49 PM CDTEXAM:XR KNEE <3 VW RIGHTHISTORY:right knee pain COMPARISON:NoneFINDINGS: Imaging of the right knee demonstrates tricompartmental subchondralsclerosis with marginal osteophyte formation. Hypertrophy of the tibialspines is present. Diffuse enthesophyte formation is present.Vascularcalcifications are present.IMPRESSIONOsteoarthrosis.No acute bony abnormality is present.[facility]kinCOVID-19 (ID NOW RAPID TESTING)2021-02-11 19:47:56 Test Item Value Reference Range Interpretation Comments SARS-CoV-2 Rapid ID NOW Not Detected Not Detected (test code = 61788-8) MELISA (test code = MELISA) ID NOW COVID-19 Assay is an isothermal nucleic acid amplification test intended for the qualitative detection of nucleic acid from SARS-CoV-2 viral RNA in nasopharyngeal (EELER) specimens. It is used under Emergency Use [...] indicated. Lab Interpretation Normal (test code = 32585-4) [facility] with [id number] 19:31:58 Test Item Value Reference Range Interpretation Comments WBC (test code = See_Comment [Automated message] 1590-2) The system [employer] generated this result transmitted ref erence range: 4.20 - 1 0.70 10*3/?L. The re ference range was not u sed to interpret this result as normal/abnor mal. RBC (test code = See_Comment [Automated message] 399-8) The system [employer] generated this result transmitted ref erence range: [...] RDW-SD (test code 42.7 fL 38.5-51.6 = 35047-0) RDW-CV (test code 12.9 % 12.1-15.4 = 788-0) PLT (test code = See_Comment [Automated message] 777-3) The system whic h generated this result transmitted ref erence range: 150 - 32 8 10*3/?L. The re ference range was not u sed to interpret this result as normal/abnor mal. MPV (test code = 10.1 fL 9.8-13.0 33771-6) NRBC/100 WBC (test See_Comment [Automat ed message] code = 8477983986) The syste m which generated this result transmitted ref erence range: 0.0 - 10 .0 /100 WBCs. The refer ence range was not u sed to interpret this result as normal/abnor mal. NRBC x10^3 (test <0.01 See_Comment [Automated message] code = 2758083044) The syste m which generated this result transmitted ref erence range: 10*3/?L. The reference range was not used to interpr et this result as normal/abnormal . GRAN MAT (NEUT) % 36.5 % (test code = 770-8) IMM GRAN % (test 0.20 % code = 9553745257) LYMPH % (test code 46.4 % = 736-9) MONO % (test code 13.6 % = 5905-5) EOS % (test code = 2.7 % 713-8) BASO % (test code 0.6 % = 706-2) GRAN MAT 2.27 10*3/uL 1.99-6.95 x10^3(ANC) (test code = 3896591169) IMM GRAN x10^3 <0.03 0.00-0.06 (test code = 2447739991) LYMPH x10^3 (test 2.89 10*3/uL 1.09-3.23 code = 731-0) MONO x10^3 (test 0.85 10*3/uL 0.36-1.02 code = 742-7) EOS x10^3 (test 0.17 10*3/uL 0.06-0.53 code = 711-2) BASO x10^3 (test 0.04 10*3/uL 0.01-0.09 code = 704-7) [facility]kinTROPONIN [id number] 17:09:00 Test Item Value Reference Range Interpretation Comments TROPONIN I (test <0.012 See_Comment [Automated code = 4511929441) message] The system which generated this result [...] ? Lab Interpretation Normal (test code = 08033-2) [facility]N-TERMINAL [id number] 17:06:00 Test Item Value Reference Range Interpretation Comments NT-proBNP (test code 63 pg/mL See_Comment [Autom ated = 3558412689) message] The system which generated this result transmitted reference range : <=125. The reference range was not used to interpret this result as normal/abnormal . MELISA (test code = MELISA) Biotin has been reported to cause a negative bias, interpret results relative to patient's use of biotin. Lab Interpretation Normal (test code = 20248-2) [facility]kinCOMP. METABOLIC PANEL (86003)2020-02-23 16:57:00 Test Item Value Reference Range Interpretation Comments NA (test code = 141 mmol/L 135-145 2438992811) K (test code = 3.9 mmol/L 3.5-5 7244499479) CL (test code = 106 mmol/L 98-108 3551809382) CO2 TOTAL (test code = 26 mmol/L 23-31 1870668218) AGAP (test code = 2-16 7220764520) BUN (test code = 15 mg/dL 7-23 9936632537) GLUCOSE (test code = 107 mg/dL 70-110 9031237885) CREATININE (test code 1.15 mg/dL 0.6-1.25 = 2518776606) TOTAL BILI (test code 0.5 mg/dL 0.1-1.1 = 9408257812) CALCIUM (test code = 9.4 mg/dL 8.6-10.6 8355151708) T PROTEIN (test code = 7.7 g/dL 6.3-8.2 1655029238) ALBUMIN (test code = 4.6 g/dL 3.5-5 9221042906) ALK PHOS (test code = 74 U/L 34-122 4114929539) ALTv (test code = 29 U/L 5-50 1742-6) AST(SGOT) (test code = 29 U/L 13-40 7637814827) eGFR Calculation mL/min/1.73m2 (Non-) (test code = 5476406723) eGFR Calculation mL/min/1.73m2 () (test code = 1444945793) MELISA (test code = MELISA) Association of [...] or urine or abnormalities in imaging tests). [facility]kinCORONAVIRUS COVID-19 [id number] 16:54:00 Test Item Value Reference Range Interpretation Comments SARS-CoV-2 (test code = Not Detected Not Detected 52715-3) MELISA (test code = MELISA) ID NOW COVID-19 Assay is an isothermal nucleic acid amplification test intended for the qualitative detection of nucleic acid from SARS-CoV-2 viral RNA in nasopharyngeal (EELER) specimens. It is used under Emergency Use [...] indicated. Lab Interpretation Normal (test code = 20022-8) [facility] CHEST 1 [id number] 16:52:58HISTORY: SOB. TECHNIQUE: Portable AP view of [...] hernia suspected.CONCLUSIONS: No signs of acute cardiopulmonary disease.[facility] WITH [id number] 16:42:00 Test Item Value Reference Range Interpretation Comments WBC (test code = See_Comment [Automated message] 0090-2) The system [employer] generated this result transmitted ref erence range: 4.20 - 1 0.70 10*3/?L. The re ference range was not u sed to interpret this result as normal/abnor mal. RBC (test code = See_Comment [Automated message] 969-8) The system [employer] generated this result transmitted ref erence range: [...] RDW-SD (test code 41.9 fL 38.5-51.6 = 97536-8) RDW-CV (test code 12.7 % 12.1-15.4 = 788-0) PLT (test code = See_Comment [Automated message] 277-3) The system [employer] generated this result transmitted ref erence range: 150 - 32 8 10*3/?L. The re ference range was not u sed to interpret this result as normal/abnor mal. MPV (test code = 10.0 fL 9.8-13 60281-8) NRBC/100 WBC (test See_Comment [Automat ed message] code = 5084991545) The syste m which generated this result transmitted ref erence range: 0.0 - 10 .0 /100 WBCs. The refer ence range was not u sed to interpret this result as normal/abnor mal. NRBC x10^3 (test <0.01 See_Comment [Automated message] code = 8822689161) The syste m which generated this result transmitted ref erence range: 10*3/?L. The reference range was not used to interpr et this result as normal/abnormal . GRAN MAT (NEUT) % 36.6 % (test code = 770-8) IMM GRAN % (test 0.30 % code = 6652235798) LYMPH % (test code 47.1 % = 736-9) MONO % (test code 11.7 % = 5905-5) EOS % (test code = 3.5 % 713-8) BASO % (test code 0.8 % = 706-2) GRAN MAT 2.22 10*3/uL 1.99-6.95 x10^3(ANC) (test code = 5317710459) IMM GRAN x10^3 <0.03 0-0.06 (test code = 8939319804) LYMPH x10^3 (test 2.86 10*3/uL 1.09-3.23 code = 731-0) MONO x10^3 (test 0.71 10*3/uL 0.36-1.02 code = 742-7) EOS x10^3 (test 0.21 10*3/uL 0.06-0.53 code = 711-2) BASO x10^3 (test 0.05 10*3/uL 0.01-0.09 code = 704-7) [facility]kinMR ANGIOGRAM HEAD WO [id number] 19:18:22 No acute intracranial process. Rono-hc-rmbvknzc chronic small vesselischemic disease identified. Unremarkable MRA of the head. Preliminary Report Dictated by Resident: Viviane Estrada MD., have reviewed this study and agree with the abovereport.MR BRAIN WO CONTRAST, MR ANGIOGRAM HEAD WO CONTRAST HISTORY: presyncope/dizziness. COMPARISON: CT 01/23/2020. TECHNIQUE: Multiplanar multisequence imaging of the brain was obtained on a1.5 Doreen MRI without contrast. Eeol-qj-osflth MRA of head was alsoperformed without contrast. [...] The superior cerebellar arteries are unremarkable. The programming internship iorcerebral arteries are unremarkable. Diminutive bilateral posteriorcommunicating arteries are suspected. The distal cervical, petrous, cavernous and supraclinoid internal carotidarteries are unremarkable. The anterior and middle cerebral arteries areunremarkable. An anterior communicating artery is visualized. [facility], Radiant Results Inft User - 02/02/2020 2:19 PM CDTMR BRAIN WO CONTRAST, MR ANGIOGRAM HEAD WO CONTRASTHISTORY: presyncope/dizziness.COMPARISON: CT 01/23/2020.TECHNIQUE: Multiplanar multi sequence imaging of the brain was obtained on a1.5 Doreen MRI without contrast. Fsvr-od-kgpaht MRA ofhead was alsoperformed without contrast.FINDINGS:MRI HEAD:The [...] communicating artery is visualized.IMPRESSIONNo acute intracranial process. Glab-pv-loryawql chronic small vesselischemic disease identified. Unremarkable MRA of the head.Preliminary Report Dictated by Resident: Viviane Gomez MD., have reviewed this study and agree with the abovereport.[facility] BRAIN WO [id number] 19:18:22 No acute intracranial process. Tshs-zp-jsklkwtw chronic small vesselischemic disease identified. Unremarkable MRA of the head. Preliminary Report Dictated by Resident: Viviane Estrada MD., have reviewed this study and agree with the abovereport.MR BRAIN WO CONTRAST, MR ANGIOGRAM HEAD WO CONTRAST HISTORY: presyncope/dizziness. COMPARISON: CT 01/23/2020. TECHNIQUE: Multiplanar multisequence imaging of the brain was obtained on a1.5 Doreen MRI without contrast. Romm-gd-ataeko MRA of head was alsoperformed without contrast. [...] The superior cerebellar arteries are unremarkable. The programming internship iorcerebral arteries are unremarkable. Diminutive bilateral posteriorcommunicating [...] obtained on a1.5 Doreen MRI without contrast. Nrnp-fy-esaofi MRA ofhead was alsoperformed without contrast.FINDINGS:MRI HEAD:The [...] communicating artery is visualized.IMPRESSIONNo acute intracranial process. Yjab-lh-oiyraoxa chronic small vesselischemic disease identified. Unremarkable MRA of the head.Preliminary Report Dictated by Resident: Viviane Gomez MD., have reviewed this study and agree with the abovereport.[facility] HEAD [id number] 18:56:10 1. ?Per report, area of palpable [...] neck wasperformed including color Doppler evaluation with chemical sales representative imagesobtained. COMPARISON: None FINDINGS: Survey ultrasound of [...] lateral neck wasperformed including colorDoppler evaluation with chemical sales representative imagesobtained.COMPARISON: NoneFINDINGS:Survey ultrasound of the right lateral [...] reviewed this study and agree with theabove report.[facility]kinVITAMIN D, [id number] 16:49:00 Test Item Value Reference Range Interpretation Comments VIT D 25OH (test code = 26 ng/mL 25-80 80954-5) MELISA (test code = MELISA) Deficiency: <20 ng/mLInsufficiency : 20-24 ng/mLOptimal: 25-80 ng/mL Lab Interpretation (test Normal code = 96398-4) [facility]kinVITAMIN B12, [id number] 01:44:00 Test Item Value Reference Range Interpretation Comments VIT B12 (test code = 460 pg/mL 240-930 0213642954) MELISA (test code = MELISA) Biotin has been reported to cause a positive bias, interpret results relative to patient's use of biotin. Lab Interpretation (test Normal code = 17547-2) [facility]kinMAGNESIUM2020-03-22 14:26:00 Test Item Value Reference Range Interpretation Comments MAGNESIUM (test code = 6207849369) 2.0 mg/dL 1.7-2.4 Lab Interpretation (test code = Normal 59535-9) [facility]kinTroponin [id number] 10:39:00 Test Item Value Reference Range Interpretation Comments TROPONIN I (test 0.012 ng/mL See_Comment [Automated code = 8622259152) message] The system which generated this result [...] ? Lab Interpretation Normal (test code = 42530-7) [facility]kinCT THORAX W [id number] 05:36:37 Partially calcified 7 mm left upper [...] this study and agree with theabove report. [facility] LufkinLIPID PANEL (75613)(TOTAL CHOLESTEROL, TRIGLYCERIDES, HDL)2020-01-24 04:55:00 Test Item Value Reference Range Interpretation Comments CHOL (test code = 150 mg/dL 120-200 8552702224) HDL (test code = 39 mg/dL >40 L 9211680251) HDLC RATIO (test code = See_Comment [Au tomated message] 9767215649) The system [employer] generated this result transmit amada reference range : <=5.0. The refe rence range was not u sed to interpret th is result as normal/abnormal . TRIG (test code = 107 mg/dL 30-170 5760142597) LDL CHOL (test code = 90 mg/dL See_Comment [Auto mated message] 50654-7) The system [employer] generated this result transmit amada reference range : <=160. The refe rence range was not u sed to interpret th is result as normal/abnormal . VLDL (test code = 21 mg/dL 5-60 2354163453) Lab Interpretation (test Abnormal code = 83539-1) [facility]kinTroponin [id number] 02:31:00 Test Item Value Reference Range Interpretation Comments TROPONIN I (test 0.015 ng/mL See_Comment [Automated code = 8278916778) message] The system which generated this result [...] ? Lab Interpretation Normal (test code = 83417-6) [facility] 2 [id number] 22:24:52 No acute cardiopulmonary abnormality. Persistent increased [...] reviewed this study and agree with theabove report.[facility] LufkinCindy [id number] 22:06:00 Test Item Value Reference Range Interpretation Comments TROPONIN I (test 0.010 ng/mL See_Comment [Automated code = 9146452983) message] The system which generated this result [...] ? Lab Interpretation Normal (test code = 81066-4) [facility] LufkinBasi Metabolic Panel (NA, K, CL, CO2, GLUCOSE, BUN, CREATININE, CA)2020-01-23 21:53:00 Test Item Value Reference Range Interpretation Comments NA (test code = 139 mmol/L 135-145 3427547422) K (test code = 4.2 mmol/L 3.5-5 0932173735) CL (test code = 105 mmol/L 98-108 8096057141) CO2 TOTAL (test code = 25 mmol/L 23-31 7962029594) AGAP (test code = 2-16 6670809947) BUN (test code = 21 mg/dL 7-23 2998008217) GLUCOSE (test code = 91 mg/dL 70-110 3739764717) CREATININE (test code 1.22 mg/dL 0.6-1.25 = 3134172610) CALCIUM (test code = 9.3 mg/dL 8.6-10.6 5728314389) eGFR Calculation mL/min/1.73m2 (Non-) (test code = 5461804400) eGFR Calculation mL/min/1.73m2 () (test code = 0939375259) MELISA (test code = MELISA) Association of [...] or urine or abnormalities in imaging tests). [facility]kinHepatic Function Panel (ALB, T.PRO, BILI T, BU/BC, ALT, AST, ALK PHOS)2020-01-23 21:53:00 Test Item Value Reference Range Interpretation Comments TOTAL BILI (test code = 2117611129) 0.7 mg/dL 0.1-1.1 BILI UNCON (test code = 6564418006) 0.6 mg/dL 0.1-1.1 BILI CONJ (test code = 9144512713) 0.0 mg/dL 0-0.3 T PROTEIN (test code = 4700742438) 8.4 g/dL 6.3-8.2 H ALBUMIN (test code = 5133734030) 4.7 g/dL 3.5-5 ALK PHOS (test code = 4829082113) 72 U/L 34-122 ALTv (test code = 1742-6) 28 U/L 5-50 AST(SGOT) (test code = 9976624241) 46 U/L 13-40 H Lab Interpretation (test code = Abnormal 38865-5) [facility]kinCT HEAD WO [id number] 21:44:44No acute findings. HISTORY:Dizziness, persistent/recurrent, cardiac or [...] extracranial tissues demonstrate no acute findings.IMPRESSIONNo acute findings.[facility]ufkinUrinalysis2020-03-21 21:44:00 Test Item Value Reference Range Interpretation Comments APPEARANCE (test code = Clear Clear 7790765194) COLOR (test code = Straw Yellow A 4216410215) PH (test code = 4.8-8.0 7494689053) SP GRAVITY (test code = 1.003-1.030 0530494922) GLU U QUAL (test code = Normal Normal 5900832423) BLOOD (test code = Negative Negative 6442409448) KETONES (test code = Negative Negative 9810318177) PROTEIN (test code = Negative Negative 2887-8) UROBILIN (test code = Normal Normal 6424810624) BILIRUBIN (test code = Negative Negative 1558158475) NITRITE (test code = Negative Negative 2772564486) LEUK DIXIE (test code = Negative Negative 6116416240) RBC/HPF (test code = See_Comment [Autom ated message] 7334061545) The system [employer] generated this result transmitted ref erence range: 0 - 3 HP F. The reference range was not used to int erpret this result as normal/abnormal . WBC/HPF (test code = <1 See_Comment [Autom ated message] 9552304205) The system [employer] generated this result transmitted ref erence range: 0 - 5 HP F. The reference range was not used to int erpret this result as normal/abnormal . BACTERIA (test code = Negative Negative 8728163490) Lab Interpretation (test Abnormal code = 12310-8) [facility]ufkinCBC WITH [id number] 21:37:00 Test Item Value Reference Range Interpretation Comments WBC (test code = See_Comment [Automated message] 6690-2) The system [employer] generated this result transmitted ref erence range: 4.20 - 1 0.70 10*3/?L. The re ference range was not u sed to interpret this result as normal/abnor mal. RBC (test code = See_Comment [Automated message] 789-8) The system [employer] generated this result transmitted ref erence range: [...] RDW-SD (test code 40.7 fL 38.5-51.6 = 60534-9) RDW-CV (test code 12.3 % 12.1-15.4 = 788-0) PLT (test code = See_Comment [Automated message] 777-3) The system [employer] generated this result transmitted ref erence range: 150 - 32 8 10*3/?L. The re ference range was not u sed to interpret this result as normal/abnor mal. MPV (test code = 10.2 fL 9.8-13 57159-7) NRBC/100 WBC (test See_Comment [Automat ed message] code = 3698985285) The syste m which generated this result transmitted ref erence range: 0.0 - 10 .0 /100 WBCs. The refer ence range was not u sed to interpret this result as normal/abnor mal. NRBC x10^3 (test <0.01 See_Comment [Automated message] code = 4383886515) The syste m which generated this result transmitted ref erence range: 10*3/?L. The reference range was not used to interpr et this result as normal/abnormal . GRAN MAT (NEUT) % 39.3 % (test code = 770-8) IMM GRAN % (test 0.30 % code = 1839323740) LYMPH % (test code 47.0 % = 736-9) MONO % (test code 10.2 % = 5905-5) EOS % (test code = 2.4 % 713-8) BASO % (test code 0.8 % = 706-2) GRAN MAT 2.32 10*3/uL 1.99-6.95 x10^3(ANC) (test code = 8212608776) IMM GRAN x10^3 <0.03 0-0.06 (test code = 2194307375) LYMPH x10^3 (test 2.78 10*3/uL 1.09-3.23 code = 731-0) MONO x10^3 (test 0.60 10*3/uL 0.36-1.02 code = 742-7) EOS x10^3 (test 0.14 10*3/uL 0.06-0.53 code = 711-2) BASO x10^3 (test 0.05 10*3/uL 0.01-0.09 code = 704-7) [facility]kinURINALYSIS2020-03-10 15:27:00 Test Item Value Reference Range Interpretation Comments APPEARANCE (test code = Clear Clear 7434413037) COLOR (test code = Straw Yellow A 6816451835) PH (test code = 4.8-8.0 2129440607) SP GRAVITY (test code = 1.003-1.030 2846383464) GLU U QUAL (test code = Normal Normal 5249868029) BLOOD (test code = Negative Negative 9439950291) KETONES (test code = Negative Negative 7203473006) PROTEIN (test code = Negative Negative 2887-8) UROBILIN (test code = Normal Normal 5643366293) BILIRUBIN (test code = Negative Negative 6600049720) NITRITE (test code = Negative Negative 3693016329) LEUK DIXIE (test code = Negative Negative 4786414158) RBC/HPF (test code = See_Comment [Autom ated message] 6141125376) The system [employer] generated this result transmitted ref erence range: 0 - 3 HP F. The reference range was not used to int erpret this result as normal/abnormal . WBC/HPF (test code = <1 See_Comment [Autom ated message] 8825677904) The system [employer] generated this result transmitted ref erence range: 0 - 5 HP F. The reference range was not used to int erpret this result as normal/abnormal . BACTERIA (test code = Negative Negative 6410155862) MUCOUS (test code = Slight Negative LPF A 1794052252) SQ EPITH (test code = <1 HPF 6861169705) Lab Interpretation (test Abnormal code = 88551-7) [id number] 15:23:00 Test Item Value Reference Range Interpretation Comments TROPONIN I (test 0.009 ng/mL See_Comment [Automated code = 6987893466) message] The system which generated this result [...] ? Lab Interpretation Normal (test code = 26556-7) [facility]OL[facility] PAN[facility] ([id number])2020-01-12 15:12:00 Test Item Value Reference Range Interpretation Comments NA (test code = 140 mmol/L 135-145 6231362754) K (test code = 3.6 mmol/L 3.5-5 8814210934) CL (test code = 102 mmol/L 98-108 3429011750) CO2 TOTAL (test code = 26 mmol/L 23-31 2741134750) AGAP (test code = 2-16 7273226433) BUN (test code = 16 mg/dL 7-23 4917115423) GLUCOSE (test code = 110 mg/dL 70-110 6758137433) CREATININE (test code 1.19 mg/dL 0.6-1.25 = 5699826121) TOTAL BILI (test code 0.4 mg/dL 0.1-1.1 = 2862991523) CALCIUM (test code = 9.8 mg/dL 8.6-10.6 4351677794) T PROTEIN (test code = 7.8 g/dL 6.3-8.2 8517724534) ALBUMIN (test code = 4.6 g/dL 3.5-5 2045509645) ALK PHOS (test code = 75 U/L 34-122 9289345355) ALTv (test code = 31 U/L 5-50 1742-6) AST(SGOT) (test code = 31 U/L 13-40 5642473353) eGFR Calculation mL/min/1.73m2 (Non-) (test code = 3621074668) eGFR Calculation mL/min/1.73m2 () (test code = 5252042791) MELISA (test code = MELISA) Association of [...] or urine or abnormalities in imaging tests). [facility] WITH [id number] 15:00:00 Test Item Value Reference Range Interpretation Comments WBC (test code = See_Comment [Automated message] 6690-2) The system [employer] generated this result transmitted ref erence range: 4.20 - 1 0.70 10*3/?L. The re ference range was not u sed to interpret this result as normal/abnor mal. RBC (test code = See_Comment [Automated message] 789-8) The system [employer] generated this result transmitted ref erence range: [...] RDW-SD (test code 41.1 fL 38.5-51.6 = 80111-7) RDW-CV (test code 12.5 % 12.1-15.4 = 788-0) PLT (test code = See_Comment [Automated message] 777-3) The system [employer] generated this result transmitted ref erence range: 150 - 32 8 10*3/?L. The re ference range was not u sed to interpret this result as normal/abnor mal. MPV (test code = 9.9 fL 9.8-13 71266-5) NRBC/100 WBC (test See_Comment [Automat ed message] code = 5901039008) The [employer] which generated this result transmitted ref erence range: 0.0 - 10 .0 /100 WBCs. The refer ence range was not u sed to interpret this result as normal/abnor mal. NRBC x10^3 (test <0.01 See_Comment [Automated message] code = 2966011008) The syste m which generated this result transmitted ref erence range: 10*3/?L. The reference range was not used to interpr et this result as normal/abnormal . GRAN MAT (NEUT) % 36.9 % (test code = 770-8) IMM GRAN % (test 0.20 % code = 3279060864) LYMPH % (test code 47.1 % = 736-9) MONO % (test code 12.2 % = 5905-5) EOS % (test code = 2.4 % 713-8) BASO % (test code 1.2 % = 706-2) GRAN MAT 2.19 10*3/uL 1.99-6.95 x10^3(ANC) (test code = 6722355796) IMM GRAN x10^3 <0.03 0-0.06 (test code = 3973905978) LYMPH x10^3 (test 2.79 10*3/uL 1.09-3.23 code = 731-0) MONO x10^3 (test 0.72 10*3/uL 0.36-1.02 code = 742-7) EOS x10^3 (test 0.14 10*3/uL 0.06-0.53 code = 711-2) BASO x10^3 (test 0.07 10*3/uL 0.01-0.09 code = 704-7) [facility] 1 [id number] 14:23:12HISTORY: Syncope. TECHNIQUE: Portable AP view of the chest is obtained. Comparison made with11/14/2019 study. FINDINGS: No acute pneumonia. No pneumothorax or pleural effusion orpulmonary congestion detected. Cardiac size is within upper normal limits.Dilated and tortuous brachiocephalic vessels and thoracic aorta noted,unchanged. CONCLUSIONS: No signs of acute cardiopulmonary disease.Mamb, Radiant Results Inft User - 01/12/2020 9:24 AM CDTHISTORY: Syncope.TECHNIQUE: Portable AP view of the chest isobtained. Comparison made with11/14/2019 study.FINDINGS: No acute pneumonia. No pneumothorax or pleural effusion orpulmonary congestion detected. Cardiac size is within upper normal limits.Dilated and tortuous brachiocephalic vessels and thoracic aorta noted,unchanged.CONCLUSIONS: No signs of acute cardiopulmonary disease. [facility]"
[2021-12-29] MEDS ORDERED: NITROGLYCERIN 0.4 MG/TAB SL ONE (14:39)
[2021-12-29] MEDS ORDERED: ASPIRIN 81 MG CHEWABLE TABLET ONE (14:39)
[2021-12-29 14:50] LABS: Absolute Lymphocytes (CBC) 1.9 K/uL (0.7-4.9); Hematocrit 44.1 % (39.6-49.0); Lymphocytes % 29.3 % (15.3-44.8); MPV 8.4 fL (7.6-11.3); RBC Red Blood Cell Count 4.64 M/uL (4.33-5.43)
[2021-12-29 14:54] LABS: Protime INR 1.03
[2021-12-29 15:09] LABS: Albumin 3.8 g/dL (3.4-5.0); Bilirubin Direct 0.1 mg/dL (0-0.2); Bilirubin Total 0.4 mg/dL (0.2-1.0); Magnesium 2.3 mg/dL (1.8-2.4); Potassium 3.9 mmol/L (3.5-5.1); Protein, Total 8.2 g/dL (6.4-8.2); Troponin High Sensitivity 22.9 pg/mL (<58.9)
--- NOTE | 2021-12-29 15:10 | RAD REPORT ---
EXAM DESCRIPTION: RAD - Chest Single View - 12/29/2021 3:04 pm CLINICAL HISTORY: CHEST PAIN COMPARISON: Chest Single View dated 12/27/2021; Chest Single View dated 05/15/2021; Chest Pa And Lat ( 2 Views) dated 08/09/2020 FINDINGS: Lines: None. Lungs: No evidence of edema or pneumonia. Pleural: No significant pleural effusions or pneumothorax. Cardiac: The heart size is within normal limits. Bones: No acute fractures. Other: IMPRESSION: No acute cardiopulmonary disease.
--- NOTE | 2021-12-29 16:11 | ER ---
Nurse's Notes [facility] Name: Eliud Stafford Age: 66 yrs Sex: Male : 1955 Arrival Date: 12/29/2021 Time: 14:17 Bed 5 Private MD: Diagnosis: Chest pain, unspecified Presentation: 12/29 14:28 Chief complaint: Patient states: "I started having chest pain last night and I threw ab2 up. I was just discharged yesterday and Im supposed to have a heart cath on Saturday." Pt c/o SOB, chest pain and a headache that began last night. Coronavirus screen: Vaccine status: Patient reports receiving the 2nd dose of the covid vaccine. Client denies travel out of the [place] in the last 14 days. At this time, the client does not indicate any symptoms associated with coronavirus-19. Ebola Screen: Patient negative for fever greater than or equal to 101.5 degrees Fahrenheit, and additional compatible Ebola Virus Disease symptoms Patient denies exposure to infectious person. Patient denies travel to an Ebola-affected area in the 21 days before illness onset. No symptoms or risks identified at this time. Initial Sepsis Screen: Does the patient meet any 2 criteria? No. Patient's initial sepsis screen is negative. Does the patient have a suspected source of infection? No. Patient's initial sepsis screen is negative. Risk Assessment: Do you want to hurt yourself or someone else? Patient reports no desire to harm self or others. Onset of symptoms is unknown. 14:28 Method Of Arrival: Ambulatory ab2 14:28 Acuity: MILLER 3 ab2 Triage Assessment: 14:30 General: Appears in no apparent distress. uncomfortable, Behavior is cooperative. Pain: ab2 Complains of pain in chest Pain currently is 5 out of 10 on a pain scale. Cardiovascular: Reports chest pain, shortness of breath, Patient's skin is warm and dry. Chest pain. Historical: - Allergies: 14:29 No Known Allergies; ab2 - PMHx: 14:29 Hypertensive disorder; Myocardial infarction; ab2 - PSHx: 14:29 cardiac stents; ab2 - Immunization history:: Adult Immunizations up to date, Client reports receiving the 2nd dose of the Covid vaccine, Pneumococcal vaccine is up to date, Flu vaccine is up to date. - Social history:: Smoking status: Patient denies any tobacco usage or history of. - Family history:: not pertinent. Screenin:31 Abuse screen: Denies threats or abuse. Nutritional screening: No deficits noted. vg1 Tuberculosis screening: No symptoms or risk factors identified. Fall Risk No fall in past 12 months (0 pts). No secondary diagnosis (0 pts). IV access (20 points). Ambulatory Aid- None/Bed Rest/Nurse Assist (0 pts). Gait- Normal/Bed Rest/Wheelchair (0 pts) Mental Status- Oriented to own ability (0 pts). Total Ramos Fall Scale indicates No Risk (0-24 pts). Assessment: 14:31 General: Appears in no apparent distress. uncomfortable, Behavior is calm, cooperative. vg1 Pain: Complains of pain in chest Pain radiates to left arm Pain currently is 5 out of 10 on a pain scale. Quality of pain is described as heavy, pressure, Pain began 2-3 days ago. Neuro: Level of Consciousness is awake, alert, obeys commands, Oriented to person, place, time, situation. Cardiovascular: Patient's skin is warm and dry. Chest pain radiates to left arm(s) began x 2 days. Respiratory: Reports shortness of breath at rest Airway is patent Respiratory effort is even, unlabored. GI: Reports nausea, vomiting. : No signs and/or symptoms were reported regarding the genitourinary system. EENT: No signs and/or symptoms were reported regarding the EENT system. Derm: Skin is intact, is healthy with good turgor. Musculoskeletal: Circulation, motion, and sensation intact. 15:32 Reassessment: Patient appears in no apparent distress at this time. No changes from vg1 previously documented assessment. Patient and/or family updated on plan of care and expected duration. Pain level reassessed. Patient is alert, oriented x 3, equal unlabored respirations, skin warm/dry/pink. 16:30 Reassessment: Patient appears in no apparent distress at this time. No changes from vg1 previously documented assessment. Patient and/or family updated on plan of care and expected duration. Pain level reassessed. Patient is alert, oriented x 3, equal unlabored respirations, skin warm/dry/pink. 17:20 Reassessment: Patient appears in no apparent distress at this time. Patient and/or vg1 family updated on plan of care and expected duration. Pain level reassessed. Patient is alert, oriented x 3, equal unlabored respirations, skin warm/dry/pink. States pain 8/10. Provider notified. 18:30 Reassessment: Patient appears in no apparent distress at this time. Patient and/or vg1 family updated on plan of care and expected duration. Pain level reassessed. Patient is alert, oriented x 3, equal unlabored respirations, skin warm/dry/pink. states 'I feel better but i still feel a little bit of pressure in my chest' Patient states feeling better. 19:22 Reassessment: Patient and/or family updated on plan of care and expected duration. Pain vc1 level reassessed. Patient is alert, oriented x 3, equal unlabored respirations, skin warm/dry/pink. Patient states feeling better. General: Appears in no apparent distress. comfortable, Behavior is calm, cooperative, appropriate for age. GI: Patient currently denies nausea. Vital Signs: 14:28 BP 175 / 107; Pulse 75; Resp 20; Temp 97.5(TE); Pulse Ox 98% on R/A; Weight 83.91 kg; ab2 Height 5 ft. 5 in. (165.10 cm); Pain 5/10; 14:35 BP 163 / 90; Pulse 79; Resp 17; Pulse Ox 95% on R/A; vg1 14:40 BP 144 / 96; Pulse 77; Resp 15; Pulse Ox 96% ; vg1 14:45 BP 129 / 92; Pulse 81; Resp 16; Pulse Ox 98% on R/A; vg1 15:15 BP 137 / 78; Pulse 65; Resp 16; Pulse Ox 97% on R/A; vg1 16:00 BP 131 / 72; Pulse 57; Resp 18; Pulse Ox 97% on R/A; vg1 16:30 BP 130 / 79; Pulse 57; Resp 19; Pulse Ox 97% on R/A; vg1 17:30 BP 164 / 92; Pulse 60; Resp 14; Pulse Ox 96% on R/A; vg1 18:30 BP 139 / 86; Pulse 65; Resp 18; Pulse Ox 99% on R/A; vg1 19:22 BP 142 / 51; Pulse 57; Resp 18; Pulse Ox 97% ; Pain 3/10; vc1 14:28 Body Mass Index 30.79 (83.91 kg, 165.10 cm) ab2 ED Course: 14:17 Patient arrived in ED. mr 14:24 Rosi Chau, RN is Primary Nurse. vg1 14:29 Renée Williamson MD is Attending Physician. ma2 14:29 Triage completed. ab2 14:29 EKG done, by ED staff, reviewed by Renée Williamson MD. mb7 14:31 No provider procedures requiring assistance completed. Patient maintains SpO2 vg1 saturation greater than 95% on room air. 14:31 Arm band placed on left wrist. ab2 14:31 Patient has correct armband on for positive identification. Bed in low position. Call vg1 light in reach. Side rails up X 1. quality assurance monitor on. Pulse ox on. NIBP on. 15:04 XRAY Chest (1 view) In Process Unspecified. EDNV 16:10 Carlos Dunne is Hospitalizing Provider. ma2 19:24 Basic Metabolic Panel Sent. vc1 19:24 CBC with Diff Sent. vc1 20:03 Patient admitted, IV remains in place. vc1 Administered Medications: 14:36 Drug: Aspirin Chewable Tablet 324 mg Route: PO; vg1 15:33 Follow up: Response: No adverse reaction vg1 14:38 Drug: Nitroglycerin 0.4 mg Route: Sublingual; vg1 14:45 Drug: Nitroglycerin 0.4 mg Route: Sublingual; vg1 14:50 Follow up: Response: No adverse reaction; Pain is decreased vg1 17:32 Drug: Zofran (Ondansetron) 4 mg Route: IVP; Site: right antecubital; vg1 18:52 Follow up: Response: No adverse reaction vg1 17:34 Drug: morphine 4 mg Route: IVP; Site: right antecubital; vg1 18:52 Follow up: Response: No adverse reaction; Pain is decreased vg1 Outcome: 16:10 Decision to Hospitalize by Provider. ma2 20:02 Admitted to Med/surg accompanied by nurse, via wheelchair, room 212, with chart, Report vc1 called to receiving nurse on medsur 20:02 Condition: good 20:02 Instructed on the need for admit. 20:26 Patient left the ED. vc1 Signatures: Dispatcher [employer] [facility] Cindi Smiley Mohammad, MD MD ma2 Rosi Chau RN RN vg1 Cindi Fisher mb7 Celestino Davila2 Shayla Glasgow RN RN vc1 Corrections: (The following items were deleted from the chart) 15:34 15:33 Response: No adverse reaction; Pain is decreased vg1 vg1
--- NOTE | 2021-12-29 16:11 | EDPHYS ---
Physician Documentation [facility] Name: Eliud Stafford Age: 66 yrs Sex: Male : 1955 Arrival Date: 12/29/2021 Time: 14:17 Bed 5 Private MD: ED Physician Renée Williamson HPI: 12/29 14:38 This 66 yrs old Black Male presents to ER via Ambulatory with complaints of Chest Pain, ma2 Shortness Of Breath. 14:38 Onset: suddenly, 1 day(s) ago. Associated signs and symptoms: Pertinent negatives: ma2 diaphoresis, headache, lower extremity swelling, nausea, near syncope, vomiting. Severity of pain: At its worst the pain was moderate in the emergency department the pain is unchanged. The patient has not experienced similar symptoms in the past. Historical: - Allergies: 14:29 No Known Allergies; ab2 - PMHx: 14:29 Hypertensive disorder; Myocardial infarction; ab2 - PSHx: 14:29 cardiac stents; ab2 - Immunization history:: Adult Immunizations up to date, Client reports receiving the 2nd dose of the Covid vaccine, Pneumococcal vaccine is up to date, Flu vaccine is up to date. - Social history:: Smoking status: Patient denies any tobacco usage or history of. - Family history:: not pertinent. ROS: 14:38 Constitutional: Negative for fever, chills, and weight loss. ma2 14:38 All other systems are negative. Exam: 14:38 Constitutional: This is a well developed, well nourished patient who is awake, alert, ma2 and in no acute distress. Head/Face: Normocephalic, atraumatic. Eyes: Pupils equal round and reactive to light, extra-ocular motions intact. Lids and lashes normal. Conjunctiva and sclera are non-icteric and not injected. Cornea within normal limits. Periorbital areas with no swelling, redness, or edema. ENT: Nares patent. No nasal discharge, no septal abnormalities noted. Tympanic membranes are normal and external auditory canals are clear. Oropharynx with no redness, swelling, or masses, exudates, or evidence of obstruction, uvula midline. Mucous membranes moist. Neck: Trachea midline, no thyromegaly or masses palpated, and no cervical lymphadenopathy. Supple, full range of motion without nuchal rigidity, or vertebral point tenderness. No Meningismus. Chest/axilla: Normal chest wall appearance and motion. Nontender with no deformity. No lesions are appreciated. Cardiovascular: Regular rate and rhythm with a normal S1 and S2. No gallops, murmurs, or rubs. Normal PMI, no JVD. No pulse deficits. Respiratory: Lungs have equal breath sounds bilaterally, clear to auscultation and percussion. No rales, rhonchi or wheezes noted. No increased work of breathing, no retractions or nasal flaring. Abdomen/GI: Soft, non-tender, with normal bowel sounds. No distension or tympany. No guarding or rebound. No evidence of tenderness throughout. Skin: Warm, dry with normal turgor. Normal color with no rashes, no lesions, and no evidence of cellulitis. MS/ Extremity: Pulses equal, no cyanosis. Neurovascular intact. Full, normal range of motion. Neuro: Awake and alert, GCS 15, oriented to person, place, time, and situation. Cranial nerves II-XII grossly intact. Motor strength 5/5 in all extremities. Sensory grossly intact. Cerebellar exam normal. Normal gait. Psych: Awake, alert, with orientation to person, place and time. Behavior, mood, and affect are within normal limits. Vital Signs: 14:28 BP 175 / 107; Pulse 75; Resp 20; Temp 97.5(TE); Pulse Ox 98% on R/A; Weight 83.91 kg; ab2 Height 5 ft. 5 in. (165.10 cm); Pain 5/10; 14:35 BP 163 / 90; Pulse 79; Resp 17; Pulse Ox 95% on R/A; vg1 14:40 BP 144 / 96; Pulse 77; Resp 15; Pulse Ox 96% ; vg1 14:45 BP 129 / 92; Pulse 81; Resp 16; Pulse Ox 98% on R/A; vg1 15:15 BP 137 / 78; Pulse 65; Resp 16; Pulse Ox 97% on R/A; vg1 16:00 BP 131 / 72; Pulse 57; Resp 18; Pulse Ox 97% on R/A; vg1 16:30 BP 130 / 79; Pulse 57; Resp 19; Pulse Ox 97% on R/A; vg1 17:30 BP 164 / 92; Pulse 60; Resp 14; Pulse Ox 96% on R/A; vg1 18:30 BP 139 / 86; Pulse 65; Resp 18; Pulse Ox 99% on R/A; vg1 19:22 BP 142 / 51; Pulse 57; Resp 18; Pulse Ox 97% ; Pain 3/10; vc1 14:28 Body Mass Index 30.79 (83.91 kg, 165.10 cm) ab2 MDM: 14:29 Patient medically screened. ma2 16:09 Differential diagnosis: abnormal EKG, anxiety, coronary artery disease stable angina. ma2 Data reviewed: vital signs, nurses notes, EMS record. Counseling: I had a detailed discussion with the patient and/or guardian regarding: the historical points, exam findings, and any diagnostic results supporting the discharge/admit diagnosis, the presence of at least one elevated blood pressure reading (>120/80) during this emergency department visit, the need for further work-up and treatment in the hospital. 16:10 ED course: I discussed with Dr. carmichael at 410, he advised to discuss with Dr. Thomas payne hand splitter as well. Paged Dr. Ray at 4:11 PM. 18:33 Counseling: I had a detailed discussion with the patient and/or guardian regarding: ma2 Discussed with Dr[address] Almaguer hand splitter and he will see the patient. 12/29 14:31 Order name: Basic Metabolic Panel [facility] 12/29 14:31 Order name: CBC with Diff [facility] 12/29 14:31 Order name: LFT's; Complete Time: 15:33 [facility] 12/29 14:31 Order name: Magnesium; Complete Time: 15:33 [facility] 12/29 14:31 Order name: NT PRO-BNP; Complete Time: 15:33 [facility] 12/29 14:31 Order name: PT-INR; Complete Time: 15:33 [facility] 12/29 14:31 Order name: Troponin HS; Complete Time: 15:33 [facility] 12/29 14:31 Order name: XRAY Chest (1 view); Complete Time: 15:33 [facility] 12/29 14:32 Order name: Basic Metabolic Panel; Complete Time: 15:33 [facility] 12/29 14:32 Order name: CBC with Automated Diff; Complete Time: 15:33 [facility] 12/29 16:31 Order name: COVID-19 SARS RT PCR (Document "Date of Onset" if Symptomatic) vg1 12/29 14:31 Order name: EKG; Complete Time: 14:32 [facility] 12/29 14:31 Order name: Cardiac monitoring; Complete Time: 14:34 [facility] 12/29 14:31 Order name: EKG - Nurse/Tech; Complete Time: 14:34 [facility] 12/29 14:31 Order name: IV Saline Lock; Complete Time: 14:39 [facility] 12/29 14:31 Order name: Labs collected and sent; Complete Time: 14:39 [facility] 12/29 14:31 Order name: O2 Per Protocol; Complete Time: 14:34 [facility] 12/29 14:31 Order name: O2 Sat Monitoring; Complete Time: 14:34 ma2 Administered Medications: 14:36 Drug: Aspirin Chewable Tablet 324 mg Route: PO; vg1 15:33 Follow up: Response: No adverse reaction vg1 14:38 Drug: Nitroglycerin 0.4 mg Route: Sublingual; vg1 14:45 Drug: Nitroglycerin 0.4 mg Route: Sublingual; vg1 14:50 Follow up: Response: No adverse reaction; Pain is decreased vg1 17:32 Drug: Zofran (Ondansetron) 4 mg Route: IVP; Site: right antecubital; vg1 18:52 Follow up: Response: No adverse reaction vg1 17:34 Drug: morphine 4 mg Route: IVP; Site: right antecubital; vg1 18:52 Follow up: Response: No adverse reaction; Pain is decreased vg1 Disposition Summary: 12/29/21 16:10 Hospitalization Ordered Hospitalization Status: Observation ak2 Provider: Carlos Dunne Location: Telemetry/MedSurg (observation) ma2 Condition: Stable ma2 Problem: new ma2 Symptoms: are unchanged ma2 Bed/Room Type: Standard [facility] Room Assignment: 212(12/29/21 19:51) Diagnosis - Chest pain, unspecified ma2 Forms: - Medication Reconciliation Form ma2 - SBAR form [facility] Signatures: Dispatcher [employer] EDMS Lakia Lomeli RN RN mw Smirch, Shelby, RN RN ss Alzahri, Mohammad, MD MD ak2 Rosi Chau RN RN 1 Celestino Davila2 Corrections: (The following items were deleted from the chart) 19:29 16:10 ma2 mw 19:51 19:29 216 mw mw
[2021-12-29] MEDS ORDERED: MORPHINE 4 MG/ML SYR ONE (17:35)
[2021-12-29] MEDS ORDERED: ONDANSETRON 4 MG/2 ML VIAL ONE (17:35)
--- NOTE | 2021-12-29 20:22 | P.HP ---
Certification for Inpatient Patient admitted to: Inpatient With expected LOS: >2 Midnights Patient will require the following post-hospital care: None Practitioner: I am a practitioner with admitting privileges, knowledge of patient current condition, hospital course, and medical plan of care. Services: Services provided to patient in accordance with Admission requirements found in Title 42 Section 412.3 of the Code of Federal Regulations Patient History Date of Service: 12/29/21 Primary Care Provider: Dr. Raza Reason for admission: Chest Pain History of Present Illness: Patient is a 66-year-old black male with history of 3 MIs s/p stent and balloon angioplasty, hypertension, hyperlipidemia who presented to the ED with chest pain today. He was discharged from the hospital yesterday with plan to insert stent on an outpatient basis next Saturday. However patient was experiencing continued chest pain nausea, vomiting, diaphoresis, and left arm pain. EKG negative. Patient's high-sensitivity troponin was 22.9 in the ED and other labs unremarkable. CXR negative for acute cardiopulmonary disease. ED provider spoke with Dr. Rios who wishes to admit patient to monitor and control patient's pain and insert stent on Saturday. Allergies No Known Allergies Allergy (Verified 08/18/21 07:33) Home medications list reviewed: Yes Home Medications: Atorvastatin Calcium [Lipitor] 80 mg PO BEDTIME 09/19/20 Clopidogrel Bisulfate [Plavix*] 75 mg PO DAILY 09/19/20 Valsartan [Diovan] 2 tab PO DAILY 09/19/20 Nitroglycerin [Nitrostat*] 0.4 mg SL UD PRN #30 tab 05/16/21 Aspirin [Aspirin EC 81 MG] 81 mg PO DAILY 08/14/21 hydroCHLOROthiazide [Hydrochlorothiazide*] 12.5 mg PO DAILY 08/14/21 Nicotine Polacrilex [Nicorette] 4 mg PO 12/28/21 carvediloL [Coreg] 12.5 mg PO BID #60 tab 12/28/21 - Past Medical/Surgical History Diabetic: No -: Hypertension -: GERD with hiatal hernia -: Hyperlipidemia -: CAD with prior stents -: Chronic back pain -: Umbilical hernia repair Psychosocial/ Personal History: Patient lives at home alone. He currently works. - Social History Smoking Status: Former smoker Alcohol use: No CD- Drugs: No Caffeine use: Yes Place of Residence: Home Review of Systems General: Sweats, As per HPI Cardiovascular: Chest Pain Gastrointestinal: Nausea, Vomiting Musculoskeletal: Arm Pain Physical Examination - Physical Exam General: Alert, In no apparent distress HEENT: Atraumatic, PERRLA, Mucous membr. moist/pink, EOMI, Sclerae nonicteric Neck: Supple, 2+ carotid pulse no bruit, No LAD, Without JVD or thyroid abnormality Respiratory: Clear to auscultation bilaterally, Normal air movement Cardiovascular: Regular rate/rhythm, Normal S1 S2 Gastrointestinal: Normal bowel sounds, No tenderness Musculoskeletal: No tenderness Integumentary: No rashes Neurological: Normal speech, Normal strength at 5/5 x4 extr, Normal tone, Normal affect Lymphatics: No axilla or inguinal lymphadenopathy - Studies Laboratory Data (last 24 hrs) 12/29/21 14:38: PT 11.8, INR 1.03 12/29/21 14:38: WBC 6.60, Hgb 14.7, Hct 44.1, Plt Count 309 12/29/21 14:38: Sodium 137, Potassium 3.9, BUN 18, Creatinine 1.42 H, Glucose 93, Magnesium 2.3, Total Bilirubin 0.4, AST 31, ALT 59, Alkaline Phosphatase 79 Assessment and Plan - Problems (Diagnosis) (1) Chest pain Current Visit: Yes Status: Acute Qualifiers: Chest pain type: chest pain due to myocardial ischemia Ischemic chest pain type: unspecified angina pectoris type Qualified Code(s): I25.9 - Chronic ischemic heart disease, unspecified (2) Coronary disease Current Visit: Yes Status: Chronic Qualifiers: Coronary Disease-Associated Artery/Lesion type: unspecified vessel or lesion type [place] vs. transplanted heart: [place] heart Associated angina: with other forms of angina Qualified Code(s): I25.118 - Atherosclerotic heart disease of [place] coronary artery with other forms of angina pectoris (3) H/O heart artery stent Current Visit: Yes Status: Chronic (4) Hypertension Current Visit: Yes Status: Chronic Qualifiers: Hypertension type: primary hypertension Qualified Code(s): I10 - Essential (primary) hypertension - Plan -Patient will be admitted and monitored on telemetry -Morphine as needed pain and Zofran as needed nausea -Dr. Rios consulted. Will transfer patient if he requires stents sooner than Saturday DVT PPx: Lovenox Code: Full Discharge Plan: Home Plan to discharge in: Greater than 2 days - Advance Directives Does patient have a Living Will: No Does patient have a Durable POA for Healthcare: No - Code Status/Comfort Care Code Status Assessed: Yes (Full) Critical Care: No Time Spent Managing Pts Care (In Minutes): 70
[2021-12-29] MEDS ORDERED: ACETAMINOPHEN 500 MG TAB PO PRN (21:12)
[2021-12-29] MEDS ORDERED: ONDANSETRON 4 MG/2 ML VIAL IV PRN (21:12)
[2021-12-29 21:40] VITALS: BMI 30.7
[2021-12-29 22:08] LABS: CKMB Creatine Kinase MB 1.5 ng/mL (1.0-3.6)
[2021-12-29] MEDS ORDERED: NITROGLYCERIN 0.4 MG/TAB SL PRN (22:09)
[2021-12-29] MEDS: ATORVASTATIN 80 MG TAB PO SCH (22:35)
[2021-12-29] MEDS: carvediloL 12.5 MG TAB PO SCH (22:35)
[2021-12-29 23:56] LABS: Urine Appearance CLEAR (Clear); Urine Bilirubin NEGATIVE (Negative); Urine Blood NEGATIVE (Negative); Urine Color YELLOW (Yellow); Urine Glucose NEGATIVE (Negative); Urine Protein NEGATIVE (Negative); Urine Urobilinogen 0.2 mg/dL (0.2-1.0)
[2021-12-29 23:58] LABS: Urine Microscopic Reflex NO UMIC
[2021-12-30 03:51] LABS: Absolute Lymphocytes (CBC) 1.9 K/uL (0.7-4.9); Hematocrit 39.6 % (39.6-49.0); Lymphocytes % 38.5 % (15.3-44.8); MPV 8.4 fL (7.6-11.3); RBC Red Blood Cell Count 4.17 M/uL (4.33-5.43)
[2021-12-30 04:04] LABS: Albumin 3.2 g/dL (3.4-5.0); Bilirubin Total 0.3 mg/dL (0.2-1.0); Potassium 3.6 mmol/L (3.5-5.1); Protein, Total 6.6 g/dL (6.4-8.2)
[2021-12-30] MEDS: MORPHINE 4 MG/ML SYR IV PRN ×4 (08:42→21:42)
[2021-12-30] MEDS: CLOPIDOGREL 75 MG TABLET PO SCH (08:43)
[2021-12-30] MEDS: ENOXAPARIN 40 MG/0.4 ML SQ SCH (08:43)
[2021-12-30] MEDS: ASPIRIN EC 81 MG TAB PO SCH (08:43)
[2021-12-30] MEDS: carvediloL 12.5 MG TAB PO SCH ×2 (08:44→20:07)
[2021-12-30] MEDS: VALSARTAN 160 MG TAB PO SCH (08:44)
[2021-12-30] MEDS: hydroCHLOROthiazide 12.5 MG CAP PO SCH (08:45)
--- NOTE | 2021-12-30 13:39 | P.PN ---
Subjective Date of Service: 12/30/21 Primary Care Provider: Dr. Raza Chief Complaint: Chest Pain Patient reports feeling better today. No chest pain this morning. He has been experiencing intermittent chest pain. Physical Examination - Vital Signs Temperature: 97.4 F Blood Pressure: 118/71 Pulse: 62 Respirations: 18 Pulse Ox (%): 96 - Studies Laboratory Data (last 24 hrs) 12/29/21 14:38: PT 11.8, INR 1.03 12/29/21 14:38: WBC 6.60, Hgb 14.7, Hct 44.1, Plt Count 309 12/29/21 14:38: Sodium 137, Potassium 3.9, BUN 18, Creatinine 1.42 H, Glucose 93, Magnesium 2.3, Total Bilirubin 0.4, AST 31, ALT 59, Alkaline Phosphatase 79 Assessment And Plan - Current Problems (Diagnosis) (1) Chest pain Current Visit: Yes Status: Acute Qualifiers: Chest pain type: chest pain due to myocardial ischemia Ischemic chest pain type: unspecified angina pectoris type Qualified Code(s): I25.9 - Chronic ischemic heart disease, unspecified (2) Coronary disease Current Visit: Yes Status: Chronic Qualifiers: Coronary Disease-Associated Artery/Lesion type: unspecified vessel or lesion type [place] vs. transplanted heart: [place] heart Associated angina: with other forms of angina Qualified Code(s): I25.118 - Atherosclerotic heart disease of [place] coronary artery with other forms of angina pectoris (3) H/O heart artery stent Current Visit: Yes Status: Chronic (4) Hypertension Current Visit: Yes Status: Chronic Qualifiers: Hypertension type: primary hypertension Qualified Code(s): I10 - Essential (primary) hypertension - Plan Physical Exam General: Alert, In no apparent distress HEENT: Atraumatic, PERRLA, Mucous membr. moist/pink, EOMI, Sclerae nonicteric Neck: Supple, 2+ carotid pulse no bruit, No LAD, Without JVD or thyroid abnormality Respiratory: Clear to auscultation bilaterally, Normal air movement Cardiovascular: Regular rate/rhythm, Normal S1 S2 Gastrointestinal: Normal bowel sounds, No tenderness Musculoskeletal: No tenderness Integumentary: No rashes Neurological: Normal speech, Normal strength at 5/5 x4 extr, Normal tone, Normal affect Lymphatics: No axilla or inguinal lymphadenopathy Plan: Troponin trended negative. Patient with intermittent chest pain. Cardiology consult. Patient was planned for cardiac catheterization on Saturday. NTG and morphine as needed for intermittent chest. Continue aspirin, Plavix, Coreg and statin. Continue valsartan for hypertension.
[2021-12-30] MEDS: ATORVASTATIN 80 MG TAB PO SCH (20:06)
[2021-12-31] MEDS: MORPHINE 4 MG/ML SYR IV PRN ×4 (03:37→21:41)
[2021-12-31 03:49] LABS: Absolute Lymphocytes (CBC) 1.7 K/uL (0.7-4.9); Hematocrit 39.9 % (39.6-49.0); Lymphocytes % 29.2 % (15.3-44.8); MPV 8.3 fL (7.6-11.3); RBC Red Blood Cell Count 4.24 M/uL (4.33-5.43)
[2021-12-31 04:11] LABS: Albumin 3.2 g/dL (3.4-5.0); Bilirubin Total 0.3 mg/dL (0.2-1.0); Protein, Total 6.9 g/dL (6.4-8.2)
[2021-12-31] MEDS: carvediloL 12.5 MG TAB PO SCH ×2 (08:48→21:40)
[2021-12-31] MEDS: ASPIRIN EC 81 MG TAB PO SCH (08:51)
[2021-12-31] MEDS: CLOPIDOGREL 75 MG TABLET PO SCH (08:52)
[2021-12-31] MEDS: hydroCHLOROthiazide 12.5 MG CAP PO SCH (08:52)
[2021-12-31] MEDS: VALSARTAN 160 MG TAB PO SCH (08:53)
[2021-12-31] MEDS: ENOXAPARIN 40 MG/0.4 ML SQ SCH (08:54)
[2021-12-31] MEDS: POLYETHYL GLY 3350 17 GM/DOSE PO SCH ×2 (12:35→21:40)
[2021-12-31] MEDS: SENOSIDES 8.6 MG TAB PO SCH ×2 (12:35→21:40)
--- NOTE | 2021-12-31 15:07 | P.PN ---
Subjective Date of Service: 12/31/21 Primary Care Provider: Dr. Raza Chief Complaint: Chest Pain Patient reports intermittent chest pain He also reports constipation. Physical Examination - Vital Signs Temperature: 97.8 F Blood Pressure: 114/73 Pulse: 64 Respirations: 14 Pulse Ox (%): 98 Assessment And Plan - Current Problems (Diagnosis) (1) Chest pain Current Visit: Yes Status: Acute Qualifiers: Chest pain type: chest pain due to myocardial ischemia Ischemic chest pain type: unspecified angina pectoris type Qualified Code(s): I25.9 - Chronic ischemic heart disease, unspecified (2) Coronary disease Current Visit: Yes Status: Chronic Qualifiers: Coronary Disease-Associated Artery/Lesion type: unspecified vessel or lesion type [place] vs. transplanted heart: [place] heart Associated angina: with other forms of angina Qualified Code(s): I25.118 - Atherosclerotic heart disease of [place] coronary artery with other forms of angina pectoris (3) H/O heart artery stent Current Visit: Yes Status: Chronic (4) Hypertension Current Visit: Yes Status: Chronic Qualifiers: Hypertension type: primary hypertension Qualified Code(s): I10 - Essential (primary) hypertension (5) Functional constipation Current Visit: Yes Status: Acute - Plan Physical Exam General: Alert, In no apparent distress HEENT: Mucous membr. moist/pink, Neck: Supple, No LAD, Without JVD or thyroid abnormality Respiratory: Clear to auscultation bilaterally, Normal air movement Cardiovascular: Regular rate/rhythm, Normal S1 S2 Gastrointestinal: Normal bowel sounds, No tenderness Musculoskeletal: No tenderness Integumentary: No rashes Neurological: Normal speech, Normal strength at 5/5 x4 extr, Normal tone, Normal affect Plan: Troponin trended negative. Patient with intermittent chest pain. Cardiology consult. Patient was planned for cardiac catheterization on Saturday. NTG and morphine as needed for intermittent chest. Continue aspirin, Plavix, Coreg and statin. Continue valsartan for hypertension. Dr. Rios seen patient and planning cardiac catheterization tomorrow. Senna and MiraLAX for constipation.
[2021-12-31] MEDS: ATORVASTATIN 80 MG TAB PO SCH (21:40)
[2022-01-01 05:56] LABS: Absolute Lymphocytes (CBC) 1.9 K/uL (0.7-4.9); Hematocrit 38.3 % (39.6-49.0); Lymphocytes % 37.5 % (15.3-44.8); MPV 8.1 fL (7.6-11.3); RBC Red Blood Cell Count 4.05 M/uL (4.33-5.43)
[2022-01-01] MEDS: MORPHINE 4 MG/ML SYR IV PRN ×2 (06:00→11:39)
[2022-01-01] MEDS: CLOPIDOGREL 75 MG TABLET PO SCH (06:00)
[2022-01-01] MEDS: ASPIRIN EC 81 MG TAB PO SCH (06:00)
[2022-01-01] MEDS: carvediloL 12.5 MG TAB PO SCH (06:01)
[2022-01-01 06:18] LABS: Albumin 3.1 g/dL (3.4-5.0); Bilirubin Total 0.3 mg/dL (0.2-1.0); Potassium 3.8 mmol/L (3.5-5.1); Protein, Total 6.7 g/dL (6.4-8.2)
[2022-01-01] MEDS ORDERED: NA CHLORIDE 0.9% 500 ML ONE (07:16)
--- NOTE | 2022-01-01 08:53 | EKG ---
Test Date: 2021-12-29 Test Time: 14:26:34 Rn Provider Relations: RUSLAN MEASUREMENT RESULTS: Intervals: Rate: 74 KS: 154 QRSD: 92 QT: 390 QTc: 432 [place]: P: 54 KS: 154 QRS: -35 T: -32 INTERPRETIVE STATEMENTS: Normal sinus rhythm Left axis deviation Moderate voltage criteria for LVH, may be normal variant Nonspecific T wave abnormality Abnormal ECG Compared to ECG 12/27/2021 12:04:31 Ventricular premature complex(es) no longer present Possible ischemia no longer present T-wave abnormality still present Electronically Signed On 01-01-22 08:48:07 TEST DATA DEVELOPER by Judson Mosley
[2022-01-01] MEDS: POLYETHYL GLY 3350 17 GM/DOSE PO SCH (09:00)
[2022-01-01] MEDS: hydroCHLOROthiazide 12.5 MG CAP PO SCH (09:00)
[2022-01-01] MEDS: SENOSIDES 8.6 MG TAB PO SCH (09:00)
[2022-01-01] MEDS: VALSARTAN 160 MG TAB PO SCH (09:00)
[2022-01-01] MEDS ORDERED: ATROPINE SULF 1 MG/10 ML SYR IV ONE (09:16)
[2022-01-01] MEDS ORDERED: MIDAZOLAM HCL 2 MG/2 ML INJ ONE ×2 (09:16→09:18)
[2022-01-01] MEDS ORDERED: NITROGLYCERIN 100 MCG/ML SYR (for cath lab use only) IV ONE (09:16)
[2022-01-01] MEDS ORDERED: FENTANYL CITR 100 MCG/2 ML ONE (09:16)
[2022-01-01] MEDS ORDERED: NA CHLORIDE 0.9% 0 ML ONE (09:17)
[2022-01-01] MEDS ORDERED: NITROGLYCERIN/D5W 0 MG/0 ML BTL IV ONE (09:17)
[2022-01-01] MEDS ORDERED: HEPA 1000U/500MLS 1,000 UNIT/500 ML BAG IV ONE (09:19)
[2022-01-01 10:54] VITALS: O2SAT 95
--- NOTE | 2022-01-01 11:06 | P.DS ---
Admission Date: 12/29/21 Discharge Date: 01/01/22 Primary Care Provider: Dr. Raza Disposition: ROUTINE DISCHARGE Discharge Condition: FAIR Reason for Admission: Chest Pain - Problems (1) Chest pain Status: Acute Qualifiers: Chest pain type: chest pain due to myocardial ischemia Ischemic chest pain type: unspecified angina pectoris type Qualified Code(s): I25.9 - Chronic ischemic heart disease, unspecified (2) Coronary disease Status: Chronic Qualifiers: Coronary Disease-Associated Artery/Lesion type: unspecified vessel or lesion type [place] vs. 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 He was discharged from the hospital the day before with plans for another cardiac cath and possible stent placement on SaturdayJanuary 02, however chris fisher was experiencing continued chest pain nausea, vomiting, diaphoresis, and left arm pain and therefore presented to the ED. EKG showed no ischemic changes. Patient's high-sensitivity troponin was 22.9 in the ED and other labs unremarkable. CXR negative for acute cardiopulmonary disease. ED provider spoke with Dr. Rios who recommended admission for further management. Hospital Course: Patient admitted to the medical floor and given treatment for angina with beta- blockers, dual antiplatelet therapy and pain medications. He continued to experience intermittent chest pain. Troponin trended negative. Patient seen by cardiology and cardiac cath performed which revealed multiple patent cardiac stent, and another vessel occlusion which was not stented. Dr. Mosley recommended medical management. Imdur added to his medications. Patient deemed stable for discharge. Vital Signs/Physical Exam: Temp Pulse Resp BP Pulse Ox 98.4 F 16 L 58 H 119/65 96 01/01/22 11:05 01/01/22 11:05 01/01/22 11:05 01/01/22 11:05 01/01/22 06:00 General: Alert, In no apparent distress, Oriented x3 Neck: JVD not distended Respiratory: Clear to auscultation bilaterally, Normal air movement Cardiovascular: No edema, Regular rate/rhythm, Normal S1 S2 Gastrointestinal: Normal bowel sounds, Soft and benign, Non-distended Musculoskeletal: No swelling, No tenderness Integumentary: No rashes, No erythema Neurological: Normal strength at 5/5 x4 extr Laboratory Data at Discharge: WBC 5.00 K/uL (4.3-10.9) D 01/01/22 05:21 Hgb 12.8 g/dL (13.6-17.9) L 01/01/22 05:21 Hct 38.3 % (39.6-49.0) L 01/01/22 05:21 Plt Count 259 K/uL (152-406) 01/01/22 05:21 PT 11.8 SECONDS (9.5-12.5) 12/29/21 14:38 INR 1.03 12/29/21 14:38 Sodium 137 mmol/L (136-145) 01/01/22 05:21 Potassium 3.8 mmol/L (3.5-5.1) 01/01/22 05:21 BUN 18 mg/dL (7-18) 01/01/22 05:21 Creatinine 1.19 mg/dL (0.55-1.3) 01/01/22 05:21 Glucose 103 mg/dL (74-106) 01/01/22 05:21 Magnesium 2.3 mg/dL (1.8-2.4) 12/29/21 14:38 Total Bilirubin 0.3 mg/dL (0.2-1.0) 01/01/22 05:21 AST 24 U/L (15-37) 01/01/22 05:21 ALT 53 U/L (12-78) 01/01/22 05:21 Alkaline Phosphatase 66 U/L (45-117) 01/01/22 05:21 Triglycerides 83 mg/dL (<150) 12/30/21 03:35 Cholesterol 138 mg/dL (<200) 12/30/21 03:35 HDL Cholesterol 47 mg/dL (40-60) 12/30/21 03:35 Cholesterol/HDL Ratio 2.94 12/30/21 03:35 Home Medications: Atorvastatin Calcium [Lipitor] 80 mg PO BEDTIME 09/19/20 Clopidogrel Bisulfate [Plavix*] 75 mg PO DAILY 09/19/20 Valsartan [Diovan] 2 tab PO DAILY 09/19/20 Nitroglycerin [Nitrostat*] 0.4 mg SL UD PRN #30 tab 05/16/21 Aspirin [Aspirin EC 81 MG] 81 mg PO DAILY 08/14/21 hydroCHLOROthiazide [Hydrochlorothiazide*] 12.5 mg PO DAILY 08/14/21 Nicotine Polacrilex [Nicorette] 4 mg PO PRN 12/28/21 carvediloL [Coreg*] 12.5 mg PO BID #60 tab 12/28/21 Isosorbide Dinitrate 30 mg PO DAILY #30 tablet 01/01/22 Senosides [Senokot*] 17.2 mg PO BID #60 tab 01/01/22 New Medications: Isosorbide Dinitrate 30 mg PO DAILY #30 tablet Senosides [Senokot*] 17.2 mg PO BID #60 tab Diet: AHA Activity: Ad farnaz Followup: OSCAR KELLY [OUTSIDE PHYSICIAN] - (Call office to schedule appointment. ) Time spent managing pt's care (in minutes): 35
--- NOTE | 2022-01-01 12:17 | OP ---
Surgeon: Judson Mosley MD Replanting Machine Crew: Ms. Adiel Vargas. After the Angio-Seal, the patient needs to be at bedrest for 2 hours after which he can go home and I will see him in the office in the next 2 weeks. I will discuss the case further with Dr. Dunne. Indication: The patient admitted over the weekend with unstable angina. He is 66 years old. Admitt ed to Dr. Dunne. He has a history of coronary artery disease, brought to the laboratory aide today as an i npatient. He underwent a left heart catheterization, selective coronary arteriogram. Procedure In Detail: He was prepped and draped in routine sterile fashion. Given Versed and fentany l for sedation. A 6-[place] sheath introduced in the right common femoral artery successfully using t he Seldinger technique and 10 cc of Xylocaine. Angiography there was normal. Angio-Seal was used to close the case. Daniel catheters 6-[place] left and right were used to cannulate the left main and right main respectively. His RCA had stents from the proximal all the way to the distal RCA with abo ut 40% in-stent restenosis in the mid RCA. Left main was normal. The LAD was normal and had a proxi mal LAD stent across the first diagonal. The first diagonal had an 80% ostial lesion. The circumfle x itself was normal. There was an OM lesion 50%, which was ostial. The patient tolerated the proced ure well. There were no complications. Anesthesia: Total conscious sedation was 45 minutes. Blood Loss: 5 mL. Postoperative Diagnosis: Severe coronary artery disease. Plan: Plan is for medical therapy. The patient is on statin, Plavix, and aspirin. I will recommend that we increase his carvedilol to 25 mg b.i.d., consider Imdur or Ranexa down the road. MIKE/LUIGIL Voice ID: [id number] Report ID: [id number]
[2022-01-01 12:32] VITALS: BP 135/82; TEMP 97.6
--- NOTE | 2022-01-01 21:23 | CON ---
Date of Consultation: 12/30/2021 Reason For Consultation: Chest pain. History Of Present Illness: A 66-year-old male with history of SC in the past and multiple stents, h istory of hypertension, dyslipidemia, presented to the emergency room with chest pain with minimal ex ertion moving from room to room. Denies having any nausea, vomiting, or diarrhea. Chest pain goes a way at rest. Past Medical History: As outlined above in the HPI. Medications: Refer to reconciliation sheet for detailed list. Allergies: NO KNOWN DRUG ALLERGIES. Family History: No mention of coronary artery disease or cancer. Social History: Does not drink or use any drugs. Review of Systems: All systems reviewed and they were negative except for mentioned in HPI. Physical Examination: Vital Signs: Reviewed. Head and Neck: Pupils are equal and reactive to light. Intact eye movements. No JVD. No cervical lymphadenopathy. Neck is supple. Thyroid is not enlarged. Lungs: Clear to auscultation bilaterally. No rhonchi, rales, or crackles. No accessory muscle use. Heart: Regular rate and rhythm. No extra sounds. Abdomen: Soft, nontender. Bowel sounds positive. No organomegaly. No masses or hernia. No rigidi ty or rebound. Extremities: No clubbing or cyanosis. Intact pulses. Skin: No rashes. Neurologic: Alert, awake, oriented x3. No acute focal deficits appreciated. Lymph Nodes: No cervical or axillary lymphadenopathy. Investigations: Labs were reviewed. All troponins are negative. Assessment And Recommendations: Chest pain, more frequent and recurrent, could be a resumpting unsta ble angina. I recommend to keep the patient in the hospital over the weekend and plan for coronary a ngiogram on Saturday, make sure the patient was on aspirin, use nitrates and morphine for pain control, and up-titrate beta-dane, and I will follow the patient with you. Thank you for the consult. /MALENA Voice ID: [id number] Report ID: [id number]
== END 2022-01-01 13:40 | disposition home or self-care (01) | DRG 287 ==
LOC: ER 14:16 → ERHOLD 18:55 → 2ND 20:05
PROVIDERS: ADMIT Internal Medicine; ATTEND Internal Medicine
PROC: 4A023N7 Measurement of Cardiac Sampling and Pressure, Left Heart, Percutaneous Approach (ICD-10-PCS; principal; 2022-01-01)
PROC: B2111ZZ Fluoroscopy of Multiple Coronary Arteries using Low Osmolar Contrast (ICD-10-PCS; 2022-01-01)
DX: I25.118 Atherosclerotic heart disease of native coronary artery with other forms of angina pectoris (principal); I10 Essential (primary) hypertension; E78.5 Hyperlipidemia, unspecified; K21.9 Gastro-esophageal reflux disease without esophagitis; K59.04 Chronic idiopathic constipation; I25.9 Chronic ischemic heart disease, unspecified; I25.2 Old myocardial infarction; Z60.2 Problems related to living alone; Z95.5 Presence of coronary angioplasty implant and graft; Z79.02 Long term (current) use of antithrombotics/antiplatelets; Z79.82 Long term (current) use of aspirin; Z79.899 Other long term (current) drug therapy; Z87.891 Personal history of nicotine dependence; Z20.822 Contact with and (suspected) exposure to COVID-19
CPT/HCPCS: 36415; 71045; 80048; 80053; 80061; 80076; 81003; 82550; 82553; 83735; 83880; 84484; 85025; 85610; 93005; 93306; 93454; 96374; 96375; 99285; C1760; C1893; G0378; J0583; J1644; J1650; J2250; J2405; J3010; J7040; U0003